=== PATIENT | female | born 1930 | race Caucasian/White ===

== ENCOUNTER → 2017-02-14 | Outpatient (CLI) | payer MEDICARE ==
--- NOTE | 2017-02-15 11:20 | ECHOF ---
Referral Reason:R06.02 Shortness of breath MEASUREMENTS -------- HEIGHT: 154.9 cm WEIGHT: 59.0 kg BP: 194/81 RVIDd: 3.8 cm (< 3.3) IVSd: 1.4 cm (0.6 - 1.1) LVIDd: 4.0 cm (3.9 - 5.3) LVPWd: 1.4 cm (0.6 - 1.1) IVSs: 2.1 cm LVIDs: 3.1 cm LVPWs: 2.2 cm LAESV Index (A-L): 24.44 ml/m Ao Diam: 3.4 cm (2.0 - 3.7) AV Cusp: 1.2 cm (1.5 - 2.6) LA Diam: 3.0 cm (2.7 - 3.8) MV EXCURSION: 13.883 mm (> 18.000) MV EF SLOPE: 75 mm/s (70 - 150) EPSS: 1.1 cm MV E Pierre: 0.61 m/s MV DecT: 234 ms MV A Pierre: 1.21 m/s MV E/A Ratio: 0.50 AR PHT: 1180 ms RAP: 5.00 mmHg RVSP: 43.00 mmHg FINDINGS -------- Resting bradycardia (HR<60bpm). This was a technically adequate study. There is moderate concentric left ventricular hypertrophy. Overall left ventricular systolic function is mildly impaired with, an EF between 45 - 50 %. The diastolic filling pattern is normal for the age of the patient 15.39. The right ventricle is normal in size and function. Normal LA size by volume 22+/-6 ml/m2. RA appears enlarged. Aortic valve is trileaflet and is mildly thickened. Trace to mild aortic regurgitation. The aortic pressure half-time by doppler is 1180ms. There is no evidence of aortic stenosis. The mitral valve leaflets are mildly thickened. Moderate mitral annular calcification present. There is trace to mild mitral regurgitation. Mild tricuspid regurgitation present. There is mild pulmonary hypertension. The right ventricular systolic pressure, as measured by Doppler, is 43.00mmHg. The pulmonic valve was not well visualized. The aortic root size is normal. Normal inferior vena cava with normal inspiratory collapse consistent with estimated right atrial pressure of 5 mmHg. The pericardium is normal. There is no pericardial effusion. CONCLUSIONS -------- 1. Resting bradycardia (HR<60bpm). 2. The aortic pressure half-time by doppler is 1180ms. 3. The mitral valve leaflets are mildly thickened. 4. Moderate mitral annular calcification present. 5. There is trace to mild mitral regurgitation. 6. Mild tricuspid regurgitation present. 7. There is mild pulmonary hypertension. 8. The right ventricular systolic pressure, as measured by Doppler, is 43.00mmHg. 9. The pulmonic valve was not well visualized. 10. The aortic root size is normal. 11. There is no pericardial effusion. 12. This was a technically adequate study. 13. There is moderate concentric left ventricular hypertrophy. 14. Overall left ventricular systolic function is mildly impaired with, an EF between 45 - 50 %. 15. The diastolic filling pattern is normal for the age of the patient 15.39 16. Normal LA size by volume 22+/-6 ml/m2. 17. RA appears enlarged. 18. Aortic valve is trileaflet and is mildly thickened. 19. Trace to mild aortic regurgitation. FLOOD CONTROL ENGINEER: [place] RDCS
== END | disposition home or self-care (01) ==
LOC: RADECHMAIN 15:41
PROVIDERS: ATTEND Family Medicine
DX: I08.3 Combined rheumatic disorders of mitral, aortic and tricuspid valves (principal); I27.2 Other secondary pulmonary hypertension
CPT/HCPCS: 93306

== ENCOUNTER 2017-02-15 09:15 | Inpatient (IN) | payer MEDICARE ==
--- NOTE | 2017-02-15 09:42 | ED ---
General Adult HPI - General Source: patient, RN notes reviewed Mode of arrival: wheelchair Limitations: no limitations <Adrian Rosa - Last Filed: 02/15/17 13:37> <Mehdi Palacios - Last Filed: 02/15/17 13:53> - General Chief complaint: Recheck/Abnormal Lab/Rx Stated complaint: Hypertension Time Seen by Provider: 02/15/17 09:24 - History of Present Illness Initial comments: 86-year-old female presents emergency Department chief complaint of hypertension. Patient states that she's been having problems with her blood pressure last 2 years worse over the last few months. Patient states that her PCP Dr. Quintana has been changing her blood pressure medications regularly started find something that will work for her. She was on multiple blood pressure medications including 4 at one time. She states currently she takes atenolol and lisinopril. Patient has not taken her morning meds today. Patient denies any complaints denies headache, dizziness, blurred vision, nausea , vomiting, chest pain, shortness breath, palpitations. Patient states she had a bypass performed by Dr. Link approximately 10 years ago. Patient states she had a recent echo which showed no abnormalities. (Adrian Rosa) - Related Data Home Medications Medication Instructions Recorded Confirmed [place]-3 Acid Ethyl Esters [Lovaza] 1 gm PO DAILY 03/05/14 02/15/17 Aspirin [Adult Low Dose Aspirin EC] 81 mg PO HS 02/15/17 02/15/17 Atenolol [Tenormin] 50 mg PO HS 02/15/17 02/15/17 Budesonide/Formoterol Fumarate 2 puff INHALATION RT-BID 02/15/17 02/15/17 [Symbicort 160-4.5 Mcg Inhaler] Furosemide [Lasix] 40 mg PO DAILY 02/15/17 02/15/17 Ipratropium-Albuterol Nebulize 3 ml INHALATION RT-QID PRN 02/15/17 02/15/17 [Duoneb 0.5 mg-3 mg/3 ml Soln] Lisinopril 40 mg PO HS 02/15/17 02/15/17 Nitroglycerin Sl Tabs [Nitrostat] 0.4 mg SUBLINGUAL Q5M PRN 02/15/17 02/15/17 Allergies Allergy/AdvReac Type Severity Reaction Status Date / Time No Known Allergies Allergy Verified 03/05/14 18:48 Review of Systems ROS Other: All systems not noted in ROS Statement are negative. <Adrian Rosa - Last Filed: 02/15/17 13:37> ROS Other: All systems not noted in ROS Statement are negative. <Mehdi Palacios - Last Filed: 02/15/17 13:53> ROS Statement: Those systems with pertinent positive or pertinent negative responses have been documented in the HPI. 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 History of Any Multi-Drug Resistant Organisms: None Reported Past Surgical History: Cholecystectomy, Coronary Bypass/CABG, Hysterectomy Additional Past Surgical History / Comment(s): TRIPLE BYPASS Past Anesthesia/Blood Transfusion Reactions: Motion Sickness Past Psychological History: No Psychological Hx Reported Smoking Status: Former smoker Past Alcohol Use History: None Reported Past Drug Use History: None Reported <Adrian Rosa - Last Filed: 02/15/17 13:37> General Exam Limitations: no limitations General appearance: alert, in no apparent distress Head exam: Present: atraumatic, normocephalic, normal inspection Respiratory exam: Present: normal lung sounds bilaterally. Absent: respiratory distress, wheezes, rales, rhonchi, stridor Cardiovascular Exam: Present: regular rate, normal rhythm, normal heart sounds. Absent: systolic murmur, diastolic murmur, rubs, gallop, clicks GI/Abdominal exam: Present: soft, normal bowel sounds. Absent: distended, tenderness, guarding, rebound, rigid, bruit, pulsatile mass Neurological exam: Present: alert, oriented X3, CN II-XII intact, reflexes normal. Absent: motor sensory deficit Skin exam: Present: warm, dry, intact, normal color. Absent: rash <Adrian Rosa - Last Filed: 02/15/17 13:37> EKG Findings - EKG Comments: EKG Findings:: EKG performed at 13:01 normal sinus rhythm with a rate of 60. TN interval 182 QRS duration 92 QT/QTc 444/444 <Adrian Rosa - Last Filed: 02/15/17 13:37> Medical Decision Making - Lab Data Result diagrams: 02/15/17 13:11 <Adrian Rosa - Last Filed: 02/15/17 13:37> - Lab Data Result diagrams: 02/15/17 13:11 02/15/17 13:11 <Mehdi Palacios - Last Filed: 02/15/17 13:53> - Medical Decision Making Patient was reevaluated by myself, Dr. Palacios. Patient had continued hypertension despite 3 oral medications. IV hydralazine will be provided. Case discussed with Dr. Quintana, who will admit his patient. (Mehdi Palacios) - Lab Data Lab Results 02/15/17 02/15/17 Range/Units 13:11 13:11 WBC 7.0 (3.8-10.6) k/uL RBC 4.44 (3.80-5.40) m/uL Hgb 11.7 (11.4-16.0) gm/dL Hct 37.9 (34.0-46.0) % MCV 85.2 (80.0-100.0) fL MCH 26.4 (25.0-35.0) pg MCHC 31.0 (31.0-37.0) g/dL RDW 14.4 (11.5-15.5) % Plt Count 262 (150-450) k/uL Neutrophils % 65 % Lymphocytes % 24 % Monocytes % 5 % Eosinophils % 3 % Basophils % 1 % Neutrophils # 4.6 (1.3-7.7) k/uL Lymphocytes # 1.7 (1.0-4.8) k/uL Monocytes # 0.4 (0-1.0) k/uL Eosinophils # 0.2 (0-0.7) k/uL Basophils # 0.1 (0-0.2) k/uL Hypochromasia Moderate Sodium 139 (137-145) mmol/L Potassium 4.3 (3.5-5.1) mmol/L Chloride 103 (98-107) mmol/L Carbon Dioxide 27 (22-30) mmol/L Anion Gap 9 mmol/L BUN 24 H (7-17) mg/dL Creatinine 1.01 (0.52-1.04) mg/dL Est GFR (MDRD) Af Amer >60 (>60 ml/min/1.73 sqM) Est GFR (MDRD) Non-Af 52 (>60 ml/min/1.73 sqM) Glucose 151 H (74-99) mg/dL Calcium 9.0 (8.4-10.2) mg/dL Total Bilirubin 0.6 (0.2-1.3) mg/dL AST 18 (14-36) U/L ALT 21 (9-52) U/L Alkaline Phosphatase 54 (38-126) U/L Total Protein 7.2 (6.3-8.2) g/dL Albumin 3.3 L (3.5-5.0) g/dL Disposition <Adrian Rosa - Last Filed: 02/15/17 13:37> <Mehdi Palacios - Last Filed: 02/15/17 13:53> Clinical Impression: Hypertensive urgency Disposition: ADMITTED IP TO THIS HOSP Condition: Fair Referrals: Jose Quintana MD [Primary Care Provider] - 1-2 days
[2017-02-15] MEDS ORDERED: ATENOLOL 50 MG TAB PO STA (09:47)
[2017-02-15] MEDS ORDERED: LISINOPRIL 20 MG TAB PO STA ×2 (10:40→22:47)
[2017-02-15] MEDS ORDERED: amLODIPine 5 MG TAB PO STA (12:00)
[2017-02-15] MEDS ORDERED: hydrALAZINE HCL 20 MG/ML 1 ML VIAL IVP STA (12:54)
[2017-02-15 13:28] LABS: Basophils # (A) 0.1 k/uL (0-0.2); Basophils % (A) 1 %; CH 26.2; CHCM 30.8; Eosinophils # (A) 0.2 k/uL (0-0.7); Eosinophils % (A) 3 %; HCT 37.9 % (34.0-46.0); HDW 2.56; HGB 11.7 gm/dL (11.4-16.0); Hypochromasia Moderate; Luc # (Auto) 0.14; Luc % (Auto) 2; Lymphocytes # (A) 1.7 k/uL (1.0-4.8); Lymphocytes % (A) 24 %; MCH 26.4 pg (25.0-35.0); MCV 85.2 fL (80.0-100.0); Mean Platelet Volume 7.1; Monocytes # (A) 0.4 k/uL (0-1.0); Monocytes % (A) 5 %; Neutrophils # (A) 4.6 k/uL (1.3-7.7); Neutrophils % (A) 65 %; RBC 4.44 m/uL (3.80-5.40); RDW 14.4 % (11.5-15.5); WBC (Perox) 7.43
[2017-02-15] MEDS ORDERED: NALOXONE 0.4 MG/ML 1 ML VIAL IV PRN (13:38)
[2017-02-15] MEDS ORDERED: hydrALAZINE HCL 20 MG/ML 1 ML VIAL IVP PRN (13:40)
[2017-02-15] MEDS ORDERED: NITROGLYCERIN SL TABS 0.4 MG TAB SUBLINGUAL PRN (13:41)
[2017-02-15 13:42] LABS: ALT 21 U/L (9-52); AST 18 U/L (14-36); Alkaline Phosphatase 54 U/L (38-126); Anion Gap 9 mmol/L; Blood Urea Nitrogen 24 mg/dL (7-17); Carbon Dioxide 27 mmol/L (22-30); Chloride 103 mmol/L (98-107); Glucose 151 mg/dL (74-99); Non-African American GFR(MDRD) 52 (>60 ml/min/1.73 sqM); Potassium 4.3 mmol/L (3.5-5.1); Sodium 139 mmol/L (137-145); Total Bilirubin 0.6 mg/dL (0.2-1.3); Total Protein 7.2 g/dL (6.3-8.2)
[2017-02-15] MEDS ORDERED: ACETAMINOPHEN TAB 500 MG TAB PO STA (15:09)
[2017-02-15 17:36] VITALS: BMI 28.3
[2017-02-15] MEDS: IPRATROPIUM-ALBUTEROL 3 ML NEB INHALATION PRN (19:17)
[2017-02-15] MEDS: SYMBICORT 160-4.5 MCG INHALER INHALATION SCH (19:17)
[2017-02-15] MEDS: ASPIRIN 81 MG CHEW PO SCH (22:44)
[2017-02-16] MEDS: SYMBICORT 160-4.5 MCG INHALER INHALATION SCH ×2 (07:08→20:37)
[2017-02-16] MEDS: IPRATROPIUM-ALBUTEROL 3 ML NEB INHALATION PRN (07:18)
[2017-02-16] MEDS: ATENOLOL 50 MG TAB PO SCH (08:55)
[2017-02-16] MEDS: FUROSEMIDE 40 MG TAB PO SCH (08:55)
[2017-02-16] MEDS ORDERED: NON-FORMULARY DRUG (Omega-3 Acid Ethyl Esters [Lovaza] 1 GM) PO SCH (09:00)
--- NOTE | 2017-02-16 16:58 | HP ---
DATE OF ADMISSION: 02/15/2017 CHIEF COMPLAINT: Shortness of breath and chest pressure. HISTORY OF PRESENT ILLNESS: This is another admission for this 86-year-old white female. She has been in fairly good health until recently, when she came into the office and was complaining of shortness of breath, particularly with exertion. She also has a history of prior hypertension, COPD. When she came to the emergency room, her blood pressure is 235 systolically. She had no focal neurologic deficits, change in vision or hearing, palpitations, lightheadedness, orthopnea, PND, etc. When she was last seen in the office on February 01, her blood pressure was 106/70 with a pulse of 50. REVIEW OF SYSTEMS: She has had no diplopia, syncope, focal neurologic deficits, cough, hemoptysis, murmurs, rheumatic fever, abdominal pain, nausea, vomiting, hematemesis, melena, hematochezia, colitis, diverticulosis, diverticulitis, hemorrhoids, jaundice, hepatitis, cirrhosis, hematuria, frequency, urgency, arthralgias, polys, diabetes, etc. Past medical history, family history, and personal and social histories reveal she is NOT ALLERGIC TO ANY MEDICATION. She is currently on: 1. Lasix 40 mg once a day. 2. Lisinopril 40 mg once a day. 3. Symbicort 160/4.5 two puffs b.i.d. 4. Aspirin 81 mg. 5. Atenolol 100 mg once a day. She no longer smokes, but she used to. She has had hysterectomy and cholecystectomy and she had triple-vessel CABG in 2005. PHYSICAL EXAMINATION: Blood pressure is 182/79 with a pulse of 81, respirations of 35, and she is afebrile. In general she appeared to be well developed, well nourished, in no acute distress. Skin color is normal. Skin is warm and dry. Lymph nodes are not enlarged. Head, ears, eyes, nose, mouth and throat were normal. Pupils equal, round and reactive. Fundi are normal. Neck veins are not distended. Carotids are normal. Neck is supple. Chest is clear. There are no rales or rhonchi. Cardiac exam demonstrates sinus rhythm with no murmurs or extra sounds. Abdomen is soft, nontender, without visceromegaly or masses. Bowel sounds are present. Extremities are normal. Neurologically she is intact. IMPRESSION: 1. Hypertension. 2. Congestive heart failure. 3. Chronic obstructive pulmonary disease. PLAN: 1. Bed rest. 2. IV fluids. 3. Control hypertension. 4. Serial EKGs and enzymes.
--- NOTE | 2017-02-16 17:02 | PN ---
DATE OF SERVICE: 02/16/2017 CHIEF COMPLAINT: Malignant hypertension. HISTORY OF PRESENT ILLNESS: This lady is doing a little bit better. Blood pressure has come down to 149/68. REVIEW OF SYSTEMS: She has had no chest pain, shortness of breath, palpitations, etc. PHYSICAL EXAM: CHEST: Clear. CARDIAC: Normal. ABDOMEN: Soft, nontender. IMPRESSION: 1. Malignant hypertension. 2. Congestive heart failure. 3. History of coronary artery disease. PLAN: 1. Increase activity. 2. Await further cardiac enzymes. 3. Await results of her echocardiogram.
[2017-02-16] MEDS: ASPIRIN 81 MG CHEW PO SCH (20:45)
[2017-02-16] MEDS: LISINOPRIL 20 MG TAB PO SCH (20:45)
[2017-02-17] MEDS: FUROSEMIDE 40 MG TAB PO SCH (08:18)
[2017-02-17] MEDS: ATENOLOL 50 MG TAB PO SCH (08:18)
--- NOTE | 2017-02-17 08:46 | CDI ---
In responding to this query, please exercise your independent professional judgment. The [facility] Coding Staff and Clinical Documentation Specialists appreciate your assistance in clarifying documentation, maintaining compliance with coding guidelines, accurately documenting patients condition and capturing severity of illness. The fact that a question is asked does not imply that any particular answer is desired or expected. Communication forms are a method of clarifying documentation and are not made part of the Legal Health Record. Thank you in advance for your clarification. Last Revision, October 2016 [facility] [place] [address] [place] [id number] Documentation Clarification Form Date: 02/17/2017 8:29:00 AM From: Talita Bae RN, CDS Admit Date: 02/15/2017 1:53:00 PM Patient Name: Shey Farfan Visit Number: [id number] Dr. Jose Quintana, 86 yo female admitted for Hypertension. Reported Systolic BP 235 on arrival to ED. The patient has been seen in office for complaints of shortness of breath on exertion. Hypertension and Congestive Heart Failure documented in H&P History/Risk Factors: HTN, CAD/CABG, [place] 2006, COPD, Clinical Indicators: BNP 4390, ECHO from 02/14/17: Moderate Left Ventricular Hypertrophy, EF 45-50% Treatment: Home dose Atenolol 50mg daily, Home dose Lasix 40 mg daily, In your professional opinion, can you please clarify the acuity and type of CHF if known? Systolic Heart Failure: Acute Compensated Chronic Acute on Chronic Diastolic Heart Failure: Acute Compensated Chronic Acute on Chronic Systolic & Diastolic Heart Failure: Acute Compensated Chronic Acute on Chronic Unable to determine Other, please specify Please document in your progress notes and discharge summary in order to capture severity of illness and risk of mortality. Include clinical findings that support your diagnosis. FYI: Press F11 to launch patient chart. Place X here if this finding has no clinical significance, is not applicable or if you are not able to provide any additional documentation. MTDD
[2017-02-17] MEDS: SYMBICORT 160-4.5 MCG INHALER INHALATION SCH ×2 (08:56→19:36)
[2017-02-17] MEDS: IPRATROPIUM-ALBUTEROL 3 ML NEB INHALATION PRN ×2 (08:56→19:36)
[2017-02-17] MEDS: hydrALAZINE HCL 50 MG TAB PO SCH ×2 (15:24→23:54)
[2017-02-17] MEDS: ASPIRIN 81 MG CHEW PO SCH (22:24)
[2017-02-17] MEDS: LISINOPRIL 20 MG TAB PO SCH (23:54)
[2017-02-18 07:49] VITALS: BP 129/71; PULSE 77; RESP 16; TEMP 97.1
[2017-02-18] MEDS: SYMBICORT 160-4.5 MCG INHALER INHALATION SCH (08:29)
--- NOTE | 2017-02-18 09:19 | P.DS ---
Providers Date of admission: 02/15/17 13:53 Expected date of discharge: 02/18/17 Attending physician: Jose Quintana Primary care physician: Jose Quintana [facility] Course: 86-year-old female presented to the emergency room with a chief complaint of noting her blood pressure to be elevated. Patient stated that over the last several years she did been having her blood pressure medication adjusted. Her primary care providers Dr. Quintana who she sees for blood pressure management. Patient denied any dizziness lightheadedness blurred vision no nausea no vomiting no chest pain no shortness of breath no heart palpitation. Patient does have a history of known coronary artery disease with prior coronary artery bypass grafting done 10 years prior. blood pressure emergency room 184/77. Subsequently the patient was admitted to the services of the attending. Patient had an echocardiogram done February 14. Left ventricular systolic function mildly impaired with an EF between 45 and 50%. There is moderate left ventricular hypertrophy. Patient's blood pressure was monitored after adding hydralazine 50 mg 3 times a day. Patient was felt to be clinically stable and appropriate to proceed with a discharge to home at the time of discharge the blood pressure was 151/77 heart rate in the 70s to 60s. Impression Present on admission hypertension urgency Compensated chronic diastolic heart failure per echocardiogram left ventricular hypertrophy moderate EF 45-50% no evidence of an exacerbation Hypertension Chronic COPD with no evidence of an exacerbation Coronary artery disease prior coronary artery bypass grafting 10 years prior The above dictated assessment and findings were discussed with Dr. Quintana Impression and the plan of care have been dictated as directed. Didi Rodríguez nurse practitioner acting as a scribe for Dr. Quintana Patient Condition at Discharge: Fair Plan - Discharge Summary New Discharge Prescriptions: New hydrALAZINE HCL [Apresoline] 50 mg PO TID #90 tab Continue [place]-3 Acid Ethyl Esters [Lovaza] 1 gm PO DAILY Budesonide/Formoterol Fumarate [Symbicort 160-4.5 Mcg Inhaler] 2 puff INHALATION RT-BID Nitroglycerin Sl Tabs [Nitrostat] 0.4 mg SUBLINGUAL Q5M PRN PRN Reason: Chest Pain Lisinopril 40 mg PO HS Ipratropium-Albuterol Nebulize [Duoneb 0.5 mg-3 mg/3 ml Soln] 3 ml INHALATION RT-QID PRN PRN Reason: Shortness Of Breath Furosemide [Lasix] 40 mg PO DAILY Atenolol [Tenormin] 50 mg PO HS Aspirin [Adult Low Dose Aspirin EC] 81 mg PO HS Discharge Medication List [place]-3 Acid Ethyl Esters [Lovaza] 1 gm PO DAILY 03/05/14 [History] Aspirin [Adult Low Dose Aspirin EC] 81 mg PO HS 02/15/17 [History] Atenolol [Tenormin] 50 mg PO HS 02/15/17 [History] Budesonide/Formoterol Fumarate [Symbicort 160-4.5 Mcg Inhaler] 2 puff INHALATION RT-BID 02/15/17 [History] Furosemide [Lasix] 40 mg PO DAILY 02/15/17 [History] Ipratropium-Albuterol Nebulize [Duoneb 0.5 mg-3 mg/3 ml Soln] 3 ml INHALATION RT -QID PRN 02/15/17 [History] Lisinopril 40 mg PO HS 02/15/17 [History] Nitroglycerin Sl Tabs [Nitrostat] 0.4 mg SUBLINGUAL Q5M PRN 02/15/17 [History] hydrALAZINE HCL [Apresoline] 50 mg PO TID #90 tab 02/18/17 [Rx] Follow up Appointment(s)/Referral(s): Jose Quintana MD [Primary Care Provider] - 02/19/17 11:50 am Patient Instructions/Handouts: Hypertension (DC) Discharge Disposition: HOME SELF-CARE
[2017-02-18] MEDS: ATENOLOL 50 MG TAB PO SCH (09:56)
[2017-02-18] MEDS: FUROSEMIDE 40 MG TAB PO SCH (09:56)
[2017-02-18] MEDS: hydrALAZINE HCL 50 MG TAB PO SCH (09:56)
--- NOTE | 2017-02-18 15:59 | PN ---
DATE OF SERVICE: 02/17/2017 CHIEF COMPLAINT: Shortness of breath and malignant hypertension. HISTORY OF PRESENT ILLNESS: This lady is doing fairly well, but her blood pressure is still elevated. She is not having any chest pain, shortness of breath, palpitations, etc. PHYSICAL EXAMINATION: Color is good and chest is clear. Cardiac exam is normal, in sinus rhythm. ABDOMEN: Soft, nontender. IMPRESSION: 1. Malignant hypertension. 2. Congestive heart failure. PLAN: Add Apresoline to see if her blood pressure corrects. Probably home in a day or so once it does drop into the normal range.
--- NOTE | 2017-02-18 16:01 | PN ---
DATE OF SERVICE: 02/18/2017 CHIEF COMPLAINT: Hypertension. HISTORY OF PRESENT ILLNESS: This lady is doing fairly well and will probably go home today. Blood pressure has dropped into a normal range. PHYSICAL EXAM: CHEST: Clear. Cardiac exam demonstrates sinus rhythm. There are no murmurs or extra sounds. ABDOMEN: Soft, nontender. EXTREMITIES: Normal. IMPRESSION: 1. Malignant hypertension. 2. Congestive heart failure. 3. History of coronary artery disease and coronary artery bypass graft. PLAN: Home later today. This will be arranged by the nurse practitioner.
== END 2017-02-18 10:35 | disposition home or self-care (01) | DRG 305 ==
LOC: EC 09:15 → 6SEL 13:53 → 4MS4W 02-17 10:23
PROVIDERS: ADMIT Family Medicine; ATTEND Family Medicine
DX: I16.0 Hypertensive urgency (principal); I50.32 Chronic diastolic (congestive) heart failure; J44.9 Chronic obstructive pulmonary disease, unspecified; Z95.1 Presence of aortocoronary bypass graft; I11.0 Hypertensive heart disease with heart failure; I72.9 Aneurysm of unspecified site; I25.10 Atherosclerotic heart disease of native coronary artery without angina pectoris; M10.9 Gout, unspecified; Z79.51 Long term (current) use of inhaled steroids; Z79.82 Long term (current) use of aspirin; Z79.899 Other long term (current) drug therapy; Z87.891 Personal history of nicotine dependence; I25.2 Old myocardial infarction; Z88.2 Allergy status to sulfonamides; Z88.8 Allergy status to other drugs, medicaments and biological substances; Z90.710 Acquired absence of both cervix and uterus; Z90.49 Acquired absence of other specified parts of digestive tract
CPT/HCPCS: 36415; 80053; 83880; 84484; 85025; 93005; 93306; 94640; 96374; 99284

== ENCOUNTER 2017-02-21 08:25 | Inpatient (IN) | payer MEDICARE ==
--- NOTE | 2017-02-21 08:32 | ED ---
General Adult HPI - General Stated complaint: chest pain Time Seen by Provider: 02/21/17 08:27 Source: RN notes reviewed, old records reviewed - History of Present Illness Initial comments: This is an 86-year-old female ER for evaluation patient is presenting for evaluation of chest pain, chest pain and not feeling well shortness of breath occasional. But mostly chest pain. Patient does admit anxiety, does have significant medical history. Patient was recently admitted to the hospital for similar issues. Patient's prior hospital admission blood pressure was elevated , currently blood pressure is lower than normal. Patient's stay with son states that she's been acting appropriately eating appropriately and staying active. - Related Data Home Medications Medication Instructions Recorded Confirmed [place]-3 Acid Ethyl Esters [Lovaza] 1 gm PO DAILY 03/05/14 02/21/17 Aspirin [Adult Low Dose Aspirin EC] 81 mg PO HS 02/15/17 02/21/17 Atenolol [Tenormin] 50 mg PO HS 02/15/17 02/21/17 Budesonide/Formoterol Fumarate 2 puff INHALATION RT-BID 02/15/17 02/21/17 [Symbicort 160-4.5 Mcg Inhaler] Furosemide [Lasix] 40 mg PO DAILY 02/15/17 02/21/17 Ipratropium-Albuterol Nebulize 3 ml INHALATION RT-QID PRN 02/15/17 02/21/17 [Duoneb 0.5 mg-3 mg/3 ml Soln] Lisinopril 40 mg PO HS 02/15/17 02/21/17 Nitroglycerin Sl Tabs [Nitrostat] 0.4 mg SUBLINGUAL Q5M PRN 02/15/17 02/21/17 Previous Rx's Medication Instructions Recorded hydrALAZINE HCL [Apresoline] 50 mg PO TID #90 tab 02/18/17 Allergies Allergy/AdvReac Type Severity Reaction Status Date / Time oxybutynin Allergy SEE Verified 02/21/17 09:48 COMMENTS sulfamethoxazole Allergy SEE Verified 02/21/17 09:48 [From Bactrim] COMMENTS trimethoprim [From Bactrim] Allergy SEE Verified 02/21/17 09:48 COMMENTS Review of Systems ROS Statement: Those systems with pertinent positive or pertinent negative responses have been documented in the HPI. ROS Other: All systems not noted in ROS Statement are negative. 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 History of Any Multi-Drug Resistant Organisms: None Reported Past Surgical History: Cholecystectomy, Coronary Bypass/CABG, Hysterectomy Additional Past Surgical History / Comment(s): TRIPLE BYPASS Past Anesthesia/Blood Transfusion Reactions: Motion Sickness Past Psychological History: No Psychological Hx Reported Smoking Status: Former smoker General Exam General appearance: alert, in no apparent distress, anxious Head exam: Present: atraumatic, normocephalic, normal inspection Eye exam: Present: normal appearance, PERRL, EOMI. Absent: scleral icterus, conjunctival injection, periorbital swelling ENT exam: Present: normal exam, mucous membranes moist Neck exam: Present: normal inspection. Absent: tenderness, meningismus, lymphadenopathy Respiratory exam: Present: normal lung sounds bilaterally. Absent: respiratory distress, wheezes, rales, rhonchi, stridor Cardiovascular Exam: Present: regular rate, normal rhythm, normal heart sounds. Absent: systolic murmur, diastolic murmur, rubs, gallop, clicks GI/Abdominal exam: Present: soft, normal bowel sounds. Absent: distended, tenderness, guarding, rebound, rigid Extremities exam: Present: normal inspection, full ROM, normal capillary refill. Absent: tenderness, pedal edema, joint swelling, calf tenderness Back exam: Present: normal inspection Neurological exam: Present: alert, oriented X3, CN II-XII intact Psychiatric exam: Present: normal affect, normal mood Skin exam: Present: warm, dry, intact, normal color. Absent: rash Course Vital Signs 02/21/17 02/21/17 02/21/17 08:33 09:00 09:57 Temperature 97.1 F L 97.0 F L Pulse Rate 101 H 89 94 Respiratory 18 19 18 Rate Blood Pressure 133/63 125/59 137/62 O2 Sat by Pulse 93 L 96 97 Oximetry - Reevaluation(s) Reevaluation #1: 02/21/17 10:54 Patient still complains of episodic chest pain, repeat EKGs are negative EKG Findings - EKG Comments: EKG Findings:: EKG shows normal sinus rate 100, MI 160, QRS 100, QTC 497. Repeat. EKG shows normal sinus rhythm rate of 92, MI 164, QRS 90, QTC 492 Medical Decision Making - Medical Decision Making 86. ER for evaluation of chest pain shortness of breath and labile blood pressure, patient denies shortness of breath no fevers. Patient be admitted for cardiac observation, serial troponins and cardiac evaluation - Lab Data Result diagrams: 02/21/17 08:39 02/21/17 08:39 Lab Results 02/21/17 02/21/17 02/21/17 Range/Units 08:39 08:39 08:39 WBC 7.9 (3.8-10.6) k/uL RBC 4.29 (3.80-5.40) m/uL Hgb 11.2 L (11.4-16.0) gm/dL Hct 37.2 (34.0-46.0) % MCV 86.7 (80.0-100.0) fL MCH 26.1 (25.0-35.0) pg MCHC 30.1 L (31.0-37.0) g/dL RDW 14.6 (11.5-15.5) % Plt Count 270 (150-450) k/uL Neutrophils % 63 % Lymphocytes % 23 % Monocytes % 6 % Eosinophils % 5 % Basophils % 1 % Neutrophils # 5.0 (1.3-7.7) k/uL Lymphocytes # 1.9 (1.0-4.8) k/uL Monocytes # 0.4 (0-1.0) k/uL Eosinophils # 0.4 (0-0.7) k/uL Basophils # 0.1 (0-0.2) k/uL Hypochromasia Marked PT (9.0-12.0) sec INR (<1.1) APTT (22.0-30.0) sec Sodium 137 (137-145) mmol/L Potassium 4.3 (3.5-5.1) mmol/L Chloride 104 (98-107) mmol/L Carbon Dioxide 25 (22-30) mmol/L Anion Gap 8 mmol/L BUN 37 H (7-17) mg/dL Creatinine 1.40 H (0.52-1.04) mg/dL Est GFR (MDRD) Af Amer 43 (>60 ml/min/1.73 sqM) Est GFR (MDRD) Non-Af 36 (>60 ml/min/1.73 sqM) Glucose 157 H (74-99) mg/dL Calcium 8.6 (8.4-10.2) mg/dL Magnesium 1.9 (1.6-2.3) mg/dL Total Bilirubin 0.7 (0.2-1.3) mg/dL AST 19 (14-36) U/L ALT 21 (9-52) U/L Alkaline Phosphatase 59 (38-126) U/L Total Creatine Kinase 45 (30-135) U/L CK-MB (CK-2) 1.3 (0.0-2.4) ng/mL CK-MB (CK-2) Rel Index 2.9 Troponin I 0.024 (0.000-0.034) ng/mL Total Protein 7.0 (6.3-8.2) g/dL Albumin 3.3 L (3.5-5.0) g/dL Lipase 178 (23-300) U/L 02/21/17 Range/Units 08:39 WBC (3.8-10.6) k/uL RBC (3.80-5.40) m/uL Hgb (11.4-16.0) gm/dL Hct (34.0-46.0) % MCV (80.0-100.0) fL MCH (25.0-35.0) pg MCHC (31.0-37.0) g/dL RDW (11.5-15.5) % Plt Count (150-450) k/uL Neutrophils % % Lymphocytes % % Monocytes % % Eosinophils % % Basophils % % Neutrophils # (1.3-7.7) k/uL Lymphocytes # (1.0-4.8) k/uL Monocytes # (0-1.0) k/uL Eosinophils # (0-0.7) k/uL Basophils # (0-0.2) k/uL Hypochromasia PT 10.8 (9.0-12.0) sec INR 1.1 (<1.1) APTT 20.3 L (22.0-30.0) sec Sodium (137-145) mmol/L Potassium (3.5-5.1) mmol/L Chloride (98-107) mmol/L Carbon Dioxide (22-30) mmol/L Anion Gap mmol/L BUN (7-17) mg/dL Creatinine (0.52-1.04) mg/dL Est GFR (MDRD) Af Amer (>60 ml/min/1.73 sqM) Est GFR (MDRD) Non-Af (>60 ml/min/1.73 sqM) Glucose (74-99) mg/dL Calcium (8.4-10.2) mg/dL Magnesium (1.6-2.3) mg/dL Total Bilirubin (0.2-1.3) mg/dL AST (14-36) U/L ALT (9-52) U/L Alkaline Phosphatase (38-126) U/L Total Creatine Kinase (30-135) U/L CK-MB (CK-2) (0.0-2.4) ng/mL CK-MB (CK-2) Rel Index Troponin I (0.000-0.034) ng/mL Total Protein (6.3-8.2) g/dL Albumin (3.5-5.0) g/dL Lipase (23-300) U/L - Radiology Data Radiology results: report reviewed (Chest x-ray is negative for acute disease), image reviewed Critical Care Time Critical Care Time: Yes Total Critical Care Time: 31 Disposition Clinical Impression: Unstable angina pectoris, Chest pain Disposition: ADMITTED IP TO THIS [facility] Condition: Undetermined Referrals: Jose Quintana MD [Primary Care Provider] - 1-2 days
[2017-02-21 08:54] LABS: Basophils # (A) 0.1 k/uL (0-0.2); Basophils % (A) 1 %; CH 25.7; CHCM 29.8; Eosinophils # (A) 0.4 k/uL (0-0.7); Eosinophils % (A) 5 %; HCT 37.2 % (34.0-46.0); HDW 2.38; HGB 11.2 gm/dL (11.4-16.0); Hypochromasia Marked; Luc # (Auto) 0.23; Luc % (Auto) 3; Lymphocytes # (A) 1.9 k/uL (1.0-4.8); Lymphocytes % (A) 23 %; MCH 26.1 pg (25.0-35.0); MCHC 30.1 g/dL (31.0-37.0); MCV 86.7 fL (80.0-100.0); Mean Platelet Volume 7.6; Monocytes # (A) 0.4 k/uL (0-1.0); Monocytes % (A) 6 %; Neutrophils % (A) 63 %; RBC 4.29 m/uL (3.80-5.40); RDW 14.6 % (11.5-15.5); WBC 7.9 k/uL (3.8-10.6); WBC (Perox) 8.45
[2017-02-21 09:08] LABS: INR 1.1 (<1.1); Prothrombin Time 10.8 sec (9.0-12.0)
[2017-02-21 09:19] LABS: Calcium 8.6 mg/dL (8.4-10.2); Magnesium 1.9 mg/dL (1.6-2.3); Potassium 4.3 mmol/L (3.5-5.1); Total Bilirubin 0.7 mg/dL (0.2-1.3)
--- NOTE | 2017-02-21 09:22 | XR ---
EXAMINATION TYPE: XR chest 2V DATE OF EXAM: 02/21/2017 COMPARISON: 03/05/2014 HISTORY: 86-year-old female with chest pain and shortness of breath TECHNIQUE: Frontal and lateral views FINDINGS: Median sternotomy wires are present with post-CABG clips in the mediastinum. Retained epicardial pace r leads. The heart is borderline enlarged, similar to prior. Mild hyperinflation. Stable calcified gr anuloma at the right base. Some chronic strandy densities at the peripheral left mid to lower lung li yun scarring or atelectasis. No new area of consolidation or pleural effusion. IMPRESSION: 1. Chronic changes, possible underlying COPD. Clinically correlate. 2. Some strandy scarring or atelectasis at the peripheral left mid to lower lung and prior granulomat ous disease. No acute process seen.
[2017-02-21 09:28] LABS: Partial Thromboplastin Time 20.3 sec (22.0-30.0)
[2017-02-21 09:34] LABS: Creatine Kinase MB 1.3 ng/mL (0.0-2.4); Troponin I 0.024 ng/mL (0.000-0.034)
[2017-02-21] MEDS ORDERED: ASPIRIN 81 MG CHEW PO STA (10:52)
[2017-02-21] MEDS ORDERED: HEPARIN SODIUM,PORCINE 5,000 UNIT/ML 1 ML VIAL IV PRN (10:52)
[2017-02-21] MEDS ORDERED: HEPARIN SODIUM,PORCINE 5,000 UNIT/ML 1 ML VIAL IV ONE (10:52)
[2017-02-21] MEDS: HEPARIN SODIUM,PORCINE/D5W PMX 25,000 UNIT in DEXTROSE/WATER 1 500ML.BAG IV SCH (11:21)
[2017-02-21] MEDS: NITROGLYCERIN SL TABS 0.4 MG TAB SUBLINGUAL PRN ×2 (12:11→12:53)
--- NOTE | 2017-02-21 12:24 | P.CRDCN ---
History of Present Illness Consult date: 02/21/17 Requesting physician: Jose Quintana Consult reason: chest pain Chief complaint: Chest pain History of present illness: This is an 86-year-old female with history of hypertension, hyperlipidemia, coronary artery disease with prior bypass surgery approximately 10 years ago, prior history of smoking, who presents to the hospital with symptoms of midsternal chest pressure and heaviness which according to the patient started this morning. Patient did have a recent admission to the hospital last week, she states that she was having symptoms of exertional shortness of breath at that time and her blood pressure in her primary care doctor's office was noted to be significantly elevated. She was admitted to the hospital for elevated blood pressure, she states that she was not having any chest discomfort at that time. Symptoms of chest discomfort just started this morning. EMS was called, blood pressure on EMS arrival 140/70 with a heart rate of 118, 95% saturation on room air at that time. The patient had taken aspirin and sublingual nitro at home with no relief. She received 2 more nitroglycerin in the EMS and had some relief of symptoms. According to EMS documentation patient was in atrial fibrillation with rapid ventricular response. Patient also had a subsequent episode of nausea and was given a dose of Zofran prior to admission here. EKG performed on arrival here showed a normal sinus rhythm with lateral ST depression and minimal ST elevation in the inferior leads and an aVR. Chest x-ray reveals chronic changes, possible underlying COPD. Some strandy scarring or atelectasis at the peripheral left mid to lower lung base noted. Hemoglobin 11.2, platelet count 270, potassium 4.3, BUN 37, creatinine 1.4, creatinine 1 week ago 1.0. mag1.9, Troponin 0.024. Troponin performed on the of this month 0.012. Blood pressure on arrival here 133/60 with a heart rate in the 100s 93% on 2 L. Pressure this morning 164/74 with a heart rate in the 90s, temperature 97.5 she is 96% on 2 L of oxygen. At the time of my examination this morning, patient complains of a recurrent left sided chest pressure and heaviness. She also states that she is becoming more short of breath. 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 History of Any Multi-Drug Resistant Organisms: None Reported Past Surgical History: Cholecystectomy, Coronary Bypass/CABG, Hysterectomy Additional Past Surgical History / Comment(s): TRIPLE BYPASS Past Anesthesia/Blood Transfusion Reactions: Motion Sickness Past Psychological History: No Psychological Hx Reported Smoking Status: Former smoker Medications and Allergies Home Medications Medication Instructions Recorded Confirmed Type [place]-3 Acid Ethyl Esters [Lovaza] 1 gm PO DAILY 03/05/14 02/21/17 History Aspirin [Adult Low Dose Aspirin EC] 81 mg PO HS 02/15/17 02/21/17 History Atenolol [Tenormin] 50 mg PO HS 02/15/17 02/21/17 History Budesonide/Formoterol Fumarate 2 puff INHALATION RT-BID 02/15/17 02/21/17 History [Symbicort 160-4.5 Mcg Inhaler] Furosemide [Lasix] 40 mg PO DAILY 02/15/17 02/21/17 History Ipratropium-Albuterol Nebulize 3 ml INHALATION RT-QID PRN 02/15/17 02/21/17 History [Duoneb 0.5 mg-3 mg/3 ml Soln] Lisinopril 40 mg PO HS 02/15/17 02/21/17 History Nitroglycerin Sl Tabs [Nitrostat] 0.4 mg SUBLINGUAL Q5M PRN 02/15/17 02/21/17 History Allergies Allergy/AdvReac Type Severity Reaction Status Date / Time oxybutynin Allergy SEE Verified 02/21/17 09:48 COMMENTS sulfamethoxazole Allergy SEE Verified 02/21/17 09:48 [From Bactrim] COMMENTS trimethoprim [From Bactrim] Allergy SEE Verified 02/21/17 09:48 COMMENTS Physical Exam Vitals: Vital Signs Temp Pulse Pulse Resp BP BP Pulse Ox 02/21/17 11:47 97.5 F L 97 18 164/74 96 02/21/17 11:24 97.1 F L 89 18 125/60 96 02/21/17 09:57 94 18 137/62 97 02/21/17 09:00 97.0 F L 89 19 125/59 96 02/21/17 08:33 97.1 F L 101 H 18 133/63 93 L Intake and Output 02/20/17 02/21/17 02/21/17 22:59 06:59 14:59 Other: Weight 63.8 kg Patient Weight 02/22/17 06:59 Weight 63.8 kg PHYSICAL EXAMINATION: HEENT: Head is atraumatic, normocephalic. Pupils equal, round. Neck is supple. There is elevated jugular venous pressure. HEART EXAMINATION: Heart S1 and S2, tachycardic. CHEST EXAMINATION: Lungs revealed decreased air exchange with mild expiratory wheezes ABDOMEN: Soft, nontender. Bowel sounds are heard. No organomegaly noted. EXTREMITIES: 1+ peripheral pulses with no evidence of peripheral edema and no calf tenderness noted. NEUROLOGIC patient is awake, alert and oriented -3. . Results 02/21/17 08:39 02/21/17 08:39 Cardiac Enzymes 02/21/17 02/21/17 Range/Units 08:39 08:39 AST 19 (14-36) U/L CK-MB (CK-2) 1.3 (0.0-2.4) ng/mL Troponin I 0.024 (0.000-0.034) ng/mL Coagulation 02/21/17 Range/Units 08:39 PT 10.8 (9.0-12.0) sec APTT 20.3 L (22.0-30.0) sec CBC 02/21/17 Range/Units 08:39 WBC 7.9 (3.8-10.6) k/uL RBC 4.29 (3.80-5.40) m/uL Hgb 11.2 L (11.4-16.0) gm/dL Hct 37.2 (34.0-46.0) % Plt Count 270 (150-450) k/uL Comprehensive Metabolic Panel 02/21/17 Range/Units 08:39 Sodium 137 (137-145) mmol/L Potassium 4.3 (3.5-5.1) mmol/L Chloride 104 (98-107) mmol/L Carbon Dioxide 25 (22-30) mmol/L BUN 37 H (7-17) mg/dL Creatinine 1.40 H (0.52-1.04) mg/dL Glucose 157 H (74-99) mg/dL Calcium 8.6 (8.4-10.2) mg/dL AST 19 (14-36) U/L ALT 21 (9-52) U/L Alkaline Phosphatase 59 (38-126) U/L Total Protein 7.0 (6.3-8.2) g/dL Albumin 3.3 L (3.5-5.0) g/dL Current Medications Generic Name Dose Route Start Last Admin Trade Name Jaysonq PRN Reason Stop Dose Admin Aspirin 325 mg 02/22/17 09:00 Aspirin PO DAILY SUJATA Heparin Sodium (Porcine) 0 unit 02/21/17 10:52 Heparin IV Q6HR PRN Low PTT Protocol Heparin Sodium/Dextrose 25,000 500 mls @ 14.15 mls/hr 02/21/17 11:00 11:21 unit/ IV Solution IV 12 units/kg/hr .Q24H SUJATA 14.15 mls/hr Protocol Administration 12 UNITS/KG/HR Nitroglycerin 0.4 mg 02/21/17 10:52 Nitrostat SUBLINGUAL Q5M PRN Chest Pain Intake and Output 02/20/17 02/21/17 02/21/17 22:59 06:59 14:59 Other: Weight 63.8 kg Patient Weight 02/22/17 06:59 Weight 63.8 kg 02/21/17 08:39 02/21/17 08:39 EKG Interpretations (text) EKG shows normal sinus rhythm with lateral ST depression and mild ST changes in the inferior leads as well as aVR. Assessment and Plan Plan: Assessment and plan #1 chest pain suggestive of acute coronary syndrome, initial troponin 0.024. EKG shows normal sinus rhythm with lateral ST depression and ST changes in the inferior leads as well as aVR. #2 known history of coronary artery disease with prior bypass surgery 10 years ago #3 hypertension #4 hyperlipidemia #5 prior history of smoking #6 mild renal insufficiency Plan Patient did just have an echocardiogram with Doppler study performed last week which revealed an ejection fraction of 45-50%. We will have a repeat echo performed to assess LV function in the setting of abnormal troponin. Repeat EKG. We will also hydrate the patient at 75 mL per hour. Resume atenolol, hold Lasix, resume hydralazine. Patient has been advised that she may need to undergo cardiac catheterization for more definitive diagnosis, the risks and benefits were explained to her in detail. We will obtain a record of patient' s prior bypass surgery. Continue IV heparin. Obtained to further troponin values. Put the patient on Lipitor 80 mg now and daily. Further recommendations to follow. . DNP note has been reviewed, I agree with a documented findings and plan of care. Patient was seen and examined.
[2017-02-21] MEDS: hydrALAZINE HCL 50 MG TAB PO SCH ×2 (13:27→18:38)
[2017-02-21] MEDS: MORPHINE SULFATE 2 MG/ML SYRINGE IVP PRN (14:22)
[2017-02-21] MEDS ORDERED: NITROGLYCERIN SL TABS 0.4 MG TAB SUBLINGUAL PRN ×2 (15:37→16:57)
[2017-02-21] MEDS ORDERED: IPRATROPIUM-ALBUTEROL 3 ML NEB INHALATION PRN (15:37)
[2017-02-21 16:19] LABS: Creatine Kinase MB 1.9 ng/mL (0.0-2.4)
[2017-02-21 16:23] LABS: Troponin I 0.041 ng/mL (0.000-0.034)
[2017-02-21] MEDS ORDERED: ALPRAZolam 0.5 MG TAB PO PRN (16:57)
[2017-02-21] MEDS ORDERED: ATORVASTATIN 80 MG TAB PO STA (16:57)
[2017-02-21] MEDS ORDERED: SODIUM CHLORIDE 0.9% 1,000 ML in EMPTY BAG 1 BAG IV ONE (16:57)
[2017-02-21] MEDS ORDERED: ALPRAZolam 0.25 MG TAB PO PRN (16:57)
[2017-02-21] MEDS ORDERED: ASPIRIN 325 MG TAB PO STA (16:57)
[2017-02-21] MEDS: ATORVASTATIN 80 MG TAB PO SCH (17:54)
[2017-02-21] MEDS: SODIUM CHLORIDE 0.9% 1,000 ML IV SCH (18:02)
[2017-02-21] MEDS: SYMBICORT 160-4.5 MCG INHALER INHALATION SCH (20:21)
[2017-02-21] MEDS: ATENOLOL 50 MG TAB PO SCH (20:45)
[2017-02-21 20:47] LABS: Creatine Kinase MB 2.3 ng/mL (0.0-2.4)
[2017-02-21] MEDS: ASPIRIN 81 MG CHEW PO SCH (20:47)
[2017-02-21 20:51] LABS: Troponin I 0.041 ng/mL (0.000-0.034)
[2017-02-21] MEDS ORDERED: LISINOPRIL 20 MG TAB PO SCH (21:00)
[2017-02-22] MEDS: hydrALAZINE HCL 50 MG TAB PO SCH ×4 (00:13→21:27)
[2017-02-22] MEDS: MORPHINE SULFATE 2 MG/ML SYRINGE IVP PRN ×3 (00:14→15:59)
[2017-02-22] MEDS: SODIUM CHLORIDE 0.9% 1,000 ML IV SCH ×2 (04:41→15:12)
[2017-02-22 06:01] LABS: Basophils % (A) 1 %; CH 25.5; CHCM 29.5; Eosinophils # (A) 0.4 k/uL (0-0.7); Eosinophils % (A) 6 %; HCT 33.9 % (34.0-46.0); HDW 2.28; HGB 10.1 gm/dL (11.4-16.0); Hypochromasia Marked; Luc # (Auto) 0.18; Luc % (Auto) 3; Lymphocytes # (A) 1.1 k/uL (1.0-4.8); Lymphocytes % (A) 17 %; MCH 25.9 pg (25.0-35.0); MCHC 29.8 g/dL (31.0-37.0); MCV 86.9 fL (80.0-100.0); Mean Platelet Volume 7.6; Monocytes # (A) 0.5 k/uL (0-1.0); Monocytes % (A) 8 %; Neutrophils # (A) 4.3 k/uL (1.3-7.7); Neutrophils % (A) 67 %; RBC 3.91 m/uL (3.80-5.40); RDW 14.4 % (11.5-15.5); WBC 6.5 k/uL (3.8-10.6); WBC (Perox) 6.85
[2017-02-22 06:19] LABS: Calcium 8.4 mg/dL (8.4-10.2); Potassium 4.8 mmol/L (3.5-5.1); Total Bilirubin 0.5 mg/dL (0.2-1.3); Total Protein 6.1 g/dL (6.3-8.2)
[2017-02-22] MEDS: ATORVASTATIN 80 MG TAB PO SCH ×2 (07:06→21:27)
[2017-02-22] MEDS: SYMBICORT 160-4.5 MCG INHALER INHALATION SCH ×2 (08:28→19:39)
[2017-02-22] MEDS ORDERED: ASPIRIN 325 MG TAB PO SCH (09:00)
[2017-02-22] MEDS ORDERED: FUROSEMIDE 40 MG TAB PO SCH (09:00)
--- NOTE | 2017-02-22 09:54 | ECHOF ---
Referral Reason:CHEST PAIN MEASUREMENTS -------- HEIGHT: 154.9 cm WEIGHT: 63.5 kg BP: 174/73 FINDINGS -------- Sinus rhythm. This was a technically adequate study. Limited Study Previous echo 02/14/17 Left ventricular systolic function is hyperdynamic with an estimated EF of >70%. CONCLUSIONS -------- 1. Sinus rhythm. 2. This was a technically adequate study. 3. Limited Study for reevaluation of ejection fraction. 4. Previous echo 02/14/17 5. Left ventricular systolic function is hyperdynamic with an estimated EF of >70%. ABSEILING INSTRUCTOR: Modesto Jean RDCS
[2017-02-22 11:46] LABS: Glucose,Whole Blood 102 mg/dL (75-99)
[2017-02-22] MEDS ORDERED: MIDAZOLAM 2 MG/2 ML VIAL ONE (12:59)
[2017-02-22] MEDS ORDERED: LIDOCAINE 2% INJ 20 MG/ML (20 ML MDV) ONE (12:59)
[2017-02-22] MEDS ORDERED: fentaNYL (PF) 50 MCG/ML 2 ML AMP ONE (13:00)
[2017-02-22] MEDS ORDERED: MIDAZOLAM 2 MG/2 ML VIAL IV ONE (13:08)
[2017-02-22] MEDS ORDERED: fentaNYL (PF) 50 MCG/ML 2 ML AMP IV ONE (13:08)
[2017-02-22] MEDS ORDERED: LIDOCAINE 2% INJ 20 MG/ML SQ ONE (13:11)
[2017-02-22] MEDS ORDERED: IV FLUID CONTINUATION 1,000 ML IV ONE (13:13)
[2017-02-22] MEDS ORDERED: NITROGLYCERIN SL TABS 0.4 MG TAB SUBLINGUAL ONE ×2 (13:21→13:22)
[2017-02-22] MEDS ORDERED: CLOPIDOGREL 75 MG TAB ONE (14:11)
[2017-02-22] MEDS ORDERED: BIVALIRUDIN BOLUS 250 MG/50 ML IV ONE (14:16)
[2017-02-22] MEDS ORDERED: BIVALIRUDIN 250 MG in SODIUM CHLORIDE 0.9% 50 ML IV ONE (14:18)
[2017-02-22] MEDS ORDERED: CLOPIDOGREL 75 MG TAB PO ONE (14:20)
--- NOTE | 2017-02-22 14:24 | P.PN ---
Subjective 86-year-old female being seen this morning on rounds. Patient's resting comfortably in bed states has not had any further chest pain. Patients being followed by cardiology service patient is scheduled for heart catheterization this afternoon by cardiology service echocardiogram done on February 21 showed left ventricular systolic function shows a hyperdynamic LV EF greater than 70% Objective - Vital Signs Vital signs: Vital Signs Temp 98.7 F 02/22/17 07:46 Pulse 66 02/22/17 11:09 Resp 17 02/22/17 11:09 BP 136/66 02/22/17 11:09 Pulse Ox 92 L 02/22/17 11:09 Intake & Output 02/21/17 02/22/17 02/22/17 18:59 06:59 18:59 Intake Total 1597.642 Balance 1597.642 Weight 63.8 kg Intake: IV 1080 Heparin Sodium,Porcine/ 180 D5w Pmx 25,000 unit In Dextrose/Water 1 500ml. bag @ 12 UNITS/KG/HR 14. 15 mls/hr IV .Q24H SUJATA Rx #:[id number] Sodium Chloride 0.9% 1, 900 000 ml @ 75 mls/hr IV . [id number] SUJATA Rx#:[id number] Intake, IV Titration 280.642 Amount Heparin Sodium,Porcine/ 280.642 D5w Pmx 25,000 unit In Dextrose/Water 1 500ml. bag @ 12 UNITS/KG/HR 14. 15 mls/hr IV .Q24H SUJATA Rx #:[id number] Oral 237 Other: Voiding Method Toilet Diaper Diaper Incontinent Incontinent # Voids 1 - Exam GENERAL APPEARANCE: 86-year-old female pleasant cooperative patient is alert, oriented, in no acute distress. VITAL SIGNS: Reviewed HEENT: Head is normocephalic and atraumatic. Pupils are equal and reactive. The nares are patent. Oropharynx is clear without lesions. NECK: Supple without lymphadenopathy. Traches midline. HEART: S1, S2. Regular rate and rhythm. Currently denying chest pain LUNGS: No crackles or wheezes are heard. Adequate air movement bilaterally ABDOMEN: Soft, nontender, nondistended with good bowel sounds. No peritoneal signs. No palpable organomegaly or masses. EXTREMITIES: Normal skin color and turgor. No cyanosis, rash, ulceration, clubbing or edema. Radial pedal pulses are 2/4 bilaterally. NEUROLOGICAL: No focal deficits. Strength and sensation are grossly intact. - Labs CBC & Chem 7: 02/22/17 05:32 02/22/17 05:32 Labs: Abnormal Lab Results - Last 24 Hours (Table) 02/21/17 02/21/17 02/21/17 Range/Units 15:27 17:37 19:54 Hgb (11.4-16.0) gm/dL Hct (34.0-46.0) % MCHC (31.0-37.0) g/dL APTT 47.4 H (22.0-30.0) sec Sodium (137-145) mmol/L BUN (7-17) mg/dL Creatinine (0.52-1.04) mg/dL Glucose (74-99) mg/dL POC Glucose (mg/dL) (75-99) mg/dL Troponin I 0.041 H* 0.041 H* (0.000-0.034) ng/mL Total Protein (6.3-8.2) g/dL Albumin (3.5-5.0) g/dL HDL Cholesterol (40-60) mg/dL 02/22/17 02/22/17 02/22/17 Range/Units 05:32 05:32 05:32 Hgb 10.1 L (11.4-16.0) gm/dL Hct 33.9 L (34.0-46.0) % MCHC 29.8 L (31.0-37.0) g/dL APTT 31.6 H (22.0-30.0) sec Sodium 136 L (137-145) mmol/L BUN 27 H (7-17) mg/dL Creatinine 1.30 H (0.52-1.04) mg/dL Glucose 104 H (74-99) mg/dL POC Glucose (mg/dL) (75-99) mg/dL Troponin I (0.000-0.034) ng/mL Total Protein 6.1 L (6.3-8.2) g/dL Albumin 2.8 L (3.5-5.0) g/dL HDL Cholesterol 36 L (40-60) mg/dL 02/22/17 Range/Units 11:39 Hgb (11.4-16.0) gm/dL Hct (34.0-46.0) % MCHC (31.0-37.0) g/dL APTT (22.0-30.0) sec Sodium (137-145) mmol/L BUN (7-17) mg/dL Creatinine (0.52-1.04) mg/dL Glucose (74-99) mg/dL POC Glucose (mg/dL) 102 H (75-99) mg/dL Troponin I (0.000-0.034) ng/mL Total Protein (6.3-8.2) g/dL Albumin (3.5-5.0) g/dL HDL Cholesterol (40-60) mg/dL
--- NOTE | 2017-02-22 14:28 | P.PN ---
Subjective 86-year-old female being seen this morning on rounds. Patient's resting comfortably in bed states has not had any further chest pain. Patients being followed by cardiology service patient is scheduled for heart catheterization this afternoon by cardiology service echocardiogram done on February 21 showed left ventricular systolic function shows a hyperdynamic LV EF greater than 70% Objective - Vital Signs Vital signs: Vital Signs Temp 98.7 F 02/22/17 07:46 Pulse 66 02/22/17 11:09 Resp 17 02/22/17 11:09 BP 136/66 02/22/17 11:09 Pulse Ox 92 L 02/22/17 11:09 Intake & Output 02/21/17 02/22/17 02/22/17 18:59 06:59 18:59 Intake Total 1597.642 Balance 1597.642 Weight 63.8 kg Intake: IV 1080 Heparin Sodium,Porcine/ 180 D5w Pmx 25,000 unit In Dextrose/Water 1 500ml. bag @ 12 UNITS/KG/HR 14. 15 mls/hr IV .Q24H [facility] Rx #:[id number] Sodium Chloride 0.9% 1, 900 000 ml @ 75 mls/hr IV . [id number] [facility] Rx#:[id number] Intake, IV Titration 280.642 Amount Heparin Sodium,Porcine/ 280.642 D5w Pmx 25,000 unit In Dextrose/Water 1 500ml. bag @ 12 UNITS/KG/HR 14. 15 mls/hr IV .Q24H [facility] Rx #:[id number] Oral 237 Other: Voiding Method Toilet Diaper Diaper Incontinent Incontinent # Voids 1 - Exam GENERAL APPEARANCE: 86-year-old female pleasant cooperative patient is alert, oriented, in no acute distress. VITAL SIGNS: Reviewed HEENT: Head is normocephalic and atraumatic. Pupils are equal and reactive. The nares are patent. Oropharynx is clear without lesions. NECK: Supple without lymphadenopathy. Traches midline. HEART: S1, S2. Regular rate and rhythm. Currently denying chest pain LUNGS: No crackles or wheezes are heard. Adequate air movement bilaterally ABDOMEN: Soft, nontender, nondistended with good bowel sounds. No peritoneal signs. No palpable organomegaly or masses. EXTREMITIES: Normal skin color and turgor. No cyanosis, rash, ulceration, clubbing or edema. Radial pedal pulses are 2/4 bilaterally. NEUROLOGICAL: No focal deficits. Strength and sensation are grossly intact. - Labs CBC & Chem 7: 02/22/17 05:32 02/22/17 05:32 Labs: Abnormal Lab Results - Last 24 Hours (Table) 02/21/17 02/21/17 02/21/17 Range/Units 15:27 17:37 19:54 Hgb (11.4-16.0) gm/dL Hct (34.0-46.0) % MCHC (31.0-37.0) g/dL APTT 47.4 H (22.0-30.0) sec Sodium (137-145) mmol/L BUN (7-17) mg/dL Creatinine (0.52-1.04) mg/dL Glucose (74-99) mg/dL POC Glucose (mg/dL) (75-99) mg/dL Troponin I 0.041 H* 0.041 H* (0.000-0.034) ng/mL Total Protein (6.3-8.2) g/dL Albumin (3.5-5.0) g/dL HDL Cholesterol (40-60) mg/dL 02/22/17 02/22/17 02/22/17 Range/Units 05:32 05:32 05:32 Hgb 10.1 L (11.4-16.0) gm/dL Hct 33.9 L (34.0-46.0) % MCHC 29.8 L (31.0-37.0) g/dL APTT 31.6 H (22.0-30.0) sec Sodium 136 L (137-145) mmol/L BUN 27 H (7-17) mg/dL Creatinine 1.30 H (0.52-1.04) mg/dL Glucose 104 H (74-99) mg/dL POC Glucose (mg/dL) (75-99) mg/dL Troponin I (0.000-0.034) ng/mL Total Protein 6.1 L (6.3-8.2) g/dL Albumin 2.8 L (3.5-5.0) g/dL HDL Cholesterol 36 L (40-60) mg/dL 02/22/17 Range/Units 11:39 Hgb (11.4-16.0) gm/dL Hct (34.0-46.0) % MCHC (31.0-37.0) g/dL APTT (22.0-30.0) sec Sodium (137-145) mmol/L BUN (7-17) mg/dL Creatinine (0.52-1.04) mg/dL Glucose (74-99) mg/dL POC Glucose (mg/dL) 102 H (75-99) mg/dL Troponin I (0.000-0.034) ng/mL Total Protein (6.3-8.2) g/dL Albumin (3.5-5.0) g/dL HDL Cholesterol (40-60) mg/dL Assessment and Plan Plan: Impression Present on admission chest pain suggestive of acute coronary syndrome Present on admission mildly elevated troponin suspect due to a non-ST elevated ME Known coronary artery disease with prior coronary artery bypass grafting 10 years prior Hypertension essential Hyperlipidemia Mild renal insufficiency Repeat echocardiogram done on February 21 shows left ventricular systolic function hyperdynamic with an EF estimated greater than 70% Recent admission on February 18 treated for hypertension urgency Chronic COPD with no evidence of an exacerbation Plan Continue recommendations by cardiology service Await the findings from a heart catheterization Resume home meds as appropriate Monitor blood pressure and heart rate address as indicated DVT and GI prophylaxis Follow-up on pending labs The above impression and plan of care have been discussed and directed by signing physician. Didi Rodríguez nurse practitioner acting as scribe for signing physician.
[2017-02-22] MEDS ORDERED: ASPIRIN 325 MG TAB ONE (14:29)
[2017-02-22] MEDS ORDERED: ASPIRIN 325 MG TAB PO ONE (14:30)
[2017-02-22] MEDS ORDERED: amLODIPine 5 MG TAB ONE (15:00)
[2017-02-22] MEDS ORDERED: amLODIPine 5 MG TAB PO ONE (15:01)
[2017-02-22] MEDS ORDERED: IODIXANOL 320 MG/ML 100 ML INTRAARTER ONE (15:02)
[2017-02-22] MEDS ORDERED: IOHEXOL 350 MG/ML 125ML BOTTLE INJ ONE (15:03)
[2017-02-22] MEDS: HEPARIN SODIUM,PORCINE/D5W PMX 25,000 UNIT in DEXTROSE/WATER 1 500ML.BAG IV SCH (15:11)
[2017-02-22] MEDS ORDERED: RX INFO: IV CONTRAST WAS GIVEN 1 EACH MISC MISCELLANE PRN (15:13)
[2017-02-22] MEDS ORDERED: MAG HYDROX/AL HYDROX/SIMETH 30 ML CUP PO PRN (15:13)
[2017-02-22] MEDS ORDERED: ZOLPIDEM 5 MG TAB PO PRN (15:13)
[2017-02-22] MEDS ORDERED: NITROGLYCERIN SL TABS 0.4 MG TAB SUBLINGUAL PRN (15:13)
[2017-02-22] MEDS ORDERED: ATROPINE SULFATE 0.1 MG/ML 10ML SYRINGE IV PRN (15:13)
[2017-02-22] MEDS ORDERED: SODIUM CHLORIDE 0.9% 1,000 ML IV SCH (15:15)
[2017-02-22] MEDS: ISOSORBIDE MONONITRATE ER 30 MG TAB.ER.24H PO SCH (15:41)
[2017-02-22 16:54] LABS: Glucose,Whole Blood 104 mg/dL (75-99)
[2017-02-22 21:00] LABS: Glucose,Whole Blood 125 mg/dL (75-99)
[2017-02-22] MEDS: FAMOTIDINE 20 MG TAB PO SCH (21:27)
[2017-02-22] MEDS: ATENOLOL 50 MG TAB PO SCH (21:27)
[2017-02-22] MEDS: ASPIRIN 81 MG CHEW PO SCH (21:39)
[2017-02-23 04:32] LABS: Basophils # (A) 0.1 k/uL (0-0.2); Basophils % (A) 1 %; CH 25.6; CHCM 29.7; Eosinophils # (A) 0.3 k/uL (0-0.7); Eosinophils % (A) 4 %; HCT 31.6 % (34.0-46.0); HDW 2.38; HGB 9.6 gm/dL (11.4-16.0); Hypochromasia Marked; Luc # (Auto) 0.14; Luc % (Auto) 2; Lymphocytes # (A) 0.9 k/uL (1.0-4.8); Lymphocytes % (A) 13 %; MCH 26.2 pg (25.0-35.0); MCHC 30.3 g/dL (31.0-37.0); MCV 86.5 fL (80.0-100.0); Mean Platelet Volume 7.7; Monocytes # (A) 0.6 k/uL (0-1.0); Monocytes % (A) 8 %; Neutrophils # (A) 5.3 k/uL (1.3-7.7); Neutrophils % (A) 73 %; RBC 3.65 m/uL (3.80-5.40); RDW 14.5 % (11.5-15.5); WBC 7.3 k/uL (3.8-10.6); WBC (Perox) 7.47
[2017-02-23 04:45] LABS: Calcium 8.2 mg/dL (8.4-10.2); Potassium 4.7 mmol/L (3.5-5.1); Total Bilirubin 0.4 mg/dL (0.2-1.3); Total Protein 5.8 g/dL (6.3-8.2)
[2017-02-23 06:22] LABS: Glucose,Whole Blood 116 mg/dL (75-99)
[2017-02-23] MEDS: SYMBICORT 160-4.5 MCG INHALER INHALATION SCH ×2 (08:33→20:29)
[2017-02-23] MEDS: SODIUM CHLORIDE 0.9% 1,000 ML IV SCH ×3 (08:37→20:42)
[2017-02-23] MEDS: hydrALAZINE HCL 50 MG TAB PO SCH ×3 (08:39→20:42)
[2017-02-23] MEDS: FAMOTIDINE 20 MG TAB PO SCH (08:39)
[2017-02-23] MEDS: ASPIRIN 81 MG CHEW PO SCH ×2 (08:40→20:42)
[2017-02-23] MEDS ORDERED: FUROSEMIDE 10 MG/ML 4 ML VIAL IV STA (08:54)
[2017-02-23] MEDS ORDERED: IPRATROPIUM-ALBUTEROL 3 ML NEB INHALATION PRN (08:57)
--- NOTE | 2017-02-23 09:24 | XR ---
EXAMINATION TYPE: XR chest 1V portable DATE OF EXAM: 02/23/2017 COMPARISON: 02/21/2017 HISTORY: Shortness of breath TECHNIQUE: Single view of the chest is submitted. FINDINGS: Scattered senescent parenchymal changes noted. Hyperinflation compatible with COPD. No evidence for infiltrate. No evidence for atelectasis. Granuloma right lower lobe. Heart size is stable. Mediastinal structures are stable and grossly unremarkable. No evidence for hilar prominence. Degenerative changes dorsal spine. IMPRESSION: 1. No evidence for acute pulmonary disease.
[2017-02-23] MEDS ORDERED: NALOXONE 0.4 MG/ML 1 ML VIAL IV STA (11:06)
[2017-02-23] MEDS ORDERED: NALOXONE 0.4 MG/ML 1 ML VIAL ONE (11:06)
[2017-02-23] MEDS: IPRATROPIUM-ALBUTEROL 3 ML NEB INHALATION SCH ×3 (11:26→20:29)
[2017-02-23 11:42] LABS: Glucose,Whole Blood 144 mg/dL (75-99)
--- NOTE | 2017-02-23 13:00 | NM ---
EXAMINATION TYPE: NM pul vent and perfuse DATE OF EXAM: 02/23/2017 COMPARISON: NONE HISTORY: Shortness of breath rule out pulmonary embolism TECHNIQUE: Utilizing inhalation of 71 mCi Tc 99m DTPA aerosol and intravenous injection of 5.5 mCi o f Tc 99m MAA, ventilation and perfusion images are acquired post injection in multiple projections. FINDINGS: Severe central accumulation of radiotracer on the ventilation portion of the study consistent with se emperatriz COPD. On the perfusion portion of the study there are few scattered matched defects without perf usion ventilation mismatch. IMPRESSION: Low probability for pulmonary embolism.
[2017-02-23] MEDS: ISOSORBIDE MONONITRATE ER 30 MG TAB.ER.24H PO SCH (13:08)
[2017-02-23] MEDS: CLOPIDOGREL 75 MG TAB PO SCH (13:08)
--- NOTE | 2017-02-23 13:25 | P.CNPUL ---
History of Present Illness Consult date: 02/23/17 Reason for consult: hypoxemia History of present illness: 86-year-old female patient with known history of coronary artery disease was undergone bypass surgery more than 10 years ago in addition to history of hypertension and hyperlipidemia and history of smoking and COPD who presented to the hospital because of midsternal chest pain and heaviness that started the day of admission. The patient was admitted to the hospital on 02/21/2017. The patient had abnormal EKG with there was some lateral ST segment depression and minimal ST segment elevation in the inferior leads and aVR. Based on that, cardiac catheterization was performed and the patient was found to have significant stenosis of the saphenous finger after 2 acute marginal branch. Successful and depressed and stenting was done. Chest x-ray revealed chronic changes secondary to underlying COPD. Some limited study and the atelectatic changes/scarring in the left mid/lower lung area. The patient underwent the procedure well without any major complications. This morning, the patient was found to be slightly delirious and confused. Her neurologic exam was nonfocal. She was moving all 4 extremities. At the same time she was found to be hypoxic with pulse ox drop in the mid 80s. Immediately she was placed on 2 L of oxygen nasal cannula which brought her pulse ox up to 80-90%. Chest x-ray was repeated and remained clear. D-dimer was mildly elevated. VQ scan was done and is of a low probability. The patient was given a dose of Lasix following which she diuresed more than 400 mL. She is doing well. She denies having any chest pain. She is resting comfortably in bed. No swelling lower extremities. No fever or chills. No aspiration. No hypoventilation. No headaches. No neck stiffness. No focal neurological deficits. By the time of my arrival, the patient was already following commands and answering questions appropriately. At times however I was told by the nursing staff that she was still acting on and off confused. No other complaints otherwise for now. She denies utilizing home O2. She denies utilizing any form of maintenance breathing medications at home. The echocardiogram was of a limited study however it showed a preserved LV function with an ejection fraction about 70%. The rhythm was sinus. Review of Systems All systems: negative Constitutional: Denies chills, Denies fever Eyes: denies blurred vision, denies pain Ears, nose, mouth and throat: Denies headache, Denies sore throat Cardiovascular: Denies chest pain, Denies shortness of breath Respiratory: Denies cough Gastrointestinal: Denies abdominal pain, Denies diarrhea, Denies nausea, Denies vomiting Genitourinary: Denies dysuria, Denies hematuria Musculoskeletal: Denies myalgias Integumentary: Denies pruritus, Denies rash Neurological: Denies numbness, Denies weakness Psychiatric: Denies anxiety, Denies depression Endocrine: Denies fatigue, Denies weight change Past Medical History Past Medical History: Coronary Artery Disease (CAD), Hypertension, Myocardial Infarction (AK) Additional Past Medical History / Comment(s): Coronary artery disease, previous bypass surgery, hypertension, hyperlipidemia, COPD maintenance Symbicort on outpatient basis, gout Last Myocardial Infarction Date:: 2006? History of Any Multi-Drug Resistant Organisms: None Reported Past Surgical History: Cholecystectomy, Coronary Bypass/CABG, Hysterectomy Additional Past Surgical History / Comment(s): Coronary artery bypass surgery, cardiac catheterization and angioplasty and stenting of the saphenous vein graft to obtuse marginal branch. Past Anesthesia/Blood Transfusion Reactions: Motion Sickness Additional Past Anesthesia/Blood Transfusion Reaction / Comment(s): Pt states she has received blood without reaction. Past Psychological History: No Psychological Hx Reported Smoking Status: Former smoker - Past Family History Father Family Medical History: Coronary Artery Disease (CAD), Myocardial Infarction (AK ) Additional Family Medical History / Comment(s): Father of a AK at the age of 72 yrs. Mother Family Medical History: No Reported History Additional Family Medical History / Comment(s): Pt states her mother was healthy and at the age of 84 yrs. Medications and Allergies Home Medications Medication Instructions Recorded Confirmed Type [place]-3 Acid Ethyl Esters [Lovaza] 1 gm PO DAILY 03/05/14 02/21/17 History Aspirin [Adult Low Dose Aspirin EC] 81 mg PO HS 02/15/17 02/21/17 History Atenolol [Tenormin] 50 mg PO HS 02/15/17 02/21/17 History Budesonide/Formoterol Fumarate 2 puff INHALATION RT-BID 02/15/17 02/21/17 History [Symbicort 160-4.5 Mcg Inhaler] Furosemide [Lasix] 40 mg PO DAILY 02/15/17 02/21/17 History Ipratropium-Albuterol Nebulize 3 ml INHALATION RT-QID PRN 02/15/17 02/21/17 History [Duoneb 0.5 mg-3 mg/3 ml Soln] Lisinopril 40 mg PO HS 02/15/17 02/21/17 History Nitroglycerin Sl Tabs [Nitrostat] 0.4 mg SUBLINGUAL Q5M PRN 02/15/17 02/21/17 History Allergies Allergy/AdvReac Type Severity Reaction Status Date / Time oxybutynin Allergy SEE Verified 02/21/17 09:48 COMMENTS sulfamethoxazole Allergy SEE Verified 02/21/17 09:48 [From Bactrim] COMMENTS trimethoprim [From Bactrim] Allergy SEE Verified 02/21/17 09:48 COMMENTS Physical Exam Vitals: Vital Signs Temp Pulse Pulse Resp BP Pulse Ox 02/23/17 11:38 72 02/23/17 11:26 97.4 F L 72 67 16 145/68 98 02/23/17 10:00 68 97 02/23/17 08:30 98 02/23/17 08:29 97.4 F L 70 16 138/56 75 L 02/23/17 04:00 98.9 F 18 133/49 99 02/23/17 00:00 99.1 F 18 129/51 100 02/22/17 20:00 98.2 F 18 149/79 94 L 02/22/17 16:39 154/65 02/22/17 16:05 163/77 02/22/17 15:32 177/80 02/22/17 15:31 16 02/22/17 15:24 98 F 16 180/79 95 Intake and Output 02/22/17 02/23/17 02/23/17 22:59 06:59 14:59 Intake Total 630 300 Output Total 0 Balance 630 300 Intake: IV 450 300 Sodium Chloride 0.9% 1, 300 000 ml @ 100 mls/hr IV . Q10H [facility] Rx#:[id number] Sodium Chloride 0.9% 1, 450 000 ml @ 20 mls/hr IV . Q24H [facility] Rx#:[id number] Oral 180 Output: Urine 0 Other: Voiding Method Diaper Diaper Diaper Incontinent Incontinent Incontinent # Voids 0 1 Weight 59.9 kg The patient appeared well nourished and normally developed. Vital signs as documented. Head exam is unremarkable. No scleral icterus or corneal arcus noted. Neck is without jugular venous distension, thyromegaly, or carotid bruits. Carotid upstrokes are brisk bilaterally. Lungs are diminished in lung bases along with some few bibasilar crackles.. Cardiac exam reveals the PMI to be normally sized and situated. Rhythm is regular. First and second heart sounds normal. No murmurs, rubs or gallops. Abdominal exam reveals normal bowel sounds, no masses, no organomegaly and no aortic enlargement. Extremities are nonedematous and both femoral and pedal pulses are normal. Results - Laboratory Findings CBC and BMP: 02/23/17 04:17 02/23/17 04:17 PT/INR, D-dimer PT 10.8 sec (9.0-12.0) 02/21/17 08:39 INR 1.1 (<1.1) 02/21/17 08:39 D-Dimer 1.97 mg/L FEU (<0.60) H 02/23/17 09:17 Abnormal lab findings: Abnormal Labs 02/21/17 02/21/17 02/21/17 08:39 08:39 08:39 RBC Hgb 11.2 L Hct MCHC 30.1 L Lymphocytes # APTT 20.3 L D-Dimer Sodium BUN 37 H Creatinine 1.40 H Glucose 157 H POC Glucose (mg/dL) Calcium Troponin I Total Protein Albumin 3.3 L HDL Cholesterol 02/21/17 02/21/17 02/21/17 15:27 17:37 19:54 RBC Hgb Hct MCHC Lymphocytes # APTT 47.4 H D-Dimer Sodium BUN Creatinine Glucose POC Glucose (mg/dL) Calcium Troponin I 0.041 H* 0.041 H* Total Protein Albumin HDL Cholesterol 02/22/17 02/22/17 02/22/17 05:32 05:32 05:32 RBC Hgb 10.1 L Hct 33.9 L MCHC 29.8 L Lymphocytes # APTT 31.6 H D-Dimer Sodium 136 L BUN 27 H Creatinine 1.30 H Glucose 104 H POC Glucose (mg/dL) Calcium Troponin I Total Protein 6.1 L Albumin 2.8 L HDL Cholesterol 36 L 02/22/17 02/22/17 02/22/17 11:39 16:50 20:50 RBC Hgb Hct MCHC Lymphocytes # APTT D-Dimer Sodium BUN Creatinine Glucose POC Glucose (mg/dL) 102 H 104 H 125 H Calcium Troponin I Total Protein Albumin HDL Cholesterol 02/23/17 02/23/17 02/23/17 04:17 04:17 06:20 RBC 3.65 L Hgb 9.6 L Hct 31.6 L MCHC 30.3 L Lymphocytes # 0.9 L APTT D-Dimer Sodium 134 L BUN 21 H Creatinine 1.20 H Glucose POC Glucose (mg/dL) 116 H Calcium 8.2 L Troponin I Total Protein 5.8 L Albumin 2.7 L HDL Cholesterol 02/23/17 02/23/17 09:17 11:30 RBC Hgb Hct MCHC Lymphocytes # APTT D-Dimer 1.97 H Sodium BUN Creatinine Glucose POC Glucose (mg/dL) 144 H Calcium Troponin I Total Protein Albumin HDL Cholesterol - Diagnostic Findings Chest x-ray: image reviewed Assessment and Plan Plan: Assessment 1 acute coronary syndrome, acute ST segment elevation myocardial infarction, post immediate cardiac catheterization and angioplasty and stenting of the saphenous vein graft to obtuse marginal. 2 change in mental status, rule out underlying delirium, rule out secondary to hypoxemia, neurologic exam is nonfocal 3 hypoxemia. Doubt pulmonary embolism. The view VQ scan is of a low probability. Rule out due to a combination of COPD and possibly component of fluid overload for which the patient was given Lasix and she was placed on 2 L of oxygen nasal cannula and his saturations up to mid 90s. She denies having any respiratory distress. She denies having any chest pain. Echocardiogram shows a preserved LV function 4 hypertension 5 hyperlipidemia 6 acute kidney injury/chronic renal insufficiency, stable kidney function with a creatinine of 1.2 7 nicotine addiction/smoking 8 gout 9 concentric left ventricular hypertrophy/hypertensive heart disease 10 abdominal aortic aneurysm measuring 3.2 cm in size above the renal takeoff Plan The IV Fluids to KVO. Agree on the Diuretics. Maintain Oxygen at 2 L to Maintain a Saturation above 95%. Repeat Chest X-Ray in the Morning. No need for anticoagulation at this point. No evidence of any pneumonia. No evidence of any aspiration. No overt signs of heart failure. No evidence of any hypoventilation. We'll monitor her oxidation status. Repeat chest x-ray in the morning. No need for anticoagulation as mentioned. Continue cardiac medication. VQ scan was reviewed. Chest x-ray was reviewed. We'll continue to follow.
--- NOTE | 2017-02-23 14:23 | P.PN ---
Subjective Principal diagnosis: Chest pain This is an 86-year-old female with history of hypertension, hyperlipidemia, coronary artery disease with prior bypass surgery, history of smoking, who presented to the hospital with midsternal chest pressure and heaviness. She was taken to the cardiac catheterization lab where she underwent angioplasty and stent placement of the saphenous vein graft to the . This morning patient was somewhat confused, it was also noted for a brief period that her oxygen saturation had dropped. Prior to this occurring pack patient had been given some morphine, and according to the patient she had received morphine in the past and had a similar response. At the time of my examination she was alert and oriented 3, denies any chest pain or difficulty breathing. Blood pressure 138/56 , 98% on 3 L of oxygen. Hemoglobin 9.6, platelet count 229, BUN 21, creatinine 1.2. Potassium 4.7. At the time this was occurring this morning, a d-dimer was ordered by primary care which came back to be 1.9. Subsequent to that patient underwent a VQ scan of the chest. VQ scan came back negative probability for PE. Objective - Vital Signs Vital signs: Vital Signs Temp 97.4 F L 02/23/17 11:26 Pulse 72 02/23/17 11:38 Resp 16 02/23/17 11:26 BP 145/68 02/23/17 11:26 Pulse Ox 98 02/23/17 11:26 Intake & Output 02/22/17 02/23/17 02/23/17 18:59 06:59 18:59 Intake Total 2502.622 300 Output Total 0 Balance 2502.622 300 Weight 59.9 kg Intake: IV 1804.98 300 Heparin Sodium,Porcine/ 180 D5w Pmx 25,000 unit In Dextrose/Water 1 500ml. bag @ 12 UNITS/KG/HR 14. 15 mls/hr IV .Q24H [facility] Rx #:[id number] Sodium Chloride 0.9% 1, 300 000 ml @ 100 mls/hr IV . Q10H [facility] Rx#:[id number] Sodium Chloride 0.9% 1, 1350 000 ml @ 20 mls/hr IV . Q24H [facility] Rx#:[id number] Intake, IV Titration 280.642 Amount Heparin Sodium,Porcine/ 280.642 D5w Pmx 25,000 unit In Dextrose/Water 1 500ml. bag @ 12 UNITS/KG/HR 14. 15 mls/hr IV .Q24H [facility] Rx #:[id number] Oral 417 Output: Urine 0 Other: Voiding Method Diaper Diaper Diaper Incontinent Incontinent Incontinent # Voids 0 1 - Exam PHYSICAL EXAMINATION: HEENT: Head is atraumatic, normocephalic. Pupils equal, round. Neck is supple. There is elevated jugular venous pressure. HEART EXAMINATION: Heart S1 and S2, tachycardic. CHEST EXAMINATION: Lungs revealed decreased air exchange with mild expiratory wheezes ABDOMEN: Soft, nontender. Bowel sounds are heard. No organomegaly noted. EXTREMITIES: 1+ peripheral pulses with no evidence of peripheral edema and no calf tenderness noted. NEUROLOGIC patient is awake, alert and oriented -3. . - Labs CBC & Chem 7: 02/23/17 04:02/23/17 04:17 Labs: Abnormal Lab Results - Last 24 Hours (Table) 02/22/17 02/22/17 02/23/17 Range/Units 16:50 20:50 04:17 RBC 3.65 L (3.80-5.40) m/uL Hgb 9.6 L (11.4-16.0) gm/dL Hct 31.6 L (34.0-46.0) % MCHC 30.3 L (31.0-37.0) g/dL Lymphocytes # 0.9 L (1.0-4.8) k/uL D-Dimer (<0.60) mg/L FEU Sodium (137-145) mmol/L BUN (7-17) mg/dL Creatinine (0.52-1.04) mg/dL POC Glucose (mg/dL) 104 H 125 H (75-99) mg/dL Calcium (8.4-10.2) mg/dL Total Protein (6.3-8.2) g/dL Albumin (3.5-5.0) g/dL 02/23/17 02/23/17 02/23/17 Range/Units 04:17 06:20 09:17 RBC (3.80-5.40) m/uL Hgb (11.4-16.0) gm/dL Hct (34.0-46.0) % MCHC (31.0-37.0) g/dL Lymphocytes # (1.0-4.8) k/uL D-Dimer 1.97 H (<0.60) mg/L FEU Sodium 134 L (137-145) mmol/L BUN 21 H (7-17) mg/dL Creatinine 1.20 H (0.52-1.04) mg/dL POC Glucose (mg/dL) 116 H (75-99) mg/dL Calcium 8.2 L (8.4-10.2) mg/dL Total Protein 5.8 L (6.3-8.2) g/dL Albumin 2.7 L (3.5-5.0) g/dL 02/23/17 Range/Units 11:30 RBC (3.80-5.40) m/uL Hgb (11.4-16.0) gm/dL Hct (34.0-46.0) % MCHC (31.0-37.0) g/dL Lymphocytes # (1.0-4.8) k/uL D-Dimer (<0.60) mg/L FEU Sodium (137-145) mmol/L BUN (7-17) mg/dL Creatinine (0.52-1.04) mg/dL POC Glucose (mg/dL) 144 H (75-99) mg/dL Calcium (8.4-10.2) mg/dL Total Protein (6.3-8.2) g/dL Albumin (3.5-5.0) g/dL Assessment and Plan Plan: Assessment and plan #1 chest pain suggestive of acute coronary syndrome, initial troponin 0.024. EKG shows normal sinus rhythm with lateral ST depression and ST changes in the inferior leads as well as aVR. Status post angioplasty with stenting of the SVG to the OM. #2 known history of coronary artery disease with prior bypass surgery 10 years ago #3 hypertension #4 hyperlipidemia #5 prior history of smoking #6 mild renal insufficiency Plan From cardiology's perspective, we will continue the patient on her current medications. We will also put a note in the chart the patient is intolerant to morphine. Increase activity today as tolerated and plan for possible discharge home in 24 hours if stable. DNP note has been reviewed, I agree with a documented findings and plan of care. Patient was seen and examined.
--- NOTE | 2017-02-23 14:23 | P.PN ---
Subjective 86-year-old female seen and examined. This morning the patient is noted to be confused which is different from her baseline. Patient was slightly delirious. Patient would move all extremities appropriately. Additionally patient's pulse ox sat was in the mid 80s. On room air patient was noted to be short of breath. The oxygen was titrated up to 2 L keeping the sats between 80 and 90%. Chest x-ray was evaluated no acute process. D-dimer was mildly elevated. VQ scan showed low probability for pulmonary emboli. Patient was given Lasix IV did diurese. Echocardiogram was a limited study but it did show preserved LV function with an EF about 70% patient initially was admitted to the hospital on February 21. At that time the patient had abnormal EKGs some lateral ST segment depression and slight elevation in the inferior leads. Based on the EKG findings heart catheterization was performed patient was found to have significant stenosis of the saphenous vein graft in which was addressed by cardiology service Objective - Vital Signs Vital signs: Vital Signs Temp 97.4 F L 02/23/17 11:26 Pulse 72 02/23/17 11:38 Resp 16 02/23/17 11:26 BP 145/68 02/23/17 11:26 Pulse Ox 98 02/23/17 11:26 Intake & Output 02/22/17 02/23/17 02/23/17 18:59 06:59 18:59 Intake Total 2502.622 300 Output Total 0 Balance 2502.622 300 Weight 59.9 kg Intake: IV 1804.98 300 Heparin Sodium,Porcine/ 180 D5w Pmx 25,000 unit In Dextrose/Water 1 500ml. bag @ 12 UNITS/KG/HR 14. 15 mls/hr IV .Q24H [facility] Rx #:[id number] Sodium Chloride 0.9% 1, 300 000 ml @ 100 mls/hr IV . Q10H [facility] Rx#:[id number] Sodium Chloride 0.9% 1, 1350 000 ml @ 20 mls/hr IV . Q24H [facility] Rx#:[id number] Intake, IV Titration 280.642 Amount Heparin Sodium,Porcine/ 280.642 D5w Pmx 25,000 unit In Dextrose/Water 1 500ml. bag @ 12 UNITS/KG/HR 14. 15 mls/hr IV .Q24H [facility] Rx #:[id number] Oral 417 Output: Urine 0 Other: Voiding Method Diaper Diaper Diaper Incontinent Incontinent Incontinent # Voids 0 1 - Exam Physical exam 86-year-old female sedated this morning does arouse to verbal stimuli will move all extremities appropriately advised for stimuli lungs diminished at the bases a basal crackles noted no cough noted Heart S1-S2 audible and regular Abdomen soft nontender Extremities no edema noted - Labs CBC & Chem 7: 02/23/17 04:17 02/23/17 04:17 Labs: Abnormal Lab Results - Last 24 Hours (Table) 02/22/17 02/22/17 02/23/17 Range/Units 16:50 20:50 04:17 RBC 3.65 L (3.80-5.40) m/uL Hgb 9.6 L (11.4-16.0) gm/dL Hct 31.6 L (34.0-46.0) % MCHC 30.3 L (31.0-37.0) g/dL Lymphocytes # 0.9 L (1.0-4.8) k/uL D-Dimer (<0.60) mg/L FEU Sodium (137-145) mmol/L BUN (7-17) mg/dL Creatinine (0.52-1.04) mg/dL POC Glucose (mg/dL) 104 H 125 H (75-99) mg/dL Calcium (8.4-10.2) mg/dL Total Protein (6.3-8.2) g/dL Albumin (3.5-5.0) g/dL 02/23/17 02/23/17 02/23/17 Range/Units 04:17 06:20 09:17 RBC (3.80-5.40) m/uL Hgb (11.4-16.0) gm/dL Hct (34.0-46.0) % MCHC (31.0-37.0) g/dL Lymphocytes # (1.0-4.8) k/uL D-Dimer 1.97 H (<0.60) mg/L FEU Sodium 134 L (137-145) mmol/L BUN 21 H (7-17) mg/dL Creatinine 1.20 H (0.52-1.04) mg/dL POC Glucose (mg/dL) 116 H (75-99) mg/dL Calcium 8.2 L (8.4-10.2) mg/dL Total Protein 5.8 L (6.3-8.2) g/dL Albumin 2.7 L (3.5-5.0) g/dL 02/23/17 Range/Units 11:30 RBC (3.80-5.40) m/uL Hgb (11.4-16.0) gm/dL Hct (34.0-46.0) % MCHC (31.0-37.0) g/dL Lymphocytes # (1.0-4.8) k/uL D-Dimer (<0.60) mg/L FEU Sodium (137-145) mmol/L BUN (7-17) mg/dL Creatinine (0.52-1.04) mg/dL POC Glucose (mg/dL) 144 H (75-99) mg/dL Calcium (8.4-10.2) mg/dL Total Protein (6.3-8.2) g/dL Albumin (3.5-5.0) g/dL Assessment and Plan Plan: Impression Present on admission chest pain suggestive of acute coronary syndrome Present on admission mildly elevated troponin suspect due to a non-ST elevated [place] Known coronary artery disease with prior coronary artery bypass grafting 10 years prior Hypertension essential Hyperlipidemia Mild renal insufficiency Repeat echocardiogram done on February 21 shows left ventricular systolic function hyperdynamic with an EF estimated greater than 70% Recent admission on February 18 treated for hypertension urgency Chronic COPD with no evidence of an exacerbation Acute episode of acute encephalopathy suspect toxic noted pulse ox sat on room air 88% Abdominal aortic aneurysm measuring 3.2 cm in size Hypertension with hypertensive heart disease Status post heart catheterization with stenting done on February 22 significant stenosis of the saphenous vein graft marginal branch Plan Resume home meds as appropriate Monitor blood pressure and heart rate address as indicated DVT and GI prophylaxis Follow-up on pending labs continue recommendations by pulmonary service consult neurology dr marx The above impression and plan of care have been discussed and directed by signing physician. Didi Rodríguez nurse practitioner acting as scribe for signing physician.
[2017-02-23 14:56] LABS: CH 25.9; CHCM 30.6; HCT 30.8 % (34.0-46.0); HDW 2.45; HGB 9.7 gm/dL (11.4-16.0); Hypochromasia Moderate; MCH 26.8 pg (25.0-35.0); MCHC 31.5 g/dL (31.0-37.0); MCV 84.8 fL (80.0-100.0); Mean Platelet Volume 8.2; RBC 3.63 m/uL (3.80-5.40); RDW 14.7 % (11.5-15.5); WBC 6.8 k/uL (3.8-10.6)
--- NOTE | 2017-02-23 15:17 | HP ---
DATE OF ADMISSION: 02/21/2017 CHIEF COMPLAINT: Chest pain. HISTORY OF PRESENT ILLNESS: This is another recent admission for this 86-year- old white female who has been having difficulty with very high blood pressure, congestive heart failure. She was just in the hospital for an exacerbation of her malignant hypertension and she went home. Her blood pressure has been normal since she has left the hospital and she has been seen in the office. However, she started to develop some chest discomfort and came to the emergency room. She denied diaphoresis, but she was short of breath and she threw up in the ambulance coming to the hospital. REVIEW OF SYSTEMS: She has had no syncope, focal neurologic deficits, TIA's, cough, hemoptysis, sputum production, orthopnea, PND, etc. She has had CABG in the past. She has had no hematemesis, melena, hematochezia, jaundice, hepatitis , and diarrhea, incontinence, etc. She has no urinary symptoms. PAST MEDICAL HISTORY, FAMILY HISTORY, PERSONAL AND SOCIAL HISTORY: Can all be found in her recent admitting and discharge summaries and are unchanged. She is not allergic to any medication. Her current medications include: 1. Lovaza 1 gm once a day. 2. Hydralazine 50 mg 3 times a day. 3. Atenolol 50 mg once a day. 4. Updraft with ipratropium bromide and albuterol q.i.d. and p.r.n. 5. Lasix 40 mg once a day. 6. Lisinopril 40 mg once a day. 7. Symbicort 160/4.5 two puffs twice a day. 8. Aspirin 81 mg a day. Since coming to the emergency room, her troponin has been slightly elevated. PHYSICAL EXAM: Blood pressure is 120/80 with a pulse of 68, respirations are 32 and she is afebrile. GENERAL: She appeared to be well-developed, well-nourished in no acute distress. Skin color is normal, skin is warm and dry. The lymph nodes are not enlarged. Head, ears, eyes, nose, mouth and throat were normal and neck veins are not distended. The thyroid is not enlarged. The chest is clear. Cardiac exam is normal with no murmurs or added sounds. The abdomen is soft and nontender without visceromegaly or masses. Extremities are normal. Neurologically, she is intact. IMPRESSION: 1. Chest pain. 2. History of coronary artery disease with coronary artery bypass graft. 3. ( ) N-STEMI. 4. Congestive heart failure. 5. Malignant hypertension. PLAN: 1. Bed rest. 2. IV fluids. 3. Serial EKG's and enzymes. 4. Consult Cardiology for possible cardiac cath. ELY
[2017-02-23 16:56] LABS: Glucose,Whole Blood 120 mg/dL (75-99)
[2017-02-23] MEDS: ATENOLOL 50 MG TAB PO SCH (20:42)
[2017-02-23] MEDS: ATORVASTATIN 80 MG TAB PO SCH (20:42)
[2017-02-23 20:55] LABS: Glucose,Whole Blood 138 mg/dL (75-99)
--- NOTE | 2017-02-23 22:05 | P.CNNES ---
History of Present Illness Consult date: 02/23/17 Reason for Consult: Patient with acute mental status changes and confusion. History of Present Illness: This patient is a 86-year-old right-handed white female who has a history of hypertensive urgency and congestive heart failure. She was just recently admitted to the hospital for treatment of malignant hypertension and was sent home. She then began to develop some chest pain and chest discomfort at home. Apparently she found on examination to have evidence of severe tachycardia. EMS was called and she was brought into the emergency room on 02/22/2017 and was subsequently admitted. She was given some morphine and Route as her heart rate was in the 120s. The patient was subsequently admitted to the hospital. During her most recent admission on 02/21/2017 the patient had undergone a cardiac catheterization. She was found to have significant stenosis of the saphenous vein graft to the obtuse marginal. She underwent stenting. She did not seem to have any major complication from the cardiac catheterization. As noted this morning she was very delirious and confused. Pulse oximetry revealed her oxygen saturation dropped into the mid 80s. She was immediately placed on 2 L of nasal oxygen which showed some improvement. As noted her VQ scan came back low probability for pulmonary embolus. She was given a dose of Lasix. Since undergoing this initial evaluation and treatment this morning she is shown significant improvement in her mental status. She is now awake and alert and following all commands. She denies any focal weakness or headache. She does complain of some fatigue. Patient denies any headache or focal weakness. Neurology is now been consulted for further evaluation and recommendations. This morning she was noted to have increase difficulty with breathing. Apparently she decompensated as her pulse oximetry showed him oxygen saturation had dropped. She became more confused and almost delirious. She was then placed on oxygen immediately and was sent for a VQ scan which came back low probability for pulmonary embolus. Review of Systems Constitutional: Denies chills, Denies fever Eyes: denies blurred vision, denies pain Ears, nose, mouth and throat: Denies headache, Denies sore throat Cardiovascular: Denies chest pain, Denies shortness of breath Respiratory: Reports congestion, Reports home oxygen, Denies cough Gastrointestinal: Denies abdominal pain, Denies diarrhea, Denies nausea, Denies vomiting Genitourinary: Denies dysuria, Denies hematuria Musculoskeletal: Denies myalgias Integumentary: Denies pruritus, Denies rash Neurological: Reports change in mentation, Reports confusion, Denies numbness, Denies weakness Psychiatric: Denies anxiety, Denies depression Endocrine: Denies fatigue, Denies weight change Past Medical History Past Medical History: Coronary Artery Disease (CAD), Hypertension, Myocardial Infarction ([place]) Additional Past Medical History / Comment(s): Coronary artery disease, previous bypass surgery, hypertension, hyperlipidemia, COPD maintenance Symbicort on outpatient basis, gout Last Myocardial Infarction Date:: 2006? History of Any Multi-Drug Resistant Organisms: None Reported Past Surgical History: Cholecystectomy, Coronary Bypass/CABG, Hysterectomy Additional Past Surgical History / Comment(s): Coronary artery bypass surgery, cardiac catheterization and angioplasty and stenting of the saphenous vein graft to obtuse marginal branch. Past Anesthesia/Blood Transfusion Reactions: Motion Sickness Additional Past Anesthesia/Blood Transfusion Reaction / Comment(s): Pt states she has received blood without reaction. Past Psychological History: No Psychological Hx Reported Smoking Status: Former smoker - Past Family History Father Family Medical History: Coronary Artery Disease (CAD), Myocardial Infarction ([place] ) Additional Family Medical History / Comment(s): Father of a [place] at the age of 72 yrs. Mother Family Medical History: No Reported History Additional Family Medical History / Comment(s): Pt states her mother was healthy and at the age of 84 yrs. Medications and Allergies Home Medications Medication Instructions Recorded Confirmed Type [place]-3 Acid Ethyl Esters [Lovaza] 1 gm PO DAILY 03/05/14 02/21/17 History Aspirin [Adult Low Dose Aspirin EC] 81 mg PO HS 02/15/17 02/21/17 History Atenolol [Tenormin] 50 mg PO HS 02/15/17 02/21/17 History Budesonide/Formoterol Fumarate 2 puff INHALATION RT-BID 02/15/17 02/21/17 History [Symbicort 160-4.5 Mcg Inhaler] Furosemide [Lasix] 40 mg PO DAILY 02/15/17 02/21/17 History Ipratropium-Albuterol Nebulize 3 ml INHALATION RT-QID PRN 02/15/17 02/21/17 History [Duoneb 0.5 mg-3 mg/3 ml Soln] Lisinopril 40 mg PO HS 02/15/17 02/21/17 History Nitroglycerin Sl Tabs [Nitrostat] 0.4 mg SUBLINGUAL Q5M PRN 02/15/17 02/21/17 History Allergies Allergy/AdvReac Type Severity Reaction Status Date / Time oxybutynin Allergy SEE Verified 02/21/17 09:48 COMMENTS sulfamethoxazole Allergy SEE Verified 02/21/17 09:48 [From Bactrim] COMMENTS trimethoprim [From Bactrim] Allergy SEE Verified 02/21/17 09:48 COMMENTS morphine AdvReac Confusion Verified 02/23/17 13:28 Physical Examination - Vital Signs Vital Signs: Vital Signs Temp Pulse Pulse Resp BP Pulse Ox 02/23/17 20:38 70 02/23/17 20:30 68 02/23/17 16:02 70 02/23/17 15:51 97.2 F L 71 16 144/68 97 02/23/17 15:50 71 92 L 02/23/17 11:38 72 02/23/17 11:26 97.4 F L 72 67 16 145/68 98 02/23/17 10:00 68 97 02/23/17 08:30 98 02/23/17 08:29 97.4 F L 70 16 138/56 75 L 02/23/17 04:00 98.9 F 18 133/49 99 02/23/17 00:00 99.1 F 18 129/51 100 Intake and Output 02/23/17 02/23/17 02/23/17 06:59 14:59 22:59 Intake Total 300 Output Total 0 Balance 300 Intake: IV 300 Sodium Chloride 0.9% 1, 300 000 ml @ 100 mls/hr IV . Q10H [facility] Rx#:[id number] Output: Urine 0 Other: Voiding Method Diaper Diaper Diaper Incontinent Incontinent Incontinent # Voids 0 1 1 Weight 59.9 kg - Constitutional General appearance: average body habitus, cooperative - EENT EENT: PERRL, mucous membranes moist - Respiratory Respiratory: lungs clear, normal breath sounds - Cardiovascular Cardiovascular: regular rate, normal S1, normal S2 Extremities: no peripheral edema bilaterally - Gastrointestinal Gastrointestinal: normoactive bowel sounds - Integumentary Integumentary: normal - Neurologic Cranial nerve examination: PERRL, EOMI, VFF, V1/V2/V3 grossly intact, face symmetric, tongue midline, intact gag reflex, intact corneal reflex, normal palatal elevation Speech examination: intact Sensorimotor examination: intact Detailed motor examination: grossly full strength in all extremities Motor examination - right side: 4/5: biceps, triceps, wrist flexion, wrist extension, restaurant lead, hip flexors, knee extensors, dorsiflexion, toe extension (EHL) , plantarflexion Motor examination - left side: 4/5: biceps, triceps, wrist flexion, wrist extension, restaurant lead, hip flexors, knee extensors, dorsiflexion, toe extension (EHL) , plantarflexion Detailed sensory examination: intact Reflex and gait examination: intact Reflexes: 1+: ankle, bicep, knee, tricep - Musculoskeletal Musculoskeletal: no pain - Psychiatric Psychiatric: mood/affect appropriate, cooperative Results - Laboratory Findings CBC and BMP: 02/23/17 14:00 02/23/17 04:17 Abnormal Lab Findings: Abnormal Labs 02/21/17 02/21/17 02/21/17 08:39 08:39 08:39 RBC Hgb 11.2 L Hct MCHC 30.1 L Lymphocytes # APTT 20.3 L D-Dimer Sodium BUN 37 H Creatinine 1.40 H Glucose 157 H POC Glucose (mg/dL) Calcium Troponin I Total Protein Albumin 3.3 L HDL Cholesterol 02/21/17 02/21/17 02/21/17 15:27 17:37 19:54 RBC Hgb Hct MCHC Lymphocytes # APTT 47.4 H D-Dimer Sodium BUN Creatinine Glucose POC Glucose (mg/dL) Calcium Troponin I 0.041 H* 0.041 H* Total Protein Albumin HDL Cholesterol 02/22/17 02/22/17 02/22/17 05:32 05:32 05:32 RBC Hgb 10.1 L Hct 33.9 L MCHC 29.8 L Lymphocytes # APTT 31.6 H D-Dimer Sodium 136 L BUN 27 H Creatinine 1.30 H Glucose 104 H POC Glucose (mg/dL) Calcium Troponin I Total Protein 6.1 L Albumin 2.8 L HDL Cholesterol 36 L 02/22/17 02/22/17 02/22/17 11:39 16:50 20:50 RBC Hgb Hct MCHC Lymphocytes # APTT D-Dimer Sodium BUN Creatinine Glucose POC Glucose (mg/dL) 102 H 104 H 125 H Calcium Troponin I Total Protein Albumin HDL Cholesterol 02/23/17 02/23/17 02/23/17 04:17 04:17 06:20 RBC 3.65 L Hgb 9.6 L Hct 31.6 L MCHC 30.3 L Lymphocytes # 0.9 L APTT D-Dimer Sodium 134 L BUN 21 H Creatinine 1.20 H Glucose POC Glucose (mg/dL) 116 H Calcium 8.2 L Troponin I Total Protein 5.8 L Albumin 2.7 L HDL Cholesterol 02/23/17 02/23/17 02/23/17 09:17 11:30 14:00 RBC 3.63 L Hgb 9.7 L Hct 30.8 L MCHC Lymphocytes # APTT D-Dimer 1.97 H Sodium BUN Creatinine Glucose POC Glucose (mg/dL) 144 H Calcium Troponin I Total Protein Albumin HDL Cholesterol 02/23/17 16:53 RBC Hgb Hct MCHC Lymphocytes # APTT D-Dimer Sodium BUN Creatinine Glucose POC Glucose (mg/dL) 120 H Calcium Troponin I Total Protein Albumin HDL Cholesterol Assessment and Plan (1) Acute anoxic encephalopathy Status: Acute Code(s): G93.1 - ANOXIC BRAIN DAMAGE, NOT ELSEWHERE CLASSIFIED (2) Hypoxemia Status: Acute Code(s): R09.02 - HYPOXEMIA (3) Hypertensive urgency Status: Acute Code(s): I16.0 - HYPERTENSIVE URGENCY (4) Chest pain Status: Acute Code(s): R07.9 - CHEST PAIN, UNSPECIFIED Plan: This patient is a 86-year-old female who recently underwent cardiac catheterization for coronary artery disease. This morning she was found to be delirious and very confused. Her pulse oximetry revealed her to have low oxygen saturation in the mid 80s. She was immediately given nasal oxygen and was sent for a V/Q scan of the lungs. This came back low probability for pulmonary embolus. She was given a dose of IV Lasix and since treatment has shown significant improvement in her mental status. Patient's neurological examination at this time is nonfocal. This patient likely experienced aches acute hypoxemia due to combination of COPD and possible fluid overload. She now seems to be back to baseline in terms of her neurological exam findings. We will continue close neurological follow-up with this patient during this admission. Her overall prognosis at this time remains guarded. Time with Patient: Greater than 30
[2017-02-23 22:19] LABS: CH 25.9; CHCM 30.7; HCT 28.9 % (34.0-46.0); HDW 2.38; Hypochromasia Slight; MCH 26.2 pg (25.0-35.0); MCV 84.5 fL (80.0-100.0); Mean Platelet Volume 8.3; RBC 3.42 m/uL (3.80-5.40); RDW 14.7 % (11.5-15.5); WBC 7.9 k/uL (3.8-10.6)
[2017-02-24 05:43] LABS: Glucose,Whole Blood 109 mg/dL (75-99)
[2017-02-24 06:14] LABS: CH 25.5; CHCM 30.2; HCT 28.6 % (34.0-46.0); HDW 2.39; HGB 9.1 gm/dL (11.4-16.0); Hypochromasia Moderate; MCH 26.9 pg (25.0-35.0); MCHC 31.8 g/dL (31.0-37.0); MCV 84.5 fL (80.0-100.0); Mean Platelet Volume 7.8; RBC 3.39 m/uL (3.80-5.40); RDW 14.6 % (11.5-15.5); WBC 7.4 k/uL (3.8-10.6)
[2017-02-24 06:47] LABS: Calcium 8.6 mg/dL (8.4-10.2); Potassium 4.5 mmol/L (3.5-5.1); Total Bilirubin 0.5 mg/dL (0.2-1.3); Total Protein 5.8 g/dL (6.3-8.2)
[2017-02-24] MEDS: IPRATROPIUM-ALBUTEROL 3 ML NEB INHALATION SCH ×4 (08:17→19:58)
[2017-02-24] MEDS: SYMBICORT 160-4.5 MCG INHALER INHALATION SCH ×2 (08:18→19:58)
[2017-02-24 08:49] LABS: Reticulocyte % 0.5 % (0.5-2.0)
[2017-02-24] MEDS: CLOPIDOGREL 75 MG TAB PO SCH (09:47)
[2017-02-24] MEDS: POLYETHYLENE GLYCOL 3350 17 GM POWD.PACK PO SCH (09:48)
[2017-02-24] MEDS: ISOSORBIDE MONONITRATE ER 30 MG TAB.ER.24H PO SCH (09:48)
[2017-02-24] MEDS: FAMOTIDINE 20 MG TAB PO SCH (09:48)
[2017-02-24] MEDS: hydrALAZINE HCL 50 MG TAB PO SCH (09:48)
[2017-02-24] MEDS: DOCUSATE 100 MG CAP PO SCH ×2 (09:48→20:47)
[2017-02-24 10:39] LABS: % Iron Saturation 6.7 % (20-50)
[2017-02-24 11:35] LABS: Glucose,Whole Blood 130 mg/dL (75-99)
--- NOTE | 2017-02-24 13:24 | P.PN ---
Subjective 86-year-old female being seen this morning on rounds. Patient was able to ambulate from the bed to the bathroom with the use of rolled walker. Patient is increasingly more awake and alert compared to prior assessment. Hemoccult this morning 9.1. The admitting hemoglobin on the was 11.2. Hemoglobin on February 22 10.1. Patient's denying dizziness lightheadedness. This been no evidence of any GI bleed. Iron studies were reviewed iron 21 TIBC 314 ferritin 48 creatinine 1.4 patient has not had a bowel movement stool for occult blood has not been checked did note that the hemoglobin on February 15 was 11.7 pressure this morning 147/61 and heart rate is in the 70s on room air sats are documented 91% Objective - Vital Signs Vital signs: Vital Signs Temp 98.7 F 02/24/17 09:41 Pulse 80 02/24/17 12:40 Resp 16 02/24/17 12:46 BP 147/61 02/24/17 12:40 Pulse Ox 91 L 02/24/17 12:40 Intake & Output 02/23/17 02/24/17 02/24/17 18:59 06:59 18:59 Intake Total 240 240 Output Total 400 Balance 240 -160 Weight 64 kg Intake: IV 240 Sodium Chloride 0.9% 1, 240 000 ml @ 20 mls/hr IV . Q24H [facility]S AT [facility] Rx#:[id number] Oral 240 Output: Urine 400 Other: Voiding Method Diaper Diaper Diaper Incontinent Incontinent Incontinent # Voids 1 1 - Exam Physical exam 86-year-old female sitting up in bed pleasant cooperative oriented 3 denies any dizziness lightheadedness when questioning lungs posterior decreased at the bases otherwise adequate air movement bilaterally Heart S1-S2 audible and regular denying chest pain monitor sinus Abdomen soft nontender not distended bowel tones present no nausea no vomiting Extremities no edema noted - Labs CBC & Chem 7: 02/24/17 05:33 02/24/17 05:30 Labs: Abnormal Lab Results - Last 24 Hours (Table) 02/23/17 02/23/17 02/23/17 Range/Units 14:00 16:53 20:53 RBC 3.63 L (3.80-5.40) m/uL Hgb 9.7 L (11.4-16.0) gm/dL Hct 30.8 L (34.0-46.0) % Sodium (137-145) mmol/L BUN (7-17) mg/dL Creatinine (0.52-1.04) mg/dL POC Glucose (mg/dL) 120 H 138 H (75-99) mg/dL Iron (37-170) ug/dL % Saturation (20-50) % Total Protein (6.3-8.2) g/dL Albumin (3.5-5.0) g/dL 02/23/17 02/24/17 02/24/17 Range/Units 21:53 05:30 05:30 RBC 3.42 L (3.80-5.40) m/uL Hgb 9.0 L (11.4-16.0) gm/dL Hct 28.9 L (34.0-46.0) % Sodium 136 L (137-145) mmol/L BUN 20 H (7-17) mg/dL Creatinine 1.40 H (0.52-1.04) mg/dL POC Glucose (mg/dL) (75-99) mg/dL Iron 21 L (37-170) ug/dL % Saturation 6.7 L (20-50) % Total Protein 5.8 L (6.3-8.2) g/dL Albumin 2.7 L (3.5-5.0) g/dL 02/24/17 02/24/17 02/24/17 Range/Units 05:33 05:41 11:34 RBC 3.39 L (3.80-5.40) m/uL Hgb 9.1 L (11.4-16.0) gm/dL Hct 28.6 L (34.0-46.0) % Sodium (137-145) mmol/L BUN (7-17) mg/dL Creatinine (0.52-1.04) mg/dL POC Glucose (mg/dL) 109 H 130 H (75-99) mg/dL Iron (37-170) ug/dL % Saturation (20-50) % Total Protein (6.3-8.2) g/dL Albumin (3.5-5.0) g/dL Assessment and Plan Plan: Impression Present on admission chest pain suggestive of acute coronary syndrome Present on admission mildly elevated troponin suspect due to a non-ST elevated [place] Known coronary artery disease with prior coronary artery bypass grafting 10 years prior Hypertension essential Hyperlipidemia Mild renal insufficiency Repeat echocardiogram done on February 21 shows left ventricular systolic function hyperdynamic with an EF estimated greater than 70% Recent admission on February 18 treated for hypertension urgency Chronic COPD with no evidence of an exacerbation Acute episode of acute encephalopathy suspect toxic noted pulse ox sat on room air 88% Abdominal aortic aneurysm measuring 3.2 cm in size Hypertension with hypertensive heart disease Status post heart catheterization with stenting done on February 22 significant stenosis of the saphenous vein graft marginal branch Anemia suspect iron deficiency Mild protein calorie malnutrition Plan Resume home meds as appropriate Monitor blood pressure and heart rate address as indicated DVT and GI prophylaxis Follow-up on pending labs continue recommendations by pulmonary service Check stool for occult blood PT OT eval The above impression and plan of care have been discussed and directed by signing physician. Didi Rodríguez nurse practitioner acting as scribe for signing physician.
--- NOTE | 2017-02-24 14:53 | P.PN ---
Subjective Principal diagnosis: Chest pain This is an 86-year-old female with history of hypertension, hyperlipidemia, coronary artery disease with prior bypass surgery, history of smoking, who presented to the hospital with midsternal chest pressure and heaviness. She was taken to the cardiac catheterization lab where she underwent angioplasty and stent placement of the saphenous vein graft to the . This morning patient was somewhat confused, it was also noted for a brief period that her oxygen saturation had dropped. Prior to this occurring pack patient had been given some morphine, and according to the patient she had received morphine in the past and had a similar response. At the time of my examination she was alert and oriented 3, denies any chest pain or difficulty breathing. Blood pressure 138/56 , 98% on 3 L of oxygen. Hemoglobin 9.6, platelet count 229, BUN 21, creatinine 1.2. Potassium 4.7. At the time this was occurring this morning, a d-dimer was ordered by primary care which came back to be 1.9. Subsequent to that patient underwent a VQ scan of the chest. VQ scan came back negative probability for PE. Patient was seen and examined this morning, feels well overall. Alert and oriented 3. Denies any chest pain or difficulty in breathing. Hemoglobin 9.1 , BUN 20, creatinine 1.4. We will continue aspirin 81 mg daily, Lipitor 80 mg daily, discontinue atenolol and start the patient on Coreg 6.25 mg twice a day, continue Plavix 75 mg daily, Imdur 30 mg daily, Zestril 10 mg daily, discontinue hydralazine and add Norvasc 5 mg daily. From cardiology's perspective she may be able to be discharged home today. Follow-up appointment will be made in the office one week post discharge. Objective - Vital Signs Vital signs: Vital Signs Temp 98.7 F 02/24/17 09:41 Pulse 80 02/24/17 12:40 Resp 16 02/24/17 12:46 BP 147/61 02/24/17 12:40 Pulse Ox 91 L 02/24/17 12:40 Intake & Output 02/23/17 02/24/17 02/24/17 18:59 06:59 18:59 Intake Total 240 240 Output Total 400 Balance 240 -160 Weight 64 kg Intake: IV 240 Sodium Chloride 0.9% 1, 240 000 ml @ 20 mls/hr IV . Q24H [facility] Rx#:[id number] Oral 240 Output: Urine 400 Other: Voiding Method Diaper Diaper Diaper Incontinent Incontinent Incontinent # Voids 1 1 - Exam PHYSICAL EXAMINATION: HEENT: Head is atraumatic, normocephalic. Pupils equal, round. Neck is supple. There is elevated jugular venous pressure. HEART EXAMINATION: Heart S1 and S2, tachycardic. CHEST EXAMINATION: Lungs revealed decreased air exchange with mild expiratory wheezes ABDOMEN: Soft, nontender. Bowel sounds are heard. No organomegaly noted. EXTREMITIES: 1+ peripheral pulses with no evidence of peripheral edema and no calf tenderness noted. NEUROLOGIC patient is awake, alert and oriented -3. . - Labs CBC & Chem 7: 02/24/17 05:33 02/24/17 05:30 Labs: Abnormal Lab Results - Last 24 Hours (Table) 02/23/17 02/23/17 02/23/17 Range/Units 14:00 16:53 20:53 RBC 3.63 L (3.80-5.40) m/uL Hgb 9.7 L (11.4-16.0) gm/dL Hct 30.8 L (34.0-46.0) % Sodium (137-145) mmol/L BUN (7-17) mg/dL Creatinine (0.52-1.04) mg/dL POC Glucose (mg/dL) 120 H 138 H (75-99) mg/dL Iron (37-170) ug/dL % Saturation (20-50) % Total Protein (6.3-8.2) g/dL Albumin (3.5-5.0) g/dL 02/23/17 02/24/17 02/24/17 Range/Units 21:53 05:30 05:30 RBC 3.42 L (3.80-5.40) m/uL Hgb 9.0 L (11.4-16.0) gm/dL Hct 28.9 L (34.0-46.0) % Sodium 136 L (137-145) mmol/L BUN 20 H (7-17) mg/dL Creatinine 1.40 H (0.52-1.04) mg/dL POC Glucose (mg/dL) (75-99) mg/dL Iron 21 L (37-170) ug/dL % Saturation 6.7 L (20-50) % Total Protein 5.8 L (6.3-8.2) g/dL Albumin 2.7 L (3.5-5.0) g/dL 02/24/17 02/24/17 02/24/17 Range/Units 05:33 05:41 11:34 RBC 3.39 L (3.80-5.40) m/uL Hgb 9.1 L (11.4-16.0) gm/dL Hct 28.6 L (34.0-46.0) % Sodium (137-145) mmol/L BUN (7-17) mg/dL Creatinine (0.52-1.04) mg/dL POC Glucose (mg/dL) 109 H 130 H (75-99) mg/dL Iron (37-170) ug/dL % Saturation (20-50) % Total Protein (6.3-8.2) g/dL Albumin (3.5-5.0) g/dL Assessment and Plan Plan: Assessment and plan #1 chest pain suggestive of acute coronary syndrome, initial troponin 0.024. EKG shows normal sinus rhythm with lateral ST depression and ST changes in the inferior leads as well as aVR. Status post angioplasty with stenting of the SVG to the OM. #2 known history of coronary artery disease with prior bypass surgery 10 years ago #3 hypertension #4 hyperlipidemia #5 prior history of smoking #6 mild renal insufficiency Plan From cardiology's perspective, patient may be able to be discharged home once cleared by the primary. On Norvasc 5 mg daily, Ecotrin 81 mg daily, Lipitor 80 mg daily, Plavix 75 mg daily, Corex 6.25 mg by mouth twice a day, Imdur 30 mg daily, lisinopril 10 mg daily. DNP note has been reviewed, I agree with a documented findings and plan of care. Patient was seen and examined.
[2017-02-24] MEDS: SODIUM CHLORIDE 0.9% 1,000 ML IV SCH (15:10)
[2017-02-24] MEDS: ASPIRIN 81 MG CHEW PO SCH ×2 (15:10→20:47)
--- NOTE | 2017-02-24 15:30 | P.PN ---
Subjective 86-year-old female patient with known history of coronary artery disease was undergone bypass surgery more than 10 years ago in addition to history of hypertension and hyperlipidemia and history of smoking and COPD who presented to the hospital because of midsternal chest pain and heaviness that started the day of admission. The patient was admitted to the hospital on 02/21/2017. The patient had abnormal EKG with there was some lateral ST segment depression and minimal ST segment elevation in the inferior leads and aVR. Based on that, cardiac catheterization was performed and the patient was found to have significant stenosis of the saphenous finger after 2 acute marginal branch. Successful and depressed and stenting was done. Chest x-ray revealed chronic changes secondary to underlying COPD. Some limited study and the atelectatic changes/scarring in the left mid/lower lung area. The patient underwent the procedure well without any major complications. This morning, the patient was found to be slightly delirious and confused. Her neurologic exam was nonfocal. She was moving all 4 extremities. At the same time she was found to be hypoxic with pulse ox drop in the mid 80s. Immediately she was placed on 2 L of oxygen nasal cannula which brought her pulse ox up to 80-90%. Chest x-ray was repeated and remained clear. D-dimer was mildly elevated. VQ scan was done and is of a low probability. The patient was given a dose of Lasix following which she diuresed more than 400 mL. She is doing well. She denies having any chest pain. She is resting comfortably in bed. No swelling lower extremities. No fever or chills. No aspiration. No hypoventilation. No headaches. No neck stiffness. No focal neurological deficits. By the time of my arrival, the patient was already following commands and answering questions appropriately. At times however I was told by the nursing staff that she was still acting on and off confused. No other complaints otherwise for now. She denies utilizing home O2. She denies utilizing any form of maintenance breathing medications at home. The echocardiogram was of a limited study however it showed a preserved LV function with an ejection fraction about 70%. The rhythm was sinus On today's evaluation of 02/24/2017, the patient is doing well and the patient is not having any specific complaints. She is resting comfortably in bed. Her oxygen levels improved and the patient is currently on room air with a pulse ox of 91-92%. History of any chest pain. She is tolerating the diet well. No change in mental status. No other complaints otherwise for now. No signs of delirium. Objective - Vital Signs Vital signs: Vital Signs Temp 98.7 F 02/24/17 09:41 Pulse 80 02/24/17 12:40 Resp 16 02/24/17 12:46 BP 147/61 02/24/17 12:40 Pulse Ox 91 L 02/24/17 12:40 Intake & Output 02/23/17 02/24/17 02/24/17 18:59 06:59 18:59 Intake Total 240 240 Output Total 400 Balance 240 -160 Weight 64 kg Intake: IV 240 Sodium Chloride 0.9% 1, 240 000 ml @ 20 mls/hr IV . Q24H [facility] Rx#:[id number] Oral 240 Output: Urine 400 Other: Voiding Method Diaper Diaper Diaper Incontinent Incontinent Incontinent # Voids 1 1 - Exam The patient appeared well nourished and normally developed. Vital signs as documented. Head exam is unremarkable. No scleral icterus or corneal arcus noted. Neck is without jugular venous distension, thyromegaly, or carotid bruits. Carotid upstrokes are brisk bilaterally. Lungs are diminished in lung bases along with some few bibasilar crackles.. Cardiac exam reveals the PMI to be normally sized and situated. Rhythm is regular. First and second heart sounds normal. No murmurs, rubs or gallops. Abdominal exam reveals normal bowel sounds, no masses, no organomegaly and no aortic enlargement. Extremities are nonedematous and both femoral and pedal pulses are normal. - Labs CBC & Chem 7: 02/24/17 05:33 02/24/17 05:30 Labs: Abnormal Lab Results - Last 24 Hours (Table) 02/23/17 02/23/17 02/23/17 Range/Units 16:53 20:53 21:53 RBC 3.42 L (3.80-5.40) m/uL Hgb 9.0 L (11.4-16.0) gm/dL Hct 28.9 L (34.0-46.0) % Sodium (137-145) mmol/L BUN (7-17) mg/dL Creatinine (0.52-1.04) mg/dL POC Glucose (mg/dL) 120 H 138 H (75-99) mg/dL Iron (37-170) ug/dL % Saturation (20-50) % Total Protein (6.3-8.2) g/dL Albumin (3.5-5.0) g/dL 02/24/17 02/24/17 02/24/17 Range/Units 05:30 05:30 05:33 RBC 3.39 L (3.80-5.40) m/uL Hgb 9.1 L (11.4-16.0) gm/dL Hct 28.6 L (34.0-46.0) % Sodium 136 L (137-145) mmol/L BUN 20 H (7-17) mg/dL Creatinine 1.40 H (0.52-1.04) mg/dL POC Glucose (mg/dL) (75-99) mg/dL Iron 21 L (37-170) ug/dL % Saturation 6.7 L (20-50) % Total Protein 5.8 L (6.3-8.2) g/dL Albumin 2.7 L (3.5-5.0) g/dL 02/24/17 02/24/17 Range/Units 05:41 11:34 RBC (3.80-5.40) m/uL Hgb (11.4-16.0) gm/dL Hct (34.0-46.0) % Sodium (137-145) mmol/L BUN (7-17) mg/dL Creatinine (0.52-1.04) mg/dL POC Glucose (mg/dL) 109 H 130 H (75-99) mg/dL Iron (37-170) ug/dL % Saturation (20-50) % Total Protein (6.3-8.2) g/dL Albumin (3.5-5.0) g/dL Assessment and Plan Plan: Assessment 1 acute coronary syndrome, acute ST segment elevation myocardial infarction, post immediate cardiac catheterization and angioplasty and stenting of the saphenous vein graft to obtuse marginal. 2 change in mental status, rule out underlying delirium, rule out secondary to hypoxemia, neurologic exam is nonfocal. On 02/24/2017 the patient's mentation is back to its baseline. 3 hypoxemia. Doubt pulmonary embolism. The view VQ scan is of a low probability. Rule out due to a combination of COPD and possibly component of fluid overload for which the patient was given Lasix and she was placed on 2 L of oxygen nasal cannula and his saturations up to mid 90s. She denies having any respiratory distress. She denies having any chest pain. Echocardiogram shows a preserved LV function On , the patient is comfortable in her breathing and the patient's hypoxemia is improved 4 hypertension 5 hyperlipidemia 6 acute kidney injury/chronic renal insufficiency, stable kidney function with a creatinine of 1.4 7 nicotine addiction/smoking 8 gout 9 concentric left ventricular hypertrophy/hypertensive heart disease 10 abdominal aortic aneurysm measuring 3.2 cm in size above the renal takeoff Plan We'll continue monitoring the oxygen levels. She is currently on room air. Increased level of activity as tolerated. She is fairly of any chest pain. Monitor renal function watch for any contrast nephropathy. Creatinine is slightly higher at 1.4. Continue same cardiac medications. Cardiology is on the case. We'll continue to follow. Possible discharge in the next 24-48 hrs. if her condition is stable.
[2017-02-24 15:57] LABS: CH 25.9; HDW 2.35; HGB 8.8 gm/dL (11.4-16.0); Hypochromasia Slight; MCH 26.3 pg (25.0-35.0); MCHC 31.3 g/dL (31.0-37.0); MCV 83.9 fL (80.0-100.0); Mean Platelet Volume 7.9; RBC 3.34 m/uL (3.80-5.40); RDW 14.6 % (11.5-15.5); WBC 7.6 k/uL (3.8-10.6)
[2017-02-24] MEDS: LISINOPRIL 10 MG TAB PO SCH (16:31)
[2017-02-24 16:38] LABS: Glucose,Whole Blood 125 mg/dL (75-99)
--- NOTE | 2017-02-24 17:39 | P.CONS ---
History of Present Illness - Reason for Consult Consult date: 02/24/17 anemia Requesting physician: Jose Quintana - Chief Complaint palpitations - History of Present Illness Mrs. Farfan is a very pleasant female pt of PCP Dr. Quintana who was brought to the hospital when she noted persistent palpitations, it made her anxious and a little SOB, she also had chest heaviness, she recently had cardiac catherization with stenting, she is recently on antiplatelet therapy. We have been asked to see pt for new onset anemia, pt states she did require a blood transfusion a few years ago for anemia, she is not on any supplements, denies epistaxis, any visible blood in the urine or stool, no hemorrhoids. Review of Systems All systems: negative Constitutional: Reports as per HPI Past Medical History Past Medical History: Coronary Artery Disease (CAD), Hypertension, Myocardial Infarction (RI) Additional Past Medical History / Comment(s): Coronary artery disease, previous bypass surgery, hypertension, hyperlipidemia, COPD maintenance Symbicort on outpatient basis, gout Last Myocardial Infarction Date:: 2006? History of Any Multi-Drug Resistant Organisms: None Reported Past Surgical History: Cholecystectomy, Coronary Bypass/CABG, Hysterectomy Additional Past Surgical History / Comment(s): Coronary artery bypass surgery, cardiac catheterization and angioplasty and stenting of the saphenous vein graft to obtuse marginal branch. Past Anesthesia/Blood Transfusion Reactions: Motion Sickness Additional Past Anesthesia/Blood Transfusion Reaction / Comm: Pt states she has received blood without reaction. Past Psychological History: No Psychological Hx Reported Smoking Status: Former smoker - Past Family History Father Family Medical History: Coronary Artery Disease (CAD), Myocardial Infarction (RI ) Additional Family Medical History / Comment(s): Father of a RI at the age of 72 yrs. Mother Family Medical History: No Reported History Additional Family Medical History / Comment(s): Pt states her mother was healthy and at the age of 84 yrs. Medications and Allergies Home Medications Medication Instructions Recorded Confirmed Type Spur-3 Acid Ethyl Esters [Lovaza] 1 gm PO DAILY 03/05/14 02/21/17 History Aspirin [Adult Low Dose Aspirin EC] 81 mg PO HS 02/15/17 02/21/17 History Atenolol [Tenormin] 50 mg PO HS 02/15/17 02/21/17 History Budesonide/Formoterol Fumarate 2 puff INHALATION RT-BID 02/15/17 02/21/17 History [Symbicort 160-4.5 Mcg Inhaler] Furosemide [Lasix] 40 mg PO DAILY 02/15/17 02/21/17 History Ipratropium-Albuterol Nebulize 3 ml INHALATION RT-QID PRN 02/15/17 02/21/17 History [Duoneb 0.5 mg-3 mg/3 ml Soln] Lisinopril 40 mg PO HS 02/15/17 02/21/17 History Nitroglycerin Sl Tabs [Nitrostat] 0.4 mg SUBLINGUAL Q5M PRN 02/15/17 02/21/17 History Allergies Allergy/AdvReac Type Severity Reaction Status Date / Time oxybutynin Allergy SEE Verified 02/21/17 09:48 COMMENTS sulfamethoxazole Allergy SEE Verified 02/21/17 09:48 [From Bactrim] COMMENTS trimethoprim [From Bactrim] Allergy SEE Verified 02/21/17 09:48 COMMENTS morphine AdvReac Confusion Verified 02/23/17 13:28 Physical Exam Vitals: Vital Signs Temp Pulse Pulse Pulse Resp BP BP 02/24/17 16:33 98 F 76 16 138/60 02/24/17 16:04 71 02/24/17 15:47 69 02/24/17 12:46 16 02/24/17 12:40 80 16 147/61 02/24/17 11:31 76 02/24/17 09:41 98.7 F 70 16 153/67 02/24/17 09:35 16 02/24/17 08:31 80 02/24/17 08:18 72 02/24/17 04:00 99.1 F 73 18 135/63 02/24/17 00:00 99.4 F 71 18 132/60 02/23/17 20:38 70 02/23/17 20:30 68 02/23/17 20:00 99.6 F 75 16 134/60 Pulse Ox 02/24/17 16:33 95 02/24/17 16:04 02/24/17 15:47 97 02/24/17 12:46 02/24/17 12:40 91 L 02/24/17 11:31 02/24/17 09:41 93 L 02/24/17 09:35 02/24/17 08:31 02/24/17 08:18 92 L 02/24/17 04:00 92 L 02/24/17 00:00 96 02/23/17 20:38 02/23/17 20:30 02/23/17 20:00 94 L Intake and Output 02/24/17 02/24/17 02/24/17 06:59 14:59 22:59 Intake Total 240 240 Output Total 400 Balance 240 -160 Intake: IV 240 Sodium Chloride 0.9% 1, 240 000 ml @ 20 mls/hr IV . Q24H [facility] Rx#:[id number] Oral 240 Output: Urine 400 Other: Voiding Method Diaper Diaper Incontinent Incontinent Weight 64 kg - Constitutional General appearance: average body habitus, cooperative, no acute distress - EENT Eyes: anicteric sclerae, EOMI, normal appearance ENT: normal oropharynx - Neck Neck: no lymphadenopathy - Respiratory Respiratory: bilateral: CTA - Cardiovascular Rhythm: regular Heart sounds: normal: S1, S2 leg Peripheral Edema: bilateral: None - Gastrointestinal General gastrointestinal: no absent bowel sounds, no decreased bowel sounds, no distended, no hepatomegaly, no hyperactive bowel sounds, normal bowel sounds, no organomegaly, no rigid, no scaphoid, soft, no splenomegaly, no tenderness, no umbilical hernia, no ventral hernia - Integumentary Integumentary: pale - Neurologic Neurologic: CNII-XII intact - Musculoskeletal Musculoskeletal: strength equal bilaterally - Psychiatric Psychiatric: A&O x's 3, appropriate affect, intact judgment & insight Results CBC & Chem 7: 02/24/17 15:50 02/24/17 05:30 Labs: Abnormal Lab Results - Last 24 Hours (Table) 02/23/17 02/23/17 02/24/17 Range/Units 20:53 21:53 05:30 RBC 3.42 L (3.80-5.40) m/uL Hgb 9.0 L (11.4-16.0) gm/dL Hct 28.9 L (34.0-46.0) % Sodium 136 L (137-145) mmol/L BUN 20 H (7-17) mg/dL Creatinine 1.40 H (0.52-1.04) mg/dL POC Glucose (mg/dL) 138 H (75-99) mg/dL Iron (37-170) ug/dL % Saturation (20-50) % Total Protein 5.8 L (6.3-8.2) g/dL Albumin 2.7 L (3.5-5.0) g/dL 02/24/17 02/24/17 02/24/17 Range/Units 05:30 05:33 05:41 RBC 3.39 L (3.80-5.40) m/uL Hgb 9.1 L (11.4-16.0) gm/dL Hct 28.6 L (34.0-46.0) % Sodium (137-145) mmol/L BUN (7-17) mg/dL Creatinine (0.52-1.04) mg/dL POC Glucose (mg/dL) 109 H (75-99) mg/dL Iron 21 L (37-170) ug/dL % Saturation 6.7 L (20-50) % Total Protein (6.3-8.2) g/dL Albumin (3.5-5.0) g/dL 02/24/17 02/24/17 02/24/17 Range/Units 11:34 15:50 16:36 RBC 3.34 L (3.80-5.40) m/uL Hgb 8.8 L (11.4-16.0) gm/dL Hct 28.0 L (34.0-46.0) % Sodium (137-145) mmol/L BUN (7-17) mg/dL Creatinine (0.52-1.04) mg/dL POC Glucose (mg/dL) 130 H 125 H (75-99) mg/dL Iron (37-170) ug/dL % Saturation (20-50) % Total Protein (6.3-8.2) g/dL Albumin (3.5-5.0) g/dL Comments: V/Q scan report reviewed ECHO report reviewed Chest x-ray: report reviewed Assessment and Plan (1) Normocytic normochromic anemia Narrative/Plan: Pt states history of transfusion few years ago for anemia, she had colonoscopy in the last 10 years, not sure of EGD. Plan is for anemia work up including erythropoetin level to see if pt is an epogen candidate. Recommend endoscopy in the future if anemia persists or if no underlying cause is identified on lab work up. Status: Acute
[2017-02-24] MEDS: CARVEDILOL 6.25 MG TAB PO SCH (18:36)
--- NOTE | 2017-02-24 20:37 | P.PN ---
Subjective This patient is a 86-year-old right-handed white female who was admitted just today with symptoms of acute coronary syndrome and chest discomfort. She had just recently undergone cardiac catheterization with angioplasty and stenting procedure of the saphenous vein graft. She was noted to have some acute mental status changes and this was reason neurology was consulted yesterday. It was felt she had severe hypoxemia of multiple etiology. She was checked with a VQ scan to rule out pulmonary embolism which came back low probability. She does have history of COPD with fluid overload which probably caused some of the hypoxemia symptoms yesterday. The patient is doing much better today. She is resting comfortably in bed. Her oxygen levels have improved. She has had no further chest pain symptoms. Cardiology is following the patient as well. Patient has been evaluated for chronic anemia. She was seen by hematology and has a normochromic normocytic anemia. She does seem to be back to baseline in terms of her cognitive functioning. She underwent a routine EEG today which was reviewed and is mildly slow. We will continue close neurological follow-up of this patient during this admission. Her overall prognosis at this time remains guarded. Objective - Vital Signs Vital signs: Vital Signs Temp 98 F 02/24/17 16:33 Pulse 76 02/24/17 16:33 Resp 16 02/24/17 16:33 BP 138/60 02/24/17 16:33 Pulse Ox 95 02/24/17 16:33 Intake & Output 02/24/17 02/24/17 02/25/17 06:59 18:59 06:59 Intake Total 240 240 Output Total 400 Balance 240 -160 Weight 64 kg Intake: IV 240 Sodium Chloride 0.9% 1, 240 000 ml @ 20 mls/hr IV . Q24H [facility] Rx#:[id number] Oral 240 Output: Urine 400 Other: Voiding Method Diaper Diaper Incontinent Incontinent # Voids 1 - Exam Physical examination: PHYSICAL EXAMINATION: Patient is resting comfortably in bed. VITAL SIGNS: Blood pressure is [138/60]. Heart rate is [76]. Respiration is [16] . Temperature is [98.0]. HEENT: Head is atraumatic, neck is supple, there were no carotid bruits. CHEST: Lungs are clear to auscultation and percussion. CARDIAC: S1, S2 normal rate and rhythm. There is no murmur. ABDOMEN: Soft and nontender. Bowel sounds are present. EXTREMITIES: There is no pedal edema. Peripheral pulses are present. Neurological examination: Patient has a nonfocal neurological examination today. - Labs CBC & Chem 7: 02/24/17 15:50 02/24/17 05:30 Labs: Abnormal Lab Results - Last 24 Hours (Table) 02/23/17 02/23/17 02/24/17 Range/Units 20:53 21:53 05:30 RBC 3.42 L (3.80-5.40) m/uL Hgb 9.0 L (11.4-16.0) gm/dL Hct 28.9 L (34.0-46.0) % Sodium 136 L (137-145) mmol/L BUN 20 H (7-17) mg/dL Creatinine 1.40 H (0.52-1.04) mg/dL POC Glucose (mg/dL) 138 H (75-99) mg/dL Iron (37-170) ug/dL % Saturation (20-50) % Total Protein 5.8 L (6.3-8.2) g/dL Albumin 2.7 L (3.5-5.0) g/dL 02/24/17 02/24/17 02/24/17 Range/Units 05:30 05:33 05:41 RBC 3.39 L (3.80-5.40) m/uL Hgb 9.1 L (11.4-16.0) gm/dL Hct 28.6 L (34.0-46.0) % Sodium (137-145) mmol/L BUN (7-17) mg/dL Creatinine (0.52-1.04) mg/dL POC Glucose (mg/dL) 109 H (75-99) mg/dL Iron 21 L (37-170) ug/dL % Saturation 6.7 L (20-50) % Total Protein (6.3-8.2) g/dL Albumin (3.5-5.0) g/dL 02/24/17 02/24/17 02/24/17 Range/Units 11:34 15:50 16:36 RBC 3.34 L (3.80-5.40) m/uL Hgb 8.8 L (11.4-16.0) gm/dL Hct 28.0 L (34.0-46.0) % Sodium (137-145) mmol/L BUN (7-17) mg/dL Creatinine (0.52-1.04) mg/dL POC Glucose (mg/dL) 130 H 125 H (75-99) mg/dL Iron (37-170) ug/dL % Saturation (20-50) % Total Protein (6.3-8.2) g/dL Albumin (3.5-5.0) g/dL Assessment and Plan (1) Acute anoxic encephalopathy Status: Acute Code(s): G93.1 - ANOXIC BRAIN DAMAGE, NOT ELSEWHERE CLASSIFIED (2) Hypoxemia Status: Acute Code(s): R09.02 - HYPOXEMIA (3) Hypertensive urgency Status: Acute Code(s): I16.0 - HYPERTENSIVE URGENCY (4) Chest pain Status: Acute Code(s): R07.9 - CHEST PAIN, UNSPECIFIED Plan: This patient is a 86-year-old female who recently underwent cardiac catheterization for coronary artery disease. This morning she was found to be delirious and very confused. Her pulse oximetry revealed her to have low oxygen saturation in the mid 80s. She was immediately given nasal oxygen and was sent for a V/Q scan of the lungs. This came back low probability for pulmonary embolus. She was given a dose of IV Lasix and since treatment has shown significant improvement in her mental status. Patient's neurological examination at this time is nonfocal. This patient likely experienced aches acute hypoxemia due to combination of COPD and possible fluid overload. She now seems to be back to baseline in terms of her neurological exam findings. Patient is being treated for chronic anemia. She underwent routine EEG today which is reviewed and is slightly slow. Anticipate she will be discharged home in the next 48 hours. We will continue close neurological follow-up with this patient during this admission. Her overall prognosis at this time remains guarded.
[2017-02-24] MEDS: ATORVASTATIN 80 MG TAB PO SCH (20:47)
[2017-02-24 20:55] LABS: Glucose,Whole Blood 104 mg/dL (75-99)
[2017-02-25 05:43] LABS: Glucose,Whole Blood 121 mg/dL (75-99)
[2017-02-25] MEDS: CARVEDILOL 6.25 MG TAB PO SCH (06:19)
[2017-02-25 06:39] LABS: Calcium 8.5 mg/dL (8.4-10.2); Potassium 4.5 mmol/L (3.5-5.1); Total Bilirubin 0.6 mg/dL (0.2-1.3); Total Protein 5.9 g/dL (6.3-8.2)
[2017-02-25] MEDS: IPRATROPIUM-ALBUTEROL 3 ML NEB INHALATION SCH ×2 (07:58→13:16)
[2017-02-25] MEDS: SYMBICORT 160-4.5 MCG INHALER INHALATION SCH (07:58)
[2017-02-25 08:06] LABS: Basophils # (A) 0.1 k/uL (0-0.2); Basophils % (A) 1 %; CH 25.8; CHCM 30.2; Eosinophils # (A) 0.4 k/uL (0-0.7); Eosinophils % (A) 7 %; HCT 28.2 % (34.0-46.0); HDW 2.26; HGB 8.8 gm/dL (11.4-16.0); Hypochromasia Moderate; Luc # (Auto) 0.18; Luc % (Auto) 3; Lymphocytes # (A) 1.3 k/uL (1.0-4.8); Lymphocytes % (A) 22 %; MCH 26.6 pg (25.0-35.0); MCHC 31.1 g/dL (31.0-37.0); MCV 85.5 fL (80.0-100.0); Mean Platelet Volume 8.2; Monocytes # (A) 0.5 k/uL (0-1.0); Monocytes % (A) 8 %; Neutrophils # (A) 3.7 k/uL (1.3-7.7); Neutrophils % (A) 60 %; RDW 14.4 % (11.5-15.5); WBC 6.2 k/uL (3.8-10.6); WBC (Perox) 6.19
[2017-02-25] MEDS ORDERED: amLODIPine 5 MG TAB PO SCH (09:00)
[2017-02-25 09:16] VITALS: TEMP 96.5
[2017-02-25] MEDS: ISOSORBIDE MONONITRATE ER 30 MG TAB.ER.24H PO SCH (09:17)
[2017-02-25] MEDS: FAMOTIDINE 20 MG TAB PO SCH (09:17)
[2017-02-25] MEDS: DOCUSATE 100 MG CAP PO SCH (09:17)
[2017-02-25] MEDS: CLOPIDOGREL 75 MG TAB PO SCH (09:17)
[2017-02-25] MEDS: ASPIRIN 81 MG CHEW PO SCH (09:17)
[2017-02-25] MEDS: POLYETHYLENE GLYCOL 3350 17 GM POWD.PACK PO SCH (09:18)
[2017-02-25] MEDS: LISINOPRIL 10 MG TAB PO SCH (09:18)
--- NOTE | 2017-02-25 09:34 | P.DS ---
Providers Date of admission: 02/22/17 14:37 Expected date of discharge: 02/25/17 Attending physician: Jose Quintana Consults: 02/21/17 10:52 Consult Physician Urgent Consulting Provider: Edmund Soliz Consult Reason/Comments: cp Do you want consulting provider notified?: Yes 02/22/17 15:13 Consult Physician Routine Consulting Provider: [facility] Consult Reason/Comments: Post Interventional patient Do you want consulting provider notified?: Already Contacted 02/23/17 10:18 Consult Physician Urgent Consulting Provider: Yair Krueger Consult Reason/Comments: PULMONARY MANAGEMENT Do you want consulting provider notified?: Yes 02/23/17 10:58 Consult Physician Urgent Consulting Provider: Stephen Cisneros Consult Reason/Comments: anemia Do you want consulting provider notified?: Yes 02/23/17 14:23 Consult Physician Stat Consulting Provider: Erlin Monsalve Consult Reason/Comments: Confusion Do you want consulting provider notified?: Yes Consult Physician Urgent Consulting Provider: Erlin Monsalve Consult Reason/Comments: Confusion Do you want consulting provider notified?: Yes Primary care physician: Jose Quintana [facility] Course: This is an 86-year-old female who presented on the day of admission to the emergency room to be evaluated for a chief complaint of developing shortness of breath with chest heaviness tightness. Patient was recently discharged that hospitalization the patient's blood pressure was elevated started on antihypertensive meds. Represented this admission current blood pressure was lower than normal. Patient did arrive to the emergency room via the EMS system. Patient stated that she felt nauseated with the chest pain and did have an emesis. Did receive some relief after receiving sublingual nitroglycerin. The chest x-ray on admission did show chronic changes possible COPD. Patient continue to have reoccurring episodes of chest pressure troponins were mildly elevated cardiology advised the patient to undergo heart catheterization given the patient's symptoms patient does have known coronary artery disease prior coronary artery bypass grafting 10 years prior patient did undergo heart catheterization this admission with stenting placed to the OM. Postprocedure the patient did develop an episode of confusion felt secondary to the analgesics morphine. Morphine was stopped. Additionally this admission the patient did develop a new onset of anemia. Reviewing the record with the patient she indicated that many years ago she did have a blood transfusion for anemia. Is not on any supplements. The recommendations by Dr. Cisneros hematology if the anemia persists patient would benefit from endoscopic to be done this could be set up in the outpatient setting there was no visible blood noted in the urine or the stool patient felt that her last EEG G and colonoscopy was probably greater than 10 years hemoglobin on 25 of February was 8.8. The admitting hemoglobin 10.1 ferritin 48 the iron 21. TIBC 314 patient was felt to be hemodynamically stable and appropriate proceed with a discharge Impression Present on admission chest pain suggestive of acute coronary syndrome Present on admission mildly elevated troponin suspect due to a non-ST elevated WI Known coronary artery disease with prior coronary artery bypass grafting 10 years prior Hypertension essential Hyperlipidemia Mild renal insufficiency Repeat echocardiogram done on February 21 shows left ventricular systolic function hyperdynamic with an EF estimated greater than 70% Recent admission on February 18 treated for hypertension urgency Chronic COPD with no evidence of an exacerbation Acute episode of acute encephalopathy suspect toxic noted pulse ox sat on room air 88% Abdominal aortic aneurysm measuring 3.2 cm in size Hypertension with hypertensive heart disease Status post heart catheterization with stenting done on February 22 significant stenosis of the saphenous vein graft marginal branch Anemia suspect iron deficiency Mild protein calorie malnutrition The above impression and plan of care have been discussed and directed by signing physician. Didi Rodríguez nurse practitioner acting as scribe for signing physician. Patient Condition at Discharge: Undetermined Plan - Discharge Summary New Discharge Prescriptions: New Clopidogrel [Plavix] 75 mg PO DAILY #30 tab Atorvastatin [Lipitor] 80 mg PO HS #30 tab Carvedilol [Coreg] 6.25 mg PO BID-W/MEALS #30 tab Isosorbide Mononitrate ER [Imdur] 30 mg PO DAILY #30 tab Lisinopril [Zestril] 10 mg PO DAILY #30 tab amLODIPine [Norvasc] 5 mg PO DAILY #30 tab Aspirin 81 mg PO DAILY Docusate [Colace] 100 mg PO BID cap Polyethylene Glycol 3350 [Miralax] 17 gm PO DAILY pack Continue Lloyd-3 Acid Ethyl Esters [Lovaza] 1 gm PO DAILY Budesonide/Formoterol Fumarate [Symbicort 160-4.5 Mcg Inhaler] 2 puff INHALATION RT-BID Nitroglycerin Sl Tabs [Nitrostat] 0.4 mg SUBLINGUAL Q5M PRN PRN Reason: Chest Pain Ipratropium-Albuterol Nebulize [Duoneb 0.5 mg-3 mg/3 ml Soln] 3 ml INHALATION RT-QID PRN PRN Reason: Shortness Of Breath Aspirin [Adult Low Dose Aspirin EC] 81 mg PO HS Discontinued Lisinopril 40 mg PO HS Furosemide [Lasix] 40 mg PO DAILY Atenolol [Tenormin] 50 mg PO HS hydrALAZINE HCL [Apresoline] 50 mg PO TID #90 tab Discharge Medication List Lloyd-3 Acid Ethyl Esters [Lovaza] 1 gm PO DAILY 03/05/14 [History] Aspirin [Adult Low Dose Aspirin EC] 81 mg PO HS 02/15/17 [History] Budesonide/Formoterol Fumarate [Symbicort 160-4.5 Mcg Inhaler] 2 puff INHALATION RT-BID 02/15/17 [History] Ipratropium-Albuterol Nebulize [Duoneb 0.5 mg-3 mg/3 ml Soln] 3 ml INHALATION RT -QID PRN 02/15/17 [History] Nitroglycerin Sl Tabs [Nitrostat] 0.4 mg SUBLINGUAL Q5M PRN 02/15/17 [History] Aspirin 81 mg PO DAILY 02/25/17 [Rx] Atorvastatin [Lipitor] 80 mg PO HS #30 tab 02/25/17 [Rx] Carvedilol [Coreg] 6.25 mg PO BID-W/MEALS #30 tab 02/25/17 [Rx] Clopidogrel [Plavix] 75 mg PO DAILY #30 tab 02/25/17 [Rx] Docusate [Colace] 100 mg PO BID cap 02/25/17 [Rx] Isosorbide Mononitrate ER [Imdur] 30 mg PO DAILY #30 tab 02/25/17 [Rx] Lisinopril [Zestril] 10 mg PO DAILY #30 tab 02/25/17 [Rx] Polyethylene Glycol 3350 [Miralax] 17 gm PO DAILY pack 02/25/17 [Rx] amLODIPine [Norvasc] 5 mg PO DAILY #30 tab 02/25/17 [Rx] Follow up Appointment(s)/Referral(s): Jose Quintana MD [Primary Care Provider] - 1 Week Shari Warren MD [STAFF PHYSICIAN] - 1 Week Discharge Disposition: HOME SELF-CARE
[2017-02-25 11:58] LABS: Glucose,Whole Blood 116 mg/dL (75-99)
--- NOTE | 2017-02-25 12:24 | PCN ---
CORONARY ANGIOPLASTY PROCEDURE NOTE Mrs. Farfan is an 86-year-old female with known history of coronary artery disease, status post coronary artery bypass grafting performed in 2005 who presented with [id number] elevation myocardial infarction, underwent cardiac catheterization by Dr. Kerrie Warren, was found to have critical stenosis involving the proximal segment of the body of the saphenous vein graft to obtuse marginal branch as well as the mid body. In view of that, recommendation was made regarding angioplasty and stenting. The procedure as well as the risks and the complications were discussed with the patient who is in full understanding and agreement. PROCEDURE: A 6-Ecuadorean left coronary bypass guiding catheter was introduced into the system. After cannulating the ostium of the graft, a FilterWire was introduced, positioned distally. After deploying the basket, a 3.0 x 15 mm Trek balloon was advanced. Inflation in the mid and proximal lesion were done up to 10 atmospheres. Following that, the balloon was removed and an export catheter was introduced and one run was performed. Following that, a 4.0 x 18 mm Xience Alpine stent was deployed in the mid lesion, post dilated at 16 atmospheres. Following that and after removing the balloon a 3.5 x 15 mm Xience Alpine stent was deployed in the proximal lesion, post dilated to 16 atmospheres. After removing the balloon, the FilterWire was retrieved. Following that, Whisper J wire was advanced. It positioned distally then a 4.5 x 15 mm NC Euphora balloon was advanced. One inflation in the mid stent was performed at 12 atmospheres. After the last inflation, after appropriate wait, the balloon and the guidewire were withdrawn back in the guiding catheter. Images were obtained and repeated. Those images reveal stable successful stenting. At that point, the guiding cath, the balloon and the guidewire were removed. The sheath was removed. Hemostasis was obtained with deployment of an Angio-Seal. There was no immediate complication. The patient was returned to her room in stable condition. Of note, the patient had no significant chest pain or EKG changes. She received Angio-Max per protocol as well as oral loading dose of clopidogrel. RESULTS: Successful stenting of the mid body of the saphenous vein graft to the obtuse marginal branch with reduction in stenosis 90% to less than 5% and successful stenting of the proximal segment of the saphenous vein graft to the obtuse marginal branch with reduction in stenosis from 80% to less than 5%. RECOMMENDATIONS: Patient will be continued on aspirin, Plavix, beta evens, JASON inhibitor and statin. The importance of dual antiplatelet treatment was discussed with the patient and her family and she is in full understanding and agreement. DURATION OF THE PROCEDURE: 45 minutes. ELY
--- NOTE | 2017-02-25 12:29 | MISC ---
February 22, 2017 DONALD STROUD MD Dear Dr. Stroud: I had the opportunity to perform angioplasty and stenting on Mrs. Farfan at [facility] and a full copy of her procedure note will be forwarded to you. In brief, she underwent stenting of the saphenous vein graft to the obtuse marginal branch in 2 segments using drug eluting stent. I am hopeful that this procedure will stabilize her status. Thank you again for allowing me the opportunity to participate in her care. Please feel free to call for any questions. Sincerely yours, JUAN CORTEZ MD [facility]
[2017-02-25 12:49] VITALS: BP 166/72
[2017-02-25 13:19] VITALS: RESP 14
[2017-02-25 14:54] VITALS: PULSE 72
--- NOTE | 2017-02-25 15:01 | P.PN ---
Subjective 86-year-old female patient with known history of coronary artery disease was undergone bypass surgery more than 10 years ago in addition to history of hypertension and hyperlipidemia and history of smoking and COPD who presented to the hospital because of midsternal chest pain and heaviness that started the day of admission. The patient was admitted to the hospital on 02/21/2017. The patient had abnormal EKG with there was some lateral ST segment depression and minimal ST segment elevation in the inferior leads and aVR. Based on that, cardiac catheterization was performed and the patient was found to have significant stenosis of the saphenous finger after 2 acute marginal branch. Successful and depressed and stenting was done. Chest x-ray revealed chronic changes secondary to underlying COPD. Some limited study and the atelectatic changes/scarring in the left mid/lower lung area. The patient underwent the procedure well without any major complications. This morning, the patient was found to be slightly delirious and confused. Her neurologic exam was nonfocal. She was moving all 4 extremities. At the same time she was found to be hypoxic with pulse ox drop in the mid 80s. Immediately she was placed on 2 L of oxygen nasal cannula which brought her pulse ox up to 80-90%. Chest x-ray was repeated and remained clear. D-dimer was mildly elevated. VQ scan was done and is of a low probability. The patient was given a dose of Lasix following which she diuresed more than 400 mL. She is doing well. She denies having any chest pain. She is resting comfortably in bed. No swelling lower extremities. No fever or chills. No aspiration. No hypoventilation. No headaches. No neck stiffness. No focal neurological deficits. By the time of my arrival, the patient was already following commands and answering questions appropriately. At times however I was told by the nursing staff that she was still acting on and off confused. No other complaints otherwise for now. She denies utilizing home O2. She denies utilizing any form of maintenance breathing medications at home. The echocardiogram was of a limited study however it showed a preserved LV function with an ejection fraction about 70%. The rhythm was sinus On today's evaluation of 02/24/2017, the patient is doing well and the patient is not having any specific complaints. She is resting comfortably in bed. Her oxygen levels improved and the patient is currently on room air with a pulse ox of 91-92%. History of any chest pain. She is tolerating the diet well. No change in mental status. No other complaints otherwise for now. No signs of delirium. On 02/25/2017 the patient has no specific complaints. There has been further improvement in patient's oxygenation and a pulse ox is 97%. This has been measured on room air. No respiratory difficulties. No cough or sputum production. No chest pain. Hemodynamically stable. Changes are being made to discharge this patient home today. Objective - Vital Signs Vital signs: Vital Signs Temp 96.5 F L 02/25/17 09:15 Pulse 65 02/25/17 13:30 Resp 14 02/25/17 13:30 BP 166/72 02/25/17 12:30 Pulse Ox 90 L 02/25/17 12:30 Intake & Output 02/24/17 02/25/17 02/25/17 18:59 06:59 18:59 Intake Total 240 Output Total 400 300 300 Balance -160 -300 -300 Weight 64.4 kg Intake: Oral 240 Output: Urine 400 300 300 Other: Voiding Method Diaper Diaper Diaper Incontinent Incontinent Incontinent # Voids 3 - Exam The patient appeared well nourished and normally developed. Vital signs as documented. Head exam is unremarkable. No scleral icterus or corneal arcus noted. Neck is without jugular venous distension, thyromegaly, or carotid bruits. Carotid upstrokes are brisk bilaterally. Lungs are diminished in lung bases along with some few bibasilar crackles.. Cardiac exam reveals the PMI to be normally sized and situated. Rhythm is regular. First and second heart sounds normal. No murmurs, rubs or gallops. Abdominal exam reveals normal bowel sounds, no masses, no organomegaly and no aortic enlargement. Extremities are nonedematous and both femoral and pedal pulses are normal. - Labs CBC & Chem 7: 02/25/17 05:32 02/25/17 05:32 Labs: Abnormal Lab Results - Last 24 Hours (Table) 02/24/17 02/24/17 02/24/17 Range/Units 15:50 16:36 20:54 RBC 3.34 L (3.80-5.40) m/uL Hgb 8.8 L (11.4-16.0) gm/dL Hct 28.0 L (34.0-46.0) % Sodium (137-145) mmol/L BUN (7-17) mg/dL Creatinine (0.52-1.04) mg/dL Glucose (74-99) mg/dL POC Glucose (mg/dL) 125 H 104 H (75-99) mg/dL Total Protein (6.3-8.2) g/dL Albumin (3.5-5.0) g/dL 02/25/17 02/25/17 02/25/17 Range/Units 05:32 05:32 05:42 RBC 3.30 L (3.80-5.40) m/uL Hgb 8.8 L (11.4-16.0) gm/dL Hct 28.2 L (34.0-46.0) % Sodium 136 L (137-145) mmol/L BUN 28 H (7-17) mg/dL Creatinine 1.47 H (0.52-1.04) mg/dL Glucose 100 H (74-99) mg/dL POC Glucose (mg/dL) 121 H (75-99) mg/dL Total Protein 5.9 L (6.3-8.2) g/dL Albumin 2.6 L (3.5-5.0) g/dL 02/25/17 Range/Units 11:42 RBC (3.80-5.40) m/uL Hgb (11.4-16.0) gm/dL Hct (34.0-46.0) % Sodium (137-145) mmol/L BUN (7-17) mg/dL Creatinine (0.52-1.04) mg/dL Glucose (74-99) mg/dL POC Glucose (mg/dL) 116 H (75-99) mg/dL Total Protein (6.3-8.2) g/dL Albumin (3.5-5.0) g/dL Assessment and Plan Plan: Assessment 1 acute coronary syndrome, acute ST segment elevation myocardial infarction, post immediate cardiac catheterization and angioplasty and stenting of the saphenous vein graft to obtuse marginal. 2 change in mental status, recovered 3 hypoxemia, recovered 4 hypertension 5 hyperlipidemia 6 acute kidney injury/chronic renal insufficiency, stable kidney function with a creatinine of 1.4, I think we are likely dealing with a chronically insufficiency knowing that the patient's creatinine is been essentially unchanged. 7 nicotine addiction/smoking 8 gout 9 concentric left ventricular hypertrophy/hypertensive heart disease 10 abdominal aortic aneurysm measuring 3.2 cm in size above the renal takeoff Plan Pulmonary status is stable. Pulmonary we'll sign off the case. Rest of the management as per medicine. She would like to get discharged today.
--- NOTE | 2017-02-25 15:20 | PCN ---
CARDIAC CATHETERIZATION Mrs. Farfan is an 86-year-old female who was admitted with symptoms of chest pain and non-Q-wave myocardial infarction. Patient has a prior history of coronary artery bypass surgery about 10 years ago. She has a history of hypertension. Because of the non-Q-wave myocardial infarction, patient was advised further evaluation with a cardiac catheterization. The right groin was prepped and draped in the usual manner and the skin was infiltrated with 2% Xylocaine. The right femoral artery was entered using Seldinger technique. A #6 Spanish sheath was placed in. Selective coronary angiography was then performed in multiple projections and selective injection of DIETRICH and a vein graft was made. All catheters were exchanged over the guidewire. CORONARY ANGIOGRAPHY: Left main coronary artery is normal and patent. LAD is a good-caliber blood vessel and the mid LAD is totally occluded after the origin of the diagonal branch. Prior to that, LAD has 70% stenosis. The first septal branch has a 90% stenosis. Circumflex coronary artery is totally occluded after the origin of the first obtuse marginal branch. Right coronary artery has a 90% stenosis which appears to be a chronic lesion. The DIETRICH graft to the LAD is patent. Saphenous vein graft to the obtuse marginal branch has a possible ostial stenosis of 70% and then in the proximal portion there is another area of 90% stenosis. The free right internal mammary graft to the right coronary artery is occluded. Aortic root injection was performed and the vein graft was visualized. The right internal mammary graft was not visualized. RECOMMENDATIONS: We will review the film with Dr. Aguiar and consider a stent to the graft to the obtuse marginal branch. [facility]
--- NOTE | 2017-02-25 16:38 | P.PN ---
Subjective This patient is a 86-year-old right-handed white female who was admitted just today with symptoms of acute coronary syndrome and chest discomfort. She had just recently undergone cardiac catheterization with angioplasty and stenting procedure of the saphenous vein graft. She was noted to have some acute mental status changes and this was reason neurology was consulted yesterday. It was felt she had severe hypoxemia of multiple etiology. She was checked with a VQ scan to rule out pulmonary embolism which came back low probability. She does have history of COPD with fluid overload which probably caused some of the hypoxemia symptoms yesterday. The patient is doing much better today. She is resting comfortably in bed. Her oxygen levels have improved. She has had no further chest pain symptoms. Cardiology is following the patient as well. Patient has been evaluated for chronic anemia. She was seen by hematology and has a normochromic normocytic anemia. She does seem to be back to baseline in terms of her cognitive functioning. She underwent a routine EEG today which was reviewed and is mildly slow. Patient is resting comfortably. She has not had any further cardiac respiratory problems. Her oxygen saturation is 97%. This was measured on room air. She denies any shortness of breath at this time. We will continue close neurological follow-up of this patient during this admission. Patient is being considered for discharge home today. She may follow-up in the outpatient neurology clinic as needed. Her overall prognosis at this time remains guarded. Objective - Vital Signs Vital signs: Vital Signs Temp 96.5 F L 02/25/17 09:15 Pulse 65 02/25/17 13:30 Resp 14 02/25/17 13:30 BP 166/72 02/25/17 12:30 Pulse Ox 90 L 02/25/17 12:30 Intake & Output 02/24/17 02/25/17 02/25/17 18:59 06:59 18:59 Intake Total 240 Output Total 400 300 300 Balance -160 -300 -300 Weight 64.4 kg Intake: Oral 240 Output: Urine 400 300 300 Other: Voiding Method Diaper Diaper Diaper Incontinent Incontinent Incontinent # Voids 3 - Exam Physical examination: PHYSICAL EXAMINATION: Patient is resting comfortably in bed. VITAL SIGNS: Blood pressure is [160/72]. Heart rate is [72]. Respiration is [14] . Temperature is [96.5]. HEENT: Head is atraumatic, neck is supple, there were no carotid bruits. CHEST: Lungs are clear to auscultation and percussion. CARDIAC: S1, S2 normal rate and rhythm. There is no murmur. ABDOMEN: Soft and nontender. Bowel sounds are present. EXTREMITIES: There is no pedal edema. Peripheral pulses are present. Neurological examination: Patient has a nonfocal neurological examination today. - Labs CBC & Chem 7: 02/25/17 05:32 02/25/17 05:32 Labs: Abnormal Lab Results - Last 24 Hours (Table) 02/24/17 02/24/17 02/24/17 Range/Units 15:50 16:36 20:54 RBC 3.34 L (3.80-5.40) m/uL Hgb 8.8 L (11.4-16.0) gm/dL Hct 28.0 L (34.0-46.0) % Sodium (137-145) mmol/L BUN (7-17) mg/dL Creatinine (0.52-1.04) mg/dL Glucose (74-99) mg/dL POC Glucose (mg/dL) 125 H 104 H (75-99) mg/dL Total Protein (6.3-8.2) g/dL Albumin (3.5-5.0) g/dL 02/25/17 02/25/17 02/25/17 Range/Units 05:32 05:32 05:42 RBC 3.30 L (3.80-5.40) m/uL Hgb 8.8 L (11.4-16.0) gm/dL Hct 28.2 L (34.0-46.0) % Sodium 136 L (137-145) mmol/L BUN 28 H (7-17) mg/dL Creatinine 1.47 H (0.52-1.04) mg/dL Glucose 100 H (74-99) mg/dL POC Glucose (mg/dL) 121 H (75-99) mg/dL Total Protein 5.9 L (6.3-8.2) g/dL Albumin 2.6 L (3.5-5.0) g/dL 02/25/17 Range/Units 11:42 RBC (3.80-5.40) m/uL Hgb (11.4-16.0) gm/dL Hct (34.0-46.0) % Sodium (137-145) mmol/L BUN (7-17) mg/dL Creatinine (0.52-1.04) mg/dL Glucose (74-99) mg/dL POC Glucose (mg/dL) 116 H (75-99) mg/dL Total Protein (6.3-8.2) g/dL Albumin (3.5-5.0) g/dL Assessment and Plan (1) Acute anoxic encephalopathy Status: Acute Code(s): G93.1 - ANOXIC BRAIN DAMAGE, NOT ELSEWHERE CLASSIFIED (2) Hypoxemia Status: Acute Code(s): R09.02 - HYPOXEMIA (3) Hypertensive urgency Status: Acute Code(s): I16.0 - HYPERTENSIVE URGENCY (4) Chest pain Status: Acute Code(s): R07.9 - CHEST PAIN, UNSPECIFIED Plan: This patient is a 86-year-old female who recently underwent cardiac catheterization for coronary artery disease. This morning she was found to be delirious and very confused. Her pulse oximetry revealed her to have low oxygen saturation in the mid 80s. She was immediately given nasal oxygen and was sent for a V/Q scan of the lungs. This came back low probability for pulmonary embolus. She was given a dose of IV Lasix and since treatment has shown significant improvement in her mental status. Patient's neurological examination at this time is nonfocal. This patient likely experienced aches acute hypoxemia due to combination of COPD and possible fluid overload. She now seems to be back to baseline in terms of her neurological exam findings. Patient is being treated for chronic anemia. She underwent routine EEG today which is reviewed and is slightly slow. Patient continues to do very well today. She is not having any shortness of breath or difficulty with breathing. Her oxygen saturation is 97%. This is on room air. She has had no further neurological deficits with confusion or altered mental status. She seems to be back to baseline level of function in terms of her cognition. She is being considered for discharge home today. She may follow-up in the outpatient neurology clinic as needed. We will continue close neurological follow-up with this patient during this admission. Her overall prognosis at this time remains guarded.
--- NOTE | 2017-02-26 06:35 | PN ---
CHIEF COMPLAINT: Confusion and low pulse oxygen ( ). HISTORY OF PRESENT ILLNESS: This lady was doing well and she underwent stenting of the obtuse marginal artery yesterday. This morning she was confused. Vital signs are unremarkable. She has had no fever or chills and she does not complain of headache, focal neurologic deficits, change in vision or hearing, cough, hemoptysis, abdominal pain, urinary complaints, etc. PHYSICAL EXAM: She is awake and alert. Face is a little bit edematous. Pupils are equal, round and reactive. Gaze is conjugate. Carotids are normal. Neck veins are not distended. The chest is clear. Cardiac exam is unremarkable and the abdomen is soft and nontender. She also has decreased breath sounds at the right base. IMPRESSION: Confusion or delirium, etiology unknown. PLAN: 1. Chest x-ray. 2. Pulse ox - 75. 3. D-dimer. 4. Stop morphine. ADDENDUM: Her D-dimer came back elevated and a VQ scan was ordered. Electrolytes were also ordered. MTDD
--- NOTE | 2017-02-26 14:51 | PN ---
DATE OF SERVICE: 02/24/2017 CHIEF COMPLAINT: Acute congestive heart failure, malignant hypertension and CAD. HISTORY OF PRESENT ILLNESS: This lady is doing fairly well and is more alert today after her morphine was stopped. There is nothing to suggest a pulmonary embolism. She seems to be much better today. Her hemoglobin had been noticed to be dropping over the last 5 or 6 days, but this seems to be stabilizing. There is no sign of any bleeding. PHYSICAL EXAM: Color is good. Chest is quite clear. There are no significant rales or rhonchi. Cardiac exam is normal and blood pressure is excellent. Abdomen is soft and non-tender. IMPRESSION: 1. Congestive heart failure. 2. Malignant hypertension. 3. Coronary artery disease, status post coronary artery bypass grafting and recently stent. 4. Anemia. PLAN: Increase activity and ambulate without oxygen. She will probably be able to go home tomorrow. ELY
--- NOTE | 2017-02-27 10:35 | EEG ---
ELECTROENCEPHALOGRAPHIC EXAMINATION REPORT DATE OF SERVICE: 02/24/2017 INDICATION FOR EXAMINATION: This patient is an 86-year-old female being evaluated for a recent cardiac catheterization and respiratory distress. Patient with episode of acute confusion and encephalopathy. AGE: 86. EEG FINDINGS: A routine 21-channel awake, digital EEG recording was accomplished utilizing the 10-20 international system with bipolar and referential montages. The background activity in the most alert, resting state consists of a low to medium amplitude, fairly well developed and well sustained 6 Hz activity over the posterior head regions. This posterior rhythm attenuates minimally to eye opening. There is a small amount of low amplitude 18-20 Hz beta activity seen maximally over the anterior head regions. Muscle and movement artifact was observed on a few occasions during the tracing. Hyperventilation was not performed. Photic stimulation at flash frequencies of 2-30 Hz produced a good symmetrical occipital driving response. No epileptiform discharges were seen. IMPRESSION: This EEG is moderately abnormal in diffuse fashion due to slowing of the EEG background. The EEG failed to reveal any focal lateralized or epileptiform abnormalities. Clinical correlation is recommended. [facility]
== END 2017-02-25 14:56 | disposition home or self-care (01) | DRG 246 ==
LOC: EC 08:25 → 3OBS 10:53 → 6SEL 18:36 → OBSVTOIN 02-22 14:37
PROVIDERS: ADMIT Family Medicine; ATTEND Family Medicine
PROC: B2171ZZ Fluoroscopy of Right Internal Mammary Bypass Graft using Low Osmolar Contrast (ICD-10-PCS; 2017-02-22)
PROC: B3101ZZ Fluoroscopy of Thoracic Aorta using Low Osmolar Contrast (ICD-10-PCS; 2017-02-22)
PROC: B2111ZZ Fluoroscopy of Multiple Coronary Arteries using Low Osmolar Contrast (ICD-10-PCS; 2017-02-22)
PROC: B2151ZZ Fluoroscopy of Left Heart using Low Osmolar Contrast (ICD-10-PCS; 2017-02-22)
PROC: B2121ZZ Fluoroscopy of Single Coronary Artery Bypass Graft using Low Osmolar Contrast (ICD-10-PCS; 2017-02-22)
PROC: 027035Z Dilation of Coronary Artery, One Artery with Two Drug-eluting Intraluminal Devices, Percutaneous Approach (ICD-10-PCS; principal; 2017-02-22 12:50)
PROC: 02C03ZZ Extirpation of Matter from Coronary Artery, One Artery, Percutaneous Approach (ICD-10-PCS; 2017-02-22 12:50)
PROC: 4A023N7 Measurement of Cardiac Sampling and Pressure, Left Heart, Percutaneous Approach (ICD-10-PCS; 2017-02-22 12:50)
PROC: B2181ZZ Fluoroscopy of Left Internal Mammary Bypass Graft using Low Osmolar Contrast (ICD-10-PCS; 2017-02-22 12:50)
DX: I21.4 Non-ST elevation (NSTEMI) myocardial infarction (principal); G92 Toxic encephalopathy; N17.9 Acute kidney failure, unspecified; I25.82 Chronic total occlusion of coronary artery; I50.9 Heart failure, unspecified; E44.1 Mild protein-calorie malnutrition; I13.0 Hypertensive heart and chronic kidney disease with heart failure and stage 1 through stage 4 chronic kidney disease, or unspecified chronic kidney disease; I25.729 Atherosclerosis of autologous artery coronary artery bypass graft(s) with unspecified angina pectoris; T82.857A Stenosis of other cardiac prosthetic devices, implants and grafts, initial encounter; E87.70 Fluid overload, unspecified; J44.9 Chronic obstructive pulmonary disease, unspecified; E78.5 Hyperlipidemia, unspecified; I25.2 Old myocardial infarction; I71.4 Abdominal aortic aneurysm, without rupture; R09.02 Hypoxemia; T40.2X5A Adverse effect of other opioids, initial encounter; D50.9 Iron deficiency anemia, unspecified; I16.0 Hypertensive urgency; N18.9 Chronic kidney disease, unspecified; R32 Unspecified urinary incontinence; F41.9 Anxiety disorder, unspecified; R53.83 Other fatigue; M10.9 Gout, unspecified; R11.2 Nausea with vomiting, unspecified; Z87.891 Personal history of nicotine dependence; Z88.5 Allergy status to narcotic agent; Z68.26 Body mass index [BMI] 26.0-26.9, adult; Z88.2 Allergy status to sulfonamides; Z79.899 Other long term (current) drug therapy; Z79.51 Long term (current) use of inhaled steroids; Z79.82 Long term (current) use of aspirin; Z82.49 Family history of ischemic heart disease and other diseases of the circulatory system; Z88.8 Allergy status to other drugs, medicaments and biological substances; Z90.49 Acquired absence of other specified parts of digestive tract; Z90.710 Acquired absence of both cervix and uterus; Y83.2 Surgical operation with anastomosis, bypass or graft as the cause of abnormal reaction of the patient, or of later complication, without mention of misadventure at the time of the procedure
CPT/HCPCS: 36415; 71010; 71020; 78582; 80053; 80061; 82550; 82553; 82607; 82668; 82728; 82747; 83540; 83550; 83690; 83735; 84484; 85025; 85027; 85045; 85049; 85379; 85610; 85730; 93005; 93308; 93455; 93567; 93799; 94640; 94760; 95819; 96374; 99291

== ENCOUNTER 2017-04-15 18:10 | Inpatient (IN) | payer MEDICARE ==
[2017-04-15] MEDS ORDERED: IPRATROPIUM-ALBUTEROL 3 ML NEB INHALATION STA (18:35)
--- NOTE | 2017-04-15 18:51 | ED ---
Chest Pain HPI - General Chief Complaint: Chest Pain Stated Complaint: CHEST PRESSURE, HYPERTENSION, Hx Time Seen by Provider: 04/15/17 18:26 Source: patient, RN notes reviewed Mode of arrival: wheelchair Limitations: no limitations - History of Present Illness Initial Comments: This 86-year-old female who presents with complaints of left-sided chest pressure also some right arm numbness. Numbness and pressure started this morning. Her blood pressure is been up and down all day. He states the pressure left-sided she points her left anterior lateral chest wall it's 5-6/10 in severity. She denies any cough or phlegm production though she does have some shortness of breath. She also some lightheadedness. He has ever recent history of cardiac treatment. MD Complaint: chest pain, other - Related Data Home Medications Medication Instructions Recorded Confirmed Aspirin [Adult Low Dose Aspirin EC] 81 mg PO HS 02/15/17 04/15/17 Budesonide/Formoterol Fumarate 2 puff INHALATION RT-BID 02/15/17 04/15/17 [Symbicort 160-4.5 Mcg Inhaler] Ipratropium-Albuterol Nebulize 3 ml INHALATION RT-QID PRN 02/15/17 04/15/17 [Duoneb 0.5 mg-3 mg/3 ml Soln] Nitroglycerin Sl Tabs [Nitrostat] 0.4 mg SUBLINGUAL Q5M PRN 02/15/17 04/15/17 Albuterol Inhaler [Ventolin Hfa 1 - 2 puff INHALATION RT-Q6H PRN 04/15/17 Inhaler] Ferrous Sulfate [Feosol] 325 mg PO BID 04/15/17 04/15/17 Previous Rx's Medication Instructions Recorded Clopidogrel [Plavix] 75 mg PO DAILY #30 tab 02/25/17 Isosorbide Mononitrate ER [Imdur] 30 mg PO DAILY #30 tab 02/25/17 Lisinopril [Zestril] 10 mg PO DAILY #30 tab 02/25/17 amLODIPine [Norvasc] 5 mg PO DAILY #30 tab 02/25/17 Allergies Allergy/AdvReac Type Severity Reaction Status Date / Time oxybutynin Allergy SEE Verified 04/15/17 18:49 COMMENTS sulfamethoxazole Allergy SEE Verified 04/15/17 18:49 [From Bactrim] COMMENTS trimethoprim [From Bactrim] Allergy SEE Verified 04/15/17 18:49 COMMENTS morphine AdvReac Confusion Verified 04/15/17 18:49 Review of Systems ROS Statement: Those systems with pertinent positive or pertinent negative responses have been documented in the HPI. ROS Other: All systems not noted in ROS Statement are negative. EKG Findings - EKG Results: EKG: interpreted by ERMD, sinus rhythm (Sinus rhythm rate is 78. Interval 162 QRS AND QT since QTC of 394/449 nonspecific inferior changes no acute ST elevation or depressions.) Past Medical History Past Medical History: Coronary Artery Disease (CAD), Hypertension, Myocardial Infarction ([place]) Additional Past Medical History / Comment(s): Coronary artery disease, previous bypass surgery, hypertension, hyperlipidemia, COPD maintenance Symbicort on outpatient basis, gout Last Myocardial Infarction Date:: 2006? History of Any Multi-Drug Resistant Organisms: None Reported Past Surgical History: Cholecystectomy, Coronary Bypass/CABG, Hysterectomy Additional Past Surgical History / Comment(s): Coronary artery bypass surgery, cardiac catheterization and angioplasty and stenting of the saphenous vein graft to obtuse marginal branch. Past Anesthesia/Blood Transfusion Reactions: Motion Sickness Additional Past Anesthesia/Blood Transfusion Reaction / Comment(s): Pt states she has received blood without reaction. Past Psychological History: No Psychological Hx Reported Smoking Status: Former smoker - Past Family History Father Family Medical History: Coronary Artery Disease (CAD), Myocardial Infarction ([place] ) Additional Family Medical History / Comment(s): Father of a [place] at the age of 72 yrs. Mother Family Medical History: No Reported History Additional Family Medical History / Comment(s): Pt states her mother was healthy and at the age of 84 yrs. General Exam - General Exam Comments Initial Comments: This is a well up well-nourished awake alert oriented x 3 female Limitations: no limitations General appearance: alert, in no apparent distress Head exam: Present: atraumatic, normocephalic, normal inspection Eye exam: Present: normal appearance, PERRL, EOMI. Absent: scleral icterus, conjunctival injection, periorbital swelling ENT exam: Present: normal exam, mucous membranes moist Neck exam: Present: normal inspection. Absent: tenderness, meningismus, lymphadenopathy Respiratory exam: Present: chest wall tenderness (Tenderness to palpation of the left lateral chest wall patient but she states this feels different than her other pain initially complained of.), decreased breath sounds. Absent: respiratory distress, wheezes, rales, rhonchi, stridor Cardiovascular Exam: Present: regular rate, normal rhythm, normal heart sounds. Absent: systolic murmur, diastolic murmur, rubs, gallop, clicks GI/Abdominal exam: Present: soft, normal bowel sounds. Absent: distended, tenderness, guarding, rebound, rigid Extremities exam: Present: normal inspection, full ROM, normal capillary refill. Absent: tenderness, pedal edema, joint swelling, calf tenderness Back exam: Present: normal inspection Neurological exam: Present: alert, oriented X3, CN II-XII intact Psychiatric exam: Present: normal affect, normal mood Skin exam: Present: warm, dry, intact, normal color. Absent: rash Course Vital Signs 04/15/17 04/15/17 04/15/17 18:19 18:50 19:00 Temperature 97.2 F L Pulse Rate 86 80 82 Respiratory 20 Rate Blood Pressure 183/77 O2 Sat by Pulse 92 L Oximetry 04/15/17 19:42 Temperature Pulse Rate 90 Respiratory 16 Rate Blood Pressure 148/63 O2 Sat by Pulse 95 Oximetry Chest Pain MDM - MDM Imaging shows no acute findings. There is evidence of a aortic aneurysm with some increase in size since 2011 no evidence of any bleeding please see the complete report I did discuss findings with patient and family members also with Dr. Piedra who is covering Dr. Quintana patient be admitted for evaluation by cardiology for chest pain. Disposition Clinical Impression: Atypical chest pain, Chest wall syndrome Disposition: ADMITTED IP TO THIS HOSP Condition: Stable Referrals: Jose Quintana MD [Primary Care Provider] - 1-2 days
[2017-04-15 18:52] LABS: Basophils # (A) 0.1 k/uL (0-0.2); Basophils % (A) 1 %; CH 26.8; CHCM 30.9; Eosinophils # (A) 0.2 k/uL (0-0.7); Eosinophils % (A) 4 %; HCT 41.4 % (34.0-46.0); HDW 2.26; Hypochromasia Slight; Luc # (Auto) 0.16; Luc % (Auto) 3; Lymphocytes # (A) 1.9 k/uL (1.0-4.8); Lymphocytes % (A) 30 %; MCH 28.1 pg (25.0-35.0); MCHC 32.3 g/dL (31.0-37.0); MCV 86.9 fL (80.0-100.0); Mean Platelet Volume 7.5; Monocytes # (A) 0.6 k/uL (0-1.0); Monocytes % (A) 10 %; Neutrophils # (A) 3.3 k/uL (1.3-7.7); Neutrophils % (A) 53 %; RBC 4.77 m/uL (3.80-5.40); RDW 15.9 % (11.5-15.5); WBC 6.3 k/uL (3.8-10.6)
[2017-04-15 18:55] LABS: HGB 13.4 gm/dL (11.4-16.0)
[2017-04-15 18:57] LABS: Calcium 9.5 mg/dL (8.4-10.2); Magnesium 1.8 mg/dL (1.6-2.3); Potassium 5.3 mmol/L (3.5-5.1); Total Protein 7.9 g/dL (6.3-8.2)
[2017-04-15 19:02] LABS: Partial Thromboplastin Time 24.3 sec (22.0-30.0)
[2017-04-15 19:08] LABS: INR 1.1 (<1.2); Prothrombin Time 11.1 sec (9.0-12.0)
[2017-04-15] MEDS ORDERED: RX INFO: IV CONTRAST WAS GIVEN 1 EACH MISC MISCELLANE PRN (19:19)
[2017-04-15] MEDS ORDERED: SODIUM CHLORIDE 0.9% 500 ML IV STA (19:19)
[2017-04-15 19:25] LABS: Creatine Kinase MB 1.6 ng/mL (0.0-2.4); Troponin I 0.012 ng/mL (0.000-0.034)
--- NOTE | 2017-04-15 19:43 | XR ---
EXAMINATION TYPE: XR chest 2V DATE OF EXAM: 04/15/2017 COMPARISON: 02/23/2017 HISTORY: Chest pain TECHNIQUE: Frontal and lateral views of the chest are obtained. FINDINGS: There is no heart failure nor confluent pneumonic infiltrate. There is slight coarsening o f interstitial markings. There is a calcified granuloma in the right lower lobe. There are sternal wi res. Thoracic aorta is atheromatous. IMPRESSION: No acute lung disease. Mild pulmonary fibrotic changes. There is clearing of mild pleura l reaction at left lung base compared to old exam.
--- NOTE | 2017-04-15 20:18 | CT ---
EXAMINATION TYPE: CT angio chest DATE OF EXAM: 04/15/2017 8:09 PM COMPARISON: NONE HISTORY: Left sided chest pain with shortness of breath CT DLP: 197.7 mGycm Automated exposure control for dose reduction was used. CONTRAST: CTA scan of the thorax is performed with IV Contrast, patient injected with 55 mL of Visipaque 320, p ulmonary embolism protocol. There are 3-D post processed images.. FINDINGS: There is diffuse pulmonary emphysema. There is a 1 semiarid calcified granuloma in the right lower lo be. There are some interstitial fibrotic changes in the mid lung wells anteriorly. Thoracic aorta is atheromatous. There is aneurysm of the thoracic aorta at the diaphragm. Aorta measu res up to 3.6 cm. There is no pericardial effusion. I see no filling defects in the pulmonary arteries. There is no mediastinal adenopathy. There are no hilar masses. There are calcified granulomata in the mediastinum. There is no pericardial effusion. T here is spurring in the thoracic spine with mild kyphotic posture. IMPRESSION: NO EVIDENCE OF PULMONARY EMBOLISM. 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 THE AORTA ANEURYSM IS INCREASED COMPARED TO 02/02/2012. THE ANEURYSM MEASURES 3.2 CM ON THE OLD EXAM. ATHEROSCLEROTIC VASCULAR DISEASE. FIBROSIS AND EMPHYSEMA. NO EVIDENCE OF A PULMONARY MASS.
[2017-04-15] MEDS ORDERED: NITROGLYCERIN SL TABS 0.4 MG TAB SUBLINGUAL PRN (20:43)
[2017-04-15] MEDS ORDERED: HEPARIN SODIUM,PORCINE 5,000 UNIT/ML 1 ML VIAL IV ONE (20:43)
[2017-04-15] MEDS ORDERED: HEPARIN SODIUM,PORCINE/D5W PMX 25,000 UNIT in DEXTROSE/WATER 1 500ML.BAG IV SCH (20:45)
[2017-04-15] MEDS ORDERED: SODIUM CHLORIDE 0.9% 1,000 ML IV SCH (20:45)
[2017-04-15] MEDS ORDERED: IPRATROPIUM-ALBUTEROL 3 ML NEB INHALATION PRN (20:45)
[2017-04-15 22:48] VITALS: BMI 24.5
[2017-04-15] MEDS: FERROUS SULFATE 325 MG TAB PO SCH (23:26)
[2017-04-16 02:39] LABS: Creatine Kinase MB 1.7 ng/mL (0.0-2.4); Troponin I 0.013 ng/mL (0.000-0.034)
[2017-04-16] MEDS: NITROGLYCERIN OINT 1 INCH/GM PACKET TOPICAL SCH ×5 (05:55→23:23)
[2017-04-16 07:24] LABS: Cholesterol 126 mg/dL (<200); HDL Cholesterol 41 mg/dL (40-60)
[2017-04-16 07:40] LABS: Creatine Kinase MB 1.7 ng/mL (0.0-2.4); Troponin I 0.013 ng/mL (0.000-0.034)
[2017-04-16] MEDS: SYMBICORT 160-4.5 MCG INHALER INHALATION SCH ×2 (08:17→20:11)
[2017-04-16] MEDS ORDERED: amLODIPine 5 MG TAB PO SCH (09:00)
[2017-04-16] MEDS: ASPIRIN 325 MG TAB PO SCH (10:36)
[2017-04-16] MEDS: ISOSORBIDE MONONITRATE ER 30 MG TAB.ER.24H PO SCH (10:37)
[2017-04-16] MEDS: CLOPIDOGREL 75 MG TAB PO SCH (10:37)
[2017-04-16] MEDS: LISINOPRIL 10 MG TAB PO SCH (10:37)
[2017-04-16] MEDS: FERROUS SULFATE 325 MG TAB PO SCH ×2 (10:37→20:45)
--- NOTE | 2017-04-16 12:58 | CONS ---
Mrs. Farfan is an 83-year-old female who presents with numbness in the right arm with discomfort in the chest that lasted for almost a day. She found her blood pressure was high and she came to the hospital once again. She was recently in the hospital and was seen by Dr. Kerrie Warren who performed a coronary angiography on her for evaluation of recurrent chest discomfort. The cardiac catheterization revealed that the mid LAD was totally occluded after the origin of the diagonal branch, before that there was 70% stenosis. The first septal branch had a 90% stenosis. Circumflex was completely occluded after the origin of the first obtuse marginal and she had a 90% stenosis, which is chronic. DIETRICH graft to the LAD was patent. Saphenous vein graft to the obtuse marginal had a possible ostial stenosis of 70% and then in the proximal portion another 90% stenosis. The free right mammary graft to the right coronary artery is occluded. The note states that he would speak to Dr. Aguiar and consider stenting of the graft to the obtuse marginal. I do not know the plan thereafter. At this time, her cardiac enzymes are completely normal. The ECG does not show any ST segment abnormalities suggestive of ischemia. Three cardiac enzymes are normal. Further review of the notes show that Dr. Aguiar did perform an angioplasty and stenting of the saphenous vein graft to the obtuse marginal with 2 stents using a drug eluting stent in January of 2017. This is in one of miscellaneous notes. She comes in with elevated blood pressures. A 2-D echo shows a normal LV systolic function, which actually was hyperdynamic ejection fraction greater than 70%. Past history of coronary artery disease, hypertension, [place], coronary artery bypass grafting, cholecystectomy, hysterectomy. Medications are reviewed and documented on the chart. REVIEW OF SYSTEM: No fever, chills or rigors. No cough or expectoration. No nausea, vomiting or diarrhea. No hematuria or dysuria. No strokes or seizures. No skin lesions or musculoskeletal complaints. Examination reveals blood pressures in the 180s systolic. Head and neck examination is normal. Heart sounds are normal. She is lying comfortably in bed. She is pain free. No murmurs. No gallops over the precordium. Breath sounds are normal. No rhonchi. No crackles. Abdomen is soft, nontender. Extremities are warm. No edema. Home medications at this time include amlodipine 5 mg daily, aspirin 325 mg daily, Plavix 75 mg daily, isosorbide 30 mg daily, lisinopril 10 mg daily. I do not see statins on the list, but I am not sure why. SUGGEST: 1. Blood pressure control with amlodipine, increase to 5 mg twice daily. 2. Continue lisinopril 10 mg p.o. daily. 3 Gradual maximization on antihypertensive therapy. This patient should stay in the hospital because blood pressure at home has not been controlled with these medications. I would also start her on atorvastatin 20 mg p.o. daily and check a lipid panel on her. She will follow up with Dr. Kerrie Warren as an outpatient. ELY
--- NOTE | 2017-04-16 14:37 | P.HPIM ---
<Sarah Xie E - Last Filed: 04/16/17 14:27> History of Present Illness H&P Date: 04/16/17 Chief Complaint: Chest pain and hypertension This is an 86-year-old female patient who is being seen examined and evaluated today on the third floor. The patient came into the emergency room with complaints of left-sided chest pain, as well as some right arm numbness. Patient states her blood pressure has been fluctuating all day. She does follow with cardiology in the outpatient setting. Patient was admitted to the observation unit for acute atypical chest pain and chest wall syndrome. Upon examination the patient's resting up in bed on 2 L of supplemental oxygen she denies any shortness of breath cough or congestion at this time. She also is denying any chest pain at this time. He is concerned about her blood pressure which was last 156/70. Cardiology is currently adjusting her medications, it has been advised that we adjust her maintenance medication and do not give PRN antihypertensive at this time. We appreciate this recommendation from cardiology. She is afebrile no further complaints. Review of Systems 14 point review of systems was completed and negative unless noted above in the HPI. Past Medical History Past Medical History: Coronary Artery Disease (CAD), Hypertension, Myocardial Infarction ([place]) Additional Past Medical History / Comment(s): Coronary artery disease, previous bypass surgery, hypertension, hyperlipidemia, COPD maintenance Symbicort on outpatient basis, gout Last Myocardial Infarction Date:: 2016 History of Any Multi-Drug Resistant Organisms: None Reported Past Surgical History: Cholecystectomy, Coronary Bypass/CABG, Hysterectomy Additional Past Surgical History / Comment(s): Coronary artery bypass surgery, cardiac catheterization and angioplasty and stenting of the saphenous vein graft to obtuse marginal branch. Past Anesthesia/Blood Transfusion Reactions: Motion Sickness Additional Past Anesthesia/Blood Transfusion Reaction / Comment(s): Pt states she has received blood without reaction. Past Psychological History: No Psychological Hx Reported Additional Psychological History / Comment(s): Pt resides in an apartment alone. She uses a walker. She drives. No stairs. Smoking Status: Former smoker Past Alcohol Use History: None Reported Additional Past Alcohol Use History / Comment(s): Pt started smoking in 2 and quit in the 1960s Past Drug Use History: None Reported - Past Family History Father Family Medical History: Coronary Artery Disease (CAD), Myocardial Infarction ([place] ) Additional Family Medical History / Comment(s): Father of a [place] at the age of 72 yrs. Mother Family Medical History: No Reported History Additional Family Medical History / Comment(s): Pt states her mother was healthy and at the age of 84 yrs. Medications and Allergies Home Medications Medication Instructions Recorded Confirmed Type Aspirin [Adult Low Dose Aspirin EC] 81 mg PO HS 02/15/17 04/15/17 History Budesonide/Formoterol Fumarate 2 puff INHALATION RT-BID 02/15/17 04/15/17 History [Symbicort 160-4.5 Mcg Inhaler] Ipratropium-Albuterol Nebulize 3 ml INHALATION RT-QID PRN 02/15/17 04/15/17 History [Duoneb 0.5 mg-3 mg/3 ml Soln] Nitroglycerin Sl Tabs [Nitrostat] 0.4 mg SUBLINGUAL Q5M PRN 02/15/17 04/15/17 History Albuterol Inhaler [Ventolin Hfa 1 - 2 puff INHALATION RT-Q6H PRN 04/15/17 History Inhaler] Ferrous Sulfate [Feosol] 325 mg PO BID 04/15/17 04/15/17 History Allergies Allergy/AdvReac Type Severity Reaction Status Date / Time oxybutynin Allergy SEE Verified 04/15/17 18:49 COMMENTS sulfamethoxazole Allergy SEE Verified 04/15/17 18:49 [From Bactrim] COMMENTS trimethoprim [From Bactrim] Allergy SEE Verified 04/15/17 18:49 COMMENTS morphine AdvReac Confusion Verified 04/15/17 18:49 Physical Exam Vitals: Vital Signs Temp Pulse Pulse Resp BP BP Pulse Ox 04/16/17 12:00 97.6 F 73 16 156/70 98 04/16/17 08:17 76 04/16/17 08:00 98.1 F 83 16 184/78 94 L 04/16/17 04:00 98.4 F 78 18 144/69 93 L 04/15/17 23:00 76 18 04/15/17 21:25 98.1 F 87 18 186/74 96 04/15/17 21:08 97.6 F 87 18 148/67 95 04/15/17 19:42 90 16 148/63 95 04/15/17 19:00 82 04/15/17 18:50 80 04/15/17 18:19 97.2 F L 86 20 183/77 92 L Intake and Output 04/15/17 04/16/17 04/16/17 22:59 06:59 14:59 Other: Voiding Method Toilet # Voids 2 Weight 58.967 kg 58.967 kg GENERAL EXAM: Alert, active, comfortable in no apparent distress. HEAD: Normocephalic. EYES: Normal reaction of pupils, equal size. NOSE: Clear with pink turbinates. THROAT: No erythema or exudates. NECK: No masses, no JVD. CHEST: No chest wall deformity. LUNGS: Equal air entry, some faint expiratory wheezes noted scattered. Bases diminished. CVS: S1 and S2 normal with no audible mumurs, regular rhythm. ABDOMEN: No hepatosplenomegaly, normal bowel sounds, no guarding or rigidity. EXTREMITIES: No edema noted, pedal pulses palpable. SKIN: No rashes CENTRAL NERVOUS SYSTEM: No focal deficits, tone is normal in all 4 extremities. Results CBC & Chem 7: 04/15/17 18:30 04/15/17 18:30 Labs: Abnormal Lab Results - Last 24 Hours (Table) 04/15/17 04/15/17 04/15/17 Range/Units 18:30 18:30 18:30 RDW 15.9 H (11.5-15.5) % APTT (22.0-30.0) sec D-Dimer 2.33 H (<0.60) mg/L FEU Potassium 5.3 H (3.5-5.1) mmol/L BUN 24 H (7-17) mg/dL Creatinine 1.20 H (0.52-1.04) mg/dL Glucose 116 H (74-99) mg/dL 04/16/17 Range/Units 01:50 RDW (11.5-15.5) % APTT 64.4 H (22.0-30.0) sec D-Dimer (<0.60) mg/L FEU Potassium (3.5-5.1) mmol/L BUN (7-17) mg/dL Creatinine (0.52-1.04) mg/dL Glucose (74-99) mg/dL Chest x-ray: report reviewed, image reviewed CT scan - chest: report reviewed, image reviewed Thrombosis Risk Factor Assmnt - DVT/VTE Prophylaxis DVT/VTE Prophylaxis: Pharmacologic Prophylaxis ordered - Choose All That Apply Each Risk Factor Represents 3 Points: Age 75 years or older Thrombosis Risk Factor Assessment Total Risk Factor Score: 3 Thrombosis Risk Factor Assessment Level: Moderate Risk Assessment and Plan Plan: Assessment Atypical chest pain Chest wall pain Hypertension Coronary artery disease with history of stenting Hyperlipidemia Chronic obstructive pulmonary disease History of [place] History of CABG Plan Home medications have been reordered. Medications have been reviewed and will be continued as ordered. Continue with cardiology consult and recommendations. Continue with pulmonary hygiene, coughing and deep breathing exercises, and supportive care. Supplemental oxygen to maintain oxygen saturations of 92% or better. Add nebulizer treatments. GI and DVT prophylaxis. We will continue to monitor labs/results and adjust treatment as necessary. Further recommendations pending. I performed an examination of the patient and discussed their management with the nurse practitioner. I have reviewed the nurse practitioner's note and agree with the documented findings and plan of care. 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 there is no slurring of this may just present we'll consult neurology a possible TIA cannot be excluded, will defer further workup to neurology, as per protocol code stroke has been initiated by the nursing staff and patient likely will be removed to 6 floor, a computed tomography scan of the head is being ordered as well Physical Exam Vitals: Vital Signs Temp Pulse Pulse Resp BP BP Pulse Ox 04/16/17 16:00 97.6 F 80 18 133/62 94 L 04/16/17 12:00 97.6 F 73 16 156/70 98 04/16/17 08:17 76 04/16/17 08:00 98.1 F 83 16 184/78 94 L 04/16/17 04:00 98.4 F 78 18 144/69 93 L 04/15/17 23:00 76 18 04/15/17 21:25 98.1 F 87 18 186/74 96 04/15/17 21:08 97.6 F 87 18 148/67 95 04/15/17 19:42 90 16 148/63 95 Intake and Output 04/16/17 04/16/17 04/16/17 06:59 14:59 22:59 Other: Voiding Method Toilet Toilet Weight 58.967 kg Results CBC & Chem 7: 04/15/17 18:30 04/15/17 18:30 Labs: Abnormal Lab Results - Last 24 Hours (Table) 04/16/17 Range/Units 01:50 APTT 64.4 H (22.0-30.0) sec
[2017-04-16 19:34] LABS: Glucose,Whole Blood 97 mg/dL (75-99)
--- NOTE | 2017-04-16 19:58 | CT ---
EXAMINATION TYPE: CT brain wo con for TPA DATE OF EXAM: 04/16/2017 COMPARISON: NONE at this location. INDICATION: Patient complains of right side facial numbness and droop. DLP: 862.5 mGycm, Automated exposure control for dose reduction was used. CONTRAST: None CT of the brain is performed utilizing 3 mm thick sections through the posterior fossa and 3 mm thick sections through the remaining calvarium. Study is performed within 24 hours of arrival to the hosp [facility]. No abnormal hyperdensity is present to suggest an acute intracranial hemorrhage. No mass lesion is evident. No acute infarcts are evident. Chronic appearing periventricular white matter hypodensity is present, likely on the basis of chronic microvascular ischemic changes. Ventricles and sulci are appropriate for the patient age. There may be some slight prominence of the right temporal horn of the lateral ventricle. However, hydrocephalus is not identified. Paranasal sinuses and mastoid air cells within the [id number] are clear. IMPRESSIONS: 1. Chronic appearing white matter ischemic changes. No acute changes identified.
[2017-04-16] MEDS: IPRATROPIUM-ALBUTEROL 3 ML NEB INHALATION SCH (20:11)
[2017-04-16] MEDS ORDERED: SODIUM CHLORIDE 0.9% 1,000 ML IV SCH (20:15)
[2017-04-16 20:28] LABS: CH 26.9; HCT 36.5 % (34.0-46.0); HGB 11.6 gm/dL (11.4-16.0); Hypochromasia Slight; MCH 27.9 pg (25.0-35.0); MCHC 31.9 g/dL (31.0-37.0); MCV 87.2 fL (80.0-100.0); Mean Platelet Volume 7.6; RBC 4.18 m/uL (3.80-5.40); RDW 15.8 % (11.5-15.5); WBC 6.8 k/uL (3.8-10.6)
[2017-04-16 20:32] LABS: INR 1.1 (<1.2); Partial Thromboplastin Time 25.3 sec (22.0-30.0); Prothrombin Time 11.3 sec (9.0-12.0)
[2017-04-16 20:34] LABS: Potassium 4.7 mmol/L (3.5-5.1)
[2017-04-16] MEDS: ATORVASTATIN 80 MG TAB PO SCH (20:45)
[2017-04-16] MEDS: amLODIPine 5 MG TAB PO SCH (20:45)
--- NOTE | 2017-04-16 23:21 | P.CNNES ---
History of Present Illness Consult date: 04/16/17 History of Present Illness: The patient is an 86-year-old woman who ports that she's been experiencing right arm and face numbness for the last 2 days. She presented to the hospital yesterday with that complaint. States she had's chest pain several weeks ago for which she was seen at the hospital. According to the ER minimal the patient also presented with left-sided chest pain yesterday. Patient denies any weakness on the left side. She denied any vertigo or speech disturbance. Patient was on observation floor and this evening code stroke was called. CT brain showed chronic-appearing white matter ischemic changes. It was felt patient was not a TPA candidate and she was transferred to the [facility] care. States she is doing well and she continues to have right face and arm numbness which she's had's for 2 days. Neurology is requested to see the patient and her NIH score was 5 Review of Systems Constitutional: Denies chills, Denies fever Eyes: denies blurred vision, denies pain Ears, nose, mouth and throat: Denies headache, Denies sore throat Cardiovascular: Denies chest pain, Denies shortness of breath Respiratory: Reports as per HPI Musculoskeletal: Denies myalgias Neurological: Denies numbness, Denies weakness Psychiatric: Denies anxiety, Denies depression Past Medical History Past Medical History: Coronary Artery Disease (CAD), Hypertension, Myocardial Infarction ([place]) Additional Past Medical History / Comment(s): Coronary artery disease, previous bypass surgery, hypertension, hyperlipidemia, COPD maintenance Symbicort on outpatient basis, gout Last Myocardial Infarction Date:: 2016 History of Any Multi-Drug Resistant Organisms: None Reported Past Surgical History: Cholecystectomy, Coronary Bypass/CABG, Hysterectomy Additional Past Surgical History / Comment(s): Coronary artery bypass surgery, cardiac catheterization and angioplasty and stenting of the saphenous vein graft to obtuse marginal branch. Past Anesthesia/Blood Transfusion Reactions: Motion Sickness Additional Past Anesthesia/Blood Transfusion Reaction / Comment(s): Pt states she has received blood without reaction. Past Psychological History: No Psychological Hx Reported Additional Psychological History / Comment(s): Pt resides in an apartment alone. She uses a walker. She drives. No stairs. Smoking Status: Former smoker Past Alcohol Use History: None Reported Additional Past Alcohol Use History / Comment(s): Pt started smoking in 1962 and quit in the 1960s Past Drug Use History: None Reported - Past Family History Father Family Medical History: Coronary Artery Disease (CAD), Myocardial Infarction ([place] ) Additional Family Medical History / Comment(s): Father of a [place] at the age of 72 yrs. Mother Family Medical History: No Reported History Additional Family Medical History / Comment(s): Pt states her mother was healthy and at the age of 84 yrs. Medications and Allergies Home Medications Medication Instructions Recorded Confirmed Type Aspirin [Adult Low Dose Aspirin EC] 81 mg PO HS 02/15/17 04/15/17 History Budesonide/Formoterol Fumarate 2 puff INHALATION RT-BID 02/15/17 04/15/17 History [Symbicort 160-4.5 Mcg Inhaler] Ipratropium-Albuterol Nebulize 3 ml INHALATION RT-QID PRN 02/15/17 04/15/17 History [Duoneb 0.5 mg-3 mg/3 ml Soln] Nitroglycerin Sl Tabs [Nitrostat] 0.4 mg SUBLINGUAL Q5M PRN 02/15/17 04/15/17 History Albuterol Inhaler [Ventolin Hfa 1 - 2 puff INHALATION RT-Q6H PRN 04/15/17 History Inhaler] Ferrous Sulfate [Feosol] 325 mg PO BID 04/15/17 04/15/17 History Allergies Allergy/AdvReac Type Severity Reaction Status Date / Time oxybutynin Allergy SEE Verified 04/15/17 18:49 COMMENTS sulfamethoxazole Allergy SEE Verified 04/15/17 18:49 [From Bactrim] COMMENTS trimethoprim [From Bactrim] Allergy SEE Verified 04/15/17 18:49 COMMENTS morphine AdvReac Confusion Verified 04/15/17 18:49 Physical Examination - Vital Signs Vital Signs: Vital Signs Temp Pulse Pulse Resp BP Pulse Ox 04/16/17 22:15 97.5 F L 83 17 154/71 96 04/16/17 22:00 84 17 150/81 96 04/16/17 21:45 82 16 144/83 96 04/16/17 21:30 88 16 151/79 96 04/16/17 21:15 97.5 F L 77 17 164/84 96 04/16/17 21:00 78 16 159/82 96 04/16/17 20:45 82 17 159/82 95 04/16/17 20:38 85 04/16/17 20:30 84 16 173/88 97 04/16/17 20:15 75 17 170/84 96 04/16/17 20:13 85 04/16/17 20:00 82 17 162/79 96 04/16/17 19:45 80 16 156/93 96 04/16/17 19:33 97 04/16/17 19:30 84 17 166/105 96 04/16/17 19:25 16 04/16/17 16:00 97.6 F 80 18 133/62 94 L 04/16/17 12:00 97.6 F 73 16 156/70 98 04/16/17 08:17 76 04/16/17 08:00 98.1 F 83 16 184/78 94 L 04/16/17 04:00 98.4 F 78 18 144/69 93 L Intake and Output 04/16/17 04/16/17 04/17/17 14:59 22:59 06:59 Intake Total 150 Balance 150 Intake: Intake, IV Titration 150 Amount Sodium Chloride 0.9% 1, 150 000 ml @ 50 mls/hr IV . Q20H [facility] Rx#:[id number] Other: Voiding Method Toilet Toilet - Constitutional General appearance: average body habitus - EENT EENT: PERRL, hearing intact, vision intact - Respiratory Respiratory: lungs clear, normal breath sounds - Cardiovascular Cardiovascular: regular rate - Integumentary Integumentary: normal - Neurologic Mental status she was awake alert and oriented chance of questions appropriately there is no a aphasia or dysarthria Cranial nerve examination: EOMI, VFF, V1/V2/V3 grossly intact, face symmetric, tongue midline Speech examination: intact Detailed motor examination: other (She was able to move all 4 extremities equally there was no drift) Reflexes: 2+: knee - Psychiatric Psychiatric: mood/affect appropriate Results - Laboratory Findings CBC and BMP: 04/16/17 20:03 04/16/17 20:03 Abnormal Lab Findings: Abnormal Labs 04/15/17 04/15/17 04/15/17 18:30 18:30 18:30 RDW 15.9 H APTT D-Dimer 2.33 H Potassium 5.3 H BUN 24 H Creatinine 1.20 H Glucose 116 H 04/16/17 04/16/17 04/16/17 01:50 20:03 20:03 RDW 15.8 H APTT 64.4 H D-Dimer Potassium BUN 28 H Creatinine 1.30 H Glucose Assessment and Plan (1) TIA (transient ischemic attack) Status: Acute Code(s): G45.9 - TRANSIENT CEREBRAL ISCHEMIC ATTACK, UNSPECIFIED (2) Atypical chest pain Status: Acute Code(s): R07.89 - OTHER CHEST PAIN (3) Hypertensive urgency Status: Acute Code(s): I16.0 - HYPERTENSIVE URGENCY Plan: Patient is an 86-year-old woman who has been complaining of right face and arm numbness for several days. Today she had an episode of slurred speech and facial droop and was transferred from observation to telemetry monitoring. She may have had a TIA. She is currently on Plavix and aspirin. CT of the brain did not show any acute findings. Recommend continued close neuro checks and cardiac monitoring
[2017-04-17] MEDS: NITROGLYCERIN OINT 1 INCH/GM PACKET TOPICAL SCH (03:03)
[2017-04-17] MEDS: IPRATROPIUM-ALBUTEROL 3 ML NEB INHALATION SCH ×3 (08:22→19:57)
[2017-04-17] MEDS: SYMBICORT 160-4.5 MCG INHALER INHALATION SCH ×2 (08:22→19:57)
[2017-04-17] MEDS: CLOPIDOGREL 75 MG TAB PO SCH (08:45)
[2017-04-17] MEDS: ASPIRIN 325 MG TAB PO SCH (08:45)
[2017-04-17] MEDS: ISOSORBIDE MONONITRATE ER 30 MG TAB.ER.24H PO SCH (08:45)
[2017-04-17] MEDS: LISINOPRIL 10 MG TAB PO SCH (08:45)
[2017-04-17] MEDS: PANTOPRAZOLE 40 MG/10 ML VIAL IVP SCH (08:46)
[2017-04-17] MEDS: FERROUS SULFATE 325 MG TAB PO SCH ×2 (08:46→19:57)
[2017-04-17] MEDS: amLODIPine 5 MG TAB PO SCH ×2 (08:46→19:57)
--- NOTE | 2017-04-17 10:08 | PN ---
This is an 86-year-old female who came in with chest discomfort and left sided numbness with very high blood pressures. She said her blood pressure has been fluctuating a lot. She has known coronary artery disease status post stenting a few months back. She is doing well. Her blood pressure is better controlled. She is lying comfortably in bed. She is coughing. She is afebrile. On examination, her temperature is normal 97.5 degrees Fahrenheit. Blood pressure 140/77 mmHg, pulse rate in the 70s and 80s. Heart sounds: S1, S2 are normal. Breath sounds are normal. Extremities are warm, no edema. She was seen by Neurology yesterday and Neurology notes state that she may have had a TIA. SUGGEST: Continue the current doses of amlodipine that I have prescribed. I will keep her in the hospital to make sure her blood pressure is well controlled. She has recurrent admissions for hypertension and recurrent symptoms that are most likely related to hypertension. She did not have an acute myocardial infarction at this time. ELY
--- NOTE | 2017-04-17 11:55 | P.PN ---
Subjective 04/16/17- This is an 86-year-old female patient who is being seen examined and evaluated today on the third floor. The patient came into the emergency room with complaints of left-sided chest pain, as well as some right arm numbness. Patient states her blood pressure has been fluctuating all day. She does follow with cardiology in the outpatient setting. Patient was admitted to the observation unit for acute atypical chest pain and chest wall syndrome. Upon examination the patient's resting up in bed on 2 L of supplemental oxygen she denies any shortness of breath cough or congestion at this time. She also is denying any chest pain at this time. He is concerned about her blood pressure which was last 156/70. Cardiology is currently adjusting her medications, it has been advised that we adjust her maintenance medication and do not give PRN antihypertensive at this time. We appreciate this recommendation from cardiology. She is afebrile no further complaints. 04/17/17- patient is being seen in evaluated and examined today on the selective care unit. Apparently overnight the patient, he was noted to have some tingling to the right side of her face and right arm she also was noted to have a slight facial droop and a code stroke was called overhead. Neurology was put on consult. She did undergo a CT of the brain which showed chronic-appearing white matter ischemic changes. The patient was determined to not be a candidate for TPA treatment. That's when she was transferred to the selective care unit. Upon examination the patient's resting up in bed on 2 L of supplemental oxygen, she does have some shortness of breath with exertion. Denies any cough or congestion at this time. Patient states she still has some right face and arm tingling. Objective - Vital Signs Vital signs: Vital Signs Temp 97.5 F L 04/17/17 08:00 Pulse 80 04/17/17 08:31 Resp 16 04/17/17 11:32 BP 134/65 04/17/17 08:00 Pulse Ox 94 L 04/17/17 08:00 Intake & Output 04/16/17 04/17/17 04/17/17 18:59 06:59 18:59 Intake Total 550 240 Balance 550 240 Weight 61.7 kg Intake: Intake, IV Titration 550 Amount Sodium Chloride 0.9% 1, 550 000 ml @ 50 mls/hr IV . Q20H [facility] Rx#:[id number] Oral 240 Other: Voiding Method Toilet Toilet Toilet # Voids 2 - Exam GENERAL EXAM: Alert, active, comfortable in no apparent distress. Smile symmetric HEAD: Normocephalic. EYES: Normal reaction of pupils, equal size. NOSE: Clear with pink turbinates. THROAT: No erythema or exudates. NECK: No masses, no JVD. CHEST: No chest wall deformity. LUNGS: Equal air entry with faint expiratory wheezes noted scattered throughout. Bases diminished. CVS: S1 and S2 normal with no audible mumurs, regular rhythm. ABDOMEN: No hepatosplenomegaly, normal bowel sounds, no guarding or rigidity. EXTREMITIES: No edema noted, pedal pulses palpable. SKIN: No rashes CENTRAL NERVOUS SYSTEM: No focal deficits, tone is normal in all 4 extremities, no drift noted. - Labs CBC & Chem 7: 04/16/17 20:03 04/16/17 20:03 Labs: Abnormal Lab Results - Last 24 Hours (Table) 04/16/17 04/16/17 Range/Units 20:03 20:03 RDW 15.8 H (11.5-15.5) % BUN 28 H (7-17) mg/dL Creatinine 1.30 H (0.52-1.04) mg/dL Assessment and Plan Plan: Assessment Acute hypoxic respiratory failure Acute exacerbation of COPD with bronchitis. Atypical chest pain Chest wall pain Hypertension Coronary artery disease with history of stenting Hyperlipidemia Chronic obstructive pulmonary disease History of ME History of CABG Plan Home medications have been reordered. Medications have been reviewed and will be continued as ordered. Continue with cardiology consult and recommendations. Continue with pulmonary hygiene, coughing and deep breathing exercises, and supportive care. Supplemental oxygen to maintain oxygen saturations of 92% or better. Add nebulizer treatments. Continue with neurology consult as well as cardiology. GI and DVT prophylaxis. We will continue to monitor labs/results and adjust treatment as necessary. Further recommendations pending. I performed an examination of the patient and discussed their management with the nurse practitioner. I have reviewed the nurse practitioner's note and agree with the documented findings and plan of care.
[2017-04-17] MEDS: ATORVASTATIN 80 MG TAB PO SCH (19:57)
[2017-04-18] MEDS: ASPIRIN 81 MG CHEW PO SCH (08:09)
[2017-04-18] MEDS: FERROUS SULFATE 325 MG TAB PO SCH ×2 (08:09→22:07)
[2017-04-18] MEDS: ISOSORBIDE MONONITRATE ER 30 MG TAB.ER.24H PO SCH (08:09)
[2017-04-18] MEDS: PANTOPRAZOLE 40 MG/10 ML VIAL IVP SCH (08:09)
[2017-04-18] MEDS: CLOPIDOGREL 75 MG TAB PO SCH (08:09)
[2017-04-18] MEDS: LISINOPRIL 10 MG TAB PO SCH (08:09)
[2017-04-18] MEDS: amLODIPine 5 MG TAB PO SCH ×2 (08:09→22:23)
[2017-04-18] MEDS: SYMBICORT 160-4.5 MCG INHALER INHALATION SCH ×2 (08:48→19:57)
[2017-04-18] MEDS: IPRATROPIUM-ALBUTEROL 3 ML NEB INHALATION SCH ×3 (08:48→19:57)
--- NOTE | 2017-04-18 11:03 | MR ---
EXAMINATION TYPE: MR brain wo/w con DATE OF EXAM: 04/18/2017 COMPARISON: CT brain 04/16/2017 HISTORY: CVA/TIA TECHNIQUE: Multiplanar, multisequence images of the brain and brainstem is performed without and with IV contras t, utilizing 13 mL intravenous MultiHance . FINDINGS: Diffusion weighted images demonstrate focal left thalamic infarct with restricted diffusion , corresponding increased signal on inversion recovery and T2-weighted sequences, no abnormal enhance ment. There is no extra-axial fluid collection. Periventricular white matter, deep white matter scat tered and confluent hyperintensities on inversion recovery and T2-weighted sequences is noted. Focal encephalomalacia present in the left sruthi dorsally. There are normal vascular flow voids. The ventric ular system and cisternal spaces are normal in size and appearance. The brain volume is age appropri ate, there is likely age-related atrophy. Midline structures demonstrate normal morphology, there is a partially empty sella. The craniocervic al junction appears within normal limits. Post contrast images demonstrate no abnormal enhancement. The dural venous sinuses appear patent. The visualized sinuses are clear and the globes are intact. IMPRESSION: Subacute left thalamic infarct measures approximately 6 mm. There is evidence of chronic small vessel ischemia.
--- NOTE | 2017-04-18 13:00 | PN ---
DATE OF SERVICE: 04/18/17 CHIEF COMPLAINT: Chest pain. HISTORY OF PRESENT ILLNESS: This lady seems to be doing fairly well and stable. She has not had any further chest discomfort. She is not short of breath or diaphoretic. PHYSICAL EXAMINATION: Chest is clear. Cardiac exam is normal. Abdomen soft, nontender. IMPRESSION: 1. Chest pain. 2. Coronary artery disease. 3. ? unstable angina. PLAN: Progress activity and await any further guidelines or recommendations from cardiology. ELY
--- NOTE | 2017-04-18 14:52 | P.PN ---
Subjective Principal diagnosis: Chest pain and left arm numbness This is an 83-year-old female who presented to the hospital with right arm numbness and associated chest discomfort. Her blood pressure was found to be significantly elevated on admission. Patient recently underwent a cardiac catheterization by Dr. VC varghese, it revealed a totally occluded LAD after the origin of the diagonal branch, before that there was a 70% stenosis. The first septal branch had a 90% stenosis. Circumflex was completely occluded after the origin of the first obtuse marginal branch and she had a 90% stenosis which is chronic. DIETRICH to the LAD was patent, saphenous vein graft to the obtuse marginal had a possible ostial stenosis of 70% and the proximal portion had another 90% stenosis. The free right mammary graft to the right coronary artery was occluded. Patient then underwent angioplasty and stenting of the saphenous vein graft to the obtuse marginal was 2 stents. Cardiac enzymes this admission are completely normal. EKG does not reveal any ST segment abnormalities suggestive of ischemia. Blood pressure today 148/60 with heart rate in the 70s to 80s, 93% on room air. Potassium today 4.7, BUN 28, creatinine 1.3. Patient seen and examined today, denies any chest discomfort. Objective - Vital Signs Vital signs: Vital Signs Temp 97 F L 04/18/17 11:17 Pulse 88 04/18/17 13:06 Resp 18 04/18/17 11:17 BP 149/60 04/18/17 11:17 Pulse Ox 93 L 04/18/17 11:17 Intake & Output 04/17/17 04/18/17 04/18/17 18:59 06:59 18:59 Intake Total 660 400 236 Output Total 600 500 Balance 60 -100 236 Weight 62.4 kg Intake: Intake, IV Titration 400 Amount Sodium Chloride 0.9% 1, 400 000 ml @ 50 mls/hr IV . Q20H [facility] Rx#:[id number] Oral 660 236 Output: Urine 600 500 Other: Voiding Method Toilet Toilet Toilet # Voids 3 2 1 # Bowel Movements 1 - Exam PHYSICAL EXAMINATION: HEENT: [Head is atraumatic, normocephalic. Pupils equal, round. Neck is supple. There is no elevated jugular venous pressure.] HEART EXAMINATION: [Heart S1, S2 normal. No murmur or gallop heard.] CHEST EXAMINATION:[ Lungs are clear to auscultation and precussion. No chest wall tenderness is noted on palpation or with deep breathing.] ABDOMEN: [ Soft, nontender. Bowel sounds are heard. No organomegaly noted]. EXTREMITIES:[ 2+ peripheral pulses with no evidence of peripheral edema and no calf tenderness noted]. NEUROLOGIC [patient is awake, alert and oriented -3.] . - Labs CBC & Chem 7: 04/16/17 20:03 04/16/17 20:03 Assessment and Plan (1) HTN (hypertension) Status: Acute (2) CAD (coronary artery disease) Status: Acute (3) TIA (transient ischemic attack) Status: Acute (4) Chest pain Status: Acute (5) Hypertensive urgency Status: Acute Plan: From cardiology's perspective, we'll continue the patient on her current medications. Continue to monitor blood pressure. DNP note has been reviewed, I agree with a documented findings and plan of care. Patient was seen and examined.
[2017-04-18] MEDS: ATORVASTATIN 80 MG TAB PO SCH (22:07)
[2017-04-19] MEDS: IPRATROPIUM-ALBUTEROL 3 ML NEB INHALATION SCH ×2 (07:33→13:25)
[2017-04-19] MEDS: SYMBICORT 160-4.5 MCG INHALER INHALATION SCH (07:33)
[2017-04-19] MEDS: ASPIRIN 81 MG CHEW PO SCH (08:55)
[2017-04-19] MEDS: ISOSORBIDE MONONITRATE ER 30 MG TAB.ER.24H PO SCH (08:55)
[2017-04-19] MEDS: LISINOPRIL 10 MG TAB PO SCH (08:55)
[2017-04-19] MEDS: FERROUS SULFATE 325 MG TAB PO SCH (08:55)
[2017-04-19] MEDS: PANTOPRAZOLE 40 MG/10 ML VIAL IVP SCH (08:55)
[2017-04-19] MEDS: CLOPIDOGREL 75 MG TAB PO SCH (08:55)
[2017-04-19] MEDS: amLODIPine 5 MG TAB PO SCH (08:55)
[2017-04-19 12:01] VITALS: BP 158/74; TEMP 97.4
[2017-04-19 13:27] VITALS: PULSE 86; RESP 16
--- NOTE | 2017-04-19 14:48 | P.PN ---
Subjective Principal diagnosis: Chest pain and left arm numbness This is an 83-year-old female who presented to the hospital with right arm numbness and associated chest discomfort. Her blood pressure was found to be significantly elevated on admission. Patient recently underwent a cardiac catheterization by Dr. VC varghese, it revealed a totally occluded LAD after the origin of the diagonal branch, before that there was a 70% stenosis. The first septal branch had a 90% stenosis. Circumflex was completely occluded after the origin of the first obtuse marginal branch and she had a 90% stenosis which is chronic. DIETRICH to the LAD was patent, saphenous vein graft to the obtuse marginal had a possible ostial stenosis of 70% and the proximal portion had another 90% stenosis. The free right mammary graft to the right coronary artery was occluded. Patient then underwent angioplasty and stenting of the saphenous vein graft to the obtuse marginal was 2 stents. Cardiac enzymes this admission are completely normal. EKG does not reveal any ST segment abnormalities suggestive of ischemia. Blood pressure today 148/60 with heart rate in the 70s to 80s, 93% on room air. Potassium today 4.7, BUN 28, creatinine 1.3. Patient seen and examined today, denies any chest discomfort. 04/19/2000 Patient seen and examined this morning, denies any chest pain or difficulty in breathing. Blood pressure 150/60. Cardiology's perspective she may be discharged home today. We'll make her a follow-up appointment in the office post discharge. Objective - Vital Signs Vital signs: Vital Signs Temp 97.4 F L 04/19/17 11:30 Pulse 86 04/19/17 13:37 Resp 16 04/19/17 13:37 BP 158/74 04/19/17 11:30 Pulse Ox 92 L 04/19/17 11:30 Intake & Output 04/18/17 04/19/17 04/19/17 18:59 06:59 18:59 Intake Total 354 480 Output Total 400 Balance 354 80 Weight 62.6 kg Intake: Oral 354 480 Output: Urine 400 Other: Voiding Method Toilet Toilet Toilet # Voids 1 1 3 # Bowel Movements 1 - Exam PHYSICAL EXAMINATION: HEENT: [Head is atraumatic, normocephalic. Pupils equal, round. Neck is supple. There is no elevated jugular venous pressure.] HEART EXAMINATION: [Heart S1, S2 normal. No murmur or gallop heard.] CHEST EXAMINATION:[ Lungs are clear to auscultation and precussion. No chest wall tenderness is noted on palpation or with deep breathing.] ABDOMEN: [ Soft, nontender. Bowel sounds are heard. No organomegaly noted]. EXTREMITIES:[ 2+ peripheral pulses with no evidence of peripheral edema and no calf tenderness noted]. NEUROLOGIC [patient is awake, alert and oriented -3.] . - Labs CBC & Chem 7: 04/16/17 20:03 04/16/17 20:03 Assessment and Plan (1) HTN (hypertension) Status: Acute (2) CAD (coronary artery disease) Status: Acute (3) TIA (transient ischemic attack) Status: Acute (4) Chest pain Status: Acute (5) Hypertensive urgency Status: Acute Plan: From cardiology's perspective, we'll continue the patient on her current medications. Follow-up with cardiology in 1weeks. Prescriptions have been provided. DNP note has been reviewed, I agree with a documented findings and plan of care. Patient was seen and examined.
[2017-04-20] MEDS ORDERED: PANTOPRAZOLE 40 MG TABLET PO SCH (07:30)
--- NOTE | 2017-04-20 17:49 | DS ---
CHIEF COMPLAINT: Chest pain and dysesthesias on the face. HISTORY OF PRESENT ILLNESS AND PHYSICAL EXAM: Details of this lady's history of physical can be found in the initial workup. LABORATORY STUDIES: While she was in the hospital she had laboratory studies, details of which can be found in the laboratory section of her chart. COURSE IN THE HOSPITAL: After admission she was placed on bedrest, started on intravenous fluids and was seen by Cardiology. Her neurologic deficit was minimal and was improving. Cardiology felt that she required no further intervention for her chest pain. It was felt that she could be discharged. She will go home on her usual activity, diet and medication, and will be seen in the office in one day. FINAL DIAGNOSIS: 1. Chest pain. 2. Unstable angina pectoris. 3. Transient ischemic attack. OPERATIONS: None. CONSULTATIONS: 1. Cardiology. 2. Neurology. She is improved. ELY
== END 2017-04-19 15:37 | disposition home health service (06) | DRG 69 ==
LOC: EC 18:10 → 3OBS 20:46 → OBSVTOIN 20:46 → 6SEL 04-16 19:47
PROVIDERS: ADMIT Family Medicine; ATTEND Family Medicine
DX: G45.9 Transient cerebral ischemic attack, unspecified (principal); I25.710 Atherosclerosis of autologous vein coronary artery bypass graft(s) with unstable angina pectoris; J44.1 Chronic obstructive pulmonary disease with (acute) exacerbation; I25.110 Atherosclerotic heart disease of native coronary artery with unstable angina pectoris; I25.720 Atherosclerosis of autologous artery coronary artery bypass graft(s) with unstable angina pectoris; I25.82 Chronic total occlusion of coronary artery; Z95.1 Presence of aortocoronary bypass graft; I10 Essential (primary) hypertension; I25.2 Old myocardial infarction; I16.0 Hypertensive urgency; E78.5 Hyperlipidemia, unspecified; M10.9 Gout, unspecified; I71.9 Aortic aneurysm of unspecified site, without rupture; Z79.51 Long term (current) use of inhaled steroids; Z79.02 Long term (current) use of antithrombotics/antiplatelets; Z79.82 Long term (current) use of aspirin; Z79.899 Other long term (current) drug therapy; Z95.5 Presence of coronary angioplasty implant and graft; Z87.891 Personal history of nicotine dependence; Z90.49 Acquired absence of other specified parts of digestive tract; Z90.710 Acquired absence of both cervix and uterus; Z88.5 Allergy status to narcotic agent; Z88.2 Allergy status to sulfonamides; Z88.8 Allergy status to other drugs, medicaments and biological substances; Z82.49 Family history of ischemic heart disease and other diseases of the circulatory system
CPT/HCPCS: 36415; 70450; 70553; 71020; 71275; 80051; 80053; 80061; 82550; 82553; 82565; 82947; 83735; 83880; 84484; 84520; 85025; 85027; 85379; 85610; 85730; 93005; 94640; 94760; 96361; 96374; 99285

== ENCOUNTER 2017-05-06 12:51 | Observation (INO) | payer MEDICARE ==
[2017-05-06] MEDS ORDERED: hydrALAZINE HCL 20 MG/ML 1 ML VIAL IVP STA (13:27)
--- NOTE | 2017-05-06 13:29 | ED ---
General Adult HPI - General Chief complaint: Recheck/Abnormal Lab/Rx Stated complaint: HTN Time Seen by Provider: 05/06/17 13:07 Source: patient, EMS Mode of arrival: EMS Limitations: no limitations - History of Present Illness Initial comments: Patient 86-year-old female significant past history for hypertension, who presents emergency room today by EMS, the chief complaint of elevated blood pressure. She does admit that she was feeling" yucky" earlier today checked her blood pressure was elevated. She states she usually has his, symptoms and she notices blood pressure is elevated. She states she has been taking her blood pressure medication. She states she does not feel as bad at this time slightly better. Blood pressure currently 196/93 in the room. Patient denies any lightheadedness, dizziness, headache. Denies any other complaints or symptoms at this time. Patient denies any recent fever, chills, shortness of breath, chest pain, back pain, abdominal pain, nausea or vomiting, numbness or tingling, dysuria or hematuria, constipation or diarrhea, visual changes, or any other complaints. - Related Data Home Medications Medication Instructions Recorded Confirmed Aspirin [Adult Low Dose Aspirin EC] 81 mg PO HS 02/15/17 05/06/17 Budesonide/Formoterol Fumarate 2 puff INHALATION RT-BID 02/15/17 05/06/17 [Symbicort 160-4.5 Mcg Inhaler] Ipratropium-Albuterol Nebulize 3 ml INHALATION RT-QID PRN 02/15/17 05/06/17 [Duoneb 0.5 mg-3 mg/3 ml Soln] Nitroglycerin Sl Tabs [Nitrostat] 0.4 mg SUBLINGUAL Q5M PRN 02/15/17 05/06/17 Albuterol Inhaler [Ventolin Hfa 1 - 2 puff INHALATION RT-Q6H PRN 04/15/17 Inhaler] Ferrous Sulfate [Feosol] 325 mg PO BID 04/15/17 05/06/17 guaiFENesin [Mucinex] 600 mg PO BID PRN 05/06/17 05/06/17 Previous Rx's Medication Instructions Recorded Clopidogrel [Plavix] 75 mg PO DAILY #30 tab 02/25/17 Isosorbide Mononitrate ER [Imdur] 30 mg PO DAILY #30 tab 02/25/17 Lisinopril [Zestril] 10 mg PO DAILY #30 tab 02/25/17 amLODIPine [Norvasc] 5 mg PO DAILY #30 tab 02/25/17 Atorvastatin [Lipitor] 80 mg PO HS #30 tab 04/19/17 Carvedilol [Coreg] 6.25 mg PO BID #60 tablet 04/19/17 Allergies Allergy/AdvReac Type Severity Reaction Status Date / Time oxybutynin Allergy SEE Verified 05/06/17 14:09 COMMENTS sulfamethoxazole Allergy SEE Verified 05/06/17 14:09 [From Bactrim] COMMENTS trimethoprim [From Bactrim] Allergy SEE Verified 05/06/17 14:09 COMMENTS morphine AdvReac Confusion Verified 05/06/17 14:09 Review of Systems ROS Statement: Those systems with pertinent positive or pertinent negative responses have been documented in the HPI. ROS Other: All systems not noted in ROS Statement are negative. Past Medical History Past Medical History: Coronary Artery Disease (CAD), Hypertension, Myocardial Infarction ([place]) Additional Past Medical History / Comment(s): Coronary artery disease, previous bypass surgery, hypertension, hyperlipidemia, COPD maintenance Symbicort on outpatient basis, gout Last Myocardial Infarction Date:: 2016 History of Any Multi-Drug Resistant Organisms: None Reported Past Surgical History: Cholecystectomy, Coronary Bypass/CABG, Hysterectomy Additional Past Surgical History / Comment(s): Coronary artery bypass surgery, cardiac catheterization and angioplasty and stenting of the saphenous vein graft to obtuse marginal branch. Past Anesthesia/Blood Transfusion Reactions: Motion Sickness Additional Past Anesthesia/Blood Transfusion Reaction / Comment(s): Pt states she has received blood without reaction. Past Psychological History: No Psychological Hx Reported Smoking Status: Former smoker Past Alcohol Use History: None Reported Past Drug Use History: None Reported - Past Family History Father Family Medical History: Coronary Artery Disease (CAD), Myocardial Infarction ([place] ) Additional Family Medical History / Comment(s): Father of a [place] at the age of 72 yrs. Mother Family Medical History: No Reported History Additional Family Medical History / Comment(s): Pt states her mother was healthy and at the age of 84 yrs. General Exam - General Exam Comments Initial Comments: General: The patient is awake and alert, in no distress, and does not appear acutely ill. Eye: Pupils are equal, round and reactive to light, extra-ocular movements are intact. No nystagmus. There is normal conjunctiva bilaterally. No signs of icterus. Ears, nose, mouth and throat: There are moist mucous membranes and no oral lesions. Neck: The neck is supple, there is no tenderness or JVD. Cardiovascular: There is a regular rate and rhythm. No murmur, rub or gallop is appreciated. Respiratory: Lungs are clear to auscultation, respirations are non-labored, breath sounds are equal. No wheezes, stridor, rales, or rhonchi. Gastrointestinal: Soft, non-distended, non-tender abdomen without masses or organomegaly noted. There is no rebound or guarding present. No CVA tenderness. Bowel sounds are unremarkable. Musculoskeletal: Normal ROM, no tenderness. Strength 5/5. Sensation intact. Pulses equal bilaterally 2+. Neurological: A&O x 3. CN II-XII intact, There are no obvious motor or sensory deficits. Coordination appears grossly intact. Speech is normal. Skin: Skin is warm and dry and no rashes or lesions are noted. Psychiatric: Cooperative, appropriate mood & affect, normal judgment. Limitations: no limitations Course Vital Signs 05/06/17 05/06/17 05/06/17 12:58 14:04 16:14 Temperature 97.6 F Pulse Rate 73 68 Respiratory 18 18 Rate Blood Pressure 196/93 161/70 146/65 O2 Sat by Pulse 94 L 95 Oximetry EKG Findings - EKG Comments: EKG Findings:: First EKG was performed at 1336: A 12-lead EKG was performed and interpreted by me as showing the following: Rate is 65, and rhythm is normal sinus. There are normal QRS complexes and normal R-wave progression. ST segments have no elevation or depression, and GA segments appear normal. Second EKG performed at 1457: A 12-lead EKG was performed and interpreted by me as showing the following: Rate is 83, and rhythm is normal sinus. There are normal QRS complexes and normal R-wave progression. ST segments have no elevation or depression, and GA segments appear normal. Medical Decision Making - Medical Decision Making Case discussed in detail with attending physician Dr. bonner. Patient reexamined at this time shows no signs of distress resting comfortably. Patient blood pressure improved after hydralazine given here in the emergency room. Initially patient states she did feel kind" yucky". She states that she' s felt like this with her blood pressure being elevated in the past. After blood pressure improved and labs were being obtained. She told nursing staff that she began experiencing some left-sided chest pressure. Patient was given aspirin and nitro here the emergency room with little relief of the symptoms. Patient repeat EKG shows no change from previous. Patient will be admitted to the hospital for cardiology consult. - Lab Data Result diagrams: 05/06/17 13:59 05/06/17 13:59 Lab Results 05/06/17 05/06/17 05/06/17 Range/Units 13:59 13:59 13:59 WBC 6.1 (3.8-10.6) k/uL RBC 4.27 (3.80-5.40) m/uL Hgb 11.6 (11.4-16.0) gm/dL Hct 37.5 (34.0-46.0) % MCV 88.0 (80.0-100.0) fL MCH 27.1 (25.0-35.0) pg MCHC 30.8 L (31.0-37.0) g/dL RDW 16.3 H (11.5-15.5) % Plt Count 197 (150-450) k/uL Neutrophils % 56 % Lymphocytes % 26 % Monocytes % 8 % Eosinophils % 8 % Basophils % 1 % Neutrophils # 3.4 (1.3-7.7) k/uL Lymphocytes # 1.6 (1.0-4.8) k/uL Monocytes # 0.5 (0-1.0) k/uL Eosinophils # 0.5 (0-0.7) k/uL Basophils # 0.0 (0-0.2) k/uL Anisocytosis Slight PT (9.0-12.0) sec INR (<1.2) APTT (22.0-30.0) sec Sodium 142 (137-145) mmol/L Potassium 4.5 (3.5-5.1) mmol/L Chloride 107 (98-107) mmol/L Carbon Dioxide 29 (22-30) mmol/L Anion Gap 6 mmol/L BUN 24 H (7-17) mg/dL Creatinine 1.17 H (0.52-1.04) mg/dL Est GFR (MDRD) Af Amer 53 (>60 ml/min/1.73 sqM) Est GFR (MDRD) Non-Af 44 (>60 ml/min/1.73 sqM) Glucose 94 (74-99) mg/dL Calcium 8.6 (8.4-10.2) mg/dL Magnesium 1.8 (1.6-2.3) mg/dL Total Creatine Kinase (30-135) U/L CK-MB (CK-2) (0.0-2.4) ng/mL CK-MB (CK-2) Rel Index Troponin I (0.000-0.034) ng/mL 05/06/17 05/06/17 Range/Units 15:06 15:06 WBC (3.8-10.6) k/uL RBC (3.80-5.40) m/uL Hgb (11.4-16.0) gm/dL Hct (34.0-46.0) % MCV (80.0-100.0) fL MCH (25.0-35.0) pg MCHC (31.0-37.0) g/dL RDW (11.5-15.5) % Plt Count (150-450) k/uL Neutrophils % % Lymphocytes % % Monocytes % % Eosinophils % % Basophils % % Neutrophils # (1.3-7.7) k/uL Lymphocytes # (1.0-4.8) k/uL Monocytes # (0-1.0) k/uL Eosinophils # (0-0.7) k/uL Basophils # (0-0.2) k/uL Anisocytosis PT 10.4 (9.0-12.0) sec INR 1.0 (<1.2) APTT 19.9 L (22.0-30.0) sec Sodium (137-145) mmol/L Potassium (3.5-5.1) mmol/L Chloride (98-107) mmol/L Carbon Dioxide (22-30) mmol/L Anion Gap mmol/L BUN (7-17) mg/dL Creatinine (0.52-1.04) mg/dL Est GFR (MDRD) Af Amer (>60 ml/min/1.73 sqM) Est GFR (MDRD) Non-Af (>60 ml/min/1.73 sqM) Glucose (74-99) mg/dL Calcium (8.4-10.2) mg/dL Magnesium (1.6-2.3) mg/dL Total Creatine Kinase 69 (30-135) U/L CK-MB (CK-2) 1.9 (0.0-2.4) ng/mL CK-MB (CK-2) Rel Index 2.8 Troponin I <0.012 (0.000-0.034) ng/mL Disposition Clinical Impression: Chest pain, Hypertension Disposition: ADMITTED IP TO THIS HOSP Condition: Good Referrals: Jose Quintana MD [Primary Care Provider] - 1-2 days Time of Disposition: 16:14
[2017-05-06 14:13] LABS: Anisocytosis Slight; Basophils % (A) 1 %; CH 28.2; CHCM 32.2; Eosinophils # (A) 0.5 k/uL (0-0.7); Eosinophils % (A) 8 %; HCT 37.5 % (34.0-46.0); HDW 2.37; HGB 11.6 gm/dL (11.4-16.0); Luc # (Auto) 0.19; Luc % (Auto) 3; Lymphocytes # (A) 1.6 k/uL (1.0-4.8); Lymphocytes % (A) 26 %; MCH 27.1 pg (25.0-35.0); MCHC 30.8 g/dL (31.0-37.0); Mean Platelet Volume 8.5; Monocytes # (A) 0.5 k/uL (0-1.0); Monocytes % (A) 8 %; Neutrophils # (A) 3.4 k/uL (1.3-7.7); Neutrophils % (A) 56 %; RBC 4.27 m/uL (3.80-5.40); RDW 16.3 % (11.5-15.5); WBC 6.1 k/uL (3.8-10.6); WBC (Perox) 6.21
[2017-05-06 14:14] LABS: Calcium 8.6 mg/dL (8.4-10.2); Potassium 4.5 mmol/L (3.5-5.1)
[2017-05-06] MEDS ORDERED: ASPIRIN 81 MG PO STA (14:56)
[2017-05-06] MEDS ORDERED: NITROGLYCERIN SL TABS 0.4 MG TAB SUBLINGUAL PRN (15:02)
--- NOTE | 2017-05-06 15:49 | XR ---
EXAMINATION TYPE: XR chest 2V DATE OF EXAM: 05/06/2017 COMPARISON: 04/15/17 HISTORY: Shortness of breath TECHNIQUE: Frontal and lateral views of the chest are obtained. FINDINGS: Scattered senescent parenchymal changes noted. Hyperinflation compatible with COPD. No evidence for infiltrate. No evidence for atelectasis. Granuloma right lower lobe. Heart size is stable. Mediastinal structures are stable and grossly unremarkable. No evidence for hilar prominence. Degenerative changes dorsal spine. IMPRESSION: 1. No evidence for acute pulmonary disease.
[2017-05-06 15:53] LABS: Prothrombin Time 10.4 sec (9.0-12.0)
[2017-05-06 15:54] LABS: Creatine Kinase 69 U/L (30-135)
[2017-05-06 15:55] LABS: Partial Thromboplastin Time 19.9 sec (22.0-30.0)
[2017-05-06 16:07] LABS: Creatine Kinase MB 1.9 ng/mL (0.0-2.4); Troponin I <0.012 ng/mL (0.000-0.034)
[2017-05-06] MEDS ORDERED: SODIUM CHLORIDE 0.9% 1,000 ML IV ONE (16:15)
[2017-05-06] MEDS ORDERED: HEPARIN SODIUM,PORCINE 5,000 UNIT/ML 1 ML VIAL IV ONE (16:21)
[2017-05-06] MEDS ORDERED: HEPARIN SODIUM,PORCINE/D5W PMX 25,000 UNIT in DEXTROSE/WATER 1 500ML.BAG IV SCH (16:30)
[2017-05-06] MEDS: SYMBICORT 160-4.5 MCG INHALER INHALATION SCH (20:03)
[2017-05-06] MEDS: IPRATROPIUM-ALBUTEROL 3 ML NEB INHALATION SCH (20:03)
[2017-05-06] MEDS: ATORVASTATIN 80 MG TAB PO SCH (21:02)
[2017-05-06] MEDS: CARVEDILOL 6.25 MG TAB PO SCH (21:02)
[2017-05-06] MEDS: FERROUS SULFATE 325 MG TAB PO SCH (21:03)
[2017-05-06] MEDS: NITROGLYCERIN OINT 1 INCH/GM PACKET TOPICAL SCH (21:03)
[2017-05-06] MEDS: ASPIRIN 81 MG PO SCH (21:04)
[2017-05-06 22:53] LABS: Creatine Kinase 58 U/L (30-135)
[2017-05-06] MEDS: MELATONIN 3 MG TABLET PO SCH (23:04)
[2017-05-06 23:06] LABS: Creatine Kinase MB 1.7 ng/mL (0.0-2.4); Troponin I <0.012 ng/mL (0.000-0.034)
[2017-05-07] MEDS: NITROGLYCERIN OINT 1 INCH/GM PACKET TOPICAL SCH ×4 (00:23→17:48)
[2017-05-07] MEDS: guaiFENesin 600 MG TABLET.ER PO PRN ×3 (02:28→22:31)
[2017-05-07 03:44] LABS: Anisocytosis Slight; Basophils # (A) 0.1 k/uL (0-0.2); Basophils % (A) 1 %; CH 28.1; CHCM 31.7; Eosinophils # (A) 0.6 k/uL (0-0.7); Eosinophils % (A) 8 %; HCT 35.4 % (34.0-46.0); HDW 2.36; Luc # (Auto) 0.22; Luc % (Auto) 3; Lymphocytes # (A) 1.8 k/uL (1.0-4.8); Lymphocytes % (A) 26 %; MCH 27.7 pg (25.0-35.0); MCHC 31.1 g/dL (31.0-37.0); Mean Platelet Volume 8.5; Monocytes # (A) 0.6 k/uL (0-1.0); Monocytes % (A) 8 %; Neutrophils # (A) 3.7 k/uL (1.3-7.7); Neutrophils % (A) 53 %; RBC 3.98 m/uL (3.80-5.40); RDW 16.5 % (11.5-15.5); WBC 6.9 k/uL (3.8-10.6); WBC (Perox) 7.51
[2017-05-07 04:17] LABS: Creatine Kinase 52 U/L (30-135)
[2017-05-07 04:20] LABS: Calcium 8.3 mg/dL (8.4-10.2); Potassium 4.4 mmol/L (3.5-5.1)
[2017-05-07 04:30] LABS: Creatine Kinase MB 1.4 ng/mL (0.0-2.4); Troponin I <0.012 ng/mL (0.000-0.034)
[2017-05-07] MEDS ORDERED: ASPIRIN 325 MG TAB PO SCH (09:00)
[2017-05-07] MEDS: FERROUS SULFATE 325 MG TAB PO SCH ×2 (09:30→16:49)
[2017-05-07] MEDS: CLOPIDOGREL 75 MG TAB PO SCH (09:30)
[2017-05-07] MEDS: LISINOPRIL 10 MG TAB PO SCH (09:31)
[2017-05-07] MEDS: amLODIPine 5 MG TAB PO SCH (09:31)
[2017-05-07] MEDS: CARVEDILOL 6.25 MG TAB PO SCH ×2 (09:31→16:49)
--- NOTE | 2017-05-07 09:51 | P.CRDCN ---
History of Present Illness Consult date: 05/07/17 Consult reason: chest pain History of present illness: 86-year-old lady in with history of coronary artery disease status post CABG status post angioplasty of the venous graft to OM branch in January of this year hypertension dyslipidemia who presents to Hospital complaining of chest pain. It as a chest discomfort that is mild intensity precordial unassociated with diaphoresis without definite radiation to neck, back. There are no clear-cut relieving or exacerbating factors. At the time of my evaluation she is chest pain-free EKG does not reveal ischemic changes cardiac enzymes have been negative. I reviewed her prior angiographic data. Reviewed her EKG lab tests. Patient had a TIA few weeks ago. She still has mild confusion at times. The plan at this stage is to treat her with optimal medical therapy and not do further workup at this time. She can follow-up with her primary baby counselor and undergo an outpatient stress test if necessary. Review of Systems Constitutional: Denies chills. Denies fever. Eyes: Denies blurred vision. Denies pain. Ears, nose, mouth and throat: Denies headache. Denies sore throat. Cardiovascular: has chest pain. Denies shortness of breath. Respiratory: Denies cough. Gastrointestinal: Denies abdominal pain. Denies diarrhea. Denies nausea. Denies vomiting. Musculoskeletal: Denies myalgias. Integumentary: Denies pruritus. Denies rash. Neurological: Denies numbness. Denies weakness. Psychiatric: Denies anxiety. Denies depression. Endocrine: Denies fatigue. Denies weight change. Genitourinary: Denies burning, hematuria, frequency of urination. Hematological: No anemia or excess bleeding. Past Medical History Past Medical History: Coronary Artery Disease (CAD), Hyperlipidemia, Hypertension, Myocardial Infarction ([place]) Additional Past Medical History / Comment(s): Coronary artery disease, previous bypass surgery, hypertension, hyperlipidemia, COPD maintenance Symbicort on outpatient basis, gout, AAA NOT SURE OF SIZE Last Myocardial Infarction Date:: 2016 History of Any Multi-Drug Resistant Organisms: None Reported Past Surgical History: Cholecystectomy, Coronary Bypass/CABG, Heart Catheterization With Stent, Hysterectomy Additional Past Surgical History / Comment(s): Coronary artery bypass surgery- triple, cardiac catheterization and angioplasty and stenting of the saphenous vein graft to obtuse marginal branch.CATARACTS, "stent in groin" Past Anesthesia/Blood Transfusion Reactions: Motion Sickness Additional Past Anesthesia/Blood Transfusion Reaction / Comment(s): Pt states she has received blood without reaction. Date of Last Stent Placement:: unk Past Psychological History: No Psychological Hx Reported Additional Psychological History / Comment(s): pt currently staying with her son while her apt is being worked on. She uses a walker. No stairs.has [facility]. Smoking Status: Former smoker Past Alcohol Use History: None Reported Additional Past Alcohol Use History / Comment(s): Pt started smoking in 1961 and quit in the 1986 Past Drug Use History: None Reported - Past Family History Father Family Medical History: Coronary Artery Disease (CAD), Myocardial Infarction ([place] ) Additional Family Medical History / Comment(s): Father of a [place] at the age of 72 yrs. Mother Family Medical History: No Reported History Additional Family Medical History / Comment(s): Pt states her mother was healthy and at the age of 84 yrs. Medications and Allergies Home Medications Medication Instructions Recorded Confirmed Type Aspirin [Adult Low Dose Aspirin EC] 81 mg PO HS 02/15/17 05/06/17 History Budesonide/Formoterol Fumarate 2 puff INHALATION RT-BID 02/15/17 05/06/17 History [Symbicort 160-4.5 Mcg Inhaler] Ipratropium-Albuterol Nebulize 3 ml INHALATION RT-QID PRN 02/15/17 05/06/17 History [Duoneb 0.5 mg-3 mg/3 ml Soln] Nitroglycerin Sl Tabs [Nitrostat] 0.4 mg SUBLINGUAL Q5M PRN 02/15/17 05/06/17 History Clopidogrel [Plavix] 75 mg PO DAILY #30 tab 02/25/17 05/06/17 Rx Isosorbide Mononitrate ER [Imdur] 30 mg PO DAILY #30 tab 02/25/17 05/06/17 Rx Lisinopril [Zestril] 10 mg PO DAILY #30 tab 02/25/17 05/06/17 Rx amLODIPine [Norvasc] 5 mg PO DAILY #30 tab 02/25/17 05/06/17 Rx Albuterol Inhaler [Ventolin Hfa 1 - 2 puff INHALATION RT-Q6H PRN 04/15/17 History Inhaler] Ferrous Sulfate [Feosol] 325 mg PO BID 04/15/17 05/06/17 History Atorvastatin [Lipitor] 80 mg PO HS #30 tab 04/19/17 05/06/17 Rx Carvedilol [Coreg] 6.25 mg PO BID #60 tablet 04/19/17 05/06/17 Rx guaiFENesin [Mucinex] 600 mg PO BID PRN 05/06/17 05/06/17 History Allergies Allergy/AdvReac Type Severity Reaction Status Date / Time oxybutynin Allergy SEE Verified 05/06/17 14:09 COMMENTS sulfamethoxazole Allergy SEE Verified 05/06/17 14:09 [From Bactrim] COMMENTS trimethoprim [From Bactrim] Allergy SEE Verified 05/06/17 14:09 COMMENTS morphine AdvReac Confusion Verified 05/06/17 14:09 Physical Exam Vitals: Vital Signs Temp Pulse Pulse Pulse Pulse Resp BP 05/07/17 08:00 97.8 F 64 16 05/07/17 04:00 98 F 64 18 05/07/17 03:10 74 18 05/07/17 00:00 67 18 05/06/17 23:13 74 18 05/06/17 20:12 84 05/06/17 20:05 72 05/06/17 19:16 97.8 F 70 18 05/06/17 17:42 98.2 F 81 18 05/06/17 16:58 97.1 F L 61 22 157/77 05/06/17 16:14 146/65 05/06/17 14:04 68 18 161/70 05/06/17 12:58 97.6 F 73 18 196/93 BP Pulse Ox 05/07/17 08:00 165/67 93 L 05/07/17 04:00 127/59 92 L 05/07/17 03:10 05/07/17 00:00 05/06/17 23:13 108/52 94 L 05/06/17 20:12 05/06/17 20:05 05/06/17 19:16 122/48 94 L 05/06/17 17:42 154/68 96 05/06/17 16:58 98 05/06/17 16:14 05/06/17 14:04 95 05/06/17 12:58 94 L Intake and Output 05/06/17 05/07/17 05/07/17 22:59 06:59 14:59 Other: Voiding Method Toilet Toilet Weight 63.1 kg General: The patient is awake and alert, in no distress, and does not appear acutely ill. Skin: Skin is warm and dry and no rashes or lesions are noted. Eye: Pupils are equal, round and reactive to light, extra-ocular movements are intact; there is normal conjunctiva bilaterally. Ears, nose, mouth and throat: There are moist mucous membranes and no oral lesions. Neck: The neck is supple, there is no tenderness or JVD. Cardiovascular: There is a regular rate and rhythm. Ejection systolic murmur in the aortic area Respiratory: Lungs are clear to auscultation, respirations are non-labored, breath sounds are equal. Gastrointestinal: Soft, non-distended, non-tender abdomen without masses or organomegaly noted. There is no rebound or guarding present. Bowel sounds are unremarkable. Back: There is no tenderness to palpation in the midline. There is no obvious deformity. Musculoskeletal: Normal ROM, no tenderness, There is no pedal edema. There is no calf tenderness or swelling. Extremities: No edema. Vascular: Femoral pulse is normal. Posterior tibial pulses are normal .Dorsalis pedis is palpable. Neurological: CN II-XII intact. There are no obvious motor or sensory deficits. Speech is normal. Psychiatric: Cooperative, appropriate mood & affect, normal judgment. Results 05/07/17 03:17 05/07/17 03:17 Cardiac Enzymes 05/06/17 05/06/17 05/07/17 Range/Units 15:06 22:06 03:17 CK-MB (CK-2) 1.9 1.7 1.4 (0.0-2.4) ng/mL Troponin I <0.012 <0.012 <0.012 (0.000-0.034) ng/mL Coagulation 05/06/17 05/06/17 05/07/17 Range/Units 15:06 22:06 06:35 PT 10.4 (9.0-12.0) sec APTT 19.9 L 56.9 H 55.4 H (22.0-30.0) sec Lipids 05/07/17 Range/Units 03:17 Triglycerides 63 (<150) mg/dL Cholesterol 93 (<200) mg/dL HDL Cholesterol 33 L (40-60) mg/dL CBC 05/06/17 05/07/17 Range/Units 13:59 03:17 WBC 6.1 6.9 (3.8-10.6) k/uL RBC 4.27 3.98 (3.80-5.40) m/uL Hgb 11.6 11.0 L (11.4-16.0) gm/dL Hct 37.5 35.4 (34.0-46.0) % Plt Count 197 183 (150-450) k/uL Comprehensive Metabolic Panel 05/06/17 05/07/17 Range/Units 13:59 03:17 Sodium 142 141 (137-145) mmol/L Potassium 4.5 4.4 (3.5-5.1) mmol/L Chloride 107 108 H (98-107) mmol/L Carbon Dioxide 29 26 (22-30) mmol/L BUN 24 H 31 H (7-17) mg/dL Creatinine 1.17 H 1.20 H (0.52-1.04) mg/dL Glucose 94 96 (74-99) mg/dL Calcium 8.6 8.3 L (8.4-10.2) mg/dL Current Medications Generic Name Dose Route Start Last Admin Trade Name Freq PRN Reason Stop Dose Admin Albuterol/Ipratropium 3 ml 05/06/17 20:00 05/06/17 20:03 Duoneb 0.5 Mg-3 Mg/3 Ml Soln INHALATION 3 ml RT-QID SUJATA Administration Alprazolam 0.25 mg 05/06/17 17:59 Xanax PO TID PRN Anxiety Amlodipine Besylate 5 mg 05/07/17 09:00 05/07/17 09:31 Norvasc PO 5 mg DAILY SUJATA Administration Aspirin 81 mg 05/06/17 21:00 05/06/17 21:04 Aspirin PO 81 mg HS SUJATA Administration Atorvastatin Calcium 80 mg 05/06/17 21:00 05/06/17 21:02 Lipitor PO 80 mg HS SUJATA Administration Budesonide/Formoterol Fumarate 2 puff 05/06/17 20:00 05/06/17 20:03 Symbicort 160-4.5 Mcg Inhaler INHALATION 2 puff RT-BID SUJATA Administration Carvedilol 6.25 mg 05/06/17 18:15 05/07/17 09:31 Coreg PO 6.25 mg BID-W/MEALS SUJATA Administration Clopidogrel Bisulfate 75 mg 05/07/17 09:00 05/07/17 09:30 Plavix PO 75 mg DAILY SUJATA Administration Ferrous Sulfate 325 mg 05/06/17 18:15 05/07/17 09:30 Feosol PO 325 mg BID-W/MEALS SUJATA Administration Guaifenesin 600 mg 05/06/17 17:58 05/07/17 02:28 Mucinex PO 600 mg BID PRN Administration Congestion Sodium Chloride 1,000 mls @ 50 mls/hr 05/06/17 16:15 05/06/17 17:07 Saline 0.9% IV 05/07/17 12:14 50 mls/hr .Q20H ONE Administration Lisinopril 10 mg 05/07/17 09:00 05/07/17 09:31 Zestril PO 10 mg DAILY SUJATA Administration Melatonin 3 mg 05/06/17 21:00 05/06/17 23:04 Melatonin PO 3 mg HS SUJATA Administration Nitroglycerin 0.4 mg 05/06/17 15:02 05/06/17 15:32 Nitrostat SUBLINGUAL 0.4 mg Q5M PRN Administration Chest Pain Nitroglycerin 1 inch 05/06/17 18:00 05/07/17 04:49 Nitro-Bid Oint TOPICAL Not Given Q6HR SUJATA Intake and Output 05/06/17 05/07/17 05/07/17 22:59 06:59 14:59 Other: Voiding Method Toilet Toilet Weight 63.1 kg 05/07/17 03:17 05/07/17 03:17 EKG Interpretations (text) Normal sinus rhythm without acute ST-T wave changes Assessment and Plan Plan: Chest pain CAD status post CABG Recent history of TIA Hypertension Dyslipidemia Patient is doing well myocardial infarction is ruled out I will obtain a 2-D echo she does not need invasive angiography at this time we can ambulate her and she is feeling well discharge her home treat her with nitrates beta blockers and aspirin. She will follow-up with cardiology in an outpatient stress test may be considered if necessary
--- NOTE | 2017-05-07 10:53 | HP ---
HISTORY AND PHYSICAL DATE OF SERVICE: 05/06/2017 I am covering for Dr. Quintana. CHIEF COMPLAINT: Chest pain. HISTORY OF PRESENT ILLNESS: This 86-year-old woman with an past medical history of CAD, CABG, history of cholecystectomy, history of myocardial infarction, history of COPD being followed by Dr. Quintana in the outpatient setting was admitted to [facility] with complaints of left-sided chest pain. The patient was feeling not well. Blood pressure was found to be elevated and because of multiple symptomatology patient came to [facility] and admitted for further evaluation and treatment. There is no history of fever. No history of headache, loss of consciousness, seizures. The creatinine is 1.7. Troponins are negative at this time. The EKG showed no acute changes. A chest x- ray was also done in the ER, which was reviewed by me, showed no evidence of any pulmonary disease. PAST MEDICAL HISTORY: History of CAD, CABG, history of myocardial infarction, history hypertension, history of hyperlipidemia, chronic obstructive pulmonary disease. MEDICATIONS: Home medications are; 1. Mucinex 600 mg b.i.d. p.r.n. 2. Lipitor 80 mg. 3. Coreg 6.25 mg b.i.d. 4. Symbicort 160/4.5 mg 2 puffs b.i.d. 5. Ecotrin 81 mg daily. 6. Ventolin 1 to 2 puffs q.6 p.r.n. 7. Norvasc 5 mg p.o. daily. 8. Nitrostat 0.4 mg p.r.n. 9. Zestril 10 mg p.o. daily. 10.Imdur 30 mg daily. 11.DuoNeb q.i.d. and p.r.n. 12.Iron sulfate 325 mg p.o. b.i.d. 13.Plavix 75 mg p.o. daily. ALLERGIES: OXYBUTYNIN, BACTRIM AND MORPHINE. FAMILY HISTORY: History of CAD in the family. SOCIAL HISTORY: Previous smoker. No alcohol intake. REVIEW OF SYSTEMS: ENT: No diminished hearing or vision. CARDIOVASCULAR: As mentioned earlier. RESPIRATORY: As mentioned. GI: No nausea. : No dysuria. NERVOUS SYSTEM: No numbness or weakness. ALLERGY/IMMUNOLOGY: No history of asthma or hayfever. MUSCULOSKELETAL: As mentioned earlier. HEMATOLOGY: No history of anemia. ENDOCRINE: No history of diabetes, hypothyroidism. CONSTITUTIONAL: As mentioned earlier. DERMATOLOGY: Negative. RHEUMATOLOGY: Negative PSYCHIATRY: As mentioned earlier. PHYSICAL EXAM: Patient is alert, oriented x3. The pulse is 61, blood pressure 157/72, respirations 22, temperature 97.9, pulse ox 98% on 3 L. HEENT: Pupils equal. Conjunctivae normal. CARDIOVASCULAR: S1, S2 RESPIRATORY: Breath sounds diminished in the bases. Bilateral scattered rhonchi and crackles. ABDOMEN: Soft, nontender. No mass palpable. LEGS: No edema. No swelling. NERVOUS SYSTEM: Higher functions as mentioned earlier. Moves all four limbs. No focal motor deficits. SKIN: No rashes, ulcer, bleeding. LAB DATA: WBC 6.1, hemoglobin 11.6, and creatinine is 1.17. ASSESSMENT: 1. Chest pain, possible unstable angina. Rule out musculoskeletal chest pain. 2. Increased creatinine with chronic kidney disease. 3. Coronary artery disease and CABG. 4. Hypertension. 5. History of myocardial infarction. 6. History of chronic obstructive pulmonary disease. RECOMMENDATIONS AND DISCUSSION: In this 86-year-old woman who presents with multiple complex medical issues, we will monitor the patient closely. Continue the current medications, continue with symptomatic treatment. Will resume the home medications. Will continue the bronchodilators also. Will obtain cardiology consultation. Otherwise resume home medications. Prognosis guarded because of the multiple complex medical issues. Further recommendations to follow. Copy dictation forwarded to Dr. Quintana who is the primary physician. Continue with antiplatelet agents. Use nitro p.r.n. Guarded prognosis. further recommendations to follow. Will continue with DuoNeb on a scheduled basis at this time and guaifenesin also. Repeat labs have been requested. I would also recommend p.r.n. symptomatic medications also. Otherwise guarded prognosis. Further recommendations to follow. Use Xanax for anxiety. MMODL / IJN: [id number] /
[2017-05-07] MEDS ORDERED: predniSONE 50 MG TAB PO SCH (11:30)
[2017-05-07] MEDS ORDERED: DOXYCYCLINE 50 MG CAP PO SCH (11:30)
[2017-05-07] MEDS: IPRATROPIUM-ALBUTEROL 3 ML NEB INHALATION SCH ×5 (12:08→20:07)
--- NOTE | 2017-05-07 12:12 | ECHOF ---
Referral Reason:chest pain MEASUREMENTS -------- HEIGHT: 157.5 cm WEIGHT: 63.0 kg BP: 165/67 IVSd: 1.4 cm (0.6 - 1.1) LVIDd: 4.2 cm (3.9 - 5.3) LVPWd: 1.5 cm (0.6 - 1.1) IVSs: 1.9 cm LVIDs: 3.2 cm LVPWs: 1.1 cm LAESV Index (A-L): 37.72 ml/m Ao Diam: 2.9 cm (2.0 - 3.7) AV Cusp: 1.7 cm (1.5 - 2.6) LA Diam: 4.7 cm (2.7 - 3.8) MV EXCURSION: 12.501 mm (> 18.000) MV EF SLOPE: 32 mm/s (70 - 150) EPSS: 0.8 cm MV E Pierre: 0.73 m/s MV DecT: 387 ms MV A Pierre: 1.28 m/s MV E/A Ratio: 0.57 RAP: 5.00 mmHg RVSP: 22.12 mmHg FINDINGS -------- Undetermined rhythm. This was a technically adequate study. There is moderate concentric left ventricular hypertrophy. Overall left ventricular systolic function is low-normal with, an EF between 50 - 55 %. The right ventricle is normal in size. LA is moderately dilated 34-39 ml/m2 The right atrial size is normal. There is mild aortic valve sclerosis. There is no evidence of aortic regurgitation. Mild mitral annular calcification present. Mild mitral regurgitation is present. Mild tricuspid regurgitation present. There is no evidence of pulmonary hypertension. The right ventricular systolic pressure, as measured by Doppler, is 22.12mmHg. There is no pulmonic regurgitation present. The aortic root size is normal. There is no pericardial effusion. CONCLUSIONS -------- 1. There is moderate concentric left ventricular hypertrophy. 2. There is no pulmonic regurgitation present. 3. There is no pericardial effusion. 4. Overall left ventricular systolic function is low-normal with, an EF between 50 - 55 %. 5. LA is moderately dilated 34-39 ml/m2 6. There is mild aortic valve sclerosis. 7. Mild mitral annular calcification present. 8. Mild mitral regurgitation is present. 9. Mild tricuspid regurgitation present. 10. There is no evidence of pulmonary hypertension. 11. The right ventricular systolic pressure, as measured by Doppler, is 22.12mmHg. PARISH NURSE: Monica Chavez RDCS
[2017-05-07] MEDS: SYMBICORT 160-4.5 MCG INHALER INHALATION SCH ×2 (12:15→20:09)
--- NOTE | 2017-05-07 12:56 | NM ---
EXAMINATION TYPE: NM pul vent and perfuse DATE OF EXAM: 05/07/2017 COMPARISON: Previous study dated 02/23/2017. HISTORY: Elevated d-dimer. TECHNIQUE: Utilizing inhalation of 72.9 mCi Tc 99m DTPA aerosol and intravenous injection of 5.4 mCi of Tc 99m MAA, ventilation and perfusion images are acquired post injection in multiple projections. FINDINGS: There is moderate central deposition of aerosol. There are no VQ mismatches. IMPRESSION: THIS EXAMINATION IS LOW PROBABILITY FOR PULMONARY EMBOLUS.
[2017-05-07 16:50] LABS: Glucose,Whole Blood 110 mg/dL (75-99)
[2017-05-07] MEDS: INSULIN LISPRO (humaLOG) 300 UNIT/3 ML VIAL SQ SCH ×2 (16:51→23:14)
[2017-05-07] MEDS: BUDESONIDE 0.5 MG/2 ML NEBU INHALATION SCH (20:07)
[2017-05-07] MEDS: HEPARIN SODIUM,PORCINE 5,000 UNIT/ML 1 ML VIAL SQ SCH (20:33)
[2017-05-07] MEDS: ATORVASTATIN 80 MG TAB PO SCH (20:33)
[2017-05-07] MEDS: methylPREDNISolone SOD SUCCI 125 MG/2 ML VIAL IV SCH (20:33)
[2017-05-07] MEDS: ASPIRIN 81 MG PO SCH (20:33)
[2017-05-07] MEDS: MELATONIN 3 MG TABLET PO SCH (20:33)
[2017-05-07 22:59] LABS: Glucose,Whole Blood 146 mg/dL (75-99)
[2017-05-08] MEDS: methylPREDNISolone SOD SUCCI 125 MG/2 ML VIAL IV SCH ×3 (04:28→14:34)
[2017-05-08] MEDS: NITROGLYCERIN OINT 1 INCH/GM PACKET TOPICAL SCH ×4 (04:28→18:29)
[2017-05-08 06:50] LABS: Glucose,Whole Blood 161 mg/dL (75-99)
[2017-05-08 07:16] LABS: Anisocytosis Slight; Basophils % (A) 0 %; CH 27.6; CHCM 31.2; Eosinophils % (A) 0 %; HGB 11.7 gm/dL (11.4-16.0); Hypochromasia Slight; Luc # (Auto) 0.02; Luc % (Auto) 0; Lymphocytes # (A) 0.7 k/uL (1.0-4.8); Lymphocytes % (A) 16 %; MCH 27.4 pg (25.0-35.0); MCHC 30.8 g/dL (31.0-37.0); MCV 88.9 fL (80.0-100.0); Mean Platelet Volume 8.4; Monocytes # (A) 0.1 k/uL (0-1.0); Monocytes % (A) 2 %; Neutrophils # (A) 3.9 k/uL (1.3-7.7); Neutrophils % (A) 82 %; RBC 4.27 m/uL (3.80-5.40); RDW 16.3 % (11.5-15.5); WBC 4.7 k/uL (3.8-10.6); WBC (Perox) 5.05
[2017-05-08 07:38] LABS: Calcium 8.9 mg/dL (8.4-10.2); Potassium 4.7 mmol/L (3.5-5.1)
[2017-05-08 07:43] LABS: Hemoglobin A1C 5.7 % (4.2-6.1)
[2017-05-08] MEDS: SYMBICORT 160-4.5 MCG INHALER INHALATION SCH ×2 (07:54→20:30)
[2017-05-08] MEDS: IPRATROPIUM-ALBUTEROL 3 ML NEB INHALATION SCH ×4 (07:54→20:29)
[2017-05-08] MEDS: BUDESONIDE 0.5 MG/2 ML NEBU INHALATION SCH ×2 (07:54→20:29)
--- NOTE | 2017-05-08 08:12 | PN ---
PROGRESS NOTE DATE OF SERVICE: 05/07/2017 I am covering for Dr. Quintana. HISTORY OF PRESENT ILLNESS: This 86 -year-old woman with past medical history of multiple medical problems was having chest pain. Also had elevated creatinine. Patient had history of CAD, CABG. Patient complains of shortness of breath also. Patient started on IV steroids. VQ scan has been done which showed low probability of PE. A 2D echo was also done by Cardiology. Read by cardiology and showed ejection fraction about 50-55%. Multiple mild valvular abnormalities. No fever. No cough. PAST MEDICAL HISTORY: Reviewed. REVIEW OF SYSTEMS: Cardiovascular: No angina or palpitations. Respiratory: As mentioned earlier. GI: As mentioned earlier. No dysuria. Central nervous system: No focal deficits. CURRENT MEDICATIONS ARE: Reviewed and include: 1. DuoNeb q.i.d. and p.r.n. 2. Xanax. 3. Norvasc. 4. Aspirin. 5. Lipitor. 6. Pulmicort. 7. Coreg. 8. Plavix. 9. Vibramycin. 10.Mucinex. 11.Melatonin. 12.Nitrostat. 13.Nitro bid ointment. PHYSICAL EXAM: Alert and oriented times two. Pulse 97, blood pressure 163/78, respiration 18, temperature 98.1, pulse ox 98% on 2 L. HEENT: Conjunctivae normal. Neck: No jugular venous distention. Cardiovascular: S1, S2 muffled. RESPIRATORY: Diminished breath sounds at the bases. A few scattered rhonchi and crackles. ABDOMEN: Soft, nontender. No mass palpable. Legs: No edema. No swelling. Central nervous system: No focal deficits. LABS: Hemoglobin 11, D-dimer is 2.39, creatinine is 1.20. ASSESSMENT: 1. Chest pain. Possible unstable angina. Possibly musculoskeletal pain. 2. Chronic obstructive pulmonary disease acute exacerbation with acute purulent tracheobronchitis. 3. Increased creatinine with chronic kidney disease stage 3. 4. Coronary artery disease, coronary artery bypass grafting history. 5. Hypertension. 6. History of myocardial infarction. 7. History of chronic obstructive pulmonary disease. RECOMMENDATIONS AND DISCUSSION: Recommend to continue current medications, continue current management and, symptomatic treatment, continue with IV antibiotics. IV steroids. Guarded prognosis because of multiple complex medical issues. Further recommendations to follow. MMODL / IJN: [id number] /
[2017-05-08] MEDS: CARVEDILOL 6.25 MG TAB PO SCH ×2 (08:57→18:29)
[2017-05-08] MEDS: FERROUS SULFATE 325 MG TAB PO SCH ×2 (08:57→18:29)
[2017-05-08] MEDS: LISINOPRIL 10 MG TAB PO SCH (08:58)
[2017-05-08] MEDS: amLODIPine 5 MG TAB PO SCH (08:58)
[2017-05-08] MEDS: CLOPIDOGREL 75 MG TAB PO SCH (08:58)
[2017-05-08] MEDS: HEPARIN SODIUM,PORCINE 5,000 UNIT/ML 1 ML VIAL SQ SCH ×2 (09:00→20:43)
[2017-05-08] MEDS: INSULIN LISPRO (humaLOG) 300 UNIT/3 ML VIAL SQ SCH ×4 (09:01→20:44)
--- NOTE | 2017-05-08 10:53 | P.PN ---
Subjective Principal diagnosis: Chest pain Patient is feeling better chest pain has resolved she had an explained d-dimer and went on to have a VQ scan that was negative for pulmonary embolism. No further cardiac workup is necessary at this time discharge her home and arrange follow-up through our office Objective - Vital Signs Vital signs: Vital Signs Temp 98.0 F 05/08/17 08:00 Pulse 76 05/08/17 08:13 Resp 16 05/08/17 08:00 BP 178/95 05/08/17 08:00 Pulse Ox 92 L 05/08/17 08:00 Intake & Output 05/07/17 05/08/17 05/08/17 18:59 06:59 18:59 Weight 63.1 kg Other: Voiding Method Toilet Toilet Toilet - Exam Patient is comfortable at rest vital signs are stable chest exam reveals diminished air entry bilaterally heart exam reveals first and second heart sounds no gallop exam extremities did not will any edema per for pulses are felt - Labs CBC & Chem 7: 05/08/17 06:24 05/08/17 06:24 Labs: Abnormal Lab Results - Last 24 Hours (Table) 05/07/17 05/07/17 05/08/17 Range/Units 16:47 22:57 06:24 MCHC 30.8 L (31.0-37.0) g/dL RDW 16.3 H (11.5-15.5) % Lymphocytes # 0.7 L (1.0-4.8) k/uL Chloride (98-107) mmol/L BUN (7-17) mg/dL Creatinine (0.52-1.04) mg/dL Glucose (74-99) mg/dL POC Glucose (mg/dL) 110 H 146 H (75-99) mg/dL 05/08/17 05/08/17 Range/Units 06:24 06:48 MCHC (31.0-37.0) g/dL RDW (11.5-15.5) % Lymphocytes # (1.0-4.8) k/uL Chloride 108 H (98-107) mmol/L BUN 31 H (7-17) mg/dL Creatinine 1.20 H (0.52-1.04) mg/dL Glucose 176 H (74-99) mg/dL POC Glucose (mg/dL) 161 H (75-99) mg/dL Assessment and Plan Plan: Precordial chest pain CAD status post angioplasty Patient is doing well reviewed VQ scan results stable to be discharged home
[2017-05-08 12:09] LABS: Glucose,Whole Blood 147 mg/dL (75-99)
[2017-05-08 17:00] LABS: Glucose,Whole Blood 127 mg/dL (75-99)
--- NOTE | 2017-05-08 18:30 | P.CNPUL ---
History of Present Illness Consult date: 05/08/17 Requesting physician: Crista Schmidt Reason for consult: COPD Chief complaint: shortness of breath History of present illness: Patient 86-year-old female significant past history for hypertension, who presents emergency room by EMS, the chief complaint of elevated blood pressure. She does admit that she was feeling" yucky" yesterday checked her blood pressure was elevated. She states she usually has his, symptoms and she notices blood pressure is elevated. She states she has been taking her blood pressure medication. She states she does not feel as bad at this time slightly better. Patient denies any lightheadedness, dizziness, headache. Denies any other complaints or symptoms at this time. Patient denies any recent fever, chills, shortness of breath, chest pain, back pain, abdominal pain, nausea or vomiting, numbness or tingling, dysuria or hematuria, constipation or diarrhea, visual changes, or any other complaints. She was worked up in the ER and admitted to the OBS unit for further evaluation. Upon examination the patient is restin up in bed on room air. States she does get short of breath with some exertion or activity. no significant cough or congestion noted. afebrile. no further complaints. Review of Systems 14 point ROS completed and is negative unless stated above in the HPI. Past Medical History Past Medical History: Coronary Artery Disease (CAD), Hyperlipidemia, Hypertension, Myocardial Infarction ([place]) Additional Past Medical History / Comment(s): Coronary artery disease, previous bypass surgery, hypertension, hyperlipidemia, COPD maintenance Symbicort on outpatient basis, gout, AAA NOT SURE OF SIZE Last Myocardial Infarction Date:: 2016 History of Any Multi-Drug Resistant Organisms: None Reported Past Surgical History: Cholecystectomy, Coronary Bypass/CABG, Heart Catheterization With Stent, Hysterectomy Additional Past Surgical History / Comment(s): Coronary artery bypass surgery- triple, cardiac catheterization and angioplasty and stenting of the saphenous vein graft to obtuse marginal branch.CATARACTS, "stent in groin" Past Anesthesia/Blood Transfusion Reactions: Motion Sickness Additional Past Anesthesia/Blood Transfusion Reaction / Comment(s): Pt states she has received blood without reaction. Date of Last Stent Placement:: unk Past Psychological History: No Psychological Hx Reported Additional Psychological History / Comment(s): pt currently staying with her son while her apt is being worked on. She uses a walker. No stairs.has [facility]. Smoking Status: Former smoker Past Alcohol Use History: None Reported Additional Past Alcohol Use History / Comment(s): Pt started smoking in 2 and quit in the 1986 Past Drug Use History: None Reported - Past Family History Father Family Medical History: Coronary Artery Disease (CAD), Myocardial Infarction ([place] ) Additional Family Medical History / Comment(s): Father of a [place] at the age of 72 yrs. Mother Family Medical History: No Reported History Additional Family Medical History / Comment(s): Pt states her mother was healthy and at the age of 84 yrs. Medications and Allergies Home Medications Medication Instructions Recorded Confirmed Type Aspirin [Adult Low Dose Aspirin EC] 81 mg PO HS 02/15/17 05/06/17 History Budesonide/Formoterol Fumarate 2 puff INHALATION RT-BID 02/15/17 05/06/17 History [Symbicort 160-4.5 Mcg Inhaler] Ipratropium-Albuterol Nebulize 3 ml INHALATION RT-QID PRN 02/15/17 05/06/17 History [Duoneb 0.5 mg-3 mg/3 ml Soln] Nitroglycerin Sl Tabs [Nitrostat] 0.4 mg SUBLINGUAL Q5M PRN 02/15/17 05/06/17 History Clopidogrel [Plavix] 75 mg PO DAILY #30 tab 02/25/17 05/06/17 Rx Isosorbide Mononitrate ER [Imdur] 30 mg PO DAILY #30 tab 02/25/17 05/06/17 Rx Lisinopril [Zestril] 10 mg PO DAILY #30 tab 02/25/17 05/06/17 Rx amLODIPine [Norvasc] 5 mg PO DAILY #30 tab 02/25/17 05/06/17 Rx Albuterol Inhaler [Ventolin Hfa 1 - 2 puff INHALATION RT-Q6H PRN 04/15/17 History Inhaler] Ferrous Sulfate [Feosol] 325 mg PO BID 04/15/17 05/06/17 History Atorvastatin [Lipitor] 80 mg PO HS #30 tab 04/19/17 05/06/17 Rx Carvedilol [Coreg] 6.25 mg PO BID #60 tablet 04/19/17 05/06/17 Rx guaiFENesin [Mucinex] 600 mg PO BID PRN 05/06/17 05/06/17 History Allergies Allergy/AdvReac Type Severity Reaction Status Date / Time oxybutynin Allergy SEE Verified 05/06/17 14:09 COMMENTS sulfamethoxazole Allergy SEE Verified 05/06/17 14:09 [From Bactrim] COMMENTS trimethoprim [From Bactrim] Allergy SEE Verified 05/06/17 14:09 COMMENTS morphine AdvReac Confusion Verified 05/06/17 14:09 Physical Exam Vitals: Vital Signs Temp Pulse Pulse Resp BP Pulse Ox 05/08/17 16:08 74 05/08/17 16:00 97.8 F 78 16 167/61 92 L 05/08/17 15:56 74 05/08/17 12:00 97.4 F L 72 16 118/49 93 L 05/08/17 11:55 80 05/08/17 11:43 84 05/08/17 08:13 76 05/08/17 08:00 98.0 F 72 16 178/95 92 L 05/08/17 07:55 76 05/08/17 04:00 98 F 73 18 156/60 92 L 05/07/17 23:44 86 18 05/07/17 22:45 79 18 159/69 92 L 05/07/17 20:21 71 05/07/17 20:11 91 L 05/07/17 20:09 70 05/07/17 20:00 78 18 05/07/17 19:38 98 F 70 18 141/61 93 L Intake and Output 05/08/17 05/08/17 05/08/17 06:59 14:59 22:59 Other: Voiding Method Toilet Toilet GENERAL EXAM: Alert, comfortable in no apparent distress. HEAD: Normocephalic. EYES: Normal reaction of pupils, equal size. NOSE: Clear with pink turbinates. THROAT: No erythema or exudates. NECK: No masses, no JVD. CHEST: No chest wall deformity. LUNGS: Equal air entry with no crackles, wheeze, rhonchi or dullness. Breath sounds decreased bilaterally at the bases. CVS: S1 and S2 normal with no audible mumurs, regular rhythm. ABDOMEN: No hepatosplenomegaly, normal bowel sounds, no guarding or rigidity. EXTREMITIES: No edema noted, pedal pulses palpable. Chronic skin changes noted , bilateral legs wrapped SKIN: no rashes CENTRAL NERVOUS SYSTEM: No focal deficits, moves all extremities Results - Laboratory Findings CBC and BMP: 05/08/17 06:24 05/08/17 06:24 PT/INR, D-dimer PT 10.4 sec (9.0-12.0) 05/06/17 15:06 INR 1.0 (<1.2) 05/06/17 15:06 D-Dimer 2.39 mg/L FEU (<0.60) H 05/07/17 06:35 Abnormal lab findings: Abnormal Labs 05/06/17 05/06/17 05/06/17 13:59 13:59 15:06 Hgb MCHC 30.8 L RDW 16.3 H Lymphocytes # APTT 19.9 L D-Dimer Chloride BUN 24 H Creatinine 1.17 H Glucose POC Glucose (mg/dL) Calcium HDL Cholesterol 05/06/17 05/07/17 05/07/17 22:06 03:17 03:17 Hgb 11.0 L MCHC RDW 16.5 H Lymphocytes # APTT 56.9 H D-Dimer Chloride 108 H BUN 31 H Creatinine 1.20 H Glucose POC Glucose (mg/dL) Calcium 8.3 L HDL Cholesterol 33 L 05/07/17 05/07/17 05/07/17 06:35 06:35 16:47 Hgb MCHC RDW Lymphocytes # APTT 55.4 H D-Dimer 2.39 H Chloride BUN Creatinine Glucose POC Glucose (mg/dL) 110 H Calcium HDL Cholesterol 05/07/17 05/08/17 05/08/17 22:57 06:24 06:24 Hgb MCHC 30.8 L RDW 16.3 H Lymphocytes # 0.7 L APTT D-Dimer Chloride 108 H BUN 31 H Creatinine 1.20 H Glucose 176 H POC Glucose (mg/dL) 146 H Calcium HDL Cholesterol 05/08/17 05/08/17 05/08/17 06:48 12:07 16:58 Hgb MCHC RDW Lymphocytes # APTT D-Dimer Chloride BUN Creatinine Glucose POC Glucose (mg/dL) 161 H 147 H 127 H Calcium HDL Cholesterol - Diagnostic Findings Chest x-ray: report reviewed, image reviewed Assessment and Plan Plan: Assessment Acute on chronic COPD Chest pain CAD status post CABG Recent history of TIA Hypertension Dyslipidemia Plan Medications have been reviewed and will be continued as ordered. Continue with pulmonary hygiene, coughing and deep breathing exercises, and supportive care. Supplemental oxygen to maintain oxygen saturations of 92% or better. Continue nebulizer treatments. GI and DVT prophylaxis. We will continue to monitor labs/ results and adjust treatment as necessary. Further recommendations pending. I performed an examination of the patient and discussed their management with the nurse practitioner. I have reviewed the nurse practitioner's note and agree with the documented findings and plan of care.
--- NOTE | 2017-05-08 19:43 | PN ---
PROGRESS NOTE DATE OF SERVICE: 05/08/17 I am covering for Dr. Quintana INTERIM HISTORY: This 86-year-old woman who was admitted with multiple medical problems was having chest pain, also had COPD also. The patient had a VQ scan which showed low probability. No fever. No cough. EXAM: Alert, oriented times three. Pulse is 78, blood pressure 169/61, respirations 16, temperature 97.8, pulse ox 92% on room air. HEENT: Conjunctivae normal. Neck: No jugular venous distention. Cardiovascular: S1, S2 muffled. Respiratory: Breath sounds diminished in the bases. A few scattered rhonchi and crackles. Abdomen is soft, nontender. Legs are no edema. No swelling. Central nervous system: No focal deficits. LABORATORY DATA: Creatinine 1.2, Accu-Cheks, 161, 147. ASSESSMENT: 1. Chest pain, possible unstable angina. Possibly musculoskeletal pain. 2. Chronic obstructive pulmonary disease acute exacerbation with acute purulent tracheobronchitis. 3. Increased creatinine with chronic kidney disease stage 3. 4. Coronary artery disease, coronary artery bypass grafting, history. 5. Hypertension. 6. History of myocardial infarction. 7. History of chronic obstructive pulmonary disease. RECOMMENDATIONS AND DISCUSSION: Recommend to continue current management, continue current medications, symptomatic treatment. Otherwise at this time I recommend continue the current medications. Continue with steroids. Otherwise pulmonary consultation. Guarded prognosis because of multiple complex medical issues. Further recommendations to follow. MMODL / IJN: [id number] /
[2017-05-08 20:39] LABS: Glucose,Whole Blood 233 mg/dL (75-99)
[2017-05-08] MEDS: ASPIRIN 81 MG PO SCH (20:43)
[2017-05-08] MEDS: ATORVASTATIN 80 MG TAB PO SCH (20:43)
[2017-05-08] MEDS: MELATONIN 3 MG TABLET PO SCH (22:46)
[2017-05-09] MEDS: methylPREDNISolone SOD SUCCI 40 MG/ML 1 ML VIAL IV SCH ×3 (00:10→16:15)
[2017-05-09] MEDS: NITROGLYCERIN OINT 1 INCH/GM PACKET TOPICAL SCH ×4 (00:13→19:41)
[2017-05-09] MEDS: guaiFENesin 600 MG TABLET.ER PO PRN (05:29)
[2017-05-09 06:39] LABS: Anisocytosis Slight; Basophils % (A) 0 %; CH 27.7; CHCM 31.2; Eosinophils % (A) 0 %; HCT 35.8 % (34.0-46.0); HGB 11.3 gm/dL (11.4-16.0); Hypochromasia Slight; Luc # (Auto) 0.03; Luc % (Auto) 0; Lymphocytes # (A) 0.7 k/uL (1.0-4.8); Lymphocytes % (A) 8 %; MCH 28.2 pg (25.0-35.0); MCHC 31.6 g/dL (31.0-37.0); MCV 89.2 fL (80.0-100.0); Mean Platelet Volume 8.5; Monocytes # (A) 0.2 k/uL (0-1.0); Monocytes % (A) 3 %; Neutrophils # (A) 7.2 k/uL (1.3-7.7); Neutrophils % (A) 89 %; RBC 4.01 m/uL (3.80-5.40); RDW 16.5 % (11.5-15.5); WBC 8.1 k/uL (3.8-10.6); WBC (Perox) 8.52
[2017-05-09 06:44] LABS: Glucose,Whole Blood 165 mg/dL (75-99)
[2017-05-09 07:07] LABS: Calcium 8.8 mg/dL (8.4-10.2); Potassium 5.2 mmol/L (3.5-5.1)
[2017-05-09] MEDS: BUDESONIDE 0.5 MG/2 ML NEBU INHALATION SCH ×2 (08:06→20:21)
[2017-05-09] MEDS: IPRATROPIUM-ALBUTEROL 3 ML NEB INHALATION SCH ×4 (08:06→20:21)
[2017-05-09] MEDS: SYMBICORT 160-4.5 MCG INHALER INHALATION SCH ×2 (08:06→20:22)
[2017-05-09] MEDS: CARVEDILOL 6.25 MG TAB PO SCH ×2 (08:24→17:42)
[2017-05-09] MEDS: amLODIPine 5 MG TAB PO SCH (08:25)
[2017-05-09] MEDS: FERROUS SULFATE 325 MG TAB PO SCH ×2 (08:25→17:41)
[2017-05-09] MEDS: LISINOPRIL 10 MG TAB PO SCH (08:25)
[2017-05-09] MEDS: CLOPIDOGREL 75 MG TAB PO SCH (08:25)
[2017-05-09] MEDS: INSULIN LISPRO (humaLOG) 300 UNIT/3 ML VIAL SQ SCH ×4 (08:26→21:30)
[2017-05-09] MEDS: HEPARIN SODIUM,PORCINE 5,000 UNIT/ML 1 ML VIAL SQ SCH ×2 (08:26→21:30)
[2017-05-09] MEDS: ALPRAZolam 0.25 MG TAB PO PRN ×2 (10:41→21:30)
--- NOTE | 2017-05-09 11:27 | P.PN ---
Subjective 05/08/17- Patient 86-year-old female significant past history for hypertension, who presents emergency room by EMS, the chief complaint of elevated blood pressure. She does admit that she was feeling" yucky" yesterday checked her blood pressure was elevated. She states she usually has his, symptoms and she notices blood pressure is elevated. She states she has been taking her blood pressure medication. She states she does not feel as bad at this time slightly better. Patient denies any lightheadedness, dizziness, headache. Denies any other complaints or symptoms at this time. Patient denies any recent fever, chills, shortness of breath, chest pain, back pain, abdominal pain, nausea or vomiting, numbness or tingling, dysuria or hematuria, constipation or diarrhea, visual changes, or any other complaints. She was worked up in the ER and admitted to the OBS unit for further evaluation. Upon examination the patient is restin up in bed on room air. States she does get short of breath with some exertion or activity. no significant cough or congestion noted. afebrile. no further complaints. 05/09/17- patient is being seen and examined and evaluated today. Upon examination the patient's resting up in bed on room air. She was noted to have some chest discomfort earlier today and did receive a Xanax and Nitropaste which then resolved the chest pain. Cardiology was on consult and has signed off. All labs and reports have been reviewed. Patient is ambulating more today than previously. She denies any significant cough or congestion at this time. Objective - Vital Signs Vital signs: Vital Signs Temp 98.3 F 05/09/17 07:20 Pulse 76 05/09/17 08:17 Resp 16 05/09/17 07:20 BP 155/60 05/09/17 07:20 Pulse Ox 93 L 05/09/17 07:20 Intake & Output 05/08/17 05/09/17 05/09/17 18:59 06:59 18:59 Intake Total 236 Balance 236 Intake: Oral 236 Other: Voiding Method Toilet Toilet Toilet - Exam GENERAL EXAM: Alert, comfortable in no apparent distress. HEAD: Normocephalic. EYES: Normal reaction of pupils, equal size. NOSE: Clear with pink turbinates. THROAT: No erythema or exudates. NECK: No masses, no JVD. CHEST: No chest wall deformity. LUNGS: Equal air entry with no crackles, wheeze, rhonchi or dullness. Breath sounds decreased bilaterally at the bases. CVS: S1 and S2 normal with no audible mumurs, regular rhythm. ABDOMEN: No hepatosplenomegaly, normal bowel sounds, no guarding or rigidity. EXTREMITIES: No edema noted, pedal pulses palpable. Chronic skin changes noted , bilateral legs wrapped SKIN: no rashes CENTRAL NERVOUS SYSTEM: No focal deficits, moves all extremities - Labs CBC & Chem 7: 05/09/17 06:07 05/09/17 06:07 Labs: Abnormal Lab Results - Last 24 Hours (Table) 05/08/17 05/08/17 05/08/17 Range/Units 12:07 16:58 20:36 Hgb (11.4-16.0) gm/dL RDW (11.5-15.5) % Lymphocytes # (1.0-4.8) k/uL Potassium (3.5-5.1) mmol/L Chloride (98-107) mmol/L BUN (7-17) mg/dL Creatinine (0.52-1.04) mg/dL Glucose (74-99) mg/dL POC Glucose (mg/dL) 147 H 127 H 233 H (75-99) mg/dL 05/09/17 05/09/17 05/09/17 Range/Units 06:07 06:07 06:37 Hgb 11.3 L (11.4-16.0) gm/dL RDW 16.5 H (11.5-15.5) % Lymphocytes # 0.7 L (1.0-4.8) k/uL Potassium 5.2 H (3.5-5.1) mmol/L Chloride 108 H (98-107) mmol/L BUN 38 H (7-17) mg/dL Creatinine 1.36 H (0.52-1.04) mg/dL Glucose 161 H (74-99) mg/dL POC Glucose (mg/dL) 165 H (75-99) mg/dL Assessment and Plan Plan: Assessment Acute on chronic COPD Chest pain CAD status post CABG Recent history of TIA Hypertension Dyslipidemia Plan Medications have been reviewed and will be continued as ordered. Steroids have been decreased. Continue with pulmonary hygiene, coughing and deep breathing exercises, and supportive care. Supplemental oxygen to maintain oxygen saturations of 92% or better. Continue nebulizer treatments. GI and DVT prophylaxis. We will continue to monitor labs/results and adjust treatment as necessary. Further recommendations pending. I performed an examination of the patient and discussed their management with the nurse practitioner. I have reviewed the nurse practitioner's note and agree with the documented findings and plan of care.
[2017-05-09 11:44] LABS: Glucose,Whole Blood 138 mg/dL (75-99)
[2017-05-09 17:25] LABS: Glucose,Whole Blood 145 mg/dL (75-99)
--- NOTE | 2017-05-09 18:22 | PN ---
PROGRESS NOTE CHIEF COMPLAINT: Chest pain. This lady was admitted in my absence. She was admitted again for chest pain. She has unstable coronary artery disease and congestive heart failure. Review of systems and physical exam were performed by my designate after she was admitted. She was admitted with the diagnosis of unstable angina and congestive heart failure. She had a history of ALLERGIES TO: 1. MORPHINE. 2. SULFA. 3. OXYBUTYNIN. MEDICATIONS BEFORE ADMISSION: 1. Aspirin 81 mg a day. 2. Lipitor 80 once a day. 3. Trazodone 50 at bedtime p.r.n. 4. BuSpar 5 mg t.i.d. p.r.n. 5. Amlodipine 5 mg once a day. 6. Lisinopril 10 mg once a day. 7. Isosorbide mononitrate ER 30 mg once a day. 8. Carvedilol 6.25 twice a day. 9. Clopidogrel 75 once a day. 10.Ferrous sulfate 325 twice a day. 11.Lovaza 1 gram once a day. 12.Updraft with ipratropium bromide and albuterol q.i.d. and p.r.n. 13.Symbicort 160/4.5 two puffs b.i.d. ADMISSION DIAGNOSES: 1. Unstable angina pectoris. 2. Coronary artery disease. 3. Congestive heart failure. MMODL / IJN: [id number] /
[2017-05-09 20:39] LABS: Glucose,Whole Blood 148 mg/dL (75-99)
[2017-05-09] MEDS: ASPIRIN 81 MG PO SCH (21:30)
[2017-05-09] MEDS: ATORVASTATIN 80 MG TAB PO SCH (21:30)
[2017-05-09] MEDS: MELATONIN 3 MG TABLET PO SCH (21:30)
[2017-05-10] MEDS: methylPREDNISolone SOD SUCCI 40 MG/ML 1 ML VIAL IV SCH ×2 (00:07→08:43)
[2017-05-10] MEDS: NITROGLYCERIN OINT 1 INCH/GM PACKET TOPICAL SCH ×3 (00:07→12:28)
[2017-05-10 06:57] LABS: Glucose,Whole Blood 121 mg/dL (75-99)
[2017-05-10 07:42] VITALS: RESP 18
[2017-05-10] MEDS: IPRATROPIUM-ALBUTEROL 3 ML NEB INHALATION SCH ×2 (07:45→11:54)
[2017-05-10] MEDS: SYMBICORT 160-4.5 MCG INHALER INHALATION SCH (07:45)
[2017-05-10] MEDS: BUDESONIDE 0.5 MG/2 ML NEBU INHALATION SCH (07:45)
[2017-05-10 07:53] LABS: Calcium 8.7 mg/dL (8.4-10.2); Potassium 5.1 mmol/L (3.5-5.1)
[2017-05-10 07:57] LABS: Basophils % (A) 0 %; CHCM 30.4; Eosinophils % (A) 0 %; HCT 37.7 % (34.0-46.0); HDW 2.21; HGB 11.9 gm/dL (11.4-16.0); Hypochromasia Moderate; Luc % (Auto) 1; Lymphocytes # (A) 0.8 k/uL (1.0-4.8); Lymphocytes % (A) 8 %; MCH 28.1 pg (25.0-35.0); MCHC 31.5 g/dL (31.0-37.0); MCV 89.2 fL (80.0-100.0); Mean Platelet Volume 7.9; Monocytes # (A) 0.6 k/uL (0-1.0); Monocytes % (A) 6 %; Neutrophils # (A) 8.4 k/uL (1.3-7.7); Neutrophils % (A) 85 %; RBC 4.23 m/uL (3.80-5.40); RDW 15.7 % (11.5-15.5); WBC 9.9 k/uL (3.8-10.6); WBC (Perox) 9.56
[2017-05-10] MEDS: INSULIN LISPRO (humaLOG) 300 UNIT/3 ML VIAL SQ SCH ×2 (08:41→12:45)
[2017-05-10] MEDS: CARVEDILOL 6.25 MG TAB PO SCH (08:41)
--- NOTE | 2017-05-10 08:41 | PN ---
PROGRESS NOTE CHIEF COMPLAINT: Chest pain. HISTORY OF PRESENT ILLNESS: This lady at the present time seems to be pain free. Apparently Cardiology is indicating further studies. PHYSICAL EXAM: Her color is good and vital signs are normal. Cardiac exam is normal. Her chest is clear. IMPRESSION: 1. Unstable angina pectoris. 2. Coronary artery disease. 3. Congestive heart failure. PLAN: Await further advice and recommendations from Cardiology. MMODL / IJN: [id number] /
[2017-05-10] MEDS: HEPARIN SODIUM,PORCINE 5,000 UNIT/ML 1 ML VIAL SQ SCH (08:42)
[2017-05-10] MEDS: FERROUS SULFATE 325 MG TAB PO SCH (08:42)
[2017-05-10] MEDS: amLODIPine 5 MG TAB PO SCH (08:42)
[2017-05-10] MEDS: CLOPIDOGREL 75 MG TAB PO SCH (08:42)
[2017-05-10] MEDS: LISINOPRIL 10 MG TAB PO SCH (08:42)
[2017-05-10 14:13] VITALS: BP 181/76; PULSE 64; TEMP 97.7
[2017-05-10 15:54] LABS: Glucose,Whole Blood 173 mg/dL (75-99)
--- NOTE | 2017-05-11 22:46 | DS ---
DISCHARGE SUMMARY CHIEF COMPLAINT: Chest pain. HISTORY OF PRESENT ILLNESS AND PHYSICAL EXAM: Details of this lady's history and physical can be found in the initial workup. LABORATORY STUDIES: While she was in the hospital she had laboratory studies, details of which can be found in the laboratory section of her chart. COURSE IN HOSPITAL: After admission she was placed on bedrest and started on intravenous fluids and had serial EKGs and enzymes. She was seen by Cardiology, and it was felt that no further intervention was necessary. She will go home on her usual diet, activity and medication, and be seen in the office in one day. FINAL DIAGNOSES: 1. Unstable angina pectoris. 2. Coronary artery disease. 3. Hypertension. OPERATIONS: None. CONSULTATION: Cardiology. She is improved. MMODL / IJN: [id number] /
== END 2017-05-10 14:25 | disposition home or self-care (01) ==
LOC: EC 12:51 → 3OBS 16:00
PROVIDERS: ADMIT Family Medicine; ATTEND Family Medicine
DX: I25.110 Atherosclerotic heart disease of native coronary artery with unstable angina pectoris (principal); I13.0 Hypertensive heart and chronic kidney disease with heart failure and stage 1 through stage 4 chronic kidney disease, or unspecified chronic kidney disease; N18.3 Chronic kidney disease, stage 3 (moderate); I50.9 Heart failure, unspecified; I25.2 Old myocardial infarction; M10.9 Gout, unspecified; J44.1 Chronic obstructive pulmonary disease with (acute) exacerbation; E78.5 Hyperlipidemia, unspecified; J44.0 Chronic obstructive pulmonary disease with (acute) lower respiratory infection; J20.9 Acute bronchitis, unspecified; Z79.82 Long term (current) use of aspirin; Z79.51 Long term (current) use of inhaled steroids; Z79.02 Long term (current) use of antithrombotics/antiplatelets; Z79.899 Other long term (current) drug therapy; Z88.5 Allergy status to narcotic agent; Z88.2 Allergy status to sulfonamides; Z88.8 Allergy status to other drugs, medicaments and biological substances; Z87.891 Personal history of nicotine dependence; Z95.1 Presence of aortocoronary bypass graft; Z82.49 Family history of ischemic heart disease and other diseases of the circulatory system; Z90.49 Acquired absence of other specified parts of digestive tract; Z86.73 Personal history of transient ischemic attack (TIA), and cerebral infarction without residual deficits
CPT/HCPCS: 96365; 96366 ×2; 96372 ×4; 96375 ×2; 96376 ×3; 99285; 36415; 94640 ×9; 94760; 93005; 93306; 85379; 80061; 80048 ×5; 83036; 82550 ×2; 82553 ×2; 83735; 84484 ×2; 85025 ×5; 85610; 85730 ×2; 71020; 78582; G0378 ×5; A9540; A9567; J0360; J1644 ×6; J2920 ×2; J2930 ×2; J0696 ×4; J7512

== ENCOUNTER → 2017-06-06 | Outpatient (CLI) | payer MEDICARE ==
--- NOTE | 2017-06-06 21:31 | US ---
EXAMINATION TYPE: US carotid duplex BILAT DATE OF EXAM: 06/06/2017 COMPARISON: None CLINICAL HISTORY: I63.9 Cerebral infarction G45.9 TIA. EXAM MEASUREMENTS: RIGHT: Peak Systolic Velocity (PSV) cm/sec ----- Right CCA: 46.8 ----- Right ICA: 153.0 ----- Right ECA: 88.9 ICA/CCA ratio: 3.3 RIGHT: End Diastole cm/sec ----- Right CCA: 11.9 ----- Right ICA: 30.8 ----- Right ECA: 11.1 LEFT: Peak Systolic Velocity (PSV) cm/sec ----- Left CCA: 57.5 ----- Left ICA: 103.1 ----- Left ECA: 79.1 ICA/CCA ratio: 1.8 LEFT: End Diastole cm/sec ----- Left CCA: 13.3 ----- Left ICA: 38.7 ----- Left ECA: 10.9 VERTEBRALS (direction of flow): Right Vertebral: Antegrade Left Vertebral: Antegrade Rhythm: Normal Grayscale images show moderate to severe eccentric hyperechoic plaque in distal right common carotid artery extending into carotid bulb and proximal internal and external carotid arteries. There is incr eased peak systolic velocity right internal carotid artery. There is abnormal ICA over CCA ratio. Brigid ges on the left show more mild to moderate peripheral plaque. Velocity measurements and ratios on the left side are within normal limits. IMPRESSION: Asymmetric fairly severe right-sided atherosclerotic change with hemodynamic significant stenosis that is felt present in right internal carotid artery , degree of stenosis is estimated 50 -69%. Further investigation with CTA or MRA of the neck is advised to further evaluate and characteri ze. Criteria for Assigning % of Stenosis / Diameter reduction (Estimation based on the indirect measurements of the internal carotid artery velocities (ICA PSV). 1. Normal (no stenosis)=ICA PSV < 125 cm/s: ratio < 2.0: ICA EDV<40 cm/s. 2. Less than 50% stenosis=ICA PSV < 125 cm/s: ratio < 2.0: ICA EDV<40 cm/s. 3. 50 to 69% stenosis=ICA PSV of 125 to 230 cm/s: ration 2.0 ? 4.0: ICA EDV 40-100 cm/s. 4. Greater than 70% stenosis to near occlusion= ICA PSV > 230 cm/s: ratio > 4.0: ICA EDV > 100 cm/s. 5. Near occlusion= ICA PSV velocities may be low or undetectable: variable ratio and ICA EDV. 6. Total occlusion=unable to detect flow.
== END | disposition home or self-care (01) ==
LOC: RADUSWWP 15:58
PROVIDERS: ATTEND Family Medicine
DX: I65.21 Occlusion and stenosis of right carotid artery (principal); I63.9 Cerebral infarction, unspecified; Z88.1 Allergy status to other antibiotic agents; Z88.5 Allergy status to narcotic agent; Z88.8 Allergy status to other drugs, medicaments and biological substances
CPT/HCPCS: 93880

== ENCOUNTER 2017-06-26 11:14 | Observation (INO) | payer MEDICARE ==
--- NOTE | 2017-06-26 11:40 | ED ---
General Adult HPI - General Chief complaint: Chest Pain Stated complaint: Chest Pain Time Seen by Provider: 06/26/17 11:15 Source: patient, RN notes reviewed, old records reviewed Mode of arrival: EMS Limitations: no limitations - History of Present Illness Initial comments: This is an 86-year-old female presents today for evaluation of chest pain. Patient has history of chest pain is history of heart disease. History of cardiac disease. Patient coming with chest pain anterior heaviness. No shortness of breath. No recent fevers cough or congestion no travel history. Patient's pain is just like her normal chest pain that she does get just a little worse. Patient began slightly after she woke up - Related Data Home Medications Medication Instructions Recorded Confirmed Aspirin [Adult Low Dose Aspirin EC] 81 mg PO HS 02/15/17 06/26/17 Budesonide/Formoterol Fumarate 2 puff INHALATION RT-BID 02/15/17 06/26/17 [Symbicort 160-4.5 Mcg Inhaler] Ipratropium-Albuterol Nebulize 3 ml INHALATION RT-QID PRN 02/15/17 06/26/17 [Duoneb 0.5 mg-3 mg/3 ml Soln] Nitroglycerin Sl Tabs [Nitrostat] 0.4 mg SUBLINGUAL Q5M PRN 02/15/17 06/26/17 Albuterol Inhaler [Ventolin Hfa 1 - 2 puff INHALATION RT-Q6H PRN 04/15/17 Inhaler] Ferrous Sulfate [Feosol] 325 mg PO BID 04/15/17 06/26/17 Carvedilol [Coreg] 12.5 mg PO BID 06/26/17 06/26/17 Lisinopril 40 mg PO DAILY 06/26/17 06/26/17 Ranolazine [Ranexa] 500 mg PO BID 06/26/17 06/26/17 amLODIPine [Norvasc] 10 mg PO DAILY 06/26/17 06/26/17 hydrALAZINE HCL [Apresoline] 50 mg PO TID 06/26/17 06/26/17 Previous Rx's Medication Instructions Recorded Clopidogrel [Plavix] 75 mg PO DAILY #30 tab 02/25/17 Isosorbide Mononitrate ER [Imdur] 30 mg PO DAILY #30 tab 02/25/17 Atorvastatin [Lipitor] 80 mg PO HS #30 tab 04/19/17 Allergies Allergy/AdvReac Type Severity Reaction Status Date / Time oxybutynin Allergy SEE Verified 06/26/17 12:11 COMMENTS sulfamethoxazole Allergy SEE Verified 06/26/17 12:11 [From Bactrim] COMMENTS trimethoprim [From Bactrim] Allergy SEE Verified 06/26/17 12:11 COMMENTS morphine AdvReac Confusion Verified 06/26/17 12:11 Review of Systems ROS Statement: Those systems with pertinent positive or pertinent negative responses have been documented in the HPI. ROS Other: All systems not noted in ROS Statement are negative. Past Medical History Past Medical History: Coronary Artery Disease (CAD), Hyperlipidemia, Hypertension, Myocardial Infarction (HI) Additional Past Medical History / Comment(s): Coronary artery disease, previous bypass surgery, hypertension, hyperlipidemia, COPD maintenance Symbicort on outpatient basis, gout, AAA NOT SURE OF SIZE Last Myocardial Infarction Date:: 2016 History of Any Multi-Drug Resistant Organisms: None Reported Past Surgical History: Cholecystectomy, Coronary Bypass/CABG, Heart Catheterization With Stent, Hysterectomy Additional Past Surgical History / Comment(s): Coronary artery bypass surgery- triple, cardiac catheterization and angioplasty and stenting of the saphenous vein graft to obtuse marginal branch.CATARACTS, "stent in groin" Past Anesthesia/Blood Transfusion Reactions: Motion Sickness Additional Past Anesthesia/Blood Transfusion Reaction / Comment(s): Pt states she has received blood without reaction. Date of Last Stent Placement:: unk Past Psychological History: No Psychological Hx Reported Smoking Status: Former smoker Past Alcohol Use History: None Reported Past Drug Use History: None Reported - Past Family History Father Family Medical History: Coronary Artery Disease (CAD), Myocardial Infarction (HI ) Additional Family Medical History / Comment(s): Father of a HI at the age of 72 yrs. Mother Family Medical History: No Reported History Additional Family Medical History / Comment(s): Pt states her mother was healthy and at the age of 84 yrs. General Exam Limitations: no limitations General appearance: alert, in no apparent distress Head exam: Present: atraumatic, normocephalic, normal inspection Eye exam: Present: normal appearance, PERRL, EOMI. Absent: scleral icterus, conjunctival injection, periorbital swelling ENT exam: Present: normal exam, mucous membranes moist Neck exam: Present: normal inspection. Absent: tenderness, meningismus, lymphadenopathy Respiratory exam: Present: normal lung sounds bilaterally. Absent: respiratory distress, wheezes, rales, rhonchi, stridor Cardiovascular Exam: Present: normal rhythm, bradycardia, normal heart sounds. Absent: systolic murmur, diastolic murmur, rubs, gallop, clicks GI/Abdominal exam: Present: soft, normal bowel sounds. Absent: distended, tenderness, guarding, rebound, rigid Extremities exam: Present: normal inspection, full ROM, normal capillary refill. Absent: tenderness, pedal edema, joint swelling, calf tenderness Back exam: Present: normal inspection Neurological exam: Present: alert, oriented X3, CN II-XII intact Psychiatric exam: Present: normal affect, normal mood Skin exam: Present: warm, dry, intact, normal color. Absent: rash Course Vital Signs 06/26/17 06/26/17 06/26/17 11:19 12:27 13:51 Temperature 96.9 F L Pulse Rate 45 L 43 L 48 L Respiratory 16 16 18 Rate Blood Pressure 95/48 99/50 126/58 O2 Sat by Pulse 95 98 99 Oximetry - Reevaluation(s) Reevaluation #1: 06/26/17 14:53 Spoke with cardiology regarding patient's low blood pressure, low heart rate, they did see EKG, this patient is well-known to cardiology, no evidence of heart block on EKG, they suggested increase fluid, stop carvedilol and patient can be discharged home Reevaluation #2: 06/26/17 14:54 With fluid patient's blood pressure is improving EKG Findings - EKG Comments: EKG Findings:: EKG shows sinus rhythm rate of 45, NJ 176, QRS 90, QTc 429. Repeat. EKG shows sinus bradycardia rate of 43, NJ 176, QRS 82, QTc 447 Medical Decision Making - Medical Decision Making 86 female to ER for evaluation regarding chest pain, patient found to be bradycardic with low blood pressure. Dehydrated. Patient given adequate fluid bolus here in the ER. Troponin is negative 2 and patient can be discharged home - Lab Data Result diagrams: 06/26/17 11:37 06/26/17 11:37 Lab Results 06/26/17 06/26/17 06/26/17 Range/Units 11:37 11:37 11:37 WBC 5.6 (3.8-10.6) k/uL RBC 4.17 (3.80-5.40) m/uL Hgb 11.5 (11.4-16.0) gm/dL Hct 38.1 (34.0-46.0) % MCV 91.4 (80.0-100.0) fL MCH 27.6 (25.0-35.0) pg MCHC 30.3 L (31.0-37.0) g/dL RDW 14.1 (11.5-15.5) % Plt Count 239 (150-450) k/uL Neutrophils % 59 % Lymphocytes % 23 % Monocytes % 8 % Eosinophils % 7 % Basophils % 1 % Neutrophils # 3.3 (1.3-7.7) k/uL Lymphocytes # 1.3 (1.0-4.8) k/uL Monocytes # 0.5 (0-1.0) k/uL Eosinophils # 0.4 (0-0.7) k/uL Basophils # 0.0 (0-0.2) k/uL Hypochromasia Moderate PT (9.0-12.0) sec INR (<1.2) APTT (22.0-30.0) sec Sodium 140 (137-145) mmol/L Potassium 4.3 (3.5-5.1) mmol/L Chloride 106 (98-107) mmol/L Carbon Dioxide 26 (22-30) mmol/L Anion Gap 8 mmol/L BUN 33 H (7-17) mg/dL Creatinine 1.60 H (0.52-1.04) mg/dL Est GFR (MDRD) Af Amer 37 (>60 ml/min/1.73 sqM) Est GFR (MDRD) Non-Af 31 (>60 ml/min/1.73 sqM) Glucose 117 H (74-99) mg/dL Calcium 8.4 (8.4-10.2) mg/dL Magnesium 1.8 (1.6-2.3) mg/dL Total Bilirubin 0.4 (0.2-1.3) mg/dL AST 16 (14-36) U/L ALT 30 (9-52) U/L Alkaline Phosphatase 49 (38-126) U/L Total Creatine Kinase 27 L (30-135) U/L CK-MB (CK-2) 0.7 (0.0-2.4) ng/mL CK-MB (CK-2) Rel Index 2.6 Troponin I <0.012 (0.000-0.034) ng/mL Total Protein 5.7 L (6.3-8.2) g/dL Albumin 2.8 L (3.5-5.0) g/dL Lipase 96 (23-300) U/L TSH (0.465-4.680) mIU/L Free T4 (0.78-2.19) ng/dL 06/26/17 06/26/17 Range/Units 11:37 11:37 WBC (3.8-10.6) k/uL RBC (3.80-5.40) m/uL Hgb (11.4-16.0) gm/dL Hct (34.0-46.0) % MCV (80.0-100.0) fL MCH (25.0-35.0) pg MCHC (31.0-37.0) g/dL RDW (11.5-15.5) % Plt Count (150-450) k/uL Neutrophils % % Lymphocytes % % Monocytes % % Eosinophils % % Basophils % % Neutrophils # (1.3-7.7) k/uL Lymphocytes # (1.0-4.8) k/uL Monocytes # (0-1.0) k/uL Eosinophils # (0-0.7) k/uL Basophils # (0-0.2) k/uL Hypochromasia PT 10.8 (9.0-12.0) sec INR 1.1 (<1.2) APTT 24.1 (22.0-30.0) sec Sodium (137-145) mmol/L Potassium (3.5-5.1) mmol/L Chloride (98-107) mmol/L Carbon Dioxide (22-30) mmol/L Anion Gap mmol/L BUN (7-17) mg/dL Creatinine (0.52-1.04) mg/dL Est GFR (MDRD) Af Amer (>60 ml/min/1.73 sqM) Est GFR (MDRD) Non-Af (>60 ml/min/1.73 sqM) Glucose (74-99) mg/dL Calcium (8.4-10.2) mg/dL Magnesium (1.6-2.3) mg/dL Total Bilirubin (0.2-1.3) mg/dL AST (14-36) U/L ALT (9-52) U/L Alkaline Phosphatase (38-126) U/L Total Creatine Kinase (30-135) U/L CK-MB (CK-2) (0.0-2.4) ng/mL CK-MB (CK-2) Rel Index Troponin I (0.000-0.034) ng/mL Total Protein (6.3-8.2) g/dL Albumin (3.5-5.0) g/dL Lipase (23-300) U/L TSH 4.930 H (0.465-4.680) mIU/L Free T4 1.17 (0.78-2.19) ng/dL - Radiology Data Radiology results: report reviewed (Chest x-ray is negative for acute disease), image reviewed Disposition Clinical Impression: Chest pain, Bradycardia Disposition: HOME SELF-CARE Condition: Good Instructions: Chest Pain (ED), Bradycardia (ED) Referrals: Jose Quintana MD [Primary Care Provider] - 1-2 days
[2017-06-26 11:48] LABS: Basophils % (A) 1 %; CH 27.7; CHCM 30.4; Eosinophils # (A) 0.4 k/uL (0-0.7); Eosinophils % (A) 7 %; HCT 38.1 % (34.0-46.0); HDW 2.31; HGB 11.5 gm/dL (11.4-16.0); Hypochromasia Moderate; Luc # (Auto) 0.12; Luc % (Auto) 2; Lymphocytes # (A) 1.3 k/uL (1.0-4.8); Lymphocytes % (A) 23 %; MCH 27.6 pg (25.0-35.0); MCHC 30.3 g/dL (31.0-37.0); MCV 91.4 fL (80.0-100.0); Mean Platelet Volume 7.9; Monocytes # (A) 0.5 k/uL (0-1.0); Monocytes % (A) 8 %; Neutrophils # (A) 3.3 k/uL (1.3-7.7); Neutrophils % (A) 59 %; RBC 4.17 m/uL (3.80-5.40); RDW 14.1 % (11.5-15.5); WBC 5.6 k/uL (3.8-10.6); WBC (Perox) 5.63
--- NOTE | 2017-06-26 11:56 | XR ---
EXAMINATION TYPE: XR chest 2V DATE OF EXAM: 06/26/2017 HISTORY: Chest Pain. REFERENCE: Previous study dated 05/06/2017. FINDINGS: There has been a midline sternotomy. The lungs are overinflated. The heart is enlarged. There is a calcified granuloma at the right lung b ase. The lungs are otherwise clear. Pleural spaces are clear. IMPRESSION: 1. COPD. 2. CARDIOMEGALY. 3. EVIDENCE OF OLD GRANULOMATOUS DISEASE.
[2017-06-26] MEDS ORDERED: SODIUM CHLORIDE 0.9% 500 ML IV STA ×2 (11:58→12:49)
[2017-06-26] MEDS ORDERED: SODIUM CHLORIDE 0.9% 1,000 ML IV STA ×2 (11:58→12:49)
[2017-06-26 11:59] LABS: Calcium 8.4 mg/dL (8.4-10.2); INR 1.1 (<1.2); Magnesium 1.8 mg/dL (1.6-2.3); Partial Thromboplastin Time 24.1 sec (22.0-30.0); Potassium 4.3 mmol/L (3.5-5.1); Prothrombin Time 10.8 sec (9.0-12.0); Total Bilirubin 0.4 mg/dL (0.2-1.3); Total Protein 5.7 g/dL (6.3-8.2)
[2017-06-26 12:09] LABS: Creatine Kinase 27 U/L (30-135)
[2017-06-26 12:22] LABS: Creatine Kinase MB 0.7 ng/mL (0.0-2.4); Troponin I <0.012 ng/mL (0.000-0.034)
[2017-06-26] MEDS ORDERED: ACETAMINOPHEN TAB 325 MG TAB PO STA (12:42)
[2017-06-26] MEDS ORDERED: HYDROmorphone 0.5 MG/0.5 ML SYRINGE IVP STA (15:02)
[2017-06-26] MEDS ORDERED: ONDANSETRON 4 MG/2 ML VIAL IVP STA (15:36)
[2017-06-26] MEDS ORDERED: ASPIRIN 81 MG PO STA (16:03)
[2017-06-26] MEDS ORDERED: NITROGLYCERIN SL TABS 0.4 MG TAB SUBLINGUAL PRN (16:03)
--- NOTE | 2017-06-26 16:05 | ED ---
Medical Decision Making - Lab Data Result diagrams: 06/26/17 11:37 06/26/17 11:37 Lab Results 06/26/17 06/26/17 06/26/17 Range/Units 11:37 11:37 11:37 WBC 5.6 (3.8-10.6) k/uL RBC 4.17 (3.80-5.40) m/uL Hgb 11.5 (11.4-16.0) gm/dL Hct 38.1 (34.0-46.0) % MCV 91.4 (80.0-100.0) fL MCH 27.6 (25.0-35.0) pg MCHC 30.3 L (31.0-37.0) g/dL RDW 14.1 (11.5-15.5) % Plt Count 239 (150-450) k/uL Neutrophils % 59 % Lymphocytes % 23 % Monocytes % 8 % Eosinophils % 7 % Basophils % 1 % Neutrophils # 3.3 (1.3-7.7) k/uL Lymphocytes # 1.3 (1.0-4.8) k/uL Monocytes # 0.5 (0-1.0) k/uL Eosinophils # 0.4 (0-0.7) k/uL Basophils # 0.0 (0-0.2) k/uL Hypochromasia Moderate PT (9.0-12.0) sec INR (<1.2) APTT (22.0-30.0) sec Sodium 140 (137-145) mmol/L Potassium 4.3 (3.5-5.1) mmol/L Chloride 106 (98-107) mmol/L Carbon Dioxide 26 (22-30) mmol/L Anion Gap 8 mmol/L BUN 33 H (7-17) mg/dL Creatinine 1.60 H (0.52-1.04) mg/dL Est GFR (MDRD) Af Amer 37 (>60 ml/min/1.73 sqM) Est GFR (MDRD) Non-Af 31 (>60 ml/min/1.73 sqM) Glucose 117 H (74-99) mg/dL Calcium 8.4 (8.4-10.2) mg/dL Magnesium 1.8 (1.6-2.3) mg/dL Total Bilirubin 0.4 (0.2-1.3) mg/dL AST 16 (14-36) U/L ALT 30 (9-52) U/L Alkaline Phosphatase 49 (38-126) U/L Total Creatine Kinase 27 L (30-135) U/L CK-MB (CK-2) 0.7 (0.0-2.4) ng/mL CK-MB (CK-2) Rel Index 2.6 Troponin I <0.012 (0.000-0.034) ng/mL Total Protein 5.7 L (6.3-8.2) g/dL Albumin 2.8 L (3.5-5.0) g/dL Lipase 96 (23-300) U/L TSH (0.465-4.680) mIU/L Free T4 (0.78-2.19) ng/dL 06/26/17 06/26/17 06/26/17 Range/Units 11:37 11:37 14:32 WBC (3.8-10.6) k/uL RBC (3.80-5.40) m/uL Hgb (11.4-16.0) gm/dL Hct (34.0-46.0) % MCV (80.0-100.0) fL MCH (25.0-35.0) pg MCHC (31.0-37.0) g/dL RDW (11.5-15.5) % Plt Count (150-450) k/uL Neutrophils % % Lymphocytes % % Monocytes % % Eosinophils % % Basophils % % Neutrophils # (1.3-7.7) k/uL Lymphocytes # (1.0-4.8) k/uL Monocytes # (0-1.0) k/uL Eosinophils # (0-0.7) k/uL Basophils # (0-0.2) k/uL Hypochromasia PT 10.8 (9.0-12.0) sec INR 1.1 (<1.2) APTT 24.1 (22.0-30.0) sec Sodium (137-145) mmol/L Potassium (3.5-5.1) mmol/L Chloride (98-107) mmol/L Carbon Dioxide (22-30) mmol/L Anion Gap mmol/L BUN (7-17) mg/dL Creatinine (0.52-1.04) mg/dL Est GFR (MDRD) Af Amer (>60 ml/min/1.73 sqM) Est GFR (MDRD) Non-Af (>60 ml/min/1.73 sqM) Glucose (74-99) mg/dL Calcium (8.4-10.2) mg/dL Magnesium (1.6-2.3) mg/dL Total Bilirubin (0.2-1.3) mg/dL AST (14-36) U/L ALT (9-52) U/L Alkaline Phosphatase (38-126) U/L Total Creatine Kinase (30-135) U/L CK-MB (CK-2) (0.0-2.4) ng/mL CK-MB (CK-2) Rel Index Troponin I <0.012 (0.000-0.034) ng/mL Total Protein (6.3-8.2) g/dL Albumin (3.5-5.0) g/dL Lipase (23-300) U/L TSH 4.930 H (0.465-4.680) mIU/L Free T4 1.17 (0.78-2.19) ng/dL Disposition Clinical Impression: Chest pain, Bradycardia Disposition: ADMITTED IP TO THIS HOSP Condition: Good
[2017-06-26 17:45] VITALS: BMI 26.2
[2017-06-26] MEDS ORDERED: IPRATROPIUM-ALBUTEROL 3 ML NEB INHALATION PRN (20:30)
[2017-06-26] MEDS: RANOLAZINE 500 MG TAB.ER.12H PO SCH (20:54)
[2017-06-26] MEDS: ATORVASTATIN 80 MG TAB PO SCH (20:54)
[2017-06-26] MEDS: FERROUS SULFATE 325 MG TAB PO SCH (20:54)
[2017-06-26 21:22] LABS: Creatine Kinase 36 U/L (30-135)
[2017-06-26 21:35] LABS: Troponin I <0.012 ng/mL (0.000-0.034)
[2017-06-26] MEDS ORDERED: hydrALAZINE HCL 50 MG TAB PO SCH (22:00)
[2017-06-26] MEDS ORDERED: ONDANSETRON 4 MG/2 ML VIAL IVP PRN (23:33)
[2017-06-27 03:30] LABS: Cholesterol 122 mg/dL (<200); HDL Cholesterol 34 mg/dL (40-60)
[2017-06-27] MEDS: ACETAMINOPHEN TAB 325 MG TAB PO PRN ×2 (03:37→08:01)
[2017-06-27 03:54] LABS: Creatine Kinase MB 1.2 ng/mL (0.0-2.4); Troponin I 0.016 ng/mL (0.000-0.034)
[2017-06-27] MEDS: SYMBICORT 160-4.5 MCG INHALER INHALATION SCH ×2 (07:34→19:47)
[2017-06-27] MEDS ORDERED: ASPIRIN 325 MG TAB PO SCH (09:00)
[2017-06-27] MEDS: CLOPIDOGREL 75 MG TAB PO SCH (09:53)
[2017-06-27] MEDS: ISOSORBIDE MONONITRATE ER 30 MG TAB.ER.24H PO SCH (09:53)
[2017-06-27] MEDS: LISINOPRIL 20 MG TAB PO SCH (09:53)
[2017-06-27] MEDS: CARVEDILOL 12.5 MG TAB PO SCH ×2 (09:53→17:47)
[2017-06-27] MEDS: amLODIPine 10 MG TAB PO SCH (09:54)
[2017-06-27] MEDS: RANOLAZINE 500 MG TAB.ER.12H PO SCH ×2 (09:54→20:06)
[2017-06-27] MEDS: FERROUS SULFATE 325 MG TAB PO SCH ×2 (09:54→20:07)
[2017-06-27] MEDS: ASPIRIN 81 MG PO SCH (12:47)
--- NOTE | 2017-06-27 12:53 | P.CRDCN ---
History of Present Illness Consult date: 06/27/17 History of present illness: This is a 86-year-old female with past medical history significant for CAD with CABG and recent stenting of SVG to obtuse mid and proximal, hypertension, hyperlipidemia and COPD. She has been seen in the hospital but doesn't follow regularly with cardiology. We have been asked to see the patient in consultation for complaints of left precordial chest achiness. She states it feels similar to a toothache. She says this pain woke her up out of sleep last night and has persisted ever since. It is associated with difficulty in taking in a deep breath and is reproducible on palpation. In January of this year she underwent successful angioplasty of the mid and proximal saphenous vein graft to the obtuse marginal. She has not followed up in the cardiology office since his stenting. EKG on arrival reveals sinus bradycardia heart rate 45 with nonspecific T-wave abnormalities inferiorly. This is consistent with old EKG. Chest xray reveals COPD and cardiomegaly with no evidence of an acute abnormality. Cardiac enzymes negative x4, BUN 33, Cr 1.6, potassium 4.3, magnesium 1.8. Current cardiac medications include hydralazine 50 mg TID, amlodipine 10 mg daily, ranexa 500 mg BID, lisinopril 40 mg daily, imdur 30 mg daily, plavix 75 mg daily, carvedilol 12.5 mg BID, atorvastatin 80 mg daily and aspirin 81 mg daily. Review of Systems CONSTITUTIONAL: Denies fever. Denies chills. EYES: Denies blurred vision. Denies vision changes. Denies eye pain. EARS, NOSE, MOUTH & THROAT: Denies headache. Denies sore throat. Denies ear pain. CARDIOVASCULAR: Complains of reproducible chest pain associated with shortness of breath. Denies orthopnea. Denies PND. Denies palpitations. RESPIRATORY: Denies cough. GASTROINTESTINAL: Denies abdominal pain. Denies diarrhea. Denies constipation. Denies nausea. Denies vomitng. MUSCULOSKELETAL: Denies myalgias. INTEGUMENTARY: Denies pruitis. Denies rash. NEUROLOGIC: Denies numbness. Denies tingling. Denies weakness. PSYCHIATRIC: Denies anxiety. Denies depression. ENDOCRINE: Denies fatigue. Denies weight change. Denies polydipsia. Denies polyurina. GENITOURINARY: Denies burning, hematuria or urgency with micturation. HEMATOLOGIC: Denies history of anemia. Denies bleeding. Past Medical History Past Medical History: Coronary Artery Disease (CAD), Hyperlipidemia, Hypertension, Myocardial Infarction ([place]) Additional Past Medical History / Comment(s): Coronary artery disease, previous bypass surgery, hypertension, hyperlipidemia, COPD maintenance Symbicort on outpatient basis, gout, AAA NOT SURE OF SIZE Last Myocardial Infarction Date:: 2016 History of Any Multi-Drug Resistant Organisms: None Reported Past Surgical History: Cholecystectomy, Coronary Bypass/CABG, Heart Catheterization With Stent, Hysterectomy Additional Past Surgical History / Comment(s): Coronary artery bypass surgery- triple, cardiac catheterization and angioplasty and stenting of the saphenous vein graft to obtuse marginal branch.CATARACTS, "stent in groin" Past Anesthesia/Blood Transfusion Reactions: Motion Sickness Additional Past Anesthesia/Blood Transfusion Reaction / Comment(s): Pt states she has received blood without reaction. Date of Last Stent Placement:: unk Smoking Status: Never smoker - Past Family History Father Family Medical History: Coronary Artery Disease (CAD), Myocardial Infarction ([place] ) Additional Family Medical History / Comment(s): Father of a GA at the age of 72 yrs. Mother Family Medical History: No Reported History Additional Family Medical History / Comment(s): Pt states her mother was healthy and at the age of 84 yrs. Medications and Allergies Home Medications Medication Instructions Recorded Confirmed Type Aspirin [Adult Low Dose Aspirin EC] 81 mg PO HS 02/15/17 06/26/17 History Budesonide/Formoterol Fumarate 2 puff INHALATION RT-BID 02/15/17 06/26/17 History [Symbicort 160-4.5 Mcg Inhaler] Ipratropium-Albuterol Nebulize 3 ml INHALATION RT-QID PRN 02/15/17 06/26/17 History [Duoneb 0.5 mg-3 mg/3 ml Soln] Nitroglycerin Sl Tabs [Nitrostat] 0.4 mg SUBLINGUAL Q5M PRN 02/15/17 06/26/17 History Clopidogrel [Plavix] 75 mg PO DAILY #30 tab 02/25/17 06/26/17 Rx Isosorbide Mononitrate ER [Imdur] 30 mg PO DAILY #30 tab 02/25/17 06/26/17 Rx Albuterol Inhaler [Ventolin Hfa 1 - 2 puff INHALATION RT-Q6H PRN 04/15/17 History Inhaler] Ferrous Sulfate [Feosol] 325 mg PO BID 04/15/17 06/26/17 History Atorvastatin [Lipitor] 80 mg PO HS #30 tab 04/19/17 06/26/17 Rx Carvedilol [Coreg] 12.5 mg PO BID 06/26/17 06/26/17 History Lisinopril 40 mg PO DAILY 06/26/17 06/26/17 History Ranolazine [Ranexa] 500 mg PO BID 06/26/17 06/26/17 History amLODIPine [Norvasc] 10 mg PO DAILY 06/26/17 06/26/17 History hydrALAZINE HCL [Apresoline] 50 mg PO TID 06/26/17 06/26/17 History Allergies Allergy/AdvReac Type Severity Reaction Status Date / Time oxybutynin Allergy SEE Verified 06/26/17 12:11 COMMENTS sulfamethoxazole Allergy SEE Verified 06/26/17 12:11 [From Bactrim] COMMENTS trimethoprim [From Bactrim] Allergy SEE Verified 06/26/17 12:11 COMMENTS morphine AdvReac Confusion Verified 06/26/17 12:11 Physical Exam Vitals: Vital Signs Temp Pulse Pulse Resp BP BP BP 06/27/17 07:53 97.6 F 64 18 131/65 06/27/17 07:38 06/27/17 03:35 97.9 F 66 20 124/56 06/27/17 03:20 18 06/26/17 23:37 18 06/26/17 23:25 97.7 F 68 18 100/48 06/26/17 19:33 18 06/26/17 19:16 97.5 F L 59 L 18 124/55 06/26/17 17:59 58 L 06/26/17 17:44 06/26/17 17:19 97.5 F L 62 16 110/43 06/26/17 16:52 96.9 F L 48 L 16 131/57 06/26/17 16:17 66 16 98/44 06/26/17 15:27 97.1 F L 65 18 125/84 06/26/17 13:51 48 L 18 126/58 06/26/17 12:27 43 L 16 99/50 06/26/17 11:19 96.9 F L 45 L 16 95/48 Pulse Ox 06/27/17 07:53 93 L 06/27/17 07:38 95 06/27/17 03:35 90 L 06/27/17 03:20 06/26/17 23:37 06/26/17 23:25 90 L 06/26/17 19:33 06/26/17 19:16 91 L 06/26/17 17:59 06/26/17 17:44 94 L 06/26/17 17:19 92 L 06/26/17 16:52 92 L 06/26/17 16:17 95 06/26/17 15:27 95 06/26/17 13:51 99 06/26/17 12:27 98 06/26/17 11:19 95 Intake and Output 06/26/17 06/27/17 06/27/17 22:59 06:59 14:59 Intake Total 700 Balance 700 Intake: IV 500 Sodium Chloride 0.9% 1, 500 000 ml @ 100 mls/hr IV . Q10H STA Rx#:[id number] Oral 200 Other: Voiding Method Toilet Toilet Diaper Diaper Incontinent Incontinent # Voids 1 Weight 63 kg GENERAL: This is a 86-year-old female in no apparent distress at the time of my examination. HEENT: Head is atraumatic, normocephalic. Pupils are equal, round. Sclerae anicteric. Conjunctivae are clear. Mucous membranes of the mouth are moist. Neck is supple. There is no jugular venous distention. No carotid bruit is heard. LUNGS: Expiratory wheezes throughout, no rales or rhonchi. Positive chest wall tenderness is noted on palpation and with deep breathing. HEART: Regular rate and rhythm with faint systolic ejection murmur at the base, no rubs or gallops. S1 and S2 heard. ABDOMEN: Soft, nontender. Bowel sounds are heard. EXTREMITIES: 2+ peripheral pulses with no evidence of peripheral edema and no calf tenderness noted. NEUROLOGIC: Patient is awake, alert and oriented x3. Results 06/26/17 11:37 06/26/17 11:37 Cardiac Enzymes 06/26/17 06/26/17 06/26/17 Range/Units 11:37 11:37 14:32 AST 16 (14-36) U/L CK-MB (CK-2) 0.7 (0.0-2.4) ng/mL Troponin I <0.012 <0.012 (0.000-0.034) ng/mL 06/26/17 06/27/17 Range/Units 20:46 02:52 AST (14-36) U/L CK-MB (CK-2) 1.0 1.2 (0.0-2.4) ng/mL Troponin I <0.012 0.016 (0.000-0.034) ng/mL Coagulation 06/26/17 Range/Units 11:37 PT 10.8 (9.0-12.0) sec APTT 24.1 (22.0-30.0) sec Lipids 06/27/17 Range/Units 02:55 Triglycerides 122 (<150) mg/dL Cholesterol 122 (<200) mg/dL HDL Cholesterol 34 L (40-60) mg/dL CBC 06/26/17 Range/Units 11:37 WBC 5.6 (3.8-10.6) k/uL RBC 4.17 (3.80-5.40) m/uL Hgb 11.5 (11.4-16.0) gm/dL Hct 38.1 (34.0-46.0) % Plt Count 239 (150-450) k/uL Comprehensive Metabolic Panel 06/26/17 Range/Units 11:37 Sodium 140 (137-145) mmol/L Potassium 4.3 (3.5-5.1) mmol/L Chloride 106 (98-107) mmol/L Carbon Dioxide 26 (22-30) mmol/L BUN 33 H (7-17) mg/dL Creatinine 1.60 H (0.52-1.04) mg/dL Glucose 117 H (74-99) mg/dL Calcium 8.4 (8.4-10.2) mg/dL AST 16 (14-36) U/L ALT 30 (9-52) U/L Alkaline Phosphatase 49 (38-126) U/L Total Protein 5.7 L (6.3-8.2) g/dL Albumin 2.8 L (3.5-5.0) g/dL Current Medications Generic Name Dose Route Start Last Admin Trade Name Freq PRN Reason Stop Dose Admin Acetaminophen 650 mg 06/27/17 03:18 06/27/17 08:01 Tylenol Tab PO 650 mg Q4HR PRN Administration Fever and/ or Pain Albuterol Sulfate 2.5 mg 06/26/17 20:30 Ventolin Nebulized INHALATION RT-Q6H PRN Shortness Of Breath Albuterol/Ipratropium 3 ml 06/26/17 20:30 Duoneb 0.5 Mg-3 Mg/3 Ml Soln INHALATION RT-QID PRN Shortness Of Breath Amlodipine Besylate 10 mg 06/27/17 09:00 Norvasc PO DAILY [facility] Aspirin 325 mg 06/27/17 09:00 Aspirin PO DAILY [facility] Atorvastatin Calcium 80 mg 06/26/17 21:00 06/26/17 20:54 Lipitor PO 80 mg HS [facility] Administration Budesonide/Formoterol Fumarate 2 puff 06/27/17 08:00 06/27/17 07:34 Symbicort 160-4.5 Mcg Inhaler INHALATION 2 puff RT-BID [facility] Administration Carvedilol 12.5 mg 06/27/17 07:30 Coreg PO BID-W/MEALS [facility] Clopidogrel Bisulfate 75 mg 06/27/17 09:00 Plavix PO DAILY [facility] Ferrous Sulfate 325 mg 06/26/17 21:00 06/26/17 20:54 Feosol PO 325 mg BID [facility] Administration Hydralazine HCl 50 mg 06/26/17 22:00 06/26/17 20:54 Apresoline PO 50 mg TID [facility] Administration Isosorbide Mononitrate 30 mg 06/27/17 09:00 Imdur PO DAILY [facility] Lisinopril 40 mg 06/27/17 09:00 Zestril PO DAILY [facility] Nitroglycerin 0.4 mg 06/26/17 16:03 Nitrostat SUBLINGUAL Q5M PRN Chest Pain Ondansetron HCl 4 mg 06/26/17 23:33 06/26/17 23:52 Zofran IVP 4 mg Q6HR PRN Administration Nausea And Vomiting Ranolazine 500 mg 06/26/17 21:00 06/26/17 20:54 Ranexa PO 500 mg BID [facility] Administration Intake and Output 06/26/17 06/27/17 06/27/17 22:59 06:59 14:59 Intake Total 700 Balance 700 Intake: IV 500 Sodium Chloride 0.9% 1, 500 000 ml @ 100 mls/hr IV . Q10H STA Rx#:[id number] Oral 200 Other: Voiding Method Toilet Toilet Diaper Diaper Incontinent Incontinent # Voids 1 Weight 63 kg 06/26/17 11:37 06/26/17 11:37 Assessment and Plan Assessment: ASSESSMENT 1. Pleuritic chest pain 2. Chronic CAD with recent stenting of SVG to obtuse marginal 3. History CABG 4. Hypertension 5. Hyperlipidemia 6. COPD 7. Chronic kidney disease, stage 3b PLAN She has had episodes of hypotension since admission which may be contributing to her decreased kidney function. We would recommend decreasing her hydralazine to BID dosing rather than TID. Her chest pain is not suggestive of an acute coronary event. Lengthy discussion was had with the patient about the importance of regular cardiology follow-up. She verbalizes understanding and is in agreement. She should see Dr. Warren as an outpatient in 1 week. Nurse Practitioner note has been reviewed, I agree with a documented findings and plan of care. Patient was seen and examined.
[2017-06-27] MEDS: ALBUTEROL NEBULIZED 2.5 MG/3 ML INHALATION PRN ×2 (16:24→19:47)
--- NOTE | 2017-06-27 18:55 | HP ---
HISTORY AND PHYSICAL CHIEF COMPLAINT: Chest pain. HISTORY OF PRESENT ILLNESS: This is another admission for this 86-year-old, white female, who is in and out of the hospital quite frequently with unstable angina pectoris. She came in with chest pain associated with some shortness of breath and diaphoresis. Liver enzymes normal. REVIEW OF SYSTEMS: She has had no other complaints including syncope, palpitation, orthopnea, PND, etc. 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 MEDICATIONS: 1. She is on hydralazine 50 mg t.i.d. 2. Lisinopril 40 once a day. 3. Amlodipine 10 mg once a day. 4. Carvedilol 12.5 mg b.i.d. 5. Ranexa 500 mg twice a day. 6. 81 mg aspirin. 7. Lipitor 80 q.h.s. 8. Isosorbide mononitrate, 30 mg once a day. 9. Clopidogrel 75 once a day. 10.Ferrous sulfate 325 twice a day. 11.Updrafts. 12.Ipratropium bromide. 13.Albuterol q.i.d. p.r.n. 14.Symbicort 160/4.5, 2 puffs b.i.d. 15.Nitrostat 0.5 p.r.n. The remainder of her history and physical is unchanged from prior documents. She has had a previous GA and she has had a triple CABG as well as hysterectomy and cholecystectomy. She has smoked, but has not in a long time. PHYSICAL EXAM: Blood pressure 128/68, pulse 72, respirations 14 and she is afebrile. In general she appeared to be well developed, well nourished, in no acute distress. Skin color is normal. Skin warm and dry. Lymph nodes not enlarged. Head ears, eyes, nose, mouth, and throat were normal and neck veins not distended. Thyroid is not enlarged. Chest is clear. Cardiac exam demonstrates a grade 2-3 systolic murmur heard throughout the precordium. There is no S3 or S4. The abdomen is soft, nontender, nondistended. No masses. EXTREMITIES: Normal. No edema. Neurologically she is intact. She is admitted to the hospital with diagnoses of: IMPRESSION: 1. Unstable angina pectoris. 2. Coronary artery disease. 3. Hypertension. PLAN: 1. Bed rest. 2. IV fluids. 3. Serial EKGs and enzymes. 4. Cardiology consult. MADAY / DIANE: [id number] /
[2017-06-27] MEDS: hydrALAZINE HCL 50 MG TAB PO SCH (20:06)
[2017-06-27] MEDS: ATORVASTATIN 80 MG TAB PO SCH (20:07)
[2017-06-27] MEDS: guaiFENesin 600 MG TABLET.ER PO SCH (20:07)
[2017-06-28] MEDS: ALBUTEROL NEBULIZED 2.5 MG/3 ML INHALATION PRN ×2 (01:03→07:45)
[2017-06-28] MEDS: SYMBICORT 160-4.5 MCG INHALER INHALATION SCH (07:45)
[2017-06-28 07:50] VITALS: RESP 18
[2017-06-28] MEDS: guaiFENesin 600 MG TABLET.ER PO SCH (08:15)
[2017-06-28] MEDS: amLODIPine 10 MG TAB PO SCH (08:15)
[2017-06-28] MEDS: ASPIRIN 81 MG PO SCH (08:15)
[2017-06-28] MEDS: CARVEDILOL 12.5 MG TAB PO SCH (08:15)
[2017-06-28] MEDS: RANOLAZINE 500 MG TAB.ER.12H PO SCH (08:15)
[2017-06-28] MEDS: ISOSORBIDE MONONITRATE ER 30 MG TAB.ER.24H PO SCH (08:15)
[2017-06-28] MEDS: LISINOPRIL 20 MG TAB PO SCH (08:15)
[2017-06-28] MEDS: FERROUS SULFATE 325 MG TAB PO SCH (08:15)
[2017-06-28] MEDS: hydrALAZINE HCL 50 MG TAB PO SCH (08:15)
[2017-06-28] MEDS: CLOPIDOGREL 75 MG TAB PO SCH (08:15)
[2017-06-28 11:54] VITALS: BP 115/50; PULSE 55; TEMP 98.1
--- NOTE | 2017-06-28 12:44 | DS ---
DISCHARGE SUMMARY CHIEF COMPLAINT: Chest pain. HISTORY OF PRESENT ILLNESS AND PHYSICAL EXAM: Details of this lady's history and physical can be found in the initial workup. LABORATORY STUDIES: While she was in the hospital she had laboratory studies, details which can be found in the laboratory section of her chart. COURSE IN THE HOSPITAL: After admission, she was placed in bedrest, started on intravenous fluids and had serial EKGs and enzymes. Her studies remained normal. She was seen by Cardiology who felt that she could be discharged on her usual regimen and she will be seen in the office in a day or 2. FINAL DIAGNOSES: 1. Unstable angina pectoris. 2. Coronary artery disease. OPERATIONS: None. CONSULTATION: Cardiology. She is improved. MMODL / IJN: [id number] /
--- NOTE | 2017-06-28 15:52 | PN ---
PROGRESS NOTE DATE OF SERVICE: 06/27/17 CHIEF COMPLAINT: Chest pain. HISTORY OF PRESENT ILLNESS: This lady has not had any further pain. Enzymes have been normal so far. Been no EKG changes. PHYSICAL EXAM: CHEST: Clear. Cardiac exam is normal except for her murmur. The abdomen is soft, nontender. IMPRESSION: 1. Unstable angina pectoris. 2. Coronary artery disease. 3. Chronic obstructive pulmonary disease. PLAN: Await recommendations from Cardiology after which she can go home, if she is cleared. MMODL / IJN: [id number] /
== END 2017-06-28 14:05 | disposition home health service (06) ==
LOC: EC 11:14 → 3OBS 16:03
PROVIDERS: ADMIT Family Medicine; ATTEND Family Medicine
DX: I25.110 Atherosclerotic heart disease of native coronary artery with unstable angina pectoris (principal); J44.9 Chronic obstructive pulmonary disease, unspecified; E78.5 Hyperlipidemia, unspecified; I12.9 Hypertensive chronic kidney disease with stage 1 through stage 4 chronic kidney disease, or unspecified chronic kidney disease; N18.3 Chronic kidney disease, stage 3 (moderate); I25.2 Old myocardial infarction; E86.0 Dehydration; I95.9 Hypotension, unspecified; I71.4 Abdominal aortic aneurysm, without rupture; Z79.82 Long term (current) use of aspirin; Z79.51 Long term (current) use of inhaled steroids; Z79.02 Long term (current) use of antithrombotics/antiplatelets; Z79.899 Other long term (current) drug therapy; Z88.5 Allergy status to narcotic agent; Z88.2 Allergy status to sulfonamides; Z88.8 Allergy status to other drugs, medicaments and biological substances; Z95.1 Presence of aortocoronary bypass graft; Z95.5 Presence of coronary angioplasty implant and graft; Z87.891 Personal history of nicotine dependence; Z95.820 Peripheral vascular angioplasty status with implants and grafts
CPT/HCPCS: 96361 ×8; 96375 ×2; 96376; 96374; 99285; 36415; 94640 ×4; 94760 ×3; 93005; 84439; 80061; 80053; 84443; 82550 ×2; 82553 ×2; 83690; 83735; 84484 ×2; 85025; 85610; 85730; 71020; G0378 ×3; J2405; J1170

== ENCOUNTER 2018-01-01 19:52 | Observation (INO) | payer MEDICARE ==
[2018-01-01] MEDS ORDERED: LABETALOL 5 MG/ML VIAL MDV IVP STA (20:07)
[2018-01-01] MEDS ORDERED: SODIUM CHLORIDE 0.9% 1,000 ML IV STA ×2 (20:07)
--- NOTE | 2018-01-01 20:14 | ED ---
General Adult HPI - General Source: patient, RN notes reviewed, old records reviewed Mode of arrival: EMS Limitations: no limitations <Clemente Vega - Last Filed: 01/01/18 20:34> <Anton Pierre - Last Filed: 01/02/18 01:26> - General Chief complaint: Chest Pain Stated complaint: Hypertension Time Seen by Provider: 01/01/18 19:53 - History of Present Illness Initial comments: This is an 87-year-old female. Patient presents ER today for evaluation. This patient presents ER today for evaluation regarding not feeling well. Patient has history of high blood pressure she admits taking her blood pressure medication today, denies a chest pain or shortness of breath no cough no congestion or nausea vomiting. No recent change in medications. Patient states she did take her blood pressure diagnosed he was severely elevated. She tried to relax for little bit retook it and it remained elevated, patient coming in for evaluation of high blood pressure, patient has no other complaints states she otherwise feels well (Clemente Vega) - Related Data Home Medications Medication Instructions Recorded Confirmed Aspirin [Adult Low Dose Aspirin EC] 81 mg PO HS 02/15/17 01/01/18 Budesonide/Formoterol Fumarate 2 puff INHALATION RT-BID 02/15/17 01/01/18 [Symbicort 160-4.5 Mcg Inhaler] Nitroglycerin Sl Tabs [Nitrostat] 0.4 mg SUBLINGUAL Q5M PRN 02/15/17 01/01/18 Ranolazine [Ranexa] 500 mg PO BID 06/26/17 01/01/18 Previous Rx's Medication Instructions Recorded Atorvastatin [Lipitor] 80 mg PO HS #30 tab 04/19/17 Allergies Allergy/AdvReac Type Severity Reaction Status Date / Time oxybutynin Allergy SEE Verified 01/01/18 20:02 COMMENTS sulfamethoxazole Allergy SEE Verified 01/01/18 20:02 [From Bactrim] COMMENTS trimethoprim [From Bactrim] Allergy SEE Verified 01/01/18 20:02 COMMENTS morphine AdvReac Confusion Verified 01/01/18 20:02 Review of Systems ROS Other: All systems not noted in ROS Statement are negative. <Clemente Vega - Last Filed: 01/01/18 20:34> ROS Other: All systems not noted in ROS Statement are negative. <Anton Pierre - Last Filed: 01/02/18 01:26> ROS Statement: Those systems with pertinent positive or pertinent negative responses have been documented in the HPI. Past Medical History Past Medical History: Coronary Artery Disease (CAD), Hyperlipidemia, Hypertension, Myocardial Infarction ([place]) Additional Past Medical History / Comment(s): Coronary artery disease, previous bypass surgery, hypertension, hyperlipidemia, COPD maintenance Symbicort on outpatient basis, gout, AAA NOT SURE OF SIZE Last Myocardial Infarction Date:: 2016 History of Any Multi-Drug Resistant Organisms: None Reported Past Surgical History: Cholecystectomy, Coronary Bypass/CABG, Heart Catheterization With Stent, Hysterectomy Additional Past Surgical History / Comment(s): Coronary artery bypass surgery- triple, cardiac catheterization and angioplasty and stenting of the saphenous vein graft to obtuse marginal branch.CATARACTS, "stent in groin" Past Anesthesia/Blood Transfusion Reactions: Motion Sickness Additional Past Anesthesia/Blood Transfusion Reaction / Comment(s): Pt states she has received blood without reaction. Date of Last Stent Placement:: unk Past Psychological History: No Psychological Hx Reported Smoking Status: Never smoker Past Alcohol Use History: None Reported Past Drug Use History: None Reported - Past Family History Father Family Medical History: Coronary Artery Disease (CAD), Myocardial Infarction ([place] ) Additional Family Medical History / Comment(s): Father of a [place] at the age of 72 yrs. Mother Family Medical History: No Reported History Additional Family Medical History / Comment(s): Pt states her mother was healthy and at the age of 84 yrs. <Clemente Vega - Last Filed: 01/01/18 20:34> General Exam Limitations: no limitations General appearance: alert, in no apparent distress Head exam: Present: atraumatic, normocephalic, normal inspection Eye exam: Present: normal appearance, PERRL, EOMI. Absent: scleral icterus, conjunctival injection, periorbital swelling ENT exam: Present: normal exam, mucous membranes moist Neck exam: Present: normal inspection. Absent: tenderness, meningismus, lymphadenopathy Respiratory exam: Present: normal lung sounds bilaterally. Absent: respiratory distress, wheezes, rales, rhonchi, stridor Cardiovascular Exam: Present: regular rate, normal rhythm, normal heart sounds. Absent: systolic murmur, diastolic murmur, rubs, gallop, clicks GI/Abdominal exam: Present: soft, normal bowel sounds. Absent: distended, tenderness, guarding, rebound, rigid Extremities exam: Present: normal inspection, full ROM, normal capillary refill. Absent: tenderness, pedal edema, joint swelling, calf tenderness Back exam: Present: normal inspection Neurological exam: Present: alert, oriented X3, CN II-XII intact Psychiatric exam: Present: normal affect, normal mood Skin exam: Present: warm, dry, intact, normal color. Absent: rash <Clemente Vega - Last Filed: 01/01/18 20:34> Course <Clemente Vega - Last Filed: 01/01/18 20:34> <Anton Pierre - Last Filed: 01/02/18 01:26> Vital Signs 01/01/18 01/01/18 01/01/18 20:00 20:19 20:24 Temperature 97.5 F L Pulse Rate 86 82 66 Respiratory 19 18 18 Rate Blood Pressure 246/112 230/105 171/74 O2 Sat by Pulse 98 96 98 Oximetry 01/01/18 01/01/18 01/01/18 20:58 21:48 22:05 Temperature Pulse Rate 65 76 Respiratory 18 24 Rate Blood Pressure 184/84 165/71 139/63 O2 Sat by Pulse 100 95 Oximetry 01/01/18 01/01/18 01/01/18 23:14 23:43 23:48 Temperature Pulse Rate 73 78 78 Respiratory 22 20 20 Rate Blood Pressure 182/74 194/81 O2 Sat by Pulse 98 95 96 Oximetry 01/01/18 01/02/18 23:58 00:28 Temperature Pulse Rate 77 71 Respiratory 18 18 Rate Blood Pressure 127/58 160/66 O2 Sat by Pulse 96 96 Oximetry - Reevaluation(s) Reevaluation #1: 01/01/18 20:14 Blood pressure at this time is much improved (Clemente Vega) EKG Findings - EKG Comments: EKG Findings:: EKG shows normal sinus rhythm rate of 80, IL 182, QRS 92, QTc 461 <Clemente Vega - Last Filed: 01/01/18 20:34> Medical Decision Making - Lab Data Result diagrams: 01/01/18 20:03 <Clemente Vega - Last Filed: 01/01/18 20:34> - Lab Data Result diagrams: 01/01/18 20:03 01/01/18 20:03 <Anton Pierre - Last Filed: 01/02/18 01:26> - Lab Data Lab Results 01/01/18 01/01/18 01/01/18 Range/Units 20:03 20:03 20:03 WBC 7.7 (3.8-10.6) k/uL RBC 4.70 (3.80-5.40) m/uL Hgb 13.3 (11.4-16.0) gm/dL Hct 40.3 (34.0-46.0) % MCV 85.8 (80.0-100.0) fL MCH 28.3 (25.0-35.0) pg MCHC 33.0 (31.0-37.0) g/dL RDW 13.4 (11.5-15.5) % Plt Count 221 (150-450) k/uL Neutrophils % 58 % Lymphocytes % 27 % Monocytes % 7 % Eosinophils % 6 % Basophils % 1 % Neutrophils # 4.4 (1.3-7.7) k/uL Lymphocytes # 2.0 (1.0-4.8) k/uL Monocytes # 0.5 (0-1.0) k/uL Eosinophils # 0.5 (0-0.7) k/uL Basophils # 0.1 (0-0.2) k/uL PT (9.0-12.0) sec INR (<1.2) APTT (22.0-30.0) sec Sodium 143 (137-145) mmol/L Potassium 4.2 (3.5-5.1) mmol/L Chloride 105 (98-107) mmol/L Carbon Dioxide 27 (22-30) mmol/L Anion Gap 11 mmol/L BUN 20 H (7-17) mg/dL Creatinine 1.10 H (0.52-1.04) mg/dL Est GFR (CKD-EPI)AfAm 53 (>60 ml/min/1.73 sqM) Est GFR (CKD-EPI)NonAf 46 (>60 ml/min/1.73 sqM) Glucose 94 (74-99) mg/dL Calcium 8.8 (8.4-10.2) mg/dL Magnesium 1.5 L (1.6-2.3) mg/dL Total Bilirubin 0.5 (0.2-1.3) mg/dL AST 20 (14-36) U/L ALT 16 (9-52) U/L Alkaline Phosphatase 66 (38-126) U/L Total Creatine Kinase 43 (30-135) U/L CK-MB (CK-2) 0.8 (0.0-2.4) ng/mL CK-MB (CK-2) Rel Index 1.9 Troponin I <0.012 (0.000-0.034) ng/mL Total Protein 6.8 (6.3-8.2) g/dL Albumin 3.3 L (3.5-5.0) g/dL 01/01/18 Range/Units 20:03 WBC (3.8-10.6) k/uL RBC (3.80-5.40) m/uL Hgb (11.4-16.0) gm/dL Hct (34.0-46.0) % MCV (80.0-100.0) fL MCH (25.0-35.0) pg MCHC (31.0-37.0) g/dL RDW (11.5-15.5) % Plt Count (150-450) k/uL Neutrophils % % Lymphocytes % % Monocytes % % Eosinophils % % Basophils % % Neutrophils # (1.3-7.7) k/uL Lymphocytes # (1.0-4.8) k/uL Monocytes # (0-1.0) k/uL Eosinophils # (0-0.7) k/uL Basophils # (0-0.2) k/uL PT 10.9 (9.0-12.0) sec INR 1.1 (<1.2) APTT 23.2 (22.0-30.0) sec Sodium (137-145) mmol/L Potassium (3.5-5.1) mmol/L Chloride (98-107) mmol/L Carbon Dioxide (22-30) mmol/L Anion Gap mmol/L BUN (7-17) mg/dL Creatinine (0.52-1.04) mg/dL Est GFR (CKD-EPI)AfAm (>60 ml/min/1.73 sqM) Est GFR (CKD-EPI)NonAf (>60 ml/min/1.73 sqM) Glucose (74-99) mg/dL Calcium (8.4-10.2) mg/dL Magnesium (1.6-2.3) mg/dL Total Bilirubin (0.2-1.3) mg/dL AST (14-36) U/L ALT (9-52) U/L Alkaline Phosphatase (38-126) U/L Total Creatine Kinase (30-135) U/L CK-MB (CK-2) (0.0-2.4) ng/mL CK-MB (CK-2) Rel Index Troponin I (0.000-0.034) ng/mL Total Protein (6.3-8.2) g/dL Albumin (3.5-5.0) g/dL Disposition Is patient prescribed a controlled substance at d/c from ED?: No <Clemente Vega - Last Filed: 01/01/18 20:34> Is patient prescribed a controlled substance at d/c from ED?: No <Anton Pierre - Last Filed: 01/02/18 01:26> Clinical Impression: HTN (hypertension), Hypertensive urgency, Chest pain Disposition: HOME SELF-CARE Condition: Good Instructions: Hypertension (ED) Referrals: Jose Quintana MD [Primary Care Provider] - 1-2 days
[2018-01-01 20:20] LABS: Basophils # (A) 0.1 k/uL (0-0.2); Basophils % (A) 1 %; Eosinophils # (A) 0.5 k/uL (0-0.7); Eosinophils % (A) 6 %; HCT 40.3 % (34.0-46.0); HGB 13.3 gm/dL (11.4-16.0); Lymphocytes % (A) 27 %; MCH 28.3 pg (25.0-35.0); MCV 85.8 fL (80.0-100.0); Mean Platelet Volume 7.5; Monocytes # (A) 0.5 k/uL (0-1.0); Monocytes % (A) 7 %; Neutrophils # (A) 4.4 k/uL (1.3-7.7); Neutrophils % (A) 58 %; Platelet Count 221 k/uL (150-450); RDW 13.4 % (11.5-15.5); WBC 7.7 k/uL (3.8-10.6)
[2018-01-01 20:32] LABS: Albumin 3.3 g/dL (3.5-5.0); Calcium 8.8 mg/dL (8.4-10.2); INR 1.1 (<1.2); Magnesium 1.5 mg/dL (1.6-2.3); Partial Thromboplastin Time 23.2 sec (22.0-30.0); Potassium 4.2 mmol/L (3.5-5.1); Prothrombin Time 10.9 sec (9.0-12.0); Total Bilirubin 0.5 mg/dL (0.2-1.3); Total Protein 6.8 g/dL (6.3-8.2)
--- NOTE | 2018-01-01 20:48 | XR ---
EXAMINATION TYPE: XR chest 2V DATE OF EXAM: 01/01/2018 COMPARISON: 06/26/2017 INDICATION: Chest pain TECHNIQUE: Frontal and lateral views of the chest are obtained. FINDINGS: The heart size is normal. The pulmonary vasculature is normal. There is a stable 0.7 cm granuloma right lung base. Sternotomy wires are in the midline. There is daysi e tortuosity of the aorta. Vascular calcifications within the aorta. Epicardial leads remain present. . IMPRESSION: 1. No acute pulmonary process. 2. Chronic changes stable from 06/26/2017
[2018-01-01 20:50] LABS: Creatine Kinase 43 U/L (30-135)
[2018-01-01 21:01] LABS: Creatine Kinase MB 0.8 ng/mL (0.0-2.4); Troponin I <0.012 ng/mL (0.000-0.034)
[2018-01-01] MEDS ORDERED: hydrALAZINE HCL 20 MG/ML 1 ML VIAL IVP STA (21:04)
[2018-01-01] MEDS: NITROGLYCERIN SL TABS 0.4 MG TAB SUBLINGUAL PRN ×3 (23:38→23:48)
[2018-01-02] MEDS ORDERED: LISINOPRIL 20 MG TAB PO STA (00:01)
[2018-01-02] MEDS ORDERED: CARVEDILOL 12.5 MG TAB PO STA (00:01)
[2018-01-02] MEDS ORDERED: NITROGLYCERIN OINT 1 INCH/GM PACKET TOPICAL STA (00:28)
[2018-01-02] MEDS ORDERED: NITROGLYCERIN SL TABS 0.4 MG TAB SUBLINGUAL PRN ×2 (01:20→11:45)
[2018-01-02] MEDS ORDERED: CLOPIDOGREL 75 MG TAB PO STA (01:25)
[2018-01-02 02:27] VITALS: BMI 25.4
[2018-01-02] MEDS ORDERED: ACETAMINOPHEN TAB 325 MG TAB PO PRN (02:30)
[2018-01-02 04:12] LABS: Creatine Kinase MB 1.1 ng/mL (0.0-2.4); Troponin I 0.014 ng/mL (0.000-0.034)
[2018-01-02] MEDS ORDERED: CARVEDILOL 12.5 MG TAB PO SCH (07:30)
[2018-01-02] MEDS: SYMBICORT 160-4.5 MCG INHALER INHALATION SCH ×2 (08:02→19:10)
[2018-01-02] MEDS: LISINOPRIL 20 MG TAB PO SCH (08:16)
[2018-01-02] MEDS: amLODIPine 10 MG TAB PO SCH (08:16)
[2018-01-02] MEDS: RANOLAZINE 500 MG TAB.ER.12H PO SCH ×2 (08:16→21:32)
[2018-01-02 10:07] LABS: Creatine Kinase MB 1.3 ng/mL (0.0-2.4); Troponin I 0.024 ng/mL (0.000-0.034)
[2018-01-02] MEDS: CARVEDILOL 12.5 MG TAB PO SCH (16:47)
--- NOTE | 2018-01-02 20:33 | ECHOF ---
Referral Reason:cp MEASUREMENTS -------- HEIGHT: 154.9 cm WEIGHT: 60.8 kg BP: 116/56 RVIDd: 3.3 cm (< 3.3) IVSd: 1.2 cm (0.6 - 1.1) LVIDd: 4.5 cm (3.9 - 5.3) LVPWd: 1.4 cm (0.6 - 1.1) IVSs: 1.7 cm LVIDs: 3.0 cm LVPWs: 1.9 cm LAESV Index (A-L): 31.72 ml/m Ao Diam: 3.3 cm (2.0 - 3.7) AV Cusp: 1.7 cm (1.5 - 2.6) LA Diam: 3.9 cm (2.7 - 3.8) MV E Pierre: 1.08 m/s MV DecT: 277 ms MV A Pierre: 1.66 m/s MV E/A Ratio: 0.65 AR PHT: 534 ms RAP: 5.00 mmHg RVSP: 33.55 mmHg FINDINGS -------- Sinus rhythm. This was a technically adequate study. The left ventricular size is normal. There is moderate concentric left ventricular hypertrophy. O verall left ventricular systolic function is normal with, an EF between 55 - 60 %. The right ventricle is mildly enlarged. LA is midly dilated 29-33ml/m2. RA appears enlarged. Aortic valve is trileaflet and is mildly thickened. There is hjxu-rt-cnicmwvl aortic regurgitation. There is no evidence of aortic stenosis. The mitral valve leaflets are mildly thickened. Mild mitral annular calcification present. Mild-t o-moderate mitral regurgitation is present. Mild tricuspid regurgitation present. There is borderline pulmonary hypertension. The right ventr icular systolic pressure, as measured by Doppler, is 33.55mmHg. Trace/mild (physiologic) pulmonic regurgitation. The aortic root size is normal. Normal inferior vena cava with normal inspiratory collapse consistent with estimated right atrial pre ssure of 5 mmHg. There is no pericardial effusion. CONCLUSIONS -------- 1. Sinus rhythm. 2. This was a technically adequate study. 3. The left ventricular size is normal. 4. There is moderate concentric left ventricular hypertrophy. 5. Overall left ventricular systolic function is normal with, an EF between 55 - 60 %. 6. The right ventricle is mildly enlarged. 7. LA is midly dilated 29-33ml/m2. 8. RA appears enlarged. 9. Aortic valve is trileaflet and is mildly thickened. 10. There is alfm-oy-ahjhagig aortic regurgitation. 11. The mitral valve leaflets are mildly thickened. 12. Mild mitral annular calcification present. 13. Hgtq-cz-yflhixzm mitral regurgitation is present. 14. Mild tricuspid regurgitation present. 15. There is borderline pulmonary hypertension. 16. The right ventricular systolic pressure, as measured by Doppler, is 33.55mmHg. 17. Trace/mild (physiologic) pulmonic regurgitation. 18. The aortic root size is normal. 19. There is no pericardial effusion. ASSOCIATE APPLICATION DEVELOPER: [place] RDCS
[2018-01-02] MEDS ORDERED: ASPIRIN 81 MG PO SCH (21:00)
[2018-01-02] MEDS: ATORVASTATIN 80 MG TAB PO SCH ×2 (21:32→21:36)
[2018-01-03 03:50] LABS: Cholesterol 119 mg/dL (<200); HDL Cholesterol 35 mg/dL (40-60); LDL Cholesterol,Calculated 65 mg/dL (0-99); Triglycerides 97 mg/dL (<150)
[2018-01-03 03:55] VITALS: RESP 18
--- NOTE | 2018-01-03 07:45 | HP ---
HISTORY AND PHYSICAL CHIEF COMPLAINT: Chest pain. HISTORY OF PRESENT ILLNESS: This is another admission for this 87-year-old white female who has a long-standing history of hypertension and coronary artery disease. She is noncompliant and does not follow up regularly. She was last seen in the office in June 2017. She started to have chest pain in the left anterior chest and came to the emergency room. Enzymes were normal, but her blood pressure was well over 200. She had no focal neurologic deficits, change in vision or the hearing, headache, etc. REVIEW OF SYSTEMS: She had no other signs or symptoms. She had no vomiting, abdominal pain, etc. Past medical history, family history and personal and social histories reveal that she is allergic to MORPHINE, SULFA, and OXYBUTYNIN. Her medications when last seen were: 1. Lasix 40 mg once a day. 2. Symbicort 160/4.5 two puffs twice a day. 3. Hydralazine 50 mg t.i.d. 4. Lisinopril 40 mg once a day. 5. Amlodipine 10 mg once a day. 6. Carvedilol 12.5 twice a day. 7. Ranexa 500 mg twice a day. 8. Aspirin 81 mg. 9. Lipitor 80. 10.Isosorbide dinitrate 30 mg once a day. 11.Clopidogrel 75 mg once a day. 12.Ferrous sulfate. 13.Updrafts, ipratropium bromide and albuterol q.i.d. and p.r.n. 14.Nitroglycerin. 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 She used to smoke but does not any longer. PHYSICAL EXAMINATION: Blood pressure 246/140 with a pulse of 90, respirations of 32 and she is afebrile. In general, she appeared to be slightly overweight in no acute distress. Skin color is normal. Skin is warm, dry. Lymph nodes not enlarged. Head, ears, eyes, nose, mouth, and throat were normal. Neck veins not distended. Carotids normal. Chest is clear. Cardiac exam with normal sinus rhythm and no murmurs or extra sounds. Abdomen is soft, nontender without visceromegaly or masses. EXTREMITIES: Normal. Neurologically, she is intact. IMPRESSION: 1. Unstable angina pectoris. 2. Coronary artery disease. 3. Malignant hypertension. PLAN: 1. Bed rest. 2. IV fluids. 3. Serial EKGs and enzymes. 4. Control hypertension. 5. Cardiology consult. MADAY / DIANE: [id number] /
[2018-01-03] MEDS ORDERED: Magnesium Replacement Protocol 1 EACH MISC MISCELLANE PRN (08:52)
--- NOTE | 2018-01-03 08:57 | P.CRDCN ---
History of Present Illness Consult date: 01/02/18 History of present illness: Mrs. Farfan is a pleasant 87-year-old female past medical history significant for coronary artery disease with bypass grafting and subsequent stenting of SVG-OM mid and proximal regions, COPD, hypertension and dyslipidemia. She has been seen in the hospital many times but does not follow in the office. We have been asked to see her in consultation for chest pain. She states she initially presented to the emergency department with concerns about elevated blood pressures at home. She checks her blood pressure using an automated wrist cuff and the pressure was 226 systolic. Initially she denied symptoms of chest pain however at the time of my exam she recalls that she has had intermittent episodes of chest pain. The pain is described as in heavy sensation in the precordial region with no radiation to the arm, back, neck or jaw. She denies associated shortness of breath, palpitations, dizziness, nausea , vomiting or diaphoresis. Home medications include coreg 12.5mg BID, atorvastatin 80 mg daily and aspirin 81 mg daily. Blood pressure on admission 246/112. She was given lisinopril 40, labetolol 20 IVP, hydralazine 10 IVP and coreg 12.5. Currently she is ordered to have amlodipine 10 mg daily, carvedilol 12.5mg BID, lisinopril 40 mg daily and ranexa 500 mg BID. Blood pressure this morning 116/56 heart rate 64. EKG reveals sinus mechanism with no acute ST or T-wave abnormalities. Chest x-ray is negative for an acute cardiopulmonary process. A staple 0.7 cm granuloma in the right lung base. Tortuosity of the aorta. Laboratory data reviewed, hemoglobin 13.3, platelets 221, sodium 143, potassium 4.2, magnesium 1.5, cardiac enzymes negative 3, HDL 35, LDL 65. Echocardiogram and Doppler study performed on this admission reveals preserved left ventricular systolic function with ejection fraction 55-60%, moderate concentric left ventricular hypertrophy, mildly dilated left atrium, enlarged right atrium, mild to moderate aortic regurgitation with no stenosis, mild to moderate mitral regurgitation, mild tricuspid regurgitation and borderline pulmonary hypertension with an RVSP of 33.55 mmHg. Review of Systems At the time of my exam: CONSTITUTIONAL: Denies fever. Denies chills. EYES: Denies blurred vision. Denies vision changes. Denies eye pain. EARS, NOSE, MOUTH & THROAT: Denies headache. Denies sore throat. Denies ear pain. CARDIOVASCULAR: Denies chest pain. Denies shortness of breath. Denies orthopnea. Denies PND. Denies palpitations. RESPIRATORY: Denies cough. GASTROINTESTINAL: Denies abdominal pain. Denies diarrhea. Denies constipation. Denies nausea. Denies vomiting. MUSCULOSKELETAL: Denies myalgias. INTEGUMENTARY: Denies pruitis. Denies rash. NEUROLOGIC: Denies numbness. Denies tingling. Denies weakness. PSYCHIATRIC: Denies anxiety. Denies depression. ENDOCRINE: Denies fatigue. Denies weight change. Denies polydipsia. Denies polyurina. GENITOURINARY: Denies burning, hematuria or urgency with micturation. HEMATOLOGIC: Denies history of anemia. Denies bleeding. Past Medical History Past Medical History: Coronary Artery Disease (CAD), COPD, Hyperlipidemia, Hypertension, Myocardial Infarction ([place]) Additional Past Medical History / Comment(s): Coronary artery disease, previous bypass surgery ten years ago, hypertension, hyperlipidemia, COPD maintenance Symbicort on outpatient basis, gout, AAA NOT SURE OF SIZE Last Myocardial Infarction Date:: 2016 History of Any Multi-Drug Resistant Organisms: None Reported Past Surgical History: Cholecystectomy, Coronary Bypass/CABG, Heart Catheterization With Stent, Hysterectomy Additional Past Surgical History / Comment(s): Coronary artery bypass surgery- triple, cardiac catheterization and angioplasty and stenting of the saphenous vein graft to obtuse marginal branch.CATARACTS, "stent in groin" Past Anesthesia/Blood Transfusion Reactions: Motion Sickness Additional Past Anesthesia/Blood Transfusion Reaction / Comment(s): Pt states she has received blood without reaction. Date of Last Stent Placement:: unk Smoking Status: Never smoker - Past Family History Father Family Medical History: Coronary Artery Disease (CAD), Myocardial Infarction ([place] ) Additional Family Medical History / Comment(s): Father of a [place] at the age of 72 yrs. Mother Family Medical History: No Reported History Additional Family Medical History / Comment(s): Pt states her mother was healthy and at the age of 84 yrs. Medications and Allergies Home Medications Medication Instructions Recorded Confirmed Type Aspirin [Adult Low Dose Aspirin EC] 81 mg PO HS 02/15/17 01/02/18 History Nitroglycerin Sl Tabs [Nitrostat] 0.4 mg SUBLINGUAL Q5M PRN 02/15/17 01/02/18 History Atorvastatin [Lipitor] 80 mg PO HS #30 tab 04/19/17 01/02/18 Rx Carvedilol [Coreg] 12.5 mg PO BID 01/02/18 01/02/18 History Allergies Allergy/AdvReac Type Severity Reaction Status Date / Time oxybutynin Allergy SEE Verified 01/02/18 08:19 COMMENTS sulfamethoxazole Allergy SEE Verified 01/02/18 08:19 [From Bactrim] COMMENTS trimethoprim [From Bactrim] Allergy SEE Verified 01/02/18 08:19 COMMENTS morphine AdvReac Confusion Verified 01/02/18 08:19 Physical Exam Vitals: Vital Signs Temp Pulse Pulse Resp BP BP Pulse Ox 01/02/18 11:36 97.7 F 64 16 116/56 93 L 01/02/18 08:03 93 L 01/02/18 07:23 98.2 F 62 16 105/42 94 L 01/02/18 02:36 98.0 F 75 18 149/68 93 L 01/02/18 01:54 73 18 160/72 95 01/02/18 01:24 66 18 160/74 96 01/02/18 00:28 71 18 160/66 96 01/01/18 23:58 77 18 127/58 96 01/01/18 23:48 78 20 96 01/01/18 23:43 78 20 194/81 95 01/01/18 23:14 73 22 182/74 98 01/01/18 22:05 76 24 139/63 95 01/01/18 21:48 165/71 01/01/18 20:58 65 18 184/84 100 01/01/18 20:24 66 18 171/74 98 01/01/18 20:19 82 18 230/105 96 01/01/18 20:00 97.5 F L 86 19 246/112 98 Intake and Output 01/01/18 01/02/18 01/02/18 22:59 06:59 14:59 Other: Voiding Method Diaper Diaper # Voids 1 Weight 61.235 kg 61.2 kg Blood pressure 116/56 heart rate 64 afebrile maintaining oxygen saturation on room air GENERAL: This is a 87-year-old female in no apparent distress at the time of my examination. HEENT: Head is atraumatic, normocephalic. Pupils are equal, round. Sclerae anicteric. Conjunctivae are clear. Mucous membranes of the mouth are moist. Neck is supple. There is no jugular venous distention. No carotid bruit is heard. LUNGS: Clear to auscultation no wheezes, rales or rhonchi. No chest wall tenderness is noted on palpation or with deep breathing. HEART: Regular rate and rhythm with murmur at the base, no rubs or gallops. S1 and S2 heard. ABDOMEN: Soft, nontender. Bowel sounds are heard. No organomegaly noted. EXTREMITIES: No evidence of peripheral edema and no calf tenderness noted. VASCULAR: Radial and dorsalis pedis pulses palpated, no evidence of clubbing. NEUROLOGIC: Patient is awake, alert and oriented x3. Results 01/01/18 20:03 01/01/18 20:03 Cardiac Enzymes 01/01/18 01/01/18 01/02/18 Range/Units 20:03 20:03 03:07 AST 20 (14-36) U/L CK-MB (CK-2) 0.8 1.1 (0.0-2.4) ng/mL Troponin I <0.012 0.014 (0.000-0.034) ng/mL 01/02/18 Range/Units 09:11 AST (14-36) U/L CK-MB (CK-2) 1.3 (0.0-2.4) ng/mL Troponin I 0.024 (0.000-0.034) ng/mL Coagulation 01/01/18 Range/Units 20:03 PT 10.9 (9.0-12.0) sec APTT 23.2 (22.0-30.0) sec CBC 01/01/18 Range/Units 20:03 WBC 7.7 (3.8-10.6) k/uL RBC 4.70 (3.80-5.40) m/uL Hgb 13.3 (11.4-16.0) gm/dL Hct 40.3 (34.0-46.0) % Plt Count 221 (150-450) k/uL Comprehensive Metabolic Panel 01/01/18 Range/Units 20:03 Sodium 143 (137-145) mmol/L Potassium 4.2 (3.5-5.1) mmol/L Chloride 105 (98-107) mmol/L Carbon Dioxide 27 (22-30) mmol/L BUN 20 H (7-17) mg/dL Creatinine 1.10 H (0.52-1.04) mg/dL Glucose 94 (74-99) mg/dL Calcium 8.8 (8.4-10.2) mg/dL AST 20 (14-36) U/L ALT 16 (9-52) U/L Alkaline Phosphatase 66 (38-126) U/L Total Protein 6.8 (6.3-8.2) g/dL Albumin 3.3 L (3.5-5.0) g/dL Current Medications Generic Name Dose Route Start Last Admin Trade Name Freq PRN Reason Stop Dose Admin Acetaminophen 650 mg 01/02/18 02:30 01/02/18 08:20 Tylenol Tab PO 650 mg Q4HR PRN Administration Fever and/ or Pain Amlodipine Besylate 10 mg 01/02/18 09:00 01/02/18 08:16 Norvasc PO 10 mg DAILY [facility] Administration Aspirin 81 mg 01/02/18 21:00 Aspirin PO HS [facility] Atorvastatin Calcium 80 mg 01/02/18 21:00 Lipitor PO HS [facility] Budesonide/Formoterol Fumarate 2 puff 01/02/18 08:00 01/02/18 08:02 Symbicort 160-4.5 Mcg Inhaler INHALATION 2 puff RT-BID SUJATA Administration Carvedilol 12.5 mg 01/02/18 17:30 Coreg PO BID-W/MEALS [facility] Lisinopril 40 mg 01/02/18 09:00 01/02/18 08:16 Zestril PO 40 mg DAILY SUJATA Administration Nitroglycerin 0.4 mg 01/02/18 11:45 Nitrostat SUBLINGUAL Q5M PRN Chest Pain Ranolazine 500 mg 01/02/18 09:00 01/02/18 08:16 Ranexa PO 500 mg BID SUJATA Administration Intake and Output 01/01/18 01/02/18 01/02/18 22:59 06:59 14:59 Other: Voiding Method Diaper Diaper # Voids 1 Weight 61.235 kg 61.2 kg 01/01/18 20:03 01/01/18 20:03 Assessment and Plan Assessment: ASSESSMENT 1. Chest pain, atypical. An acute coronary event has been ruled out. 2. Hypertension, accelerated on admission 3. History of coronary artery disease status post bypass grafting 4. Dyslipidemia 5. Hypomagnesemia PLAN Continue with amlodipine 10 mg daily, aspirin 81 mg daily, atorvastatin 80 mg daily, lisinopril 40 mg daily and Ranexa 500 mg twice a day. Replace magnesium per protocol. Increase activity and assess for ongoing symptoms of chest pain. Stable from a cardiac perspective, an acute coronary event has been ruled out. Medication compliance and outpatient follow-up discussed and recommended. Follow-up with Dr. Nascimento in 2-3 weeks. Thank you kindly for this consultation. Nurse Practitioner note has been reviewed, I agree with a documented findings and plan of care. Patient was seen and examined.
[2018-01-03] MEDS ORDERED: ASPIRIN 325 MG TAB PO SCH (09:00)
[2018-01-03] MEDS: SYMBICORT 160-4.5 MCG INHALER INHALATION SCH (09:05)
[2018-01-03] MEDS: CARVEDILOL 12.5 MG TAB PO SCH (09:20)
[2018-01-03] MEDS: amLODIPine 10 MG TAB PO SCH (09:20)
[2018-01-03] MEDS: RANOLAZINE 500 MG TAB.ER.12H PO SCH (09:20)
[2018-01-03] MEDS: LISINOPRIL 20 MG TAB PO SCH (09:21)
[2018-01-03] MEDS: MAGNESIUM SULFATE-D5W PMX 1 GM in DEXTROSE/WATER 1 100ML.BAG IVPB SCH ×2 (09:23→10:46)
[2018-01-03 11:31] VITALS: BP 148/59; PULSE 67; TEMP 98.5
--- NOTE | 2018-01-04 12:01 | DS ---
DISCHARGE SUMMARY CHIEF COMPLAINT: Chest pain. HISTORY OF PRESENT ILLNESS AND PHYSICAL EXAM: Details of this lady's history and physical can be found in the initial workup. LABORATORY STUDIES: While she was in the hospital she had laboratory studies details which can be found in the laboratory section of her chart. COURSE IN THE HOSPITAL: After admission, she was placed on bedrest, started on intravenous fluids and she had serial EKGs and enzymes that were normal. She was seen by Cardiology and they felt that she could be discharged to outpatient followup. She will go home on regular activity and medication. She will be brought in the office in the next day or two and she will be encouraged to be more compliant and follow up in taking her medications. FINAL DIAGNOSES: 1. Chest pain. 2. Malignant hypertension. 3. Coronary artery disease. OPERATIONS: None. CONSULTATION: Cardiology. She is improved. MADAY / DIANE: [id number] /
== END 2018-01-03 17:15 | disposition home or self-care (01) ==
LOC: EC 19:52 → 3OBS 01-02 01:22
PROVIDERS: ADMIT Family Medicine; ATTEND Family Medicine
DX: R07.89 Other chest pain (principal); I10 Essential (primary) hypertension; E83.42 Hypomagnesemia; I25.810 Atherosclerosis of coronary artery bypass graft(s) without angina pectoris; E78.5 Hyperlipidemia, unspecified; J44.9 Chronic obstructive pulmonary disease, unspecified; M10.9 Gout, unspecified; I71.4 Abdominal aortic aneurysm, without rupture; J84.10 Pulmonary fibrosis, unspecified; Z95.5 Presence of coronary angioplasty implant and graft; Z95.1 Presence of aortocoronary bypass graft; Z91.19 Patient's noncompliance with other medical treatment and regimen; Z79.82 Long term (current) use of aspirin; Z79.899 Other long term (current) drug therapy; Z79.51 Long term (current) use of inhaled steroids; Z88.2 Allergy status to sulfonamides; Z88.5 Allergy status to narcotic agent; Z88.1 Allergy status to other antibiotic agents; Z87.891 Personal history of nicotine dependence; I25.2 Old myocardial infarction; Z82.49 Family history of ischemic heart disease and other diseases of the circulatory system
CPT/HCPCS: 99285 ×2; 96375 ×3; 96361 ×2; 96365; 36415; 94640 ×3; 94760; 93005; 93306; 80061; 80053; 82550 ×2; 82553 ×2; 83735; 84484 ×2; 85025; 85610; 85730; 71046; G0378 ×2; J0360; J3475

== ENCOUNTER 2018-01-29 10:35 | Emergency (ER) | payer MEDICARE ==
[2018-01-29] MEDS ORDERED: FAMOTIDINE 20 MG/2 ML VIAL IV STA (10:59)
[2018-01-29] MEDS ORDERED: methylPREDNISolone SOD SUCCI 125 MG/2 ML VIAL IV STA (10:59)
[2018-01-29] MEDS ORDERED: diphenhydrAMINE 50 MG/ML 1 ML VIAL IVP STA (10:59)
--- NOTE | 2018-01-29 11:02 | ED ---
General Adult HPI - General Chief complaint: Recheck/Abnormal Lab/Rx Stated complaint: Hypertensive Time Seen by Provider: 01/29/18 10:47 Source: patient, RN notes reviewed Mode of arrival: ambulatory Limitations: no limitations - History of Present Illness Initial comments: This is a 87-year-old female who presents with complaints of left facial numbness and swelling and started sometime last night. She also states that her blood pressure was elevated in the 160-170 range yesterday. She states she' s had symptoms like this before the etiology is unknown she denies any focal weakness fevers chills nausea vomiting sweats head or neck pain. She says states she has a little bit of chest tightness on the left seems to get worse with movement and perhaps some slight shortness of breath. She has no other complaints at this time. She denies any cough or phlegm production. - Related Data Home Medications Medication Instructions Recorded Confirmed Aspirin [Adult Low Dose Aspirin EC] 81 mg PO HS 02/15/17 01/02/18 Nitroglycerin Sl Tabs [Nitrostat] 0.4 mg SUBLINGUAL Q5M PRN 02/15/17 01/02/18 Carvedilol [Coreg] 12.5 mg PO BID 01/02/18 01/02/18 Previous Rx's Medication Instructions Recorded Atorvastatin [Lipitor] 80 mg PO HS #30 tab 04/19/17 Lisinopril [Zestril] 40 mg PO DAILY tab 01/03/18 Famotidine [Pepcid] 20 mg PO BID #10 tablet 01/29/18 methylPREDNISolone Dose Pack 4 mg PO DIRECTED #21 package 01/29/18 [Medrol Dose Pack] Allergies Allergy/AdvReac Type Severity Reaction Status Date / Time oxybutynin Allergy SEE Verified 01/29/18 10:38 COMMENTS sulfamethoxazole Allergy SEE Verified 01/29/18 10:38 [From Bactrim] COMMENTS trimethoprim [From Bactrim] Allergy SEE Verified 01/29/18 10:38 COMMENTS morphine AdvReac Confusion Verified 01/29/18 10:38 Review of Systems ROS Statement: Those systems with pertinent positive or pertinent negative responses have been documented in the HPI. ROS Other: All systems not noted in ROS Statement are negative. Past Medical History Past Medical History: Coronary Artery Disease (CAD), COPD, Hyperlipidemia, Hypertension, Myocardial Infarction ([place]) Additional Past Medical History / Comment(s): Coronary artery disease, previous bypass surgery ten years ago, hypertension, hyperlipidemia, COPD maintenance Symbicort on outpatient basis, gout, AAA NOT SURE OF SIZE Last Myocardial Infarction Date:: 2016 History of Any Multi-Drug Resistant Organisms: None Reported Past Surgical History: Cholecystectomy, Coronary Bypass/CABG, Heart Catheterization With Stent, Hysterectomy Additional Past Surgical History / Comment(s): Coronary artery bypass surgery- triple, cardiac catheterization and angioplasty and stenting of the saphenous vein graft to obtuse marginal branch.CATARACTS, "stent in groin" Past Anesthesia/Blood Transfusion Reactions: Motion Sickness Additional Past Anesthesia/Blood Transfusion Reaction / Comment(s): Pt states she has received blood without reaction. Date of Last Stent Placement:: unk Past Psychological History: No Psychological Hx Reported Smoking Status: Never smoker Past Alcohol Use History: None Reported Past Drug Use History: None Reported - Past Family History Father Family Medical History: Coronary Artery Disease (CAD), Myocardial Infarction ([place] ) Additional Family Medical History / Comment(s): Father of a [place] at the age of 72 yrs. Mother Family Medical History: No Reported History Additional Family Medical History / Comment(s): Pt states her mother was healthy and at the age of 84 yrs. General Exam - General Exam Comments Initial Comments: This is a well-developed well-nourished awake alert oriented 3 female Limitations: no limitations General appearance: alert, in no apparent distress Head exam: Present: atraumatic, normocephalic, normal inspection Eye exam: Present: normal appearance, PERRL, EOMI. Absent: scleral icterus, conjunctival injection, periorbital swelling ENT exam: Present: other (There is some left-sided facial edema left lower lip edema very faint erythema no tenderness palpation no evidence of nasolabial fold flattening.) Neck exam: Present: normal inspection, full ROM, other (No stridor JVD or bruits ). Absent: tenderness, meningismus, lymphadenopathy Respiratory exam: Present: normal lung sounds bilaterally (Kyphosis is demonstrated. There is reproducible tenderness palpation of the left costal sternal margin), chest wall tenderness Cardiovascular Exam: Present: regular rate, normal rhythm, normal heart sounds. Absent: systolic murmur, diastolic murmur, rubs, gallop, clicks GI/Abdominal exam: Present: soft, normal bowel sounds. Absent: distended, tenderness, guarding, rebound, rigid Extremities exam: Present: normal inspection, full ROM, normal capillary refill. Absent: tenderness, pedal edema, joint swelling, calf tenderness Back exam: Present: normal inspection Neurological exam: Present: alert, oriented X3, CN II-XII intact Psychiatric exam: Present: normal affect, normal mood Skin exam: Present: warm, dry, intact, normal color. Absent: rash Course Vital Signs 01/29/18 01/29/18 01/29/18 10:37 11:38 12:38 Temperature 98.1 F Pulse Rate 103 H Pulse Rate [ 60 Pulse Oximetery ] Respiratory 20 Rate Blood Pressure 167/106 208/107 O2 Sat by Pulse 96 Oximetry 01/29/18 13:37 Temperature 97.6 F Pulse Rate 84 Pulse Rate [ Pulse Oximetery ] Respiratory 18 Rate Blood Pressure 188/82 O2 Sat by Pulse 94 L Oximetry EKG Findings - EKG Results: EKG: interpreted by ERMD, sinus rhythm (Sinus rhythm rate was 91 appear interval 170 QRS duration 88 QT since QTC of 364/447 old inferior changes no acute ST-T wave elevation or depressions) Medical Decision Making - Medical Decision Making Patient is showing improvement did have a long discussion with her regarding findings patient blood pressure has improved. She had not taken her medication today. She is to follow-up with her doctor and return when necessary. - Lab Data Result diagrams: 01/29/18 11:29 01/29/18 11:29 Lab Results 01/29/18 01/29/18 01/29/18 Range/Units 11:29 11:29 11:29 WBC 8.8 (3.8-10.6) k/uL RBC 4.83 (3.80-5.40) m/uL Hgb 13.6 (11.4-16.0) gm/dL Hct 42.9 (34.0-46.0) % MCV 88.7 (80.0-100.0) fL MCH 28.1 (25.0-35.0) pg MCHC 31.7 (31.0-37.0) g/dL RDW 14.2 (11.5-15.5) % Plt Count 232 (150-450) k/uL Neutrophils % 65 % Lymphocytes % 20 % Monocytes % 7 % Eosinophils % 6 % Basophils % 0 % Neutrophils # 5.7 (1.3-7.7) k/uL Lymphocytes # 1.8 (1.0-4.8) k/uL Monocytes # 0.6 (0-1.0) k/uL Eosinophils # 0.6 (0-0.7) k/uL Basophils # 0.0 (0-0.2) k/uL Sodium 142 (137-145) mmol/L Potassium 4.5 (3.5-5.1) mmol/L Chloride 103 (98-107) mmol/L Carbon Dioxide 24 (22-30) mmol/L Anion Gap 15 mmol/L BUN 14 (7-17) mg/dL Creatinine 1.05 H (0.52-1.04) mg/dL Est GFR (CKD-EPI)AfAm 56 (>60 ml/min/1.73 sqM) Est GFR (CKD-EPI)NonAf 49 (>60 ml/min/1.73 sqM) Glucose 109 H (74-99) mg/dL Calcium 8.9 (8.4-10.2) mg/dL Magnesium 1.8 (1.6-2.3) mg/dL Total Bilirubin 1.0 (0.2-1.3) mg/dL AST 25 (14-36) U/L ALT 20 (9-52) U/L Alkaline Phosphatase 65 (38-126) U/L Total Creatine Kinase 43 (30-135) U/L CK-MB (CK-2) 0.9 (0.0-2.4) ng/mL CK-MB (CK-2) Rel Index 2.1 Troponin I <0.012 (0.000-0.034) ng/mL Total Protein 7.7 (6.3-8.2) g/dL Albumin 3.8 (3.5-5.0) g/dL - Radiology Data Radiology results: report reviewed, image reviewed Disposition Clinical Impression: Urticaria, Hypertension Disposition: HOME SELF-CARE Condition: Good Instructions: Urticaria (ED), Angioedema (ED), Hypertension (ED) Prescriptions: Famotidine [Pepcid] 20 mg PO BID #10 tablet methylPREDNISolone Dose Pack [Medrol Dose Pack] 4 mg PO DIRECTED #21 package Is patient prescribed a controlled substance at d/c from ED?: No Referrals: Jose Quintana MD [Primary Care Provider] - 1-2 days
[2018-01-29 11:34] LABS: Basophils % (A) 0 %; Eosinophils # (A) 0.6 k/uL (0-0.7); Eosinophils % (A) 6 %; HCT 42.9 % (34.0-46.0); HGB 13.6 gm/dL (11.4-16.0); Lymphocytes # (A) 1.8 k/uL (1.0-4.8); Lymphocytes % (A) 20 %; MCH 28.1 pg (25.0-35.0); MCHC 31.7 g/dL (31.0-37.0); MCV 88.7 fL (80.0-100.0); Mean Platelet Volume 7.7; Monocytes # (A) 0.6 k/uL (0-1.0); Monocytes % (A) 7 %; Neutrophils # (A) 5.7 k/uL (1.3-7.7); Neutrophils % (A) 65 %; Platelet Count 232 k/uL (150-450); RBC 4.83 m/uL (3.80-5.40); RDW 14.2 % (11.5-15.5); WBC 8.8 k/uL (3.8-10.6)
[2018-01-29] MEDS ORDERED: CARVEDILOL 6.25 MG TAB PO STA (11:54)
[2018-01-29] MEDS ORDERED: SODIUM CHLORIDE 0.9% 500 ML IV STA (11:55)
--- NOTE | 2018-01-29 11:55 | XR ---
EXAMINATION TYPE: XR chest 2V DATE OF EXAM: 01/29/2018 COMPARISON: Chest x-ray January 01, 2018. HISTORY: History of hypertension with shortness of breath TECHNIQUE: Frontal and lateral views of the chest are obtained. FINDINGS: Overlying sternal wires and mediastinal clips are present. There is chronic emphysematous c hange without new focal air space opacity, pleural effusion, or pneumothorax seen. Calcified granulom a right lung base is redemonstrated. The cardiac silhouette size is enlarged with atherosclerotic and ectatic aorta. Overlying epicardial pacer wires are seen. The osseous structures are demineralized . There is multilevel spurring and disc space narrowing in the mid thoracic spine. Cholecystectomy cl ips are noted. IMPRESSION: Chronic changes without acute pulmonary process.
[2018-01-29 12:02] LABS: Albumin 3.8 g/dL (3.5-5.0); Calcium 8.9 mg/dL (8.4-10.2); Creatine Kinase 43 U/L (30-135); Magnesium 1.8 mg/dL (1.6-2.3); Potassium 4.5 mmol/L (3.5-5.1); Total Protein 7.7 g/dL (6.3-8.2)
[2018-01-29 12:13] LABS: Creatine Kinase MB 0.9 ng/mL (0.0-2.4); Troponin I <0.012 ng/mL (0.000-0.034)
[2018-01-29 13:38] VITALS: BP 188/82; PULSE 84; RESP 18; TEMP 97.6
== END 2018-01-29 14:05 | disposition home or self-care (01) ==
LOC: EC 10:35
DX: I10 Essential (primary) hypertension (principal); L50.9 Urticaria, unspecified; M40.204 Unspecified kyphosis, thoracic region; R20.0 Anesthesia of skin; R07.89 Other chest pain; J44.9 Chronic obstructive pulmonary disease, unspecified; M10.9 Gout, unspecified; I25.2 Old myocardial infarction; Z79.51 Long term (current) use of inhaled steroids; Z79.82 Long term (current) use of aspirin; Z79.899 Other long term (current) drug therapy; Z82.49 Family history of ischemic heart disease and other diseases of the circulatory system; Z88.1 Allergy status to other antibiotic agents; Z88.5 Allergy status to narcotic agent; Z88.8 Allergy status to other drugs, medicaments and biological substances; Z95.1 Presence of aortocoronary bypass graft; Z95.5 Presence of coronary angioplasty implant and graft
CPT/HCPCS: 36415; 93005; 80053; 82550; 82553; 83735; 84484; 85025; 71046; 99284; 96374; 96375 ×2; 96361; J1200; J2930

== ENCOUNTER 2018-04-30 10:00 | Inpatient (IN) | payer MEDICARE ==
[2018-04-30] MEDS ORDERED: KETOROLAC 60 MG/2 ML VIAL IVP STA (10:27)
[2018-04-30] MEDS ORDERED: DIAZEPAM 5 MG/ML 2 ML INJ IVP STA (10:27)
[2018-04-30] MEDS ORDERED: hydrALAZINE HCL 20 MG/ML 1 ML VIAL IVP STA (10:28)
--- NOTE | 2018-04-30 10:31 | ED ---
General Adult HPI - General Chief complaint: Recheck/Abnormal Lab/Rx Stated complaint: Neck pain/ hypertension Time Seen by Provider: 04/30/18 10:00 Source: patient, EMS, RN notes reviewed Mode of arrival: EMS Limitations: no limitations - History of Present Illness Initial comments: This is an 87-year-old female who presents emergency Department complaining of right-sided neck pain. Patient states she's had this for years on and off but over the last few days the pain is getting worse when she woke up this morning the pain was pretty significant so she decided to come to the emergency department. Patient states she still high blood pressure but she hasn't taken any medicine in a while and she's not sure why. EMS stated her blood pressure was significantly elevated. Patient denies any blurred vision patient denies any headache patient denies any chest pain palpitations difficulty breathing or shortness of breath. Patient denies any abdominal pain. Patient denies any nausea vomiting or diarrhea. Patient denies any recent fever chills or cough. Patient denies any lightheadedness dizziness or near syncopal episode. Patient was covered in urine but she denies any urinary symptoms. Patient denies any hematuria urinary frequency or urinary urgency or dysuria. - Related Data Home Medications Medication Instructions Recorded Confirmed Aspirin [Adult Low Dose Aspirin EC] 81 mg PO HS 02/15/17 01/02/18 Nitroglycerin Sl Tabs [Nitrostat] 0.4 mg SUBLINGUAL Q5M PRN 02/15/17 01/02/18 Carvedilol [Coreg] 12.5 mg PO BID 01/02/18 01/02/18 Previous Rx's Medication Instructions Recorded Atorvastatin [Lipitor] 80 mg PO HS #30 tab 04/19/17 Lisinopril [Zestril] 40 mg PO DAILY tab 01/03/18 Famotidine [Pepcid] 20 mg PO BID #10 tablet 01/29/18 methylPREDNISolone Dose Pack 4 mg PO DIRECTED #21 package 01/29/18 [Medrol Dose Pack] Allergies Allergy/AdvReac Type Severity Reaction Status Date / Time oxybutynin Allergy SEE Verified 04/30/18 10:09 COMMENTS sulfamethoxazole Allergy SEE Verified 04/30/18 10:09 [From Bactrim] COMMENTS trimethoprim [From Bactrim] Allergy SEE Verified 04/30/18 10:09 COMMENTS morphine AdvReac Confusion Verified 04/30/18 10:09 Review of Systems ROS Statement: Those systems with pertinent positive or pertinent negative responses have been documented in the HPI. ROS Other: All systems not noted in ROS Statement are negative. Past Medical History Past Medical History: Coronary Artery Disease (CAD), COPD, Hyperlipidemia, Hypertension, Myocardial Infarction ([place]) Additional Past Medical History / Comment(s): Coronary artery disease, previous bypass surgery ten years ago, hypertension, hyperlipidemia, COPD maintenance Symbicort on outpatient basis, gout, AAA NOT SURE OF SIZE Last Myocardial Infarction Date:: 2016 History of Any Multi-Drug Resistant Organisms: None Reported Past Surgical History: Cholecystectomy, Coronary Bypass/CABG, Heart Catheterization With Stent, Hysterectomy Additional Past Surgical History / Comment(s): Coronary artery bypass surgery- triple, cardiac catheterization and angioplasty and stenting of the saphenous vein graft to obtuse marginal branch.CATARACTS, "stent in groin" Past Anesthesia/Blood Transfusion Reactions: Motion Sickness Additional Past Anesthesia/Blood Transfusion Reaction / Comment(s): Pt states she has received blood without reaction. Date of Last Stent Placement:: unk Past Psychological History: No Psychological Hx Reported Smoking Status: Never smoker Past Alcohol Use History: None Reported Past Drug Use History: None Reported - Past Family History Father Family Medical History: Coronary Artery Disease (CAD), Myocardial Infarction ([place] ) Additional Family Medical History / Comment(s): Father of a [place] at the age of 72 yrs. Mother Family Medical History: No Reported History Additional Family Medical History / Comment(s): Pt states her mother was healthy and at the age of 84 yrs. General Exam - General Exam Comments Initial Comments: GENERAL: Patient is well-developed and well-nourished. Patient is nontoxic and well- hydrated and is in mild distress. ENT: Neck is soft and supple. No significant lymphadenopathy is noted. Oropharynx is clear. Moist mucous membranes. Neck is very tender along the right trapezius muscle EYES: The sclera were anicteric and conjunctiva were pink and moist. Extraocular movements were intact and pupils were equal round and reactive to light. Eyelids were unremarkable. PULMONARY: Unlabored respirations. Good breath sounds bilaterally. No audible rales rhonchi or wheezing was noted. CARDIOVASCULAR: There is a regular rate and rhythm without any murmurs gallops or rubs. ABDOMEN: Soft and nontender with normal bowel sounds. No palpable organomegaly was noted. There is no palpable pulsatile mass. SKIN: Skin is clear with no lesions or rashes and otherwise unremarkable. NEUROLOGIC: Patient is alert and oriented x3. Cranial nerves II through XII are grossly intact. Motor and sensory are also intact. Normal speech, volume and content. Symmetrical smile. MUSCULOSKELETAL: Normal extremities with adequate strength and full range of motion. No lower extremity swelling or edema. No calf tenderness. LYMPHATICS: No significant lymphadenopathy is noted PSYCHIATRIC: Normal psychiatric evaluation. Limitations: no limitations Course Vital Signs 04/30/18 04/30/18 10:00 12:08 Temperature 99.2 F Pulse Rate 93 102 H Respiratory 22 24 Rate Blood Pressure 214/115 119/60 O2 Sat by Pulse 93 L 97 Oximetry Medical Decision Making - Medical Decision Making EKG shows sinus tachycardia with occasional PVC at 106 bpm TX interval 166 QRS 92 QT interval 350 QTC is 464. Patient's EKG shows no ST segment elevation or depression or T wave abnormalities are noted. Chest x-ray shows small pleural effusion. - Lab Data Result diagrams: 04/30/18 10:35 04/30/18 10:35 Lab Results 04/30/18 04/30/18 04/30/18 Range/Units 10:35 10:35 10:35 WBC 8.5 (3.8-10.6) k/uL RBC 4.93 (3.80-5.40) m/uL Hgb 13.6 (11.4-16.0) gm/dL Hct 43.7 (34.0-46.0) % MCV 88.7 (80.0-100.0) fL MCH 27.5 (25.0-35.0) pg MCHC 31.0 (31.0-37.0) g/dL RDW 14.3 (11.5-15.5) % Plt Count 221 (150-450) k/uL Neutrophils % 69 % Lymphocytes % 20 % Monocytes % 7 % Eosinophils % 2 % Basophils % 1 % Neutrophils # 5.8 (1.3-7.7) k/uL Lymphocytes # 1.7 (1.0-4.8) k/uL Monocytes # 0.6 (0-1.0) k/uL Eosinophils # 0.2 (0-0.7) k/uL Basophils # 0.1 (0-0.2) k/uL Hypochromasia Slight PT (9.0-12.0) sec INR (<1.2) APTT (22.0-30.0) sec Sodium 139 (137-145) mmol/L Potassium 4.2 (3.5-5.1) mmol/L Chloride 103 (98-107) mmol/L Carbon Dioxide 27 (22-30) mmol/L Anion Gap 9 mmol/L BUN 13 (7-17) mg/dL Creatinine 1.02 (0.52-1.04) mg/dL Est GFR (CKD-EPI)AfAm 58 (>60 ml/min/1.73 sqM) Est GFR (CKD-EPI)NonAf 51 (>60 ml/min/1.73 sqM) Glucose 102 H (74-99) mg/dL Calcium 8.8 (8.4-10.2) mg/dL Magnesium 1.6 (1.6-2.3) mg/dL Total Bilirubin 1.5 H (0.2-1.3) mg/dL AST 19 (14-36) U/L ALT 19 (9-52) U/L Alkaline Phosphatase 72 (38-126) U/L Total Creatine Kinase 40 (30-135) U/L CK-MB (CK-2) 0.8 (0.0-2.4) ng/mL CK-MB (CK-2) Rel Index 2.0 Troponin I 0.018 (0.000-0.034) ng/mL Total Protein 7.4 (6.3-8.2) g/dL Albumin 3.5 (3.5-5.0) g/dL Urine Color Urine Appearance (Clear) Urine pH (5.0-8.0) Ur Specific [place] (1.001-1.035) Urine Protein (Negative) Urine Glucose (UA) (Negative) Urine Ketones (Negative) Urine Blood (Negative) Urine Nitrite (Negative) Urine Bilirubin (Negative) Urine Urobilinogen (<2.0) mg/dL Ur Leukocyte Esterase (Negative) Urine RBC (0-5) /hpf Urine WBC (0-5) /hpf Ur Squamous Epith Cells (0-4) /hpf Urine Bacteria (None) /hpf Urine Mucus (None) /hpf 04/30/18 04/30/18 Range/Units 10:35 10:35 WBC (3.8-10.6) k/uL RBC (3.80-5.40) m/uL Hgb (11.4-16.0) gm/dL Hct (34.0-46.0) % MCV (80.0-100.0) fL MCH (25.0-35.0) pg MCHC (31.0-37.0) g/dL RDW (11.5-15.5) % Plt Count (150-450) k/uL Neutrophils % % Lymphocytes % % Monocytes % % Eosinophils % % Basophils % % Neutrophils # (1.3-7.7) k/uL Lymphocytes # (1.0-4.8) k/uL Monocytes # (0-1.0) k/uL Eosinophils # (0-0.7) k/uL Basophils # (0-0.2) k/uL Hypochromasia PT 10.6 (9.0-12.0) sec INR 1.1 (<1.2) APTT 25.5 (22.0-30.0) sec Sodium (137-145) mmol/L Potassium (3.5-5.1) mmol/L Chloride (98-107) mmol/L Carbon Dioxide (22-30) mmol/L Anion Gap mmol/L BUN (7-17) mg/dL Creatinine (0.52-1.04) mg/dL Est GFR (CKD-EPI)AfAm (>60 ml/min/1.73 sqM) Est GFR (CKD-EPI)NonAf (>60 ml/min/1.73 sqM) Glucose (74-99) mg/dL Calcium (8.4-10.2) mg/dL Magnesium (1.6-2.3) mg/dL Total Bilirubin (0.2-1.3) mg/dL AST (14-36) U/L ALT (9-52) U/L Alkaline Phosphatase (38-126) U/L Total Creatine Kinase (30-135) U/L CK-MB (CK-2) (0.0-2.4) ng/mL CK-MB (CK-2) Rel Index Troponin I (0.000-0.034) ng/mL Total Protein (6.3-8.2) g/dL Albumin (3.5-5.0) g/dL Urine Color Light Yellow Urine Appearance Clear (Clear) Urine pH 6.0 (5.0-8.0) Ur Specific [place] 1.009 (1.001-1.035) Urine Protein Negative (Negative) Urine Glucose (UA) Negative (Negative) Urine Ketones Negative (Negative) Urine Blood Negative (Negative) Urine Nitrite Positive H (Negative) Urine Bilirubin Negative (Negative) Urine Urobilinogen <2.0 (<2.0) mg/dL Ur Leukocyte Esterase Moderate H (Negative) Urine RBC 1 (0-5) /hpf Urine WBC 35 H (0-5) /hpf Ur Squamous Epith Cells <1 (0-4) /hpf Urine Bacteria Few H (None) /hpf Urine Mucus Rare H (None) /hpf Disposition Clinical Impression: Cervical strain, acute, Hypertensive urgency, Urinary tract infection Disposition: ADMITTED IP TO THIS [facility] Referrals: Jose Quintana MD [Primary Care Provider] - 1-2 days Time of Disposition: 12:17
[2018-04-30 10:52] LABS: Basophils # (A) 0.1 k/uL (0-0.2); Basophils % (A) 1 %; Eosinophils # (A) 0.2 k/uL (0-0.7); Eosinophils % (A) 2 %; HCT 43.7 % (34.0-46.0); HGB 13.6 gm/dL (11.4-16.0); Hypochromasia Slight; Lymphocytes # (A) 1.7 k/uL (1.0-4.8); Lymphocytes % (A) 20 %; MCH 27.5 pg (25.0-35.0); MCV 88.7 fL (80.0-100.0); Mean Platelet Volume 8.1; Monocytes # (A) 0.6 k/uL (0-1.0); Monocytes % (A) 7 %; Neutrophils # (A) 5.8 k/uL (1.3-7.7); Neutrophils % (A) 69 %; Platelet Count 221 k/uL (150-450); RBC 4.93 m/uL (3.80-5.40); RDW 14.3 % (11.5-15.5); WBC 8.5 k/uL (3.8-10.6)
[2018-04-30 10:58] LABS: Appearance,Urine Clear (Clear); Bacteria,Urine Few /hpf; Bilirubin,Urine Negative (Negative); Blood,Urine Negative (Negative); Color,Urine Light Yellow; Glucose,Urine (UA) Negative (Negative); Ketones,Urine Negative (Negative); Leukocyte Esterase,Urine Moderate (Negative); Mucus,Urine Rare /hpf; Nitrite,Urine Positive (Negative); Protein,Urine Negative (Negative); RBC,Urine 1 /hpf (0-5); Specific Gravity,Urine 1.009 (1.001-1.035); Squamous Epithelial Cell,Urine <1 /hpf (0-4); Urobilinogen,Urine <2.0 mg/dL (<2.0); WBC,Urine 35 /hpf (0-5)
[2018-04-30 11:00] LABS: INR 1.1 (<1.2); Partial Thromboplastin Time 25.5 sec (22.0-30.0); Prothrombin Time 10.6 sec (9.0-12.0)
[2018-04-30 11:04] LABS: Albumin 3.5 g/dL (3.5-5.0); Calcium 8.8 mg/dL (8.4-10.2); Magnesium 1.6 mg/dL (1.6-2.3); Potassium 4.2 mmol/L (3.5-5.1); Total Bilirubin 1.5 mg/dL (0.2-1.3); Total Protein 7.4 g/dL (6.3-8.2)
--- NOTE | 2018-04-30 11:07 | XR ---
EXAMINATION TYPE: XR chest 2V DATE OF EXAM: 04/30/2018 COMPARISON: 01/29/2013 HISTORY: 87-year-old female with chest pain TECHNIQUE: AP and lateral views FINDINGS: Median sternotomy wires are present. Heart mildly enlarged. Low lung volumes. There is focal peripher al right basilar opacity that appears new from prior. Calcified granuloma at the right base is unchan ged. Surgical clips at the right suprahilar region. IMPRESSION: New small to moderate right pleural effusion with adjacent atelectasis and/or consolidation. There co uld be underlying pneumonia. Given interstitial changes, CHF is an alternative consideration.
[2018-04-30 11:28] LABS: Creatine Kinase MB 0.8 ng/mL (0.0-2.4); Troponin I 0.018 ng/mL (0.000-0.034)
[2018-04-30] MEDS ORDERED: cefTRIAXone 2,000 MG in SODIUM CHLORIDE 0.9% 100 ML IVPB STA (12:03)
[2018-04-30] MEDS ORDERED: cefTRIAXone IN SWFI 2,000 MG/20 ML SYRINGE IVP STA (12:06)
[2018-04-30] MEDS ORDERED: SODIUM CHLORIDE 0.9% 1,000 ML IV ONE (12:17)
[2018-04-30] MEDS: CHLORTHALIDONE 25 MG TAB PO SCH (15:24)
[2018-04-30] MEDS: LISINOPRIL 20 MG TAB PO SCH (15:24)
[2018-04-30] MEDS ORDERED: AMOXICILLIN 250 MG/5 ML 80 ML BOTTLE PO SCH (16:00)
[2018-04-30] MEDS: hydrALAZINE HCL 50 MG TAB PO SCH ×2 (17:53→22:51)
[2018-04-30] MEDS: CARVEDILOL 12.5 MG TAB PO SCH (17:53)
[2018-04-30] MEDS: AMOXICILLIN 250 MG CAP PO SCH (22:55)
[2018-05-01] MEDS: ONDANSETRON 4 MG/2 ML VIAL IVP PRN (01:21)
[2018-05-01] MEDS: AMOXICILLIN 250 MG CAP PO SCH ×3 (07:43→23:10)
[2018-05-01] MEDS: CARVEDILOL 12.5 MG TAB PO SCH ×2 (07:43→19:38)
[2018-05-01] MEDS: hydrALAZINE HCL 50 MG TAB PO SCH ×3 (10:25→21:35)
[2018-05-01] MEDS: ASPIRIN 81 MG PO SCH (10:25)
[2018-05-01] MEDS: LISINOPRIL 20 MG TAB PO SCH (10:25)
[2018-05-01] MEDS: ACETAMINOPHEN TAB 325 MG TAB PO PRN ×2 (10:25→19:38)
[2018-05-01] MEDS: CHLORTHALIDONE 25 MG TAB PO SCH (10:25)
--- NOTE | 2018-05-02 07:56 | PN ---
PROGRESS NOTE DATE OF SERVICE: 05/01/2018. CHIEF COMPLAINT: Hypertensive urgency. HISTORY OF PRESENT ILLNESS: This lady is doing well. Her blood pressure is down and she feels better. She is having no headaches, confusion, lethargy, chest pain, shortness of breath, etc. PHYSICAL EXAM: Blood pressure has come down in the safer range and she has no complaints. Chest is clear. Cardiac exam is normal. Abdomen is soft, nontender. IMPRESSION: Hypertensive urgency. PLAN: Continue on current program and gradually increase activity and home when she is controlled. MMODL / IJN: [id number] /
--- NOTE | 2018-05-02 07:56 | HP ---
HISTORY AND PHYSICAL CHIEF COMPLAINT: Headache and shortness of breath. HISTORY OF PRESENT ILLNESS: This lady has a longstanding history of hypertension and CAD. She has not been taking any medications. She came to emergency room stating she was not feeling well. She had a blood pressure 214/115. She had headache, but she had no focal neurologic deficits, blackouts, etc. REVIEW OF SYSTEMS: She has had no other problems other than already mentioned. She has had no chest pain, shortness of breath, orthopnea, abdominal pain, nausea, vomiting, diarrhea, urinary complaints, etc. Past medical history, family history, personal and social histories are otherwise unremarkable and noncontributory and unchanged. She does not smoke. PHYSICAL EXAMINATION: VITAL SIGNS: Blood pressure is 214/115 with a pulse of 83, respirations of 38, and she is afebrile. GENERAL: In general, she appeared to be well developed, well nourished, no acute distress. Skin color is normal. Skin is warm, dry. Lymph nodes not enlarged. HEENT: Head, ears, eyes, nose, mouth and throat were normal. NECK: Neck veins not distended. Carotids are normal. CHEST: Chest is clear. CARDIOVASCULAR: Cardiac exam was normal sinus rhythm and no murmurs or extra sounds. ABDOMEN: Abdomen is soft, nontender. There are no masses. No masses or visceromegaly. EXTREMITIES: Extremities are normal. NEUROLOGICAL: Neurological is intact. IMPRESSION: 1. Essential hypertension. 2. History of coronary artery disease. 3. ASCVD. PLAN: 1. Bed rest. 2. IV fluids. 3. Control hypertension. MMODL / IJN: [id number] /
[2018-05-02] MEDS: ONDANSETRON 4 MG/2 ML VIAL IVP PRN (08:41)
[2018-05-02] MEDS: hydrALAZINE HCL 50 MG TAB PO SCH (08:48)
[2018-05-02] MEDS: AMOXICILLIN 250 MG CAP PO SCH ×3 (08:48→23:50)
[2018-05-02] MEDS: CARVEDILOL 12.5 MG TAB PO SCH ×2 (08:48→18:06)
[2018-05-02] MEDS: ASPIRIN 81 MG PO SCH (08:48)
[2018-05-02] MEDS: LISINOPRIL 20 MG TAB PO SCH (08:48)
[2018-05-02] MEDS: CHLORTHALIDONE 25 MG TAB PO SCH (08:48)
[2018-05-02 11:39] LABS: Glucose,Whole Blood 121 mg/dL (75-99)
[2018-05-02] MEDS ORDERED: PROCHLORPERAZINE 10 MG TAB PO PRN (13:15)
[2018-05-02 14:37] LABS: Albumin 2.8 g/dL (3.5-5.0); Calcium 8.5 mg/dL (8.4-10.2); Total Bilirubin 0.5 mg/dL (0.2-1.3); Total Protein 6.2 g/dL (6.3-8.2)
--- NOTE | 2018-05-02 15:45 | XR ---
EXAMINATION TYPE: XR chest 2V DATE OF EXAM: 05/02/2018 COMPARISON: 04/30/2018 TECHNIQUE: PA and lateral views submitted. HISTORY: Chest pain FINDINGS: The lungs are clear and there is no pneumothorax, pleural effusion, or focal pneumonia. Calcified g ranuloma right lower lobe with subsegmental consolidation small effusion. Postsurgical changes are se en. Atherosclerotic change aorta. Degenerative change of the spine. Epicardial lead noted. IMPRESSION: 1. Persistent bilateral infiltrate and small effusion. Mild central venous congestion not excluded.
--- NOTE | 2018-05-02 16:33 | PN ---
PROGRESS NOTE CHIEF COMPLAINT: Hypertensive crisis and nausea and vomiting. HISTORY OF PRESENT ILLNESS: This lady's blood pressure is down and she has been doing fairly well but she is still nauseated. She has not had any abdominal pain, fever, etc. PHYSICAL EXAM: Chest is clear. Cardiac exam is normal. Abdomen is soft, nontender and her systolic blood pressure is 129. IMPRESSION: 1. Hypertension-controlled. 2. Nausea and vomiting, etiology unknown. 3. Urinary tract infection. PLAN: 1. Stop Zofran and try Compazine. 2. Stop hydralazine. 3. Cancel discharge. MMODL / IJN: [id number] /
[2018-05-02] MEDS ORDERED: ALBUTEROL NEBULIZED 2.5 MG/3 ML INHALATION PRN (17:48)
[2018-05-02] MEDS: LACTATED RINGERS 1,000 ML IV SCH (18:06)
[2018-05-02 19:10] LABS: Albumin 2.7 g/dL (3.5-5.0); Calcium 8.5 mg/dL (8.4-10.2); Magnesium 1.8 mg/dL (1.6-2.3); Total Bilirubin 0.5 mg/dL (0.2-1.3); Total Protein 5.9 g/dL (6.3-8.2)
[2018-05-02 19:30] LABS: Basophils % (A) 0 %; Eosinophils # (A) 0.1 k/uL (0-0.7); Eosinophils % (A) 1 %; HCT 37.2 % (34.0-46.0); HGB 10.9 gm/dL (11.4-16.0); Hypochromasia Marked; Lymphocytes # (A) 1.1 k/uL (1.0-4.8); Lymphocytes % (A) 10 %; MCH 27.3 pg (25.0-35.0); MCHC 29.4 g/dL (31.0-37.0); MCV 92.9 fL (80.0-100.0); Mean Platelet Volume 8.3; Monocytes # (A) 0.6 k/uL (0-1.0); Monocytes % (A) 6 %; Neutrophils # (A) 8.7 k/uL (1.3-7.7); Neutrophils % (A) 82 %; Platelet Count 196 k/uL (150-450); RDW 14.4 % (11.5-15.5); WBC 10.7 k/uL (3.8-10.6)
[2018-05-02] MEDS: ALBUTEROL NEBULIZED 2.5 MG/3 ML INHALATION SCH (19:44)
[2018-05-03] MEDS: ONDANSETRON 4 MG/2 ML VIAL IVP PRN (00:57)
[2018-05-03] MEDS: LACTATED RINGERS 1,000 ML IV SCH ×3 (06:09→21:33)
[2018-05-03] MEDS: ACETAMINOPHEN TAB 325 MG TAB PO PRN ×2 (06:12→21:45)
[2018-05-03] MEDS: ALBUTEROL NEBULIZED 2.5 MG/3 ML INHALATION SCH ×4 (06:59→21:07)
[2018-05-03] MEDS: CARVEDILOL 12.5 MG TAB PO SCH ×2 (09:21→18:27)
[2018-05-03] MEDS: ASPIRIN 81 MG PO SCH (09:21)
[2018-05-03] MEDS: CHLORTHALIDONE 25 MG TAB PO SCH (09:21)
[2018-05-03] MEDS: AMOXICILLIN 250 MG CAP PO SCH ×3 (09:21→23:28)
[2018-05-03] MEDS: LISINOPRIL 20 MG TAB PO SCH (09:22)
--- NOTE | 2018-05-03 15:50 | PN ---
PROGRESS NOTE CHIEF COMPLAINT: Hypertension. HISTORY OF PRESENT ILLNESS: This lady is still having trouble with nausea. She has not been vomiting. Vital signs are stable. PHYSICAL EXAMINATION: Her chest is clear. Cardiac exam is normal. IMPRESSION: 1. Hypertension. 2. Nausea and vomiting, etiology unknown. PLAN: Hold discharge until vomiting has stopped. MMODL / IJN: [id number] /
[2018-05-04] MEDS: LISINOPRIL 20 MG TAB PO SCH (07:42)
[2018-05-04] MEDS: LACTATED RINGERS 1,000 ML IV SCH (07:43)
[2018-05-04] MEDS: CHLORTHALIDONE 25 MG TAB PO SCH (07:44)
[2018-05-04] MEDS: ASPIRIN 81 MG PO SCH (07:44)
[2018-05-04] MEDS: CARVEDILOL 12.5 MG TAB PO SCH ×2 (07:44→17:35)
[2018-05-04] MEDS: AMOXICILLIN 250 MG CAP PO SCH ×3 (07:54→22:42)
[2018-05-04] MEDS: ALBUTEROL NEBULIZED 2.5 MG/3 ML INHALATION SCH ×4 (08:00→21:52)
[2018-05-04 09:03] LABS: Basophils % (A) 1 %; Eosinophils # (A) 0.3 k/uL (0-0.7); Eosinophils % (A) 3 %; HCT 34.7 % (34.0-46.0); HGB 10.6 gm/dL (11.4-16.0); Hypochromasia Marked; Lymphocytes # (A) 1.3 k/uL (1.0-4.8); Lymphocytes % (A) 15 %; MCH 28.1 pg (25.0-35.0); MCHC 30.6 g/dL (31.0-37.0); MCV 91.8 fL (80.0-100.0); Mean Platelet Volume 8.6; Monocytes # (A) 0.6 k/uL (0-1.0); Monocytes % (A) 8 %; Neutrophils # (A) 5.9 k/uL (1.3-7.7); Neutrophils % (A) 72 %; Platelet Count 254 k/uL (150-450); RBC 3.78 m/uL (3.80-5.40); WBC 8.2 k/uL (3.8-10.6)
[2018-05-04 09:04] LABS: Calcium 8.7 mg/dL (8.4-10.2); Potassium 5.1 mmol/L (3.5-5.1)
--- NOTE | 2018-05-04 12:21 | PN ---
PROGRESS NOTE DATE OF SERVICE: 05/04/2018 CHIEF COMPLAINT: 1. Hypertension. 2. Persistent nausea and vomiting. HISTORY OF PRESENT ILLNESS: This lady is still having nausea and vomiting, which are going unexplained. PHYSICAL EXAM: Her abdomen is soft and nontender. Chest is clear. Cardiac exam is normal. IMPRESSION: 1. Malignant hypertension. 2. Nausea and vomiting, etiology unknown. PLAN: Continue efforts to determine why she is sick to her stomach and work on what can be done to eliminate it. MMODL / IJN: [id number] /
[2018-05-05] MEDS: LACTATED RINGERS 1,000 ML IV SCH ×2 (00:21→09:32)
[2018-05-05] MEDS: ALBUTEROL NEBULIZED 2.5 MG/3 ML INHALATION SCH ×4 (08:44→19:12)
[2018-05-05] MEDS: CHLORTHALIDONE 25 MG TAB PO SCH (09:33)
[2018-05-05] MEDS: LISINOPRIL 20 MG TAB PO SCH (09:33)
[2018-05-05] MEDS: ASPIRIN 81 MG PO SCH (09:33)
[2018-05-05] MEDS: AMOXICILLIN 250 MG CAP PO SCH ×2 (09:33→17:05)
[2018-05-05] MEDS: CARVEDILOL 12.5 MG TAB PO SCH ×2 (09:34→17:05)
--- NOTE | 2018-05-05 17:08 | XR ---
EXAMINATION TYPE: XR chest 2V DATE OF EXAM: 05/05/2018 COMPARISON: 05/02/2018 HISTORY: Short of breath TECHNIQUE: Frontal and lateral views of the chest are obtained. FINDINGS: Heart is enlarged. There is coarsening of the lung markings. There are sternal wires. Ther e are surgical clips over the mediastinum. There is slight blunting of costophrenic angles. IMPRESSION: Lung markings are increased slightly compared to last exam. Mild heart failure is probab le. Small pleural effusions.
[2018-05-05] MEDS ORDERED: FUROSEMIDE 40 MG TAB PO STA (18:49)
--- NOTE | 2018-05-05 18:52 | PN ---
PROGRESS NOTE This lady's course has changed. She is becoming more confused. There is no obvious reason. She still feels nauseated and still is vomiting occasionally. BUN and creatinine are rising and her hemoglobin is dropping slowly, but there is no sign of bleeding. PHYSICAL EXAM: Chest is clear. Cardiac is unchanged. Abdomen is soft and nontender. EXTREMITIES: Normal. IMPRESSION: 1. Developing confusion. 2. Decreasing renal failure. 3. Anemia. PLAN: Continue to follow and decision may have to be made regarding placement. Etiology for her difficulties is not explained at this time. MMODL / IJN: [id number] /
--- NOTE | 2018-05-05 21:45 | P.CNNES ---
History of Present Illness Consult date: 05/05/18 Reason for Consult: Patient being evaluated for worsening confusion. History of Present Illness: This patient is a 87-year-old right-handed white female who was admitted to [facility] on 04/30/2018 for treatment of urinary tract infection and hypertensive urgency. Patient initially presented with symptoms of right-sided neck pain which has since resolved. She has been hospitalized now for the past 5 days. Apparently today she was showing signs of worsening confusion and disorientation. For this reason neurology was consulted today for further assessment. The patient is a poor historian but states she is feeling her speech is her normal. She was noted to have hypertensive urgency on initial evaluation and admission to the hospital. Her blood pressure in the ER was 214/115. She is currently taking several anti-hypertensive medications. She does have history of stent placement that was done last year by cardiology. Patient states that she has been having some shortness of breath and is being treated for respiratory congestion and mild congestive heart failure. Chest x-ray did reveal some pleural effusion as well. According to the nursing staff she was treated with Lasix for this condition earlier today and is having breathing treatments done around the clock. The patient denies any previous history of TIA or stroke. She does seem to be very short of breath and having some respiratory distress. We requested the respiratory therapist to give her a breathing treatment now. Her pulse ox readings prior to this today was 89%. According to the nursing staff at night she does seem to have more difficulty with orientation and becomes more confused. This may be related to some degree of sundowning. During the day she is still confused but not as much as in the evening hours. The patient is being treated for underlying urinary tract infection and is currently taking amoxicillin. Her neurological exam findings today reveal her to have some slurred speech as well as right facial droop with a right pronator drift. These findings suggest possibility of an acute left hemispheric stroke. She did have uncontrolled hypertension on admission and this could've been another factor in terms of her current symptoms. We have recommended tight control of her blood pressure. Her overall prognosis at this time remains very guarded. We will obtain a urgent computed tomography scan of the brain for further evaluation of acute stroke for this patient tonight. We will obtain carotid Doppler ultrasound if this has not been done as well as echocardiogram. Her overall prognosis at this time remains very guarded. Neurology is now been consulted for further evaluation and recommendations. Review of Systems Constitutional: Denies chills, Denies fever Eyes: denies blurred vision, denies pain Ears, nose, mouth and throat: Denies headache, Denies sore throat Cardiovascular: Reports high blood pressure, Reports palpitations, Denies chest pain, Denies shortness of breath Respiratory: Denies cough Gastrointestinal: Denies abdominal pain, Denies diarrhea, Denies nausea, Denies vomiting Genitourinary: Denies dysuria, Denies hematuria Musculoskeletal: Denies myalgias Integumentary: Denies pruritus, Denies rash Neurological: Reports change in speech, Reports confusion, Reports memory loss, Reports paresthesias, Reports tingling, Denies numbness, Denies weakness Psychiatric: Denies anxiety, Denies depression Endocrine: Denies fatigue, Denies weight change Past Medical History Past Medical History: Coronary Artery Disease (CAD), COPD, Hyperlipidemia, Hypertension, Myocardial Infarction ([place]) Additional Past Medical History / Comment(s): Coronary artery disease, previous bypass surgery ten years ago, hypertension, hyperlipidemia, COPD maintenance Symbicort on outpatient basis, gout, AAA NOT SURE OF SIZE Last Myocardial Infarction Date:: 2016 History of Any Multi-Drug Resistant Organisms: None Reported Past Surgical History: Cholecystectomy, Coronary Bypass/CABG, Heart Catheterization With Stent, Hysterectomy Additional Past Surgical History / Comment(s): Coronary artery bypass surgery- triple, cardiac catheterization and angioplasty and stenting of the saphenous vein graft to obtuse marginal branch.CATARACTS, "stent in groin" Past Anesthesia/Blood Transfusion Reactions: Motion Sickness Additional Past Anesthesia/Blood Transfusion Reaction / Comment(s): Pt states she has received blood without reaction. Date of Last Stent Placement:: unk Past Psychological History: No Psychological Hx Reported Additional Psychological History / Comment(s): . Smoking Status: Never smoker Past Alcohol Use History: None Reported Additional Past Alcohol Use History / Comment(s): Pt started smoking in 2 and quit in the 1986 Past Drug Use History: None Reported - Past Family History Father Family Medical History: Coronary Artery Disease (CAD), Myocardial Infarction ([place] ) Additional Family Medical History / Comment(s): Father of a [place] at the age of 72 yrs. Mother Family Medical History: No Reported History Additional Family Medical History / Comment(s): Pt states her mother was healthy and at the age of 84 yrs. Medications and Allergies Home Medications Medication Instructions Recorded Confirmed Type Aspirin [Adult Low Dose Aspirin EC] 81 mg PO HS 02/15/17 05/02/18 History Nitroglycerin Sl Tabs [Nitrostat] 0.4 mg SUBLINGUAL Q5M PRN 02/15/17 05/02/18 History Atorvastatin [Lipitor] 80 mg PO HS #30 tab 04/19/17 05/02/18 Rx Carvedilol [Coreg] 12.5 mg PO BID 01/02/18 05/02/18 History Lisinopril [Zestril] 40 mg PO DAILY tab 01/03/18 05/02/18 Rx Famotidine [Pepcid] 20 mg PO BID #10 tablet 01/29/18 05/02/18 Rx Allergies Allergy/AdvReac Type Severity Reaction Status Date / Time oxybutynin Allergy SEE Verified 04/30/18 10:09 COMMENTS sulfamethoxazole Allergy SEE Verified 04/30/18 10:09 [From Bactrim] COMMENTS trimethoprim [From Bactrim] Allergy SEE Verified 04/30/18 10:09 COMMENTS morphine AdvReac Confusion Verified 04/30/18 10:09 Physical Examination - Vital Signs Vital Signs: Vital Signs Temp Pulse Pulse Resp BP Pulse Ox 05/05/18 19:28 74 05/05/18 19:12 70 05/05/18 16:00 96.5 F L 73 20 128/60 92 L 05/05/18 13:00 97.9 F 69 18 148/63 90 L 05/05/18 12:33 68 05/05/18 12:25 68 16 05/05/18 08:53 68 05/05/18 08:44 68 16 05/05/18 05:00 97.8 F 82 18 167/71 94 L Intake and Output 05/05/18 05/05/18 05/05/18 06:59 14:59 22:59 Other: Voiding Method Toilet Toilet Toilet Incontinent Incontinent # Voids 2 1 Weight 58.967 kg - Constitutional General appearance: average body habitus, cooperative - EENT EENT: PERRL, mucous membranes moist - Respiratory Respiratory: lungs clear, normal breath sounds - Cardiovascular Cardiovascular: regular rate, normal S1, normal S2 Extremities: no peripheral edema bilaterally - Gastrointestinal Gastrointestinal: normoactive bowel sounds - Integumentary Integumentary: normal - Neurologic Cranial nerve examination: PERRL, EOMI, VFF, V1/V2/V3 grossly intact, tongue midline, intact gag reflex, intact corneal reflex, facial droop (Patient has a mild right facial asymmetry.), normal palatal elevation Speech examination: intact Sensorimotor examination: intact Detailed motor examination: full strength in all major muscle groups Motor examination - right side: 3/5: biceps, triceps, wrist flexion, wrist extension, radiagraph operator, 4/5: hip flexors, knee extensors, dorsiflexion, toe extension ( EHL), plantarflexion Motor examination - left side: 4/5: biceps, triceps, wrist flexion, wrist extension, radiagraph operator, hip flexors, knee extensors, dorsiflexion, toe extension (EHL) , plantarflexion Detailed sensory examination: intact Reflex and gait examination: intact Reflexes: 1+: ankle, bicep, knee, tricep - Musculoskeletal Musculoskeletal: no pain - Psychiatric Psychiatric: mood/affect appropriate, cooperative Results - Laboratory Findings CBC and BMP: 05/04/18 08:19 05/04/18 08:19 Abnormal Lab Findings: Abnormal Labs 04/30/18 04/30/18 05/02/18 10:35 10:35 11:18 WBC RBC Hgb MCHC Neutrophils # Sodium BUN Creatinine Glucose 102 H POC Glucose (mg/dL) 121 H Total Bilirubin 1.5 H Total Protein Albumin Urine Nitrite Positive H Ur Leukocyte Esterase Moderate H Urine WBC 35 H Urine Bacteria Few H Urine Mucus Rare H 05/02/18 05/02/18 05/02/18 13:56 18:28 18:29 WBC 10.7 H RBC Hgb 10.9 L MCHC 29.4 L Neutrophils # 8.7 H Sodium 136 L BUN 37 H 38 H Creatinine 2.07 H 2.04 H Glucose 113 H 114 H POC Glucose (mg/dL) Total Bilirubin Total Protein 6.2 L 5.9 L Albumin 2.8 L 2.7 L Urine Nitrite Ur Leukocyte Esterase Urine WBC Urine Bacteria Urine Mucus 05/04/18 05/04/18 08:19 08:19 WBC RBC 3.78 L Hgb 10.6 L MCHC 30.6 L Neutrophils # Sodium BUN 41 H Creatinine 1.78 H Glucose 107 H POC Glucose (mg/dL) Total Bilirubin Total Protein Albumin Urine Nitrite Ur Leukocyte Esterase Urine WBC Urine Bacteria Urine Mucus Assessment and Plan (1) Acute ischemic left MCA stroke Current Visit: Yes Status: Acute Code(s): I63.512 - CEREB INFRC D/T UNSP OCCLS OR STENOS OF LEFT MID CEREB ART SNOMED Code(s): 226964541 (2) Cervical strain, acute Current Visit: Yes Status: Acute Code(s): S16.1XXA - STRAIN OF MUSCLE, FASCIA AND TENDON AT NECK LEVEL, INIT SNOMED Code(s): 070044922 (3) Hypertensive urgency Current Visit: Yes Status: Acute Code(s): I16.0 - HYPERTENSIVE URGENCY SNOMED Code(s): 144383341 (4) Acute anoxic encephalopathy Current Visit: No Status: Acute Code(s): G93.1 - ANOXIC BRAIN DAMAGE, NOT ELSEWHERE CLASSIFIED SNOMED Code(s): 36817326 Plan: This patient is a 87-year-old right-handed white female who was admitted to [facility] on 04/30/2018 for treatment of urinary tract infection and hypertensive urgency. Her blood pressure in the ER was noted to be 214/115. She was started on some additional antihypertensive medications and admitted to Hospital. She was also found to have evidence of a urinary tract infection and is currently on amoxicillin. Today she was showing increasing signs of confusion and disorientation. For this reason neurology was consulted. Her neurological examination reveals her to have some right- sided facial droop as well as right pronator drift. Her speech also appears to be slightly muffled. We recommend patient be evaluated for possibility of acute left hemispheric stroke. We will obtain a urgent computed tomography scan of the brain for further evaluation. Would recommend carotid Doppler ultrasound if this has not been done recently. Blood pressure appears to be fairly well controlled at this time. Her initial blood pressure however in the ER was out of control and may have contributed to acute stroke like symptoms at the time. She does seem to be arousable and does follow some simple commands. We will give further recommendations pending her CAT scan results. Would continue treatment of underlying urinary tract infection with appropriate antibiotics. We will obtain routine EEG for further assessment of cognitive function in this elderly patient as well. Her overall prognosis at this time remains very guarded. Time with Patient: Greater than 30
--- NOTE | 2018-05-05 22:07 | CT ---
EXAMINATION TYPE: CT brain wo con DATE OF EXAM: 05/05/2018 COMPARISON: 04/16/2017 HISTORY: Right sided weakness and slurred speech. CT DLP: 1133.6 mGycm Automated exposure control for dose reduction was used. FINDINGS: There is some mild hypodensity in the periventricular white matter. There is mild cerebral cortical a trophy. There is no mass effect nor midline shift. There is no sign of intracranial hemorrhage. IMPRESSION: CEREBRAL ATROPHY AND CHRONIC SMALL VESSEL ISCHEMIA. NO ACUTE INTRACRANIAL ABNORMALITY. NO CHANGE.
[2018-05-06] MEDS: AMOXICILLIN 250 MG CAP PO SCH ×3 (01:07→18:00)
[2018-05-06] MEDS: LACTATED RINGERS 1,000 ML IV SCH ×3 (02:44→23:51)
[2018-05-06] MEDS: ALBUTEROL NEBULIZED 2.5 MG/3 ML INHALATION SCH ×4 (08:58→21:00)
[2018-05-06] MEDS: CARVEDILOL 12.5 MG TAB PO SCH ×2 (10:39→18:00)
[2018-05-06] MEDS: LISINOPRIL 20 MG TAB PO SCH (10:40)
[2018-05-06] MEDS: ASPIRIN 81 MG PO SCH (10:40)
[2018-05-06] MEDS: CHLORTHALIDONE 25 MG TAB PO SCH (10:40)
--- NOTE | 2018-05-06 14:54 | MR ---
EXAMINATION TYPE: MR brain wo con DATE OF EXAM: 05/06/2018 COMPARISON: CT brain 05/05/2018 HISTORY: Right-sided weakness slurred speech CONTRAST: Performed utilizing 0 mL intravenous Gadavist gadolinium contrast. TECHNIQUE: Multiplanar, multiecho imaging on a 3.0 Robina magnet is performed through the brain. Stud y is not performed within 24 hours of arrival to the hospital. The craniovertebral junction is normal. The pituitary is small. Diffusion-weighted imaging is performed. There may be a couple of punctate hyperintensities within t he left centrum semiovale on diffusion-weighted imaging. Punctate acute ischemic changes may be prese nt. There is some hyperintensity within the left brainstem on T2 and inversion recovery weighted sequence s. Punctate areas within the left thalamus. Periventricular white matter changes are present which ar e likely chronic white matter ischemic changes. Ventricles and sulci are prominent for the patient age. Extra-axial spaces are prominent. IMPRESSIONS: 1. Two punctate hyperintensities on diffusion-weighted imaging. Correspond to white matter changes on T2 and inversion recovery weighted sequences. These may be a punctate acute ischemic changes. 2. Moderate chronic appearing periventricular and deep white matter ischemic changes. These are chron ic would also include an area within the left brain stem. 3. Age-related atrophy.
--- NOTE | 2018-05-06 21:09 | P.PN ---
Subjective Progress Note Date: 05/06/18 This patient is a 87-year-old right-handed white female who was seen in neurology consultation yesterday for change in mental status and confusion. Her neurological examination yesterday revealed evidence of some right-sided facial droop and weakness. She did undergo a emergent computed tomography scan of the brain yesterday which was reported as negative for any acute findings. She was sent for MRI of the brain today on 05/06/2018. MRI reveals 2 hyperintensities on diffusion weighted imaging which would be consistent with acute stroke involving the left centrum semiovale ovale. This is consistent with acute stroke syndrome for this patient. We have recommended that she be maintained on one baby aspirin daily for secondary stroke prevention. We would recommend a carotid Doppler ultrasound to be done if this has not yet been completed. Patient is resting comfortably and we did update her on the results of the MRI that was done today. Hopefully she will make a quick recovery as the areas of acute stroke or punctate in size and are not contributing to a large lobar stroke. She does have evidence of hypertensive urgency and her blood pressure today seems to be under better control. We will continue close neurological follow-up with the patient during this admission. Overall prognosis at this time remains guarded. Objective - Vital Signs Vital signs: Vital Signs Temp 98.7 F 05/06/18 13:00 Pulse 72 05/06/18 21:02 Resp 16 05/06/18 13:00 BP 164/71 05/06/18 13:00 Pulse Ox 92 L 05/06/18 13:50 Intake & Output 05/06/18 05/06/18 05/07/18 06:59 18:59 06:59 Intake Total 800 Balance 800 Weight 58.967 kg Intake: Oral 800 Other: Voiding Method Diaper Diaper # Voids 2 2 - Exam Physical examination: PHYSICAL EXAMINATION: Patient is resting comfortably in bed. VITAL SIGNS: Blood pressure is [164/71]. Heart rate is [72]. Respiration is [16] . Temperature is [98.7]. HEENT: Head is atraumatic, neck is supple, there were no carotid bruits. CHEST: Lungs are clear to auscultation and percussion. CARDIAC: S1, S2 normal rate and rhythm. There is no murmur. ABDOMEN: Soft and nontender. Bowel sounds are present. EXTREMITIES: There is no pedal edema. Peripheral pulses are present. Neurological examination: Patient's neurological examination is unchanged from yesterday. She has mild right facial droop and right hemiparesis. - Labs CBC & Chem 7: 18 08:19 18 08:19 Assessment and Plan (1) Acute ischemic left MCA stroke Current Visit: Yes Status: Acute Code(s): I63.512 - CEREB INFRC D/T UNSP OCCLS OR STENOS OF LEFT MID CEREB ART SNOMED Code(s): 750390298 (2) Cervical strain, acute Current Visit: Yes Status: Acute Code(s): S16.1XXA - STRAIN OF MUSCLE, FASCIA AND TENDON AT NECK LEVEL, INIT SNOMED Code(s): 412872195 (3) Hypertensive urgency Current Visit: Yes Status: Acute Code(s): I16.0 - HYPERTENSIVE URGENCY SNOMED Code(s): 326110944 (4) Acute anoxic encephalopathy Current Visit: No Status: Acute Code(s): G93.1 - ANOXIC BRAIN DAMAGE, NOT ELSEWHERE CLASSIFIED SNOMED Code(s): 95993220 Plan: This patient is a pleasant 87-year-old female who is seen in neurology follow- up today for possible acute left MCA stroke. Patient was able to complete MRI of the brain today which was reviewed with her. MRI reveals evidence of acute stroke involving the left centrum semiovale ovale on diffusion-weighted imaging. This would explain her neurological findings that were noted yesterday. At this time she should be maintained on one baby aspirin 81 mg daily for secondary stroke prevention. Would also continue close monitoring of her blood pressure which seems to be under better control today. We will await any further recommendations from physical therapy as to the need for ongoing subacute rehab at the time of discharge. Case was discussed at length today with the patient. She was updated on the results of the MRI today in detail. We will continue close neurological follow-up with the patient during this admission. Her overall prognosis at this time remains guarded.
--- NOTE | 2018-05-06 22:26 | PN ---
PROGRESS NOTE CHIEF COMPLAINT: Hypertension, CAD and mental status changes. HISTORY OF PRESENT ILLNESS: This lady is going down for an MRI. She remains intermittently confused. She is not vomiting any longer. PHYSICAL EXAM: Chest is clear. Cardiac exam is unchanged. Abdomen is soft, nontender. IMPRESSION: 1. Hypertension. 2. Mental status changes. 3. Encephalopathy. 4. Incontinence. PLAN: Continue to follow and await results of MRI. MMODL / IJN: [id number] /
--- NOTE | 2018-05-06 23:11 | CONS ---
CONSULTATION Patient is seen for renal failure. HISTORY OF PRESENT ILLNESS: The patient is an 87-year-old female who was admitted to the hospital on 04/30/2018 with the complaints off neck pain. The patient's blood pressure had also been running high. She stated she was feeling weak. The patient had not been taking her blood pressure medications at home prior to admission. Her serum creatinine was initially at 1.0 mg/dL, 2 days later it was at 2.07 and now it is down to 1.78. Blood pressure had dropped significantly with systolic as low as 95 mmHg on 05/02/2018. The patient denies use of any nonsteroidal anti-inflammatory agents. She is maintained on JASON inhibitors. PAST MEDICAL HISTORY: Hypertension, coronary artery disease, history of COPD, hyperlipidemia, history of MD, AAA, gout. PAST SURGICAL HISTORY: Cholecystectomy, coronary artery bypass surgery, cardiac catheterization, coronary stent placement, hysterectomy. SOCIAL HISTORY: Patient denies any smoking. No history of drug abuse or alcohol abuse. MEDICATIONS: Prior to admission included Coreg, Lipitor, Zestril, Pepcid, Medrol Dosepak, aspirin, Nitrostat. ALLERGIES: Include Bactrim, morphine, oxybutynin. REVIEW OF SYSTEMS: As per HPI. Other systems negative. Currently no ongoing diarrhea, fever, chills, chest pain, or shortness of breath. EXAMINATION: Patient is comfortable, awake. She is not in any acute distress. Blood pressure this morning was 179/76, heart rate of 72 per minute. She is afebrile. Examination of the heart S1, S2. Examination lungs bilateral breath sounds are heard. Abdomen is soft, nontender. Examination lower extremities shows no significant edema. QUALITY COMPLIANCE MANAGER exam shows patient is moving all 4 extremities. LABS: Sodium 138, potassium 5.1, BUN 41, serum creatinine 1.78, hemoglobin 10.6 g/dL. UA shows nitrite positive, WBCs 35, no protein, no blood. ASSESSMENT: 1. Acute kidney injury secondary to hypotension and hypoperfusion with significant drop in blood pressure post admission. Renal function is currently improving. May continue with the JASON inhibitors. I will check an ultrasound of the kidneys. Her UA does not show any evidence of blood or protein. 2. Urinary tract infection with urine culture growing E coli, maintained on amoxicillin. PLAN: Continue with JASON inhibitors. Continue IV fluids. Repeat labs in a.m. Check ultrasound of the kidneys. Thank you for this consultation. We will continue to follow the patient with you during her hospitalization. MMODL / IJN: [id number] /
--- NOTE | 2018-05-07 08:21 | US ---
EXAMINATION TYPE: US kidneys/renal and bladder DATE OF EXAM: 05/07/2018 COMPARISON: Previous study dated 07/24/2014 CLINICAL HISTORY: rf. Renal failure EXAM MEASUREMENTS: Right Kidney: 9.1 x 4.0 x 3.6 cm Left Kidney: 9.3 x 4.2 x 4.1 cm Right Kidney: cystic area mid = 1.2 x 0.8 x 0.9cm Left Kidney: cystic area upper pole = 1.5 x 1.1 x 1.4cm, limited evaluation 0f lower pole due to over lying bowel content Bladder: not fully distended Bilateral Jets seen: no There is no evidence of hydronephrosis. IMPRESSION: 1. SIMPLE APPEARING BILATERAL RENAL CYSTS.. 2. NO EVIDENCE OF HYDRONEPHROSIS.
[2018-05-07] MEDS: ALBUTEROL NEBULIZED 2.5 MG/3 ML INHALATION SCH ×4 (08:55→20:52)
[2018-05-07] MEDS: LACTATED RINGERS 1,000 ML IV SCH (09:10)
[2018-05-07] MEDS: CARVEDILOL 12.5 MG TAB PO SCH ×2 (09:21→18:02)
[2018-05-07] MEDS: AMOXICILLIN 250 MG CAP PO SCH ×4 (09:21→23:50)
[2018-05-07] MEDS: LISINOPRIL 20 MG TAB PO SCH (09:21)
[2018-05-07] MEDS: CHLORTHALIDONE 25 MG TAB PO SCH (09:21)
[2018-05-07] MEDS: ASPIRIN 81 MG PO SCH (09:21)
[2018-05-07 10:29] LABS: Calcium 8.4 mg/dL (8.4-10.2); Potassium 4.7 mmol/L (3.5-5.1)
--- NOTE | 2018-05-07 13:25 | PN ---
PROGRESS NOTE CHIEF COMPLAINT: Mental status changes. HISTORY OF PRESENT ILLNESS: This lady is doing fairly well. She is a little bit lethargic but seems to be a little bit more alert and oriented today. So far has indicated no SAFETY ASSISTANT pathology. PHYSICAL EXAM: Chest is clear. Cardiac exam is normal. The abdomen is soft, nontender. IMPRESSION: 1. Hypertension. 2. Coronary artery disease. 3. Mental status changes and delirium. PLAN: Continue to monitor and wait for any further workup from Neurology and then plan. MMODL / IJN: [id number] /
--- NOTE | 2018-05-07 15:10 | PN ---
PROGRESS NOTE Patient is seen for followup for acute kidney injury, currently lying in bed. Patient is comfortable. She denies any significant complaints. Her blood pressure was noted to be high this morning. Heart rate 68 per minute, blood pressure was 161/69, and later we have a reading of 182/76. Examination of the heart: S1, S2. Examination of the lungs: Bilateral breath sounds are heard. Abdomen is soft, nontender. Examination lower extremities showed no significant edema. LABS: Show sodium of 138, potassium 4.7, chloride 99, BUN 34, serum creatinine 1.29. Hemoglobin was 10.6 on 05/04. ASSESSMENT: 1. Acute kidney injury, prerenal, currently improved with IV hydration, status post IV fluids. Continue with the JASON inhibitors. 2. Urinary tract infection with urine culture growing E coli, maintained on amoxicillin. 3. 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 PLAN: Encourage increased oral intake. Discontinue IV fluids. Continue with the JASON inhibitors. Repeat labs in a.m. Possible discharge tomorrow. MMODL / IJN: [id number] /
[2018-05-07] MEDS: ACETAMINOPHEN TAB 325 MG TAB PO PRN (21:18)
[2018-05-08] MEDS: ALBUTEROL NEBULIZED 2.5 MG/3 ML INHALATION SCH ×4 (08:16→20:06)
[2018-05-08] MEDS: CHLORTHALIDONE 25 MG TAB PO SCH (08:25)
[2018-05-08] MEDS: LISINOPRIL 20 MG TAB PO SCH (08:25)
[2018-05-08] MEDS: CARVEDILOL 12.5 MG TAB PO SCH ×2 (08:25→17:56)
[2018-05-08] MEDS: ASPIRIN 81 MG PO SCH (08:25)
[2018-05-08] MEDS: AMOXICILLIN 250 MG CAP PO SCH ×2 (09:15→17:56)
--- NOTE | 2018-05-08 18:05 | PN ---
PROGRESS NOTE Patient is seen for followup for acute kidney injury. Patient is currently lying in bed. She is comfortable. She is not in any acute distress. Renal function continues to improve. Her serum creatinine down to 1.29 yesterday. We do not have any labs from today. Patient is maintained on JASON inhibitors. She is off of IV fluids. PHYSICAL EXAMINATION: Blood pressure this morning was 108/53, heart rate of 51 per minute. She is afebrile. Examination of the heart: S1, S2. Examination of the lungs: Bilateral breath sounds are heard. Abdomen is soft, nontender. Examination of lower extremities shows no significant edema. HOUSEMAID exam is grossly intact. LABS: Show sodium 138, potassium 4.7, BUN 34, serum creatinine 1.29. ASSESSMENT: 1. Acute kidney injury, prerenal, currently significantly improved. Repeat labs in a.m. IV fluids have been discontinued. Continue to encourage increased oral intake. 2. Intravascular volume depletion, currently improved. 3. Hypertension. Blood pressure is controlled. May continue with the JASON inhibitors. 4. Urinary tract infection with urine culture growing E coli, maintained on amoxicillin. 5. 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 Ultrasound of the kidneys done yesterday was unremarkable. There is simple appearing bilateral renal cysts noted. PLAN: Repeat labs in a.m. if patient is not discharged. MMODL / IJN: [id number] /
--- NOTE | 2018-05-08 19:11 | PN ---
PROGRESS NOTE DATE OF SERVICE: 05/08/2018 CHIEF COMPLAINT: Persistent lethargy and confusion. HISTORY OF PRESENT ILLNESS: This lady continues to be lethargic and somewhat nauseated and confused at some times. So far, workup has been negative. PHYSICAL EXAM: Head, ears, eyes, nose, mouth, and throat are normal. Cardiac exam is normal. Chest is clear. IMPRESSION: ? anoxic brain injury with confusion, lethargy and nausea. PLAN: Continue to monitor and decision will have to be made soon with regard to discharge plan. MMODL / IJN: [id number] /
[2018-05-09] MEDS: AMOXICILLIN 250 MG CAP PO SCH ×4 (00:24→23:08)
[2018-05-09] MEDS: ALBUTEROL NEBULIZED 2.5 MG/3 ML INHALATION SCH ×4 (07:16→19:48)
[2018-05-09] MEDS: CHLORTHALIDONE 25 MG TAB PO SCH (08:23)
[2018-05-09] MEDS: LISINOPRIL 20 MG TAB PO SCH (08:23)
[2018-05-09] MEDS: CARVEDILOL 12.5 MG TAB PO SCH ×2 (08:23→15:30)
[2018-05-09] MEDS: ASPIRIN 81 MG PO SCH (08:24)
[2018-05-09 11:54] LABS: Calcium 8.3 mg/dL (8.4-10.2); Potassium 4.5 mmol/L (3.5-5.1)
--- NOTE | 2018-05-09 21:53 | PN ---
PROGRESS NOTE Patient is seen for followup for acute kidney injury which is mainly prerenal. The patient was maintained on IV fluids. Her creatinine had improved to 1.29, however, this morning it is up to 1.5. Patient has been voiding. She is maintained on Zestril at 40 mg daily. Blood pressure has not been significantly low. EXAMINATION: This morning, blood pressure was 158/53, heart rate 64 per minute. She is afebrile. Examination of the heart S1, S2. Examination of lungs bilateral breath sounds are heard. Abdomen is soft, nontender. Examination of lower extremities shows no evidence of edema. BELT SANDER STONE exam is grossly intact. LABS SHOW: Sodium 139, potassium 4.5, chloride 101, CO2 33, BUN 29, serum creatinine 1.52. ASSESSMENT: 1. Acute kidney injury. Prerenal. Initially improved. Now serum creatinine is high again. We need to rule out urine retention. Patient is also maintained on a good dose of JASON inhibitors. The dose of which may need to be decreased. Her blood pressure is slightly on the higher side. We can add calcium channel blockers or increase the Coreg if her blood pressure remains elevated. 2. Hypertension. Decrease JASON inhibitors. Consider increasing Coreg if blood pressure is further elevated. 3. Chronic kidney disease stage III, secondary to nephrosclerosis with previous creatinine about 1.02. 4. Bilateral renal cysts, simple appearing. 5. Urinary tract infection with urine culture growing E coli, maintained on amoxicillin. PLAN: Decrease lisinopril. Check postvoid residual. Repeat labs in a.m. We can increase the Coreg if blood pressure remains elevated. MMODL / IJN: [id number] /
[2018-05-10] MEDS: ALBUTEROL NEBULIZED 2.5 MG/3 ML INHALATION SCH ×4 (06:50→21:42)
[2018-05-10] MEDS: AMOXICILLIN 250 MG CAP PO SCH ×3 (08:56→23:49)
[2018-05-10] MEDS: CHLORTHALIDONE 25 MG TAB PO SCH (08:57)
[2018-05-10] MEDS: ASPIRIN 81 MG PO SCH (08:58)
[2018-05-10] MEDS: LISINOPRIL 20 MG TAB PO SCH (09:00)
[2018-05-10] MEDS: CARVEDILOL 12.5 MG TAB PO SCH ×2 (09:00→17:27)
--- NOTE | 2018-05-10 17:28 | PN ---
PROGRESS NOTE The patient is seen for followup for acute kidney injury. Her renal function has improved significantly and creatinine was down to 1.79. However, labs from yesterday showed a serum creatinine back up to 1.5. The patient has been off of IV fluids. She is encouraged to increase oral intake. She also had a bladder scan done which did not reveal significant urine retention. There was concern for urine retention as the patient has been incontinent. PHYSICAL EXAMINATION: Blood pressure was 161/67, heart rate 61 per minute. Patient is afebrile. Examination of the heart: S1, S2. Examination of the lungs: Bilateral breath sounds are heard. Abdomen is soft, nontender. Exam lower extremities shows no significant edema. LABS: Are not available from today. Yesterday, serum creatinine was 1.5, BUN of 29. ASSESSMENT: 1. Acute kidney injury mainly prerenal currently improved. The patient has been off of IV fluids and creatinine went up a little bit to 1.5 from 1.29 two days before. She is encouraged to increase her fluids. The patient has been incontinent and bladder scan has been ordered to rule out urine retention. 2. Urine tract infection with urine culture growing E coli. 3. 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 4. Bilateral renal cysts, benign appearing. 5. Hypertension. Dose of JASON inhibitor has been decreased and we will need to continue with the lower dose upon discharge as well. We can increase the Coreg to 25 mg b.i.d. since the Zestril has been decreased. PLAN: Increase Coreg to 25 mg b.i.d. Continue with the lower dose of Zestril at 20 mg daily, and the patient will need repeat labs to be done as outpatient if she is discharged today. She should follow up as outpatient for CKD and acute kidney injury. MMODL / IJN: [id number] /
--- NOTE | 2018-05-10 18:49 | PN ---
PROGRESS NOTE DATE OF SERVICE: 05/09/2018 CHIEF COMPLAINT: Hypertension, CAD, nausea and lethargy. HISTORY OF PRESENT ILLNESS: This lady is doing much better. The nausea and vomiting have stopped and she is becoming more awake and alert. PHYSICAL EXAMINATION: She remains pale. Chest is clear. Cardiac exam is normal. The abdomen is soft and nontender. IMPRESSION: 1. Malignant hypertension. 2. Coronary artery disease. 3. Unexplained lethargy and nausea, improving. PLAN: Start to think about discharging home. MMODL / IJN: [id number] /
[2018-05-10 21:13] VITALS: RESP 18
--- NOTE | 2018-05-10 23:36 | DS ---
DISCHARGE SUMMARY CHIEF COMPLAINT: Malignant hypertension. HISTORY OF PRESENT ILLNESS AND PHYSICAL EXAM: Details of this lady's history and physical can be found in the initial workup. COURSE IN HOSPITAL: After admission, she was placed on bedrest and started on IV and oral medications to bring blood pressure under control, which was done successfully. However, then she began to become more and lethargic, and started to develop fairly persistent nausea and vomiting. She had no abdominal pain, fever and chills, diarrhea, hematochezia, etc. Eventually the nausea began to subside and she became a little bit more alert and started to eat. On the , it was felt that she is able to be discharged. She thought she could handle things at home and did not want to go to rehab. She will be sent home on activity as tolerated and will set her up with home care. FINAL DIAGNOSES: 1. Malignant hypertension. 2. Coronary artery disease. 3. Delirium. 4. Unexplained nausea and vomiting. 5. Generalized weakness. PLAN: Home today with home care to be lined up for tomorrow. MMERIK / LUISN: [id number] /
[2018-05-11 06:11] VITALS: BP 109/57; TEMP 97
[2018-05-11] MEDS: ALBUTEROL NEBULIZED 2.5 MG/3 ML INHALATION SCH ×2 (07:26→11:50)
[2018-05-11 07:29] VITALS: PULSE 64
[2018-05-11] MEDS: CARVEDILOL 12.5 MG TAB PO SCH (08:19)
[2018-05-11] MEDS: ASPIRIN 81 MG PO SCH (08:19)
[2018-05-11] MEDS: CHLORTHALIDONE 25 MG TAB PO SCH (08:19)
[2018-05-11] MEDS: LISINOPRIL 20 MG TAB PO SCH (08:19)
[2018-05-11] MEDS: AMOXICILLIN 250 MG CAP PO SCH (08:19)
[2018-05-11 10:50] VITALS: BMI 24.3
[2018-05-11 11:22] LABS: Calcium 8.5 mg/dL (8.4-10.2); Potassium 4.8 mmol/L (3.5-5.1)
--- NOTE | 2018-05-11 18:23 | PN ---
PROGRESS NOTE The patient is seen for followup for acute kidney injury which was mainly prerenal and renal function improved with creatinine at 1.29. Following that, it did go up to 1.52, but now back down to 1.3. The patient denies any significant complaints. She was waiting for a bed to rehab facility. EXAMINATION: Today, blood pressure was 109/57, heart rate 74 per minute, patient is afebrile. Examination of the heart S1, S2. Examination of the lungs bilateral breath sounds are heard. Abdomen is soft, nontender. Examination of the lower extremities shows no evidence of edema. VOLTAGE INSPECTOR exam is grossly intact. LABORATORY DATA: Show sodium 138, potassium 4.8, BUN 25, serum creatinine 1.3. ASSESSMENT: 1. Acute kidney injury, prerenal, currently improved. IV fluids have been discontinued. The patient has been eating well. She has oral intake. No evidence of urine retention. 2. Urinary tract infection with urine culture growing E coli, status post amoxicillin, currently much improved. 3. Mental status changes secondary to urinary tract infection, now back to baseline. 4. Hypertension, fairly well controlled. PLAN: Patient is stable for discharge from Nephrology standpoint. Maintain good oral intake, particularly fluids. MMODL / IJN: [id number] /
--- NOTE | 2018-05-15 13:42 | CDI ---
Last Revision, July 2017 Documentation Clarification Form Date: 05/15/18 From: Jackie Burgos Phone: If you have a question regarding this query, please contact Brianda Shook at [phone] between 8am and 5pm. Admit Date: 05/03/2018 10:25:00 AM Patient Name: Shey Farfan Visit Number: [id number] Discharge Date: 05/11/18 ATTENTION: The Clinical Documentation Specialists (CDI) and [facility] Coding Staff appreciate your assistance in clarifying documentation. Please respond to the clarification below the line at the bottom and electronically sign. The CDI & [facility] Coding staff will review the response and follow-up if needed. Please note: Queries are made part of the Legal Health Record. If you have any questions, please contact the author of this message via ITS. Jose Cano MD Acute ischemic left MCA stroke is documented as a diagnosis in the Neurology consult note and 05/06 progress note. History/risk factors: Patient presented to the ED with hypertensive urgency. Patient has a history of CAD, previous MS and CKD III Clinical Indicators: Patient started developing confusion and disorientation on 05/05 and had some slurred speech as well as right facial droop with a righ pronator drift. CT: Cerebral atrophy and chronic small vessel ischemia. No acute intracranial abnormality. MRI/MRA: Revealed 2 hyperintensities on diffusion weighted imaging which could be consistent with acute stroke involoving the left centrum semiovale ovale. In your professional opinion, please clarify if the acute ischemic stroke was Ruled In Ruled Out Other Unable to determine MTDD
--- NOTE | 2018-05-15 21:48 | MISC ---
MISCELLANOUS REPORT QUERY: Acute ischemic stroke was ruled out. MMMARTAL / IJN: [id number] /
--- NOTE | 2018-05-17 15:47 | PN ---
PROGRESS NOTE DATE OF SERVICE: 05/11/2018 CHIEF COMPLAINT: Hypertension, lethargy and delirium. HISTORY OF PRESENT ILLNESS: This lady is slowly improving. She is becoming more awake and alert each day. Nausea and vomiting have disappeared. PHYSICAL EXAM: Cardiac exam is normal. Chest is clear. IMPRESSION: 1. Hypertensive urgency. 2. Encephalopathy. 3. Delirium-clearing. PLAN: Increase activity and will try to either discharge her to rehab facility or the home. MMODL / IJN: [id number] /
== END 2018-05-11 11:30 | DRG 392 ==
LOC: EC 10:00 → 5MS5E 12:17 → OBSVTOIN 05-03 10:25
PROVIDERS: ADMIT Family Medicine; ATTEND Family Medicine
DX: R11.2 Nausea with vomiting, unspecified (principal); N17.9 Acute kidney failure, unspecified; N39.0 Urinary tract infection, site not specified; I13.0 Hypertensive heart and chronic kidney disease with heart failure and stage 1 through stage 4 chronic kidney disease, or unspecified chronic kidney disease; I16.0 Hypertensive urgency; I95.9 Hypotension, unspecified; E86.9 Volume depletion, unspecified; R06.03 Acute respiratory distress; D64.9 Anemia, unspecified; B96.20 Unspecified Escherichia coli [E. coli] as the cause of diseases classified elsewhere; E78.5 Hyperlipidemia, unspecified; I25.10 Atherosclerotic heart disease of native coronary artery without angina pectoris; I25.2 Old myocardial infarction; I49.3 Ventricular premature depolarization; J44.9 Chronic obstructive pulmonary disease, unspecified; N18.3 Chronic kidney disease, stage 3 (moderate); N28.1 Cyst of kidney, acquired; R32 Unspecified urinary incontinence; S16.1XXA Strain of muscle, fascia and tendon at neck level, initial encounter; I71.4 Abdominal aortic aneurysm, without rupture; M10.9 Gout, unspecified; Z95.1 Presence of aortocoronary bypass graft; Z90.710 Acquired absence of both cervix and uterus; Z79.82 Long term (current) use of aspirin; Z79.51 Long term (current) use of inhaled steroids; Z79.899 Other long term (current) drug therapy; Z88.1 Allergy status to other antibiotic agents; Z88.2 Allergy status to sulfonamides; Z88.8 Allergy status to other drugs, medicaments and biological substances; Z90.49 Acquired absence of other specified parts of digestive tract; Z98.42 Cataract extraction status, left eye; Z98.41 Cataract extraction status, right eye; Z96.1 Presence of intraocular lens; Z82.49 Family history of ischemic heart disease and other diseases of the circulatory system
CPT/HCPCS: 36415; 70450; 70551; 71046; 76770; 80048; 80053; 81001; 82550; 82553; 83735; 83880; 84484; 85025; 85610; 85730; 87077; 87086; 87186; 93005; 94640; 94760; 95819; 96374; 96375; 99284

== ENCOUNTER 2018-12-12 14:53 | Inpatient (IN) | payer MEDICARE ==
[2018-12-12] MEDS ORDERED: SODIUM CHLORIDE 0.9% 500 ML 500 ML IV STA (15:12)
[2018-12-12] MEDS ORDERED: IPRATROPIUM-ALBUTEROL 3 ML NEB INHALATION STA (15:12)
--- NOTE | 2018-12-12 15:14 | ED ---
General Adult HPI - General Chief complaint: Shortness of Breath Stated complaint: KATY, weakness Time Seen by Provider: 12/12/18 15:06 Source: patient, family, RN notes reviewed Mode of arrival: wheelchair Limitations: no limitations - History of Present Illness Initial comments: 88-year-old female presents generalized weakness, dyspnea. Patient is on home oxygen however she does not wear this according to her family members. She does not like to wear her oxygen. She's had progressive dyspnea over the past several weeks. She's had increasing generalized weakness and is unable to make an appointment to see her primary care physician. Denies fever. Denies nausea or vomiting. Denies chest pain. No pain complaints. No cough. She has histor y of both COPD and heart failure. - Related Data Home Medications Medication Instructions Recorded Confirmed Aspirin [Adult Low Dose Aspirin EC] 81 mg PO HS 02/15/17 05/02/18 Nitroglycerin Sl Tabs [Nitrostat] 0.4 mg SUBLINGUAL Q5M PRN 02/15/17 05/02/18 Previous Rx's Medication Instructions Recorded Atorvastatin [Lipitor] 80 mg PO HS #30 tab 04/19/17 Famotidine [Pepcid] 20 mg PO BID #10 tablet 01/29/18 Albuterol Nebulized [Ventolin 2.5 mg INHALATION RT-QID #120 nebu 05/10/18 Nebulized] Amoxicillin 250 mg PO Q8HR #30 cap 05/10/18 Carvedilol [Coreg*] 25 mg PO BID-W/MEALS tab 05/11/18 Lisinopril [Zestril] 20 mg PO DAILY tab 05/11/18 Allergies Allergy/AdvReac Type Severity Reaction Status Date / Time oxybutynin Allergy SEE Verified 12/12/18 15:03 COMMENTS sulfamethoxazole Allergy SEE Verified 12/12/18 15:03 [From Bactrim] COMMENTS trimethoprim [From Bactrim] Allergy SEE Verified 12/12/18 15:03 COMMENTS morphine AdvReac Confusion Verified 12/12/18 15:03 Review of Systems ROS Statement: Those systems with pertinent positive or pertinent negative responses have been documented in the HPI. ROS Other: All systems not noted in ROS Statement are negative. Past Medical History Past Medical History: Coronary Artery Disease (CAD), COPD, Hyperlipidemia, Hypertension, Myocardial Infarction (NH) Additional Past Medical History / Comment(s): Coronary artery disease, previous bypass surgery ten years ago, hypertension, hyperlipidemia, COPD maintenance Symbicort on outpatient basis, gout, AAA NOT SURE OF SIZE Last Myocardial Infarction Date:: 2016 History of Any Multi-Drug Resistant Organisms: None Reported Past Surgical History: Cholecystectomy, Coronary Bypass/CABG, Heart Catheterization With Stent, Hysterectomy Additional Past Surgical History / Comment(s): Coronary artery bypass surgery- triple, cardiac catheterization and angioplasty and stenting of the saphenous vein graft to obtuse marginal branch.CATARACTS, "stent in groin" Past Anesthesia/Blood Transfusion Reactions: Motion Sickness Additional Past Anesthesia/Blood Transfusion Reaction / Comment(s): Pt states she has received blood without reaction. Date of Last Stent Placement:: unk Past Psychological History: No Psychological Hx Reported Smoking Status: Never smoker Past Alcohol Use History: None Reported Past Drug Use History: None Reported - Past Family History Father Family Medical History: Coronary Artery Disease (CAD), Myocardial Infarction (NH) Additional Family Medical History / Comment(s): Father of a NH at the age of 72 yrs. Mother Family Medical History: No Reported History Additional Family Medical History / Comment(s): Pt states her mother was healthy and at the age of 84 yrs. General Exam Limitations: no limitations General appearance: alert, in no apparent distress Head exam: Present: atraumatic, normocephalic Eye exam: Present: normal appearance, PERRL ENT exam: Present: normal exam Neck exam: Present: normal inspection, meningismus Respiratory exam: Present: respiratory distress (Mild tachypnea). Absent: wheezes, rhonchi Cardiovascular Exam: Present: normal rhythm, bradycardia GI/Abdominal exam: Present: soft. Absent: distended, tenderness Extremities exam: Present: normal inspection, normal capillary refill. Absent: pedal edema Neurological exam: Present: alert, oriented X3, CN II-XII intact. Absent: motor sensory deficit Skin exam: Present: warm, dry, intact. Absent: cyanosis, diaphoretic Course Vital Signs 12/12/18 12/12/18 12/12/18 14:59 16:06 16:14 Temperature 97.6 F Pulse Rate 52 L 52 L 53 L Respiratory 20 Rate Blood Pressure 72/40 144/96 O2 Sat by Pulse 93 L 97 Oximetry 12/12/18 12/12/18 16:21 16:36 Temperature Pulse Rate 54 L 54 L Respiratory Rate Blood Pressure O2 Sat by Pulse Oximetry EKG Findings - EKG Comments: EKG Findings:: Marked sinus bradycardia rate 44, AL interval 208, QRS duration 112, QTC 403, no ST segment changes, concerning for hyperkalemia Medical Decision Making - Medical Decision Making 88 yo presenting for evaluation of dyspnea, patient found to be bradycardic. History of CKD. There is concern for hyperkalemia, laboratory testing does reveal potassium 7.7, CO2 of 16, creatinine 6.38 from baseline 1.3. Patient has normal CBC, chest x-ray shows COPD with no focal pneumonia, no CHF. Patient is given usual treatment for hyperkalemia, 1.5 L normal saline, Kayexalate, calcium gluconate, albuterol, insulin, dextrose, sodium bicarbonate. Case is discussed with both the pulmonary spot sprayer and the account manager education. Dr. Boo recommend sodium bicarbonate drip. Potassium will be rechecked in 3 hours. Patient will be admitted to the ICU for close monitoring. Marcelino catheter will be placed for strict I's and O's Diagnosis: Acute renal failure, hyperkalemia, bradycardia. - Lab Data Result diagrams: 12/12/18 15:25 12/12/18 15:25 Lab Results 12/12/18 12/12/18 12/12/18 Range/Units 15:25 15:25 15:25 WBC 6.9 (3.8-10.6) k/uL RBC 4.00 (3.80-5.40) m/uL Hgb 11.4 (11.4-16.0) gm/dL Hct 37.1 (34.0-46.0) % MCV 92.6 (80.0-100.0) fL MCH 28.5 (25.0-35.0) pg MCHC 30.8 L (31.0-37.0) g/dL RDW 16.4 H (11.5-15.5) % Plt Count 159 (150-450) k/uL Neutrophils % 70 % Lymphocytes % 19 % Monocytes % 4 % Eosinophils % 4 % Basophils % 1 % Neutrophils # 4.8 (1.3-7.7) k/uL Lymphocytes # 1.3 (1.0-4.8) k/uL Monocytes # 0.3 (0-1.0) k/uL Eosinophils # 0.3 (0-0.7) k/uL Basophils # 0.1 (0-0.2) k/uL Hypochromasia Marked Anisocytosis Slight PT (9.0-12.0) sec INR (<1.2) APTT (22.0-30.0) sec Sodium 139 (137-145) mmol/L Potassium 7.7 H* (3.5-5.1) mmol/L Chloride 109 H (98-107) mmol/L Carbon Dioxide 16 L (22-30) mmol/L Anion Gap 14 mmol/L BUN 114 H* (7-17) mg/dL Creatinine 6.38 H (0.52-1.04) mg/dL Est GFR (CKD-EPI)AfAm 6 (>60 ml/min/1.73 sqM) Est GFR (CKD-EPI)NonAf 5 (>60 ml/min/1.73 sqM) Glucose 80 (74-99) mg/dL Calcium 8.7 (8.4-10.2) mg/dL Magnesium 2.2 (1.6-2.3) mg/dL Total Bilirubin 0.5 (0.2-1.3) mg/dL AST 16 (14-36) U/L ALT 24 (9-52) U/L Alkaline Phosphatase 70 (38-126) U/L Troponin I (0.000-0.034) ng/mL NT-Pro-B Natriuret Pep 2180 pg/mL Total Protein 7.3 (6.3-8.2) g/dL Albumin 3.7 (3.5-5.0) g/dL 12/12/18 12/12/18 Range/Units 15:25 15:25 WBC (3.8-10.6) k/uL RBC (3.80-5.40) m/uL Hgb (11.4-16.0) gm/dL Hct (34.0-46.0) % MCV (80.0-100.0) fL MCH (25.0-35.0) pg MCHC (31.0-37.0) g/dL RDW (11.5-15.5) % Plt Count (150-450) k/uL Neutrophils % % Lymphocytes % % Monocytes % % Eosinophils % % Basophils % % Neutrophils # (1.3-7.7) k/uL Lymphocytes # (1.0-4.8) k/uL Monocytes # (0-1.0) k/uL Eosinophils # (0-0.7) k/uL Basophils # (0-0.2) k/uL Hypochromasia Anisocytosis PT 10.9 (9.0-12.0) sec INR 1.0 (<1.2) APTT 25.1 (22.0-30.0) sec Sodium (137-145) mmol/L Potassium (3.5-5.1) mmol/L Chloride (98-107) mmol/L Carbon Dioxide (22-30) mmol/L Anion Gap mmol/L BUN (7-17) mg/dL Creatinine (0.52-1.04) mg/dL Est GFR (CKD-EPI)AfAm (>60 ml/min/1.73 sqM) Est GFR (CKD-EPI)NonAf (>60 ml/min/1.73 sqM) Glucose (74-99) mg/dL Calcium (8.4-10.2) mg/dL Magnesium (1.6-2.3) mg/dL Total Bilirubin (0.2-1.3) mg/dL AST (14-36) U/L ALT (9-52) U/L Alkaline Phosphatase (38-126) U/L Troponin I <0.012 (0.000-0.034) ng/mL NT-Pro-B Natriuret Pep pg/mL Total Protein (6.3-8.2) g/dL Albumin (3.5-5.0) g/dL Critical Care Time Critical Care Time: Yes Total Critical Care Time: 35 Disposition Clinical Impression: Hyperkalemia, Acute renal failure, Bradycardia Disposition: ADMITTED IP TO THIS [facility] Condition: Serious Is patient prescribed a controlled substance at d/c from ED?: No Referrals: Jose Quintana MD [Primary Care Provider] - 1-2 days Decision to Admit Reason: Admit from EC Decision Date: 12/12/18 Decision Time: 16:49
[2018-12-12 15:55] LABS: Anisocytosis Slight; Basophils # (A) 0.1 k/uL (0-0.2); Basophils % (A) 1 %; Eosinophils # (A) 0.3 k/uL (0-0.7); Eosinophils % (A) 4 %; HCT 37.1 % (34.0-46.0); HGB 11.4 gm/dL (11.4-16.0); Hypochromasia Marked; Lymphocytes # (A) 1.3 k/uL (1.0-4.8); Lymphocytes % (A) 19 %; MCH 28.5 pg (25.0-35.0); MCHC 30.8 g/dL (31.0-37.0); MCV 92.6 fL (80.0-100.0); Mean Platelet Volume 9.3; Monocytes # (A) 0.3 k/uL (0-1.0); Monocytes % (A) 4 %; Neutrophils # (A) 4.8 k/uL (1.3-7.7); Neutrophils % (A) 70 %; Platelet Count 159 k/uL (150-450); RDW 16.4 % (11.5-15.5); WBC 6.9 k/uL (3.8-10.6)
[2018-12-12 16:01] LABS: Albumin 3.7 g/dL (3.5-5.0); Calcium 8.7 mg/dL (8.4-10.2); Magnesium 2.2 mg/dL (1.6-2.3); Total Bilirubin 0.5 mg/dL (0.2-1.3); Total Protein 7.3 g/dL (6.3-8.2)
[2018-12-12 16:05] LABS: Partial Thromboplastin Time 25.1 sec (22.0-30.0); Potassium 7.7 mmol/L (3.5-5.1); Prothrombin Time 10.9 sec (9.0-12.0)
[2018-12-12] MEDS ORDERED: CALCIUM GLUCONATE 1 GM in SODIUM CHLORIDE 0.9% 100 ML IVPB ONE ×2 (16:16→21:00)
[2018-12-12] MEDS ORDERED: SODIUM BICARB 8.4% 50 ML SYR (1 MEQ/ML) IV ONE (16:16)
[2018-12-12] MEDS ORDERED: DEXTROSE 50%-WATER 50 ML SYRINGE IVP ONE (16:16)
[2018-12-12] MEDS ORDERED: INSULIN REGULAR 100 UNIT/ML VIAL IV ONE ×2 (16:16→20:42)
[2018-12-12] MEDS ORDERED: SODIUM POLYSTYRENE SULFONATE 15 GM/60 ML BOTTLE PO ONE (16:16)
[2018-12-12] MEDS ORDERED: SODIUM CHLORIDE 0.9% 500 ML 500 ML IV ONE ×2 (16:17→16:38)
--- NOTE | 2018-12-12 16:19 | XR ---
EXAMINATION TYPE: XR chest 2V DATE OF EXAM: 12/12/2018 COMPARISON: 05/05/2018 chest x-ray and CT chest dated 04/15/2017 HISTORY: Shortness of breath TECHNIQUE: Frontal and lateral views of the chest are obtained. FINDINGS: There is no focal air space opacity, pleural effusion, or pneumothorax seen. Post CABG georges nges are seen of the chest. Epicardial pacing leads are noted. Median sternotomy wires are seen. Righ t superior mediastinal surgical clips are also noted. Heart is enlarged. Calcified right basilar pulm onary nodule is seen. There is tortuosity of the descending thoracic aorta. Diffuse osseous deminera lization and mild multilevel degenerative changes of the spine are noted. Flattening of the hemidiaph ragms and pulmonary hyperinflation relates underlying COPD. The osseous structures are intact. IMPRESSION: COPD, cardiomegaly, postoperative changes the chest, and calcified benign right basilar granuloma. No acute cardiac pulmonary process.
[2018-12-12] MEDS ORDERED: SODIUM CHLORIDE 0.9% 1,000 ML IV SCH (16:30)
[2018-12-12] MEDS ORDERED: NALOXONE 0.4 MG/ML 1 ML VIAL IV PRN (16:35)
[2018-12-12 18:19] LABS: Glucose,Whole Blood 91 mg/dL (75-99)
[2018-12-12 18:52] LABS: Calcium 8.2 mg/dL (8.4-10.2)
[2018-12-12] MEDS: DEXTROSE 5% IN WATER 1,000 ML with SODIUM BICARB (1 MEQ/ML) 150 ML IV SCH (18:54)
[2018-12-12 19:19] LABS: Potassium 6.4 mmol/L (3.5-5.1)
[2018-12-12 19:31] LABS: Glucose,Whole Blood 90 mg/dL (75-99)
[2018-12-12 20:09] LABS: Calcium 8.1 mg/dL (8.4-10.2)
[2018-12-12 20:29] LABS: Potassium 6.4 mmol/L (3.5-5.1)
[2018-12-12] MEDS ORDERED: DEXTROSE 50%-WATER 50 ML SYRINGE IVP STA (20:42)
[2018-12-12] MEDS ORDERED: SODIUM BICARB 8.4% 50 ML SYR (1 MEQ/ML) IV STA (20:44)
[2018-12-12] MEDS ORDERED: SODIUM CHLORIDE 0.9% 1,000 ML IV ONE (20:46)
[2018-12-12 21:35] LABS: Glucose,Whole Blood 107 mg/dL (75-99)
[2018-12-13 01:14] LABS: Anisocytosis Slight; Basophils % (A) 1 %; Eosinophils # (A) 0.3 k/uL (0-0.7); Eosinophils % (A) 3 %; HCT 33.6 % (34.0-46.0); Hypochromasia Marked; Lymphocytes # (A) 1.1 k/uL (1.0-4.8); Lymphocytes % (A) 14 %; MCH 27.8 pg (25.0-35.0); MCHC 29.8 g/dL (31.0-37.0); MCV 93.5 fL (80.0-100.0); Mean Platelet Volume 8.6; Monocytes # (A) 0.5 k/uL (0-1.0); Monocytes % (A) 6 %; Neutrophils # (A) 5.9 k/uL (1.3-7.7); Neutrophils % (A) 74 %; RBC 3.59 m/uL (3.80-5.40); RDW 16.3 % (11.5-15.5); WBC 7.9 k/uL (3.8-10.6)
[2018-12-13 02:03] LABS: Platelet Count 93 k/uL (150-450)
[2018-12-13 02:24] LABS: Appearance,Urine Clear (Clear); Bacteria,Urine Rare /hpf; Bilirubin,Urine Negative (Negative); Blood,Urine Moderate (Negative); Color,Urine Light Yellow; Glucose,Urine (UA) Negative (Negative); Hyaline Casts,Urine 9 /lpf (0-2); Ketones,Urine Negative (Negative); Leukocyte Esterase,Urine Large (Negative); Mucus,Urine Rare /hpf; Nitrite,Urine Negative (Negative); Protein,Urine Trace (Negative); RBC,Urine 161 /hpf (0-5); Specific Gravity,Urine 1.009 (1.001-1.035); Squamous Epithelial Cell,Urine <1 /hpf (0-4); Urobilinogen,Urine <2.0 mg/dL (<2.0); WBC,Urine 67 /hpf (0-5)
[2018-12-13 02:54] LABS: Anisocytosis Slight; Basophils # (A) 0.1 k/uL (0-0.2); Basophils % (A) 1 %; Eosinophils # (A) 0.3 k/uL (0-0.7); Eosinophils % (A) 4 %; HCT 33.4 % (34.0-46.0); HGB 10.2 gm/dL (11.4-16.0); Hypochromasia Marked; Lymphocytes # (A) 1.1 k/uL (1.0-4.8); Lymphocytes % (A) 15 %; MCH 28.7 pg (25.0-35.0); MCHC 30.6 g/dL (31.0-37.0); MCV 93.9 fL (80.0-100.0); Mean Platelet Volume 9.1; Monocytes # (A) 0.5 k/uL (0-1.0); Monocytes % (A) 6 %; Neutrophils # (A) 5.7 k/uL (1.3-7.7); Neutrophils % (A) 73 %; Platelet Count 134 k/uL (150-450); RBC 3.56 m/uL (3.80-5.40); RDW 16.4 % (11.5-15.5); WBC 7.8 k/uL (3.8-10.6)
[2018-12-13 03:02] LABS: Albumin 2.7 g/dL (3.5-5.0); Calcium 7.6 mg/dL (8.4-10.2); Magnesium 1.7 mg/dL (1.6-2.3); Phosphorus 6.8 mg/dL (2.5-4.5); Potassium 4.5 mmol/L (3.5-5.1); Total Bilirubin 0.5 mg/dL (0.2-1.3); Total Protein 5.7 g/dL (6.3-8.2)
[2018-12-13] MEDS: DEXTROSE 5% IN WATER 1,000 ML with SODIUM BICARB (1 MEQ/ML) 150 ML IV SCH (04:30)
[2018-12-13 07:18] LABS: Glucose,Whole Blood 130 mg/dL (75-99)
[2018-12-13 07:38] LABS: Glucose,Whole Blood 76 mg/dL (75-99)
--- NOTE | 2018-12-13 07:51 | XR ---
EXAMINATION TYPE: XR chest 1V portable DATE OF EXAM: 12/13/2018 CLINICAL HISTORY: Difficulty breathing progress study. TECHNIQUE: Single AP portable upright view of the chest is obtained. COMPARISON: Chest x-ray from one day earlier and older studies. FINDINGS: There is cardiomegaly with atherosclerotic and ectatic thoracic aorta. Overlying mediastin al clips are present. There is chronic parenchymal change with bibasilar atelectasis and/or scarring. No new focal airspace opacity or pneumothorax is seen bilaterally. Overlying epicardial pacer wires are noted. Osseous structures are intact. Overlying EKG leads redemonstrated. IMPRESSION: Overall stable findings, cardiomegaly and chronic parenchymal changes without new acute pulmonary process
--- NOTE | 2018-12-13 10:26 | P.NPCON ---
History of Present Illness - Reason for Consult acute renal failure, hyperkalemia - History of Present Illness Reason for us patient: Acute kidney injury and hyperkalemia History of present illness: Patient is a 88-year-old female seen in renal consultation for acute kidney injury and hyperkalemia. Patient presented to the hospital due to generalized weakness. She was also dyspneic but was refusing to wear her home oxygen. Patient presented to the hospital her creatinine was 6.38 and potassium level was 7.7. She was maintained on lisinopril, Aldactone as well as potassium supplementation as an outpatient. She was also acidotic with bicarb level as low as 13 this admission. She is currently maintained on D5W with 3 A of bicarbonate running at 125 mL an hour. She is now nonoliguric. Hyperkalemia was medically treated with IV insulin, Kayexalate, sodium bicarbonate and also albuterol. This morning her potassium level was 4.5. She is awake and alert. Denies chest pain or shortness of breath. No vomiting or diarrhea. Blood pressure was low in the systolic 70s to 80s on admission. She received 2-1/2 L of normal saline bolus. Blood pressure this morning was 109/64. She is not on any vasopressors. Denies use of nonsteroidals. 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 Vital signs are stable. General: The patient appeared well nourished and normally developed. HEENT: Head exam is unremarkable. Neck is without jugular venous distension. LUNGS: Lungs are clear to auscultation and percussion. Breath sounds decreased. HEART: Rate and Rhythm are regular. First and second heart sounds normal. No murmurs, rubs or gallops. ABDOMEN: Abdominal exam reveals normal bowel sounds. Non-tender and non- distended. No evidence of peritonitis. EXTREMITITES: No clubbing, cyanosis, or edema. Past Medical History Past Medical History: Coronary Artery Disease (CAD), COPD, Hyperlipidemia, Hypertension, Myocardial Infarction (PA) Additional Past Medical History / Comment(s): Coronary artery disease, previous bypass surgery ten years ago, hypertension, hyperlipidemia, COPD maintenance Symbicort on outpatient basis, gout, AAA NOT SURE OF SIZE Last Myocardial Infarction Date:: 2016 History of Any Multi-Drug Resistant Organisms: None Reported Past Surgical History: Cholecystectomy, Coronary Bypass/CABG, Heart Catheterization With Stent, Hysterectomy Additional Past Surgical History / Comment(s): Coronary artery bypass surgery-tr iple, cardiac catheterization and angioplasty and stenting of the saphenous vein graft to obtuse marginal branch.CATARACTS, "stent in groin" Past Anesthesia/Blood Transfusion Reactions: Motion Sickness Additional Past Anesthesia/Blood Transfusion Reaction / Comment(s): Pt states she has received blood without reaction. Date of Last Stent Placement:: unk Past Psychological History: No Psychological Hx Reported Additional Psychological History / Comment(s): . Smoking Status: Former smoker Past Alcohol Use History: None Reported Additional Past Alcohol Use History / Comment(s): Pt started smoking in 1961 and quit in the 1986 Past Drug Use History: None Reported - Past Family History Father Family Medical History: Coronary Artery Disease (CAD), Myocardial Infarction (PA) Additional Family Medical History / Comment(s): Father of a PA at the age of 72 yrs. Mother Family Medical History: No Reported History Additional Family Medical History / Comment(s): Pt states her mother was healthy and at the age of 84 yrs. Medications and Allergies Home Medications Medication Instructions Recorded Confirmed Type Aspirin [Adult Low Dose Aspirin EC] 81 mg PO HS 02/15/17 12/13/18 History Nitroglycerin Sl Tabs [Nitrostat] 0.4 mg SUBLINGUAL Q5M PRN 02/15/17 12/12/18 History Atorvastatin [Lipitor] 80 mg PO HS #30 tab 04/19/17 12/13/18 Rx Albuterol Nebulized [Ventolin 2.5 mg INHALATION RT-QID #120 nebu 05/10/18 12/12/18 Rx Nebulized] Carvedilol [Coreg*] 25 mg PO BID-W/MEALS tab 05/11/18 12/13/18 Rx Furosemide [Lasix] 40 mg PO DAILY 12/12/18 12/13/18 History Ipratropium Nebulized [Atrovent 0.5 mg INHALATION RT-QID PRN 12/12/18 12/13/18 History Nebulized 0.2 MG/ML] Lisinopril 40 mg PO DAILY 12/12/18 12/13/18 History Nystatin [Nystop] 1 applic TOPICAL QID 12/12/18 12/12/18 History Potassium Chloride ER [K-Dur 10] 10 meq PO BID 12/12/18 12/13/18 History Spironolactone 25 mg PO DAILY 12/12/18 12/13/18 History Allergies Allergy/AdvReac Type Severity Reaction Status Date / Time oxybutynin Allergy SEE Verified 12/12/18 17:31 COMMENTS sulfamethoxazole Allergy SEE Verified 12/12/18 17:31 [From Bactrim] COMMENTS trimethoprim [From Bactrim] Allergy SEE Verified 12/12/18 17:31 COMMENTS morphine AdvReac Confusion Verified 12/12/18 17:31 Physical Exam Vitals: Vital Signs Temp Pulse Resp BP Pulse Ox 12/13/18 08:00 97.6 F 78 17 109/64 96 12/13/18 07:00 73 13 126/58 96 12/13/18 06:00 77 13 106/58 96 12/13/18 05:00 72 12 119/78 95 12/13/18 04:00 97.9 F 77 12 119/78 95 12/13/18 03:00 78 15 112/63 94 L 12/13/18 02:00 72 13 92/70 94 L 12/13/18 01:00 58 L 12 108/55 94 L 12/13/18 00:00 97.7 F 60 16 103/37 95 12/12/18 23:00 62 12 100/45 94 L 12/12/18 22:00 96.0 F L 66 10 L 92/45 95 12/12/18 21:00 61 13 93/47 97 12/12/18 20:00 56 L 13 88/45 94 L 12/12/18 19:00 97.5 F L 48 L 16 97/43 92 L 12/12/18 17:53 97.7 F 61 18 80/40 97 12/12/18 17:31 61 18 80/33 95 12/12/18 17:04 72/39 12/12/18 17:02 57 L 16 96 12/12/18 16:36 54 L 12/12/18 16:21 54 L 12/12/18 16:14 53 L 144/96 97 12/12/18 16:06 52 L 12/12/18 14:59 97.6 F 52 L 20 72/40 93 L Intake and Output 12/12/18 12/13/18 12/13/18 22:59 06:59 14:59 Intake Total 1180 2600 250 Output Total 133 409 225 Balance 1047 2191 25 Intake: IV 500 1000 250 Dextrose 5% in Water 1, 500 1000 250 000 ml @ 125 mls/hr IV . Q9H12M SUJATA with Sodium Bicarb (1 Meq/ml) 150 ml Rx#:[id number] Intake, IV Titration 200 1000 Amount Calcium Gluconate 1 gm In 200 Sodium Chloride 0.9% 100 ml @ 100 mls/hr IVPB ONCE ONE Rx#:[id number] Sodium Chloride 0.9% 1, 1000 000 ml @ 999 mls/hr IV . Q1H1M ONE Rx#:[id number] Oral 480 600 Output: Urine 133 409 225 Uretheral (Marcelino) 10 Other: Voiding Method Indwelling Catheter Indwelling Catheter # Bowel Movements 1 Weight 68.3 kg Results - Lab Results Most recent lab results Calcium 7.6 mg/dL (8.4-10.2) L 12/13/18 02:34 Phosphorus 6.8 mg/dL (2.5-4.5) H 12/13/18 02:34 Magnesium 1.7 mg/dL (1.6-2.3) 12/13/18 02:34 12/13/18 02:34 12/13/18 02:34 Assessment and Plan Plan: Assessment: 1. Acute kidney injury mostly prerenal secondary to hypotension. Creatinine was 6.38 on admission and is down to 4.79 today. Trace proteinuria on UA. 2. Chronic kidney disease stage III secondary to nephrosclerosis with baseline creatinine in the range of 1.1-1.5. 3. Hyperkalemia secondary to acute kidney injury, metabolic acidosis and further worsened with the use of lisinopril, Aldactone and potassium supplementation. Improved with medical management. 4. Hyperphosphatemia secondary to acute kidney injury. Expect improvement with improving renal function. 5. Metabolic acidosis secondary to acute kidney injury. Improving. Plan: Discontinue sodium bicarbonate. Start normal saline at 100 mL an hour. Add sodium bicarbonate. Avoid nephrotoxins. Continue to monitor renal function and urine output. Thank you for the consultation. I will continue to follow the patient with you during her hospital stay.
[2018-12-13] MEDS ORDERED: IPRATROPIUM-ALBUTEROL 3 ML NEB INHALATION PRN (12:13)
--- NOTE | 2018-12-13 12:15 | P.CNPUL ---
History of Present Illness Consult date: 12/13/18 Requesting physician: Jose Quintana Reason for consult: dyspnea Chief complaint: Dyspnea, generalized weakness, acute kidney injury, hyperkalemia History of present illness: This is a 88-year-old white female patient of Dr. Quintana with past medical history of COPD, hypertension, hyperlipidemia, previous episode of myocardial infarction, coronary artery disease with previous bypass surgery, and coronary stenting, peripheral vascular disease, former smoker, who was brought into the hospital on 12/12/2018 by her son evaluation of generalized weakness, and worsening dyspnea. There is no family around, patient is not the best historian, so the information was obtained from the chart and the patient's nurse. Apparently until recently patient was living by herself, and the family was having concerns about her not being able to take care of herself, not eating, not taking her meds properly, not wearing her oxygen. She has been progressively weak and short of breath over the past several weeks, she had recently moved in with her daughter. ID any fever or chills, denied any chest pain, no cough or chest congestion. chest x-ray was completed, and showed COPD, cardiomegaly, calcified benign right basilar granuloma, no acute cardiopulmonary process. She was found to be in acute renal failure, with BUN of 114, and creatinine of 6.38, and potassium of 7.7. no leukocytosis, with blood cell count was 6.9, hemoglobin was 11.4, INR was 1.0, and was 141, chloride was 114, CO2 w as 18, troponin was negative 1, proBNP was 2180, urinalysis showed signs of infection, with large amount of leuks, 161 of red blood cells and 67 of WBCs. She was hypotensive on presentation with a blood pressure 72/40, afebrile, was bradycardic with a heart rate in the 40s. He has been fluid resuscitated, with Liters of normal saline, given calcium gluconate, sodium bicarb, Kayexalate, insulin and 50% dextrose. Nephrology has been consulted and are following. Mornings work showed improvement in patient's renal profile, and improvement of electrolytes, BUN down to 101, creatinine of 4.79, potassium is 4.5, sodium is 139, chloride is 107, CO2 is 22, white blood cells is 7.8, hemoglobin is 10.2, platelet count is 134. She is awake and alert, bradycardia has improved, patient is in sinus rhythm currently with a rate of 70 BPM, not on any vasopressor support, no fever or chills, no signs of respiratory difficulty, no complaints of chest pain. D5 W with 3 A of bicarbonate at a rate of 125 ML per hour infusing. Indwelling catheter is in, and patient is receiving urine in the order of 35 225 ML per hour. She did pass a bowel movement as well. Review of Systems All systems: negative Constitutional: Reports lethargy, Reports poor appetite, Reports weakness, Denies chills, Denies fever Eyes: denies blurred vision, denies pain Ears, nose, mouth and throat: Denies headache, Denies sore throat Cardiovascular: Denies chest pain, Denies shortness of breath Respiratory: Reports dyspnea, Reports home oxygen, Denies cough Gastrointestinal: Denies abdominal pain, Denies diarrhea, Denies nausea, Denies vomiting Genitourinary: Denies dysuria, Denies hematuria Musculoskeletal: Denies myalgias Integumentary: Denies pruritus, Denies rash Neurological: Denies numbness, Denies weakness Psychiatric: Denies anxiety, Denies depression Endocrine: Denies fatigue, Denies weight change Past Medical History Past Medical History: Coronary Artery Disease (CAD), COPD, Hyperlipidemia, Hypertension, Myocardial Infarction (NE) Additional Past Medical History / Comment(s): Coronary artery disease, previous bypass surgery ten years ago, hypertension, hyperlipidemia, COPD maintenance Symbicort on outpatient basis, gout, AAA NOT SURE OF SIZE Last Myocardial Infarction Date:: 2016 History of Any Multi-Drug Resistant Organisms: None Reported Past Surgical History: Cholecystectomy, Coronary Bypass/CABG, Heart Francy terization With Stent, Hysterectomy Additional Past Surgical History / Comment(s): Coronary artery bypass surgery- triple, cardiac catheterization and angioplasty and stenting of the saphenous vein graft to obtuse marginal branch.CATARACTS, "stent in groin" Past Anesthesia/Blood Transfusion Reactions: Motion Sickness Additional Past Anesthesia/Blood Transfusion Reaction / Comment(s): Pt states she has received blood without reaction. Date of Last Stent Placement:: unk Past Psychological History: No Psychological Hx Reported Additional Psychological History / Comment(s): . Smoking Status: Former smoker Past Alcohol Use History: None Reported Additional Past Alcohol Use History / Comment(s): Pt started smoking in 1961 and quit in the 1986 Past Drug Use History: None Reported - Past Family History Father Family Medical History: Coronary Artery Disease (CAD), Myocardial Infarction (NE) Additional Family Medical History / Comment(s): Father of a NE at the age of 72 yrs. Mother Family Medical History: No Reported History Additional Family Medical History / Comment(s): Pt states her mother was healthy and at the age of 84 yrs. Medications and Allergies Home Medications Medication Instructions Recorded Confirmed Type Aspirin [Adult Low Dose Aspirin EC] 81 mg PO HS 02/15/17 12/13/18 History Nitroglycerin Sl Tabs [Nitrostat] 0.4 mg SUBLINGUAL Q5M PRN 02/15/17 12/12/18 History Atorvastatin [Lipitor] 80 mg PO HS #30 tab 04/19/17 12/13/18 Rx Albuterol Nebulized [Ventolin 2.5 mg INHALATION RT-QID #120 nebu 05/10/18 12/12/18 Rx Nebulized] Carvedilol [Coreg*] 25 mg PO BID-W/MEALS tab 05/11/18 12/13/18 Rx Furosemide [Lasix] 40 mg PO DAILY 12/12/18 12/13/18 History Ipratropium Nebulized [Atrovent 0.5 mg INHALATION RT-QID PRN 12/12/18 12/13/18 History Nebulized 0.2 MG/ML] Lisinopril 40 mg PO DAILY 12/12/18 12/13/18 History Nystatin [Nystop] 1 applic TOPICAL QID 12/12/18 12/12/18 History Potassium Chloride ER [K-Dur 10] 10 meq PO BID 12/12/18 12/13/18 History Spironolactone 25 mg PO DAILY 12/12/18 12/13/18 History Allergies Allergy/AdvReac Type Severity Reaction Status Date / Time oxybutynin Allergy SEE Verified 12/12/18 17:31 COMMENTS sulfamethoxazole Allergy SEE Verified 12/12/18 17:31 [From Bactrim] COMMENTS trimethoprim [From Bactrim] Allergy SEE Verified 12/12/18 17:31 COMMENTS morphine AdvReac Confusion Verified 12/12/18 17:31 Physical Exam Vitals: Vital Signs Temp Pulse Resp BP Pulse Ox 12/13/18 08:00 97.6 F 78 17 109/64 96 12/13/18 07:00 73 13 126/58 96 12/13/18 06:00 77 13 106/58 96 12/13/18 05:00 72 12 119/78 95 12/13/18 04:00 97.9 F 77 12 119/78 95 12/13/18 03:00 78 15 112/63 94 L 12/13/18 02:00 72 13 92/70 94 L 12/13/18 01:00 58 L 12 108/55 94 L 12/13/18 00:00 97.7 F 60 16 103/37 95 12/12/18 23:00 62 12 100/45 94 L 12/12/18 22:00 96.0 F L 66 10 L 92/45 95 12/12/18 21:00 61 13 93/47 97 12/12/18 20:00 56 L 13 88/45 94 L 12/12/18 19:00 97.5 F L 48 L 16 97/43 92 L 12/12/18 17:53 97.7 F 61 18 80/40 97 12/12/18 17:31 61 18 80/33 95 12/12/18 17:04 72/39 12/12/18 17:02 57 L 16 96 12/12/18 16:36 54 L 12/12/18 16:21 54 L 12/12/18 16:14 53 L 144/96 97 12/12/18 16:06 52 L 12/12/18 14:59 97.6 F 52 L 20 72/40 93 L Intake and Output 12/12/18 12/13/18 12/13/18 22:59 06:59 14:59 Intake Total 1180 2600 250 Output Total 133 409 225 Balance 1047 2191 25 Intake: IV 500 1000 250 Dextrose 5% in Water 1, 500 1000 250 000 ml @ 125 mls/hr IV . Q9H12M SUJATA with Sodium Bicarb (1 Meq/ml) 150 ml Rx#:[id number] Intake, IV Titration 200 1000 Amount Calcium Gluconate 1 gm In 200 Sodium Chloride 0.9% 100 ml @ 100 mls/hr IVPB ONCE ONE Rx#:[id number] Sodium Chloride 0.9% 1, 1000 000 ml @ 999 mls/hr IV . Q1H1M ONE Rx#:[id number] Oral 480 600 Output: Urine 133 409 225 Uretheral (Marcelino) 10 Other: Voiding Method Indwelling Catheter Indwelling Catheter # Bowel Movements 1 Weight 68.3 kg GENERAL EXAM: Alert, pleasant, 88-year-old white female 2 L of oxygen with a pulse ox of 96% comfortable in no apparent distress. HEAD: Normocephalic/atraumatic. EYES: Normal reaction of pupils, equal size. Conjunctiva pink, sclera white. NOSE: Clear with pink turbinates. THROAT: No erythema or exudates. NECK: No masses, no JVD, no thyroid enlargement, no adenopathy. CHEST: No chest wall deformity. Symmetrical expansion. LUNGS: Equal air entry with a few bibasilar crackles, no significant wheezes or rhonchi CVS: Regular rate and rhythm, normal S1 and S2, no gallops, no murmurs, no rubs ABDOMEN: Soft, nontender. No hepatosplenomegaly, normal bowel sounds, no guarding or rigidity. EXTREMITIES: No clubbing, no edema, no cyanosis, 2+ pulses and upper and lower extremities. MUSCULOSKELETAL: Muscle strength and tone normal. SPINE: No scoliosis or deformity SKIN: No rashes CENTRAL NERVOUS SYSTEM: Alert and oriented -3. No focal deficits, tone is normal in all 4 extremities. PSYCHIATRIC: Alert and oriented -3. Appropriate affect. Intact judgment and insight. Results - Laboratory Findings CBC and BMP: 12/13/18 02:34 12/13/18 02:34 PT/INR, D-dimer PT 10.9 sec (9.0-12.0) 12/12/18 15:25 INR 1.0 (<1.2) 12/12/18 15:25 Abnormal lab findings: Abnormal Labs 12/12/18 12/12/18 12/12/18 15:25 15:25 18:30 RBC Hgb Hct MCHC 30.8 L RDW 16.4 H Plt Count Potassium 7.7 H* 6.4 H* Chloride 109 H 115 H Carbon Dioxide 16 L 13 L BUN 114 H* 111 H* Creatinine 6.38 H 5.70 H Glucose 48 L* POC Glucose (mg/dL) Calcium 8.2 L Phosphorus Total Protein Albumin Urine Protein Urine Blood Ur Leukocyte Esterase Urine RBC Urine WBC Urine WBC Clumps Urine Bacteria Hyaline Casts Urine Mucus 12/12/18 12/12/18 12/13/18 19:40 21:22 00:58 RBC 3.59 L Hgb 10.0 L Hct 33.6 L MCHC 29.8 L RDW 16.3 H Plt Count 93 L Potassium 6.4 H* Chloride 114 H Carbon Dioxide 18 L BUN 115 H* Creatinine 5.60 H Glucose 52 L POC Glucose (mg/dL) 107 H Calcium 8.1 L Phosphorus Total Protein Albumin Urine Protein Urine Blood Ur Leukocyte Esterase Urine RBC Urine WBC Urine WBC Clumps Urine Bacteria Hyaline Casts Urine Mucus 12/13/18 12/13/18 12/13/18 01:25 02:34 02:34 RBC 3.56 L Hgb 10.2 L Hct 33.4 L MCHC 30.6 L RDW 16.4 H Plt Count 134 L Potassium Chloride Carbon Dioxide BUN 101 H* Creatinine 4.79 H Glucose POC Glucose (mg/dL) Calcium 7.6 L Phosphorus 6.8 H Total Protein 5.7 L Albumin 2.7 L Urine Protein Trace H Urine Blood Moderate H Ur Leukocyte Esterase Large H Urine RBC 161 H Urine WBC 67 H Urine WBC Clumps Few H Urine Bacteria Rare H Hyaline Casts 9 H Urine Mucus Rare H 12/13/18 07:14 RBC Hgb Hct MCHC RDW Plt Count Potassium Chloride Carbon Dioxide BUN Creatinine Glucose POC Glucose (mg/dL) 130 H Calcium Phosphorus Total Protein Albumin Urine Protein Urine Blood Ur Leukocyte Esterase Urine RBC Urine WBC Urine WBC Clumps Urine Bacteria Hyaline Casts Urine Mucus - Diagnostic Findings Chest x-ray: report reviewed, image reviewed Additional studies: EKG reviewed Assessment and Plan Plan: Assessment #1. Generalized weakness, likely related to dehydration, diminished oral intake #2. Dyspnea. Chest x-ray did not show any acute pulmonary process, proBNP was elevated at 2180, suggesting exacerbation of congestive heart failure. Could possibly be related to mild exacerbation of COPD #3. Acute on chronic kidney injury related to dehydration, hypotension #4. Acute anemia #5. Non-anion gap metabolic acidosis related to acute kidney injury #6. Chronic kidney disease stage III related to nephrosclerosis with baseline creatinine ranging from 1.1-1.5 #7. Underlying history of COPD, with home oxygen at baseline, #8. Nicotine dependence, currently in remission, quit smoking in 1986, carries [id number] smoking history #9. Very artery disease with previous history of bypass grafting and stenting #10. Hypertension #11. Hyperlipidemia #12. Abdominal aortic aneurysm surveillance #13. Peripheral vascular disease Plan: Electrolytes and renal profile are improving, patient is making urine, hemodynamically she remains stable, awake and alert, oriented 3, no difficulty breathing, no chest pain, blood and urine cultures have been sent, patient is afebrile, with thickened wheezing or chest congestion, and tinea with GI and DVT prophylaxis, continue with nebulized bronchodilators. GI and DVT prophylaxis. I performed a history & physical examination of the patient and discussed their management with my nurse practitioner, Vannessa Kaplan. I reviewed the nurse practitioner's note and agree with the documented findings and plan of care. Elicia ng sounds are positive for basilar crackles. The findings and the impression was discussed with the patient. I attest to the documentation by the nurse practitioner. Time with Patient: Greater than 30
[2018-12-13] MEDS ORDERED: IPRATROPIUM 0.5 MG/2.5 ML NEBU INHALATION PRN (12:51)
[2018-12-13] MEDS ORDERED: NITROGLYCERIN SL TABS 0.4 MG TAB SUBLINGUAL PRN (12:51)
--- NOTE | 2018-12-13 13:43 | HP ---
HISTORY AND PHYSICAL CHIEF COMPLAINT: Weakness and confusion. HISTORY OF PRESENT ILLNESS: This is another admission for this 88-year-old white female with chronic congestive heart failure. She is a noncompliant individual for the most part. She is on nasal O2 at home and apparently became lethargic and confused. She is brought to the emergency room where her blood pressure which was around 70 systolically and her pulse was 40. She denied any focal neurologic deficits, chest pain, palpitation, syncope, etc. REVIEW OF SYSTEMS: She has had no TIAs or CVAs, and she has had no hemoptysis, cough, abdominal pain, nausea, vomiting, melena, hematochezia, hematemesis, renal failure, dysuria, frequency, urgency, incontinence, hematuria, etc. Past medical history, family history and personal and social histories reveal that she is allergic to MORPHINE, SULFA, and cannot take OXYBUTYNIN. She is on updrafts at home with Atrovent and albuterol p.r.n., nasal O2, potassium, Aldactone, lisinopril, Symbicort, carvedilol, atorvastatin, aspirin, Pepcid, amlodipine, and Nitrostat. Other medical problems that she has had in the past include anemia and glaucoma. She had a previous myocardial infarction. Surgically, she has had a cholecystectomy, hysterectomy. She used to smoke. PHYSICAL EXAMINATION: Pulse is 40 and regular and blood pressure is 70/0, respirations are 32 and she is afebrile. In general, she appeared to be pale and somewhat lethargic. Skin was dry. Head, ears, eyes, nose, mouth, and throat were normal. Carotids could not be assessed. Neck veins are not distended. Chest demonstrated breath sounds on both sides with scattered rales. Cardiac exam demonstrated bradycardia with no murmurs or extra sounds. Abdomen is soft, nontender without any visceromegaly or masses. Bowel sounds present. Extremities are normal. Neurologically, she is intact. She is admitted to the hospital diagnoses: 1. Hypotension. 2. Bradycardia. 3. History of coronary artery disease with myocardial infarction. 4. Chronic obstructive pulmonary disease. 5. Congestive heart failure. PLAN: 1. Bed rest in ICU. 2. Cardiology consult. 3. IV fluids. 4. Nasal oxygen. 5. Serial EKGs and enzymes. MMODL / IJN: [id number] /
--- NOTE | 2018-12-13 13:45 | PN ---
PROGRESS NOTE CHIEF COMPLAINT: Bradycardia and hypotension. HISTORY OF PRESENT ILLNESS: This lady is doing much better. Blood pressure is back up to normal range as is her pulse. She is awake and alert. Denies any headaches, focal neurologic problems, chest pain, shortness of breath, etc. PHYSICAL EXAMINATION: Chest exam demonstrates scattered rales. Cardiac exam is normal with normal sinus rhythm. Abdomen is soft and nontender. IMPRESSION: 1. Hypoglycemia. 2. Bradycardia. 3. History of coronary artery disease. 4. History of chronic obstructive pulmonary disease. 5. Congestive heart failure. PLAN: Continue with ICU management and gradually increase diet and activity. We are awaiting further recommendations from Intensive Medicine or Cardiology. MMODL / IJN: [id number] /
[2018-12-13] MEDS: IPRATROPIUM-ALBUTEROL 3 ML NEB INHALATION SCH ×2 (15:41→19:46)
[2018-12-13] MEDS ORDERED: ALBUTEROL NEBULIZED 2.5 MG/3 ML INHALATION SCH (16:00)
[2018-12-13] MEDS: NYSTATIN 100,000 UNIT/GM POWD 15 GM TOPICAL SCH ×3 (17:48→21:06)
[2018-12-13] MEDS: SODIUM CHLORIDE 0.9% 1,000 ML IV SCH (17:48)
[2018-12-13] MEDS: SYMBICORT 160-4.5 MCG INHALER INHALATION SCH (19:46)
[2018-12-13] MEDS: ASPIRIN 81 MG PO SCH (21:05)
[2018-12-14] MEDS: SODIUM CHLORIDE 0.9% 1,000 ML IV SCH ×2 (00:11→08:45)
[2018-12-14 05:50] LABS: Anisocytosis Slight; Basophils # (A) 0.1 k/uL (0-0.2); Basophils % (A) 1 %; Eosinophils # (A) 0.4 k/uL (0-0.7); Eosinophils % (A) 4 %; HGB 9.7 gm/dL (11.4-16.0); Hypochromasia Slight; Lymphocytes # (A) 1.6 k/uL (1.0-4.8); Lymphocytes % (A) 20 %; MCH 28.2 pg (25.0-35.0); MCHC 32.2 g/dL (31.0-37.0); Mean Platelet Volume 8.6; Monocytes # (A) 0.5 k/uL (0-1.0); Monocytes % (A) 6 %; Neutrophils # (A) 5.6 k/uL (1.3-7.7); Neutrophils % (A) 67 %; Platelet Count 121 k/uL (150-450); RBC 3.42 m/uL (3.80-5.40); RDW 16.8 % (11.5-15.5); WBC 8.3 k/uL (3.8-10.6)
[2018-12-14 06:03] LABS: MCV 87.8 fL (80.0-100.0)
[2018-12-14 06:31] LABS: Potassium 4.6 mmol/L (3.5-5.1)
[2018-12-14] MEDS: SYMBICORT 160-4.5 MCG INHALER INHALATION SCH ×2 (07:34→20:03)
[2018-12-14] MEDS: IPRATROPIUM-ALBUTEROL 3 ML NEB INHALATION SCH ×4 (07:34→20:04)
[2018-12-14] MEDS: NYSTATIN 100,000 UNIT/GM POWD 15 GM TOPICAL SCH ×4 (08:49→20:38)
[2018-12-14] MEDS ORDERED: FAMOTIDINE 20 MG/2 ML VIAL IV SCH (09:00)
--- NOTE | 2018-12-14 10:27 | P.PN ---
Subjective Patient is seen in follow-up for acute kidney injury on chronic kidney disease and hyperkalemia. Potassium is now on the normal range. Currently resting in bed. She is maintained on IV fluids. Urine output is good. Oral intake is fair. No vomiting or diarrhea. 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 Creatinine was 6.38 on admission is 3.37 today. Vital signs are stable. General: The patient appeared well nourished and normally developed. HEENT: Head exam is unremarkable. Neck is without jugular venous distension. LUNGS: Lungs are clear to auscultation and percussion. Breath sounds decreased. HEART: Rate and Rhythm are regular. First and second heart sounds normal. No murmurs, rubs or gallops. ABDOMEN: Abdominal exam reveals normal bowel sounds. Non-tender and non- distended. No evidence of peritonitis. EXTREMITITES: No clubbing, cyanosis, or edema. Objective - Vital Signs Vital signs: Vital Signs Temp 99.3 F 12/14/18 08:00 Pulse 66 12/14/18 08:00 Resp 23 12/14/18 08:00 BP 125/68 12/14/18 08:00 Pulse Ox 92 L 12/14/18 08:00 Intake & Output 12/13/18 12/14/18 12/14/18 18:59 06:59 18:59 Intake Total 1510 1920 100 Output Total 865 670 325 Balance 645 1250 -225 Weight 68.7 kg Intake: IV 1150 1200 100 Dextrose 5% in Water 1, 1150 1200 000 ml @ 125 mls/hr IV . Q9H12M [facility] with Sodium Bicarb (1 Meq/ml) 150 ml Rx#:[id number] Sodium Chloride 0.9% 1, 100 000 ml @ 100 mls/hr IV . Q10H [facility] Rx#:[id number] Oral 360 720 Output: Urine 865 670 325 Other: Voiding Method Indwelling Catheter Indwelling Catheter Indwelling Catheter # Bowel Movements 1 - Labs CBC & Chem 7: 12/14/18 05:18 12/14/18 05:18 Labs: Abnormal Lab Results - Last 24 Hours (Table) 12/14/18 12/14/18 Range/Units 05:18 05:18 RBC 3.42 L (3.80-5.40) m/uL Hgb 9.7 L (11.4-16.0) gm/dL Hct 30.0 L (34.0-46.0) % RDW 16.8 H (11.5-15.5) % Plt Count 121 L (150-450) k/uL BUN 82 H (7-17) mg/dL Creatinine 3.37 H (0.52-1.04) mg/dL Calcium 7.0 L (8.4-10.2) mg/dL Microbiology - Last 24 Hours (Table) 12/13/18 18:30 Urine Culture - Preliminary Urine,Catheterized 12/12/18 16:11 Blood Culture - Preliminary Blood No Growth after 24 hours Assessment and Plan Plan: Assessment: 1. Acute kidney injury mostly prerenal secondary to hypotension. Creatinine was 6.38 on admission and is down to 3.37 today. Trace proteinuria on UA. 2. Chronic kidney disease stage III secondary to nephrosclerosis with baseline creatinine in the range of 1.1-1.5. 3. Hyperkalemia secondary to acute kidney injury, metabolic acidosis and further worsened with the use of lisinopril, Aldactone and potassium supplementation. Improved with medical management. 4. Hyperphosphatemia secondary to acute kidney injury. Expect improvement with improving renal function. 5. Metabolic acidosis secondary to acute kidney injury. Resolved. 6. Hypocalcemia secondary to acute kidney injury. Rectal calcium is near 8. Plan: Maintain normal saline at 100 mL an hour. Avoid nephrotoxins. Continue to monitor renal function and urine output.
--- NOTE | 2018-12-14 12:48 | P.PN ---
Subjective Progress Note Date: 12/14/18 Principal diagnosis: Acute hypovolemic shock This is a 88-year-old white female patient of Dr. Quintana with past medical history of COPD, hypertension, hyperlipidemia, previous episode of myocardial infarction, coronary artery disease with previous bypass surgery, and coronary s tenting, peripheral vascular disease, former smoker, who was brought into the hospital on 12/12/2018 by her son evaluation of generalized weakness, and worsening dyspnea. There is no family around, patient is not the best historian, so the information was obtained from the chart and the patient's n urse. Apparently until recently patient was living by herself, and the family was having concerns about her not being able to take care of herself, not eating, not taking her meds properly, not wearing her oxygen. She has been progressively weak and short of breath over the past several weeks, she had recently moved in with her daughter. ID any fever or chills, denied any chest pain, no cough or chest congestion. chest x-ray was completed, and showed COPD, cardiomegaly, calcified benign right basilar granuloma, no acute cardiopulmonary process. She was found to be in acute renal failure, with BUN of 114, and creatinine of 6.38, and potassium of 7.7. no leukocytosis, with blood cell count was 6.9, hemoglobin was 11.4, INR was 1.0, and was 141, chloride was 114, CO2 was 18, troponin was negative 1, proBNP was 2180, urinalysis showed signs of infection, with large amount of leuks, 161 of red blood cells and 67 of WBCs. She was hypotensive on presentation with a blood pressure 72/40, afebrile, was bradycardic with a heart rate in the 40s. He has been fluid resuscitated, with Liters of normal saline, given calcium gluconate, sodium bicarb, Kayexalate, insulin and 50% dextrose. Nephrology has been consulted and are following. Mornings work showed improvement in patient's renal profile, and improvement of electrolytes, BUN down to 101, creatinine of 4.79, potassium is 4.5, sodium is 139, chloride is 107, CO2 is 22, white blood cells is 7.8, hemoglobin is 10.2, platelet count is 134. She is awake and alert, bradycardia has improved, patient is in sinus rhythm currently with a rate of 70 BPM, not on any vasopressor support, no fever or chills, no signs of respiratory difficulty, no complaints of chest pain. D5 W with 3 A of bicarbonate at a rate of 125 ML per hour infusing. Indwelling catheter is in, and patient is receiving urine in the order of 35 225 ML per hour. She did pass a bowel movement as well. Reevaluated today on 12/14/2018, patient remains in the ICU, hemodynamically stable, mental status is significantly improved. Her labs have significantly im proved including her renal profile. Patient mostly responded to hydration. Cultures of blood and urine remain negative. CBC is relatively normal. Electrolytes are normal BUN is down to 82 creatinine is down to 3.37. BUN was 114 on admission and creatinine was 6.38 on admission. Patient has a baseline creatinine of 1.1-1.5. Her hyperkalemia significantly improved and it is normal today. The metabolic acidosis which was related to acute kidney injury has also resolved. Objective - Vital Signs Vital signs: Vital Signs Temp 99.5 F 12/14/18 12:00 Pulse 75 12/14/18 12:00 Resp 23 12/14/18 12:00 BP 135/79 12/14/18 12:00 Pulse Ox 91 L 12/14/18 12:00 Intake & Output 12/13/18 12/14/18 12/14/18 18:59 06:59 18:59 Intake Total 1510 1920 500 Output Total 865 670 550 Balance 645 1250 -50 Weight 68.7 kg Intake: IV 1150 1200 500 Dextrose 5% in Water 1, 1150 1200 000 ml @ 125 mls/hr IV . Q9H12M [facility] with Sodium Bicarb (1 Meq/ml) 150 ml Rx#:[id number] Sodium Chloride 0.9% 1, 500 000 ml @ 100 mls/hr IV . Q10H [facility] Rx#:[id number] Oral 360 720 Output: Urine 865 670 550 Other: Voiding Method Indwelling Catheter Indwelling Catheter Indwelling Catheter # Bowel Movements 1 1 - Exam Physical Exam: Revealed a 88-year-old female, pleasant, in no distress. Head: Atraumatic, normocephalic. HEENT:[Neck is supple.] [No neck masses.] [No thyromegaly.] [No JVD.] PERRLA, EOMI, no icterus. Chest: [Symmetrical chest expansion. Clear throughout, no crackles, no rhonchi, no wheezes.] No chest wall deformity, no tenderness over the chest. Cardiac Exam: [Normal S1 and S2, no S3 gallop, no murmur.] Abdomen: [Soft, nontender, no megaly, no rebound, no guarding, normal bowel sounds.] Extremities: [No clubbing, no edema, no cyanosis.] Neurological Exam: Alert oriented 3, no gross focal neurologic deficit. Seems to be generally weak however. Psychiatric: Normal mood affect and mental status examination. Skin: No rashes. Lymphatics: No lymphadenopathy. - Labs CBC & Chem 7: 12/14/18 05:18 12/14/18 05:18 Labs: Abnormal Lab Results - Last 24 Hours (Table) 12/14/18 12/14/18 Range/Units 05:18 05:18 RBC 3.42 L (3.80-5.40) m/uL Hgb 9.7 L (11.4-16.0) gm/dL Hct 30.0 L (34.0-46.0) % RDW 16.8 H (11.5-15.5) % Plt Count 121 L (150-450) k/uL BUN 82 H (7-17) mg/dL Creatinine 3.37 H (0.52-1.04) mg/dL Calcium 7.0 L (8.4-10.2) mg/dL Microbiology - Last 24 Hours (Table) 12/13/18 18:30 Urine Culture - Preliminary Urine,Catheterized 12/12/18 16:11 Blood Culture - Preliminary Blood No Growth after 24 hours Assessment and Plan Assessment: #1. Hypovolemic shock with dehydration, weakness, and diminished oral intake. #2. Dyspnea. Possible mild interstitial edema secondary to hydration and fluid overload. Possible diastolic congestive heart failure. Underlying COPD as per history is also contributing to her dyspnea. #3. Acute on chronic kidney injury, prerenal azotemia. #4. Chronic anemia, etiology not clear, yet to be determined on outpatient basis. #5. Non-anion gap metabolic acidosis related to acute kidney injury #6. Chronic kidney disease stage III related to nephrosclerosis with baseline creatinine ranging from 1.1-1.5 #7. Underlying history of COPD, with home oxygen at baseline, #8. Nicotine dependence, currently in remission, quit smoking in 1986, carries [id number] smoking history #9. Very artery disease with previous history of bypass grafting and stenting #10. Hypertension #11. Hyperlipidemia #12. Abdominal aortic aneurysm surveillance, and lower extremities peripheral vessel occlusive disease. Recommendation: Continue hydration, continue to monitor renal profile, continue present meds including bronchodilators, continue GI and DVT prophylaxis, will transfer the patient out of the ICU to a medical surgical floor with remote telemetry. Possible discharge planning in the next 48 hours. We'll continue to follow. Time with Patient: Less than 30 (1111)
--- NOTE | 2018-12-14 13:24 | CDI ---
Documentation Clarification Form Date: 12/14/2018 12:53:26 PM From: Johanna Guido RN CCDS Admit Date: 12/12/2018 4:36:00 PM Patient Name: Shey Farfan Visit Number: [id number] Discharge Date: ATTENTION: The Clinical Documentation Specialists (CDI) and [facility] Coding Staff appreciate your assistance in clarifying documentation. Please respond to the clarification below the line at the bottom and electronically sign. The CDI & [facility] Coding staff will review the response and follow-up if needed. Please note: Queries are made part of the Legal Health Record. If you have any questions, please contact the author of this message via ITS. Dr. Jose Quintana CHF is documented in the H & P and in your progress note. History/Risk Factors: 88 y/o female presents to the ED with generalized weakness and dyspnea Clinical Indicators: medical history of CAD, COPD, hyperlipidemia , HTN, MS, CHF VS/Pulse OX: 72/70 97.6 52 20 93% ra BNP:2180 Chest X Ray: copd, cardiomegaly, No acute cardiac pulmonary process Treatment: ICU admission, Albuterol; 0.9ns 2L bolus, In your professional opinion, can you please clarify the acuity and type of CHF if known? Systolic Heart Failure: * Acute * Chronic * Acute on Chronic Diastolic Heart Failure: * Acute * Chronic * Acute on Chronic Systolic & Diastolic Heart Failure: * Acute * Chronic * Acute on Chronic Heart Failure * Unable to Determine * Other, please specify (Last Revision: November 2017) HOANGD
--- NOTE | 2018-12-14 13:45 | CDI ---
Date: 12/14/2018 1:26:55 PM From: Johanna Guido RN CCDS Phone: '[phone] Admit Date: 12/12/2018 4:36:00 PM Patient Name: Shey Farfan Visit Number: [id number] Discharge Date: ATTENTION: The Clinical Documentation Specialists (CDI) and [facility] Coding Staff appreciate your assistance in clarifying documentation. Please respond to the clarification below the line at the bottom and electronically sign. The CDI & [facility] Coding staff will review the response and follow-up if needed. Please note: Queries are made part of the Legal Health Record. If you have any questions, please contact the author of this message via ITS. Dr. Tadeo Benitez The patient presented with the following respiratory symptoms Dyspnea History/Risk Factors: Tobacco use: Former smoker started in 1961 and quit in 1986 Home oxygen: Reports home oxygen Clinical Indicators: Vital signs: 72/40 52 97.6 20 93% ra Lung/Breathing assessment: equal air entry with a few bibasilar crackles , no significant wheezes or rhonchi Treatment: Breathing tx Ventolin; Duoneb; Symbicort , 2L oxygen nasal cannula In your professional opinion, can you please clarify if these findings signify one of the following conditions? Acuity Chronic Specificity * Respiratory Failure (further specify (if known)): With hypercapnia? (pCO2 >50 and pH <7.35) With hypoxia? (pO2 <60 mm Hg or SpO2 <91% on room air) * Respiratory Distress * Respiratory Insufficiency * Other Diagnosis, please specify * Unable to determine (Last Revision: November 2017) MTDD
--- NOTE | 2018-12-14 18:35 | PN ---
PROGRESS NOTE DATE OF SERVICE: 12/14/2018 CHIEF COMPLAINT: Congestive heart failure, coronary artery disease, hypotension, bradycardia. HISTORY OF PRESENT ILLNESS: This lady was thought to be doing fairly well. Blood pressure and pulse have recovered. However, she is very confused. She denies headaches, focal neurologic deficits, etc. Laboratory studies reveal hemoglobin of 9.7 and a calcium which is low at 7.0. BUN is 82 and creatinine is 3.3. Platelets are only 12,000. PHYSICAL EXAMINATION: Blood pressure is 124/72 with a pulse of 70. She does have some periorbital and facial edema. She is confused. Chest demonstrates scattered rales throughout. Cardiac exam demonstrates tachycardia. Abdomen is soft, nontender. Extremities are normal. IMPRESSION: 1. Acute congestive heart failure. 2. Chronic systolic and diastolic congestive heart failure. 3. Delirium. 4. Thrombocytopenia. 5. Renal failure. 6. Anemia. PLAN: Continue to monitor her mental status issues while tracking her kidney function and anemia. She is being followed by Cardiology as well. MMODL / IJN: [id number] /
[2018-12-14] MEDS: ACETAMINOPHEN TAB 325 MG TAB PO PRN (20:37)
[2018-12-14] MEDS: ASPIRIN 81 MG PO SCH (20:38)
[2018-12-15 06:46] LABS: Anisocytosis Slight; HCT 30.9 % (34.0-46.0); HGB 9.7 gm/dL (11.4-16.0); Hypochromasia Slight; MCH 27.7 pg (25.0-35.0); MCHC 31.2 g/dL (31.0-37.0); MCV 88.5 fL (80.0-100.0); Mean Platelet Volume 8.8; Platelet Count 122 k/uL (150-450); RDW 16.7 % (11.5-15.5); WBC 8.7 k/uL (3.8-10.6)
[2018-12-15 07:04] LABS: Albumin 2.4 g/dL (3.5-5.0); Calcium 7.5 mg/dL (8.4-10.2); Magnesium 1.3 mg/dL (1.6-2.3); Phosphorus 4.2 mg/dL (2.5-4.5); Potassium 4.5 mmol/L (3.5-5.1); Total Protein 5.2 g/dL (6.3-8.2)
[2018-12-15] MEDS: SYMBICORT 160-4.5 MCG INHALER INHALATION SCH ×2 (08:35→19:57)
[2018-12-15] MEDS: IPRATROPIUM-ALBUTEROL 3 ML NEB INHALATION SCH ×5 (08:36→19:56)
[2018-12-15] MEDS: SODIUM CHLORIDE 0.9% 1,000 ML IV SCH ×2 (10:34→16:35)
[2018-12-15] MEDS: NYSTATIN 100,000 UNIT/GM POWD 15 GM TOPICAL SCH ×4 (12:33→21:08)
[2018-12-15] MEDS: FAMOTIDINE 20 MG TAB PO SCH (12:33)
--- NOTE | 2018-12-15 12:56 | P.PN ---
Subjective Progress Note Date: 12/15/18 Principal diagnosis: Acute hypovolemic shock This is a 88-year-old white female patient of Dr. Quintana with past medical history of COPD, hypertension, hyperlipidemia, previous episode of myocardial infarction, coronary artery disease with previous bypass surgery, and coronary s tenting, peripheral vascular disease, former smoker, who was brought into the hospital on 12/12/2018 by her son evaluation of generalized weakness, and worsening dyspnea. There is no family around, patient is not the best historian, so the information was obtained from the chart and the patient's n urse. Apparently until recently patient was living by herself, and the family was having concerns about her not being able to take care of herself, not eating, not taking her meds properly, not wearing her oxygen. She has been progressively weak and short of breath over the past several weeks, she had recently moved in with her daughter. ID any fever or chills, denied any chest pain, no cough or chest congestion. chest x-ray was completed, and showed COPD, cardiomegaly, calcified benign right basilar granuloma, no acute cardiopulmonary process. She was found to be in acute renal failure, with BUN of 114, and creatinine of 6.38, and potassium of 7.7. no leukocytosis, with blood cell count was 6.9, hemoglobin was 11.4, INR was 1.0, and was 141, chloride was 114, CO2 was 18, troponin was negative 1, proBNP was 2180, urinalysis showed signs of infection, with large amount of leuks, 161 of red blood cells and 67 of WBCs. She was hypotensive on presentation with a blood pressure 72/40, afebrile, was bradycardic with a heart rate in the 40s. He has been fluid resuscitated, with Liters of normal saline, given calcium gluconate, sodium bicarb, Kayexalate, insulin and 50% dextrose. Nephrology has been consulted and are following. Mornings work showed improvement in patient's renal profile, and improvement of electrolytes, BUN down to 101, creatinine of 4.79, potassium is 4.5, sodium is 139, chloride is 107, CO2 is 22, white blood cells is 7.8, hemoglobin is 10.2, platelet count is 134. She is awake and alert, bradycardia has improved, patient is in sinus rhythm currently with a rate of 70 BPM, not on any vasopressor support, no fever or chills, no signs of respiratory difficulty, no complaints of chest pain. D5 W with 3 A of bicarbonate at a rate of 125 ML per hour infusing. Indwelling catheter is in, and patient is receiving urine in the order of 35 225 ML per hour. She did pass a bowel movement as well. Reevaluated today on 12/14/2018, patient remains in the ICU, hemodynamically stable, mental status is significantly improved. Her labs have significantly im proved including her renal profile. Patient mostly responded to hydration. Cultures of blood and urine remain negative. CBC is relatively normal. Electrolytes are normal BUN is down to 82 creatinine is down to 3.37. BUN was 114 on admission and creatinine was 6.38 on admission. Patient has a baseline creatinine of 1.1-1.5. Her hyperkalemia significantly improved and it is normal today. The metabolic acidosis which was related to acute kidney injury has also resolved. Patient was reevaluated today on 12/15/2018, resting in bed, comfortable, she is an overflow from regular medical floor. Improving steadily. Renal functioning is also better. Patient is hemodynamically stable, blood pressure is a bit elevated hence I recommended added Norvasc 5 mg daily. CBC is relatively unremarkable hemoglobin is 9.7 and elects lites are normal BUN is 67 creatinine is 2.53, significantly improved compared to admission. Objective - Vital Signs Vital signs: Vital Signs Temp 96.9 F L 12/15/18 08:00 Pulse 88 12/15/18 09:38 Resp 18 12/15/18 08:00 BP 161/80 12/15/18 08:00 Pulse Ox 95 12/15/18 08:00 Intake & Output 12/14/18 12/15/18 12/15/18 18:59 06:59 18:59 Intake Total 900 400 Output Total 777 100 Balance 123 300 Weight 68.1 kg Intake: IV 900 400 Sodium Chloride 0.9% 1, 900 400 000 ml @ 100 mls/hr IV . Q10H [facility] Rx#:[id number] Output: Urine 775 100 Stool 2 Other: Voiding Method Indwelling Catheter Diaper Diaper # Voids 1 # Bowel Movements 1 - Exam Physical Exam: Revealed a 88-year-old female, pleasant, in no distress. Head: Atraumatic, normocephalic. HEENT:[Neck is supple.] [No neck masses.] [No thyromegaly.] [No JVD.] PERRLA, EOMI, no icterus. Chest: [Symmetrical chest expansion. Clear throughout, no crackles, no rhonchi, no wheezes.] No chest wall deformity, no tenderness over the chest. Cardiac Exam: [Normal S1 and S2, no S3 gallop, no murmur.] Abdomen: [Soft, nontender, no megaly, no rebound, no guarding, normal bowel sounds.] Extremities: [No clubbing, no edema, no cyanosis.] Neurological Exam: Alert oriented 3, no gross focal neurologic deficit. Seems to be generally weak however. Psychiatric: Normal mood affect and mental status examination. Skin: No rashes. Lymphatics: No lymphadenopathy. - Labs CBC & Chem 7: 12/15/18 06:02 12/15/18 06:02 Labs: Abnormal Lab Results - Last 24 Hours (Table) 12/15/18 12/15/18 Range/Units 06:02 06:02 RBC 3.50 L (3.80-5.40) m/uL Hgb 9.7 L (11.4-16.0) gm/dL Hct 30.9 L (34.0-46.0) % RDW 16.7 H (11.5-15.5) % Plt Count 122 L (150-450) k/uL Chloride 110 H (98-107) mmol/L BUN 67 H (7-17) mg/dL Creatinine 2.53 H (0.52-1.04) mg/dL Glucose 73 L (74-99) mg/dL Calcium 7.5 L (8.4-10.2) mg/dL Magnesium 1.3 L (1.6-2.3) mg/dL Total Protein 5.2 L (6.3-8.2) g/dL Albumin 2.4 L (3.5-5.0) g/dL Microbiology - Last 24 Hours (Table) 12/13/18 18:30 Urine Culture - Preliminary Urine,Catheterized Gram Neg Bacilli 12/12/18 16:11 Blood Culture - Preliminary Blood No Growth after 48 hours Assessment and Plan Assessment: #1. Hypovolemic shock with dehydration, weakness, and diminished oral intake. #2. Dyspnea. Possible mild interstitial edema secondary to hydration and fluid overload. Possible diastolic congestive heart failure. Underlying COPD as per history is also contributing to her dyspnea. #3. Acute on chronic kidney injury, prerenal azotemia. #4. Chronic anemia, etiology not clear, yet to be determined on outpatient basis. #5. Non-anion gap metabolic acidosis related to acute kidney injury #6. Chronic kidney disease stage III related to nephrosclerosis with baseline creatinine ranging from 1.1-1.5 #7. Underlying history of COPD, with home oxygen at baseline, #8. Nicotine dependence, currently in remission, quit smoking in 1986, carries [id number] smoking history #9. Very artery disease with previous history of bypass grafting and stenting #10. Hypertension #11. Hyperlipidemia #12. Abdominal aortic aneurysm surveillance, and lower extremities peripheral vessel occlusive disease. #13 benign essential hypertension, added Norvasc 5 mg daily. Recommendation: Continue present treatment plan including IV fluids, blood pressure medications, GI and DVT prophylaxis, continue to monitor renal status on a daily basis, patient could be transferred to a regular medical floor once a bed becomes available Time with Patient: Less than 30
--- NOTE | 2018-12-15 13:12 | P.PN ---
Subjective Patient is seen in follow-up for acute kidney injury on chronic kidney disease and hyperkalemia. Potassium is now on the normal range. Currently resting in bed. She is maintained on IV fluids. Urine output is good. Oral intake is fair. No vomiting or diarrhea. 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 Creatinine was 6.38 on admission is 2.53 today. Vital signs are stable. General: The patient appeared well nourished and normally developed. HEENT: Head exam is unremarkable. Neck is without jugular venous distension. LUNGS: Lungs are clear to auscultation and percussion. Breath sounds decreased. HEART: Rate and Rhythm are regular. First and second heart sounds normal. No murmurs, rubs or gallops. ABDOMEN: Abdominal exam reveals normal bowel sounds. Non-tender and non- distended. No evidence of peritonitis. EXTREMITITES: No clubbing, cyanosis, or edema. Objective - Vital Signs Vital signs: Vital Signs Temp 96.9 F L 12/15/18 08:00 Pulse 88 12/15/18 09:38 Resp 18 12/15/18 08:00 BP 161/80 12/15/18 08:00 Pulse Ox 95 12/15/18 08:00 Intake & Output 12/14/18 12/15/18 12/15/18 18:59 06:59 18:59 Intake Total 900 400 Output Total 777 100 Balance 123 300 Weight 68.1 kg Intake: IV 900 400 Sodium Chloride 0.9% 1, 900 400 000 ml @ 100 mls/hr IV . Q10H [facility] Rx#:[id number] Output: Urine 775 100 Stool 2 Other: Voiding Method Indwelling Catheter Diaper Diaper # Voids 1 # Bowel Movements 1 - Labs CBC & Chem 7: 12/15/18 06:02 12/15/18 06:02 Labs: Abnormal Lab Results - Last 24 Hours (Table) 12/15/18 12/15/18 Range/Units 06:02 06:02 RBC 3.50 L (3.80-5.40) m/uL Hgb 9.7 L (11.4-16.0) gm/dL Hct 30.9 L (34.0-46.0) % RDW 16.7 H (11.5-15.5) % Plt Count 122 L (150-450) k/uL Chloride 110 H (98-107) mmol/L BUN 67 H (7-17) mg/dL Creatinine 2.53 H (0.52-1.04) mg/dL Glucose 73 L (74-99) mg/dL Calcium 7.5 L (8.4-10.2) mg/dL Magnesium 1.3 L (1.6-2.3) mg/dL Total Protein 5.2 L (6.3-8.2) g/dL Albumin 2.4 L (3.5-5.0) g/dL Microbiology - Last 24 Hours (Table) 12/13/18 18:30 Urine Culture - Preliminary Urine,Catheterized Gram Neg Bacilli 12/12/18 16:11 Blood Culture - Preliminary Blood No Growth after 48 hours Assessment and Plan Plan: Assessment: 1. Acute kidney injury mostly prerenal secondary to hypotension. Creatinine wa s 6.38 on admission and is down to 2.53 today. Trace proteinuria on UA. 2. Chronic kidney disease stage III secondary to nephrosclerosis with baseline creatinine in the range of 1.1-1.5. 3. Hyperkalemia secondary to acute kidney injury, metabolic acidosis and further worsened with the use of lisinopril, Aldactone and potassium supplementation. Improved with medical management. 4. Hyperphosphatemia secondary to acute kidney injury. Improved with improving renal function. 5. Metabolic acidosis secondary to acute kidney injury. Resolved. 6. Hypocalcemia secondary to acute kidney injury and hypoalbuminemia. Corrected calcium 8.7. 7. Hypomagnesemia secondary to poor oral intake. 8. UTI. Urine culture positive for gram-negative bacilli maintained on antibiotics. Plan: Decrease rate of normal saline to 75 mL an hour. Avoid nephrotoxins. Continue to monitor renal function and urine output. Replace magnesium. 3 g IV today.
[2018-12-15] MEDS: amLODIPine 5 MG TAB PO SCH (14:08)
--- NOTE | 2018-12-15 14:15 | PN ---
PROGRESS NOTE CHIEF COMPLAINT: Congestive heart failure, coronary artery disease with confusion. HISTORY OF PRESENT ILLNESS: This lady remains confused and lethargic. BUN and creatinine are coming down very slowly. She does have urinary tract infection with E coli and this is being addressed. REVIEW OF SYSTEMS: Cannot be obtained. She is lethargic and she is confused. PHYSICAL EXAMINATION: Vital signs are normal. Chest is fairly clear. There are occasional rales. Cardiac exam is unremarkable. Abdomen is soft and nontender. IMPRESSION: 1. Acute congestive heart failure. 2. Chronic renal failure. 3. Acute renal failure. 4. Urinary tract infection. 5. Delirium and lethargy. PLAN: Continue with IV fluids and current management. Watching her kidney function in hopes that it will continue to improve. Prognosis is poor. MMODL / IJN: [id number] /
[2018-12-15] MEDS: MAGNESIUM SULFATE-D5W PMX 1 GM in DEXTROSE/WATER 1 100ML.BAG IVPB SCH ×3 (15:26→17:47)
[2018-12-15] MEDS: ASPIRIN 81 MG PO SCH (21:08)
[2018-12-16] MEDS: SODIUM CHLORIDE 0.9% 1,000 ML IV SCH (05:49)
[2018-12-16] MEDS: SYMBICORT 160-4.5 MCG INHALER INHALATION SCH ×2 (07:53→20:33)
[2018-12-16] MEDS: IPRATROPIUM-ALBUTEROL 3 ML NEB INHALATION SCH ×4 (07:53→20:33)
[2018-12-16] MEDS: DEXTROSE 5% IN WATER 1,000 ML with SODIUM BICARB (1 MEQ/ML) 150 ML IV SCH (08:14)
[2018-12-16 08:55] LABS: Anisocytosis Slight; Basophils # (A) 0.1 k/uL (0-0.2); Basophils % (A) 1 %; Eosinophils # (A) 0.4 k/uL (0-0.7); Eosinophils % (A) 4 %; HCT 31.1 % (34.0-46.0); HGB 9.9 gm/dL (11.4-16.0); Hypochromasia Slight; Lymphocytes # (A) 1.4 k/uL (1.0-4.8); Lymphocytes % (A) 14 %; MCH 28.8 pg (25.0-35.0); MCHC 31.8 g/dL (31.0-37.0); MCV 90.6 fL (80.0-100.0); Mean Platelet Volume 8.6; Monocytes # (A) 0.7 k/uL (0-1.0); Monocytes % (A) 7 %; Neutrophils # (A) 7.2 k/uL (1.3-7.7); Neutrophils % (A) 72 %; Platelet Count 131 k/uL (150-450); RBC 3.43 m/uL (3.80-5.40); RDW 16.7 % (11.5-15.5)
[2018-12-16 09:09] LABS: Calcium 7.8 mg/dL (8.4-10.2); Magnesium 2.1 mg/dL (1.6-2.3); Potassium 4.9 mmol/L (3.5-5.1)
[2018-12-16] MEDS: amLODIPine 5 MG TAB PO SCH (10:37)
[2018-12-16] MEDS: FAMOTIDINE 20 MG TAB PO SCH (10:37)
[2018-12-16] MEDS: NYSTATIN 100,000 UNIT/GM POWD 15 GM TOPICAL SCH ×4 (10:37→21:23)
--- NOTE | 2018-12-16 11:03 | P.PN ---
Subjective Progress Note Date: 12/16/18 Principal diagnosis: 88-year-old with acute kidney injury secondary to hypotension, as well as Nestor us mirabilis urine tract infection. She was Hydrated, Was on normal saline 75 an hour. She is complaining of shortness of breath. Her creatinine has improved from a peak of 6.38, to 1.86. Urine output is 8 77 mL with an intake of 1300 mL. She is eating fair no nausea vomiting diarrhea abdominal pain no dysuria frequency. She has a low-grade temperature of 99.3. History of present illness: Patient is a 88-year-old female seen in renal consultation for acute kidney inj ury and hyperkalemia. Patient presented to the hospital due to generalized weakness. She was also dyspneic but was refusing to wear her home oxygen. Patient presented to the hospital her creatinine was 6.38 and potassium level was 7.7. She was maintained on lisinopril, Aldactone as well as potassium supplementation as an outpatient. She was also acidotic with bicarb level as low as 13 this admission. She is currently maintained on D5W with 3 A of bicarbonate running at 125 mL an hour. She is now nonoliguric. Hyperkalemia was medically treated with IV insulin, Kayexalate, sodium bicarbonate and also albuterol. This morning her potassium level was 4.5. She is awake and alert. Denies chest pain or shortness of breath. No vomiting or diarrhea. Blood pressure was low in the systolic 70s to 80s on admission. She received 2-1/2 L of normal saline bolus. Blood pressure this morning was 109/64. She is not on any vasopressors. Denies use of nonsteroidals. 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 Objective - Vital Signs Vital signs: Vital Signs Temp 99.3 F 12/16/18 08:35 Pulse 80 12/16/18 08:35 Resp 15 12/16/18 08:35 BP 147/67 12/16/18 08:35 Pulse Ox 95 12/16/18 08:35 Intake & Output 12/15/18 12/16/18 12/16/18 18:59 06:59 18:59 Intake Total 220 970 Balance 220 970 Weight 70 kg Intake: IV 70 Sodium Chloride 0.9% 1, 70 000 ml @ 70 mls/hr IV . [id number] [facility] Rx#:[id number] Intake, IV Titration 150 770 Amount Magnesium Sulfate-D5w Pmx 100 1 gm In Dextrose/Water 1 100ml.bag @ 100 mls/hr IVPB Q1H [facility] Rx#: [id number] Sodium Chloride 0.9% 1, 770 000 ml @ 70 mls/hr IV . [id number] [facility] Rx#:[id number] cefTRIAXone 1 gm In 50 Sodium Chloride 0.9% 50 ml @ 100 mls/hr IVPB Q24HR [facility] Rx#:[id number] Oral 200 Other: Voiding Method Diaper Diaper Incontinent Incontinent # Voids 1 3 She is awake alert oriented but weak. HEENT exam no JVP neck is supple no facial asymmetry she has some puffiness of her eyes Lungs are significant for diminished breath sounds are heard. Fair air entry Heart sounds are unremarkable for any murmur rub gallop Abdomen soft nontender no masses felt Extremity exam was trace edema Neurologically awake alert oriented 3 but generalized weakness - Labs CBC & Chem 7: 12/16/18 08:14 12/16/18 08:14 Labs: Abnormal Lab Results - Last 24 Hours (Table) 12/16/18 12/16/18 Range/Units 08:14 08:14 RBC 3.43 L (3.80-5.40) m/uL Hgb 9.9 L (11.4-16.0) gm/dL Hct 31.1 L (34.0-46.0) % RDW 16.7 H (11.5-15.5) % Plt Count 131 L (150-450) k/uL Chloride 110 H (98-107) mmol/L BUN 49 H (7-17) mg/dL Creatinine 1.86 H (0.52-1.04) mg/dL Calcium 7.8 L (8.4-10.2) mg/dL Microbiology - Last 24 Hours (Table) 12/12/18 16:11 Blood Culture - Preliminary Blood No Growth after 72 hours 12/13/18 18:30 Urine Culture - Final Urine,Catheterized Proteus mirabilis Assessment and Plan Assessment: Impression 1. Acute kidney injury secondary to hypotension. Creatinine peaked at 6.38 and currently down to 1.8 this morning after hydration. 2. Chronic kidney disease with creatinine of about 1.1-1.3 secondary to nephrosclerosis CK D stage III. 3. Hyperkalemia resolved. 4. Metabolic acidosis secondary to acute kidney injury. Resolved bicarb is 28 Acidosis 5. Short of breath today rule out CHF 6. Anemia hemoglobin is 9.9 adequate, cannot explain the shortness of breath Recommendation 1. Discontinue IV fluids. 2. We'll give her 1 dose of Lasix 20 mg by mouth. 3. Watch hemoglobin, renal function.
[2018-12-16] MEDS ORDERED: FUROSEMIDE 20 MG TAB PO STA (11:16)
[2018-12-16] MEDS: ACETAMINOPHEN TAB 325 MG TAB PO PRN (13:44)
--- NOTE | 2018-12-16 13:52 | MISC ---
MISCELLANOUS REPORT QUERY Heart failure is acute on chronic. MMODL / IJN: [id number] /
--- NOTE | 2018-12-16 14:52 | PN ---
PROGRESS NOTE CHIEF COMPLAINT: Acute congestive heart failure and renal failure. HISTORY OF PRESENT ILLNESS: This lady is slowly improving. BUN and creatinine are coming down. She has less shortness of breath. She still at times is a little bit confused, but this has basically cleared. PHYSICAL EXAM: Chest demonstrates scattered rhonchi and scattered rales. Cardiac exam is unchanged. Abdomen is soft, nontender. IMPRESSION: 1. Acute congestive heart failure. 2. Acute exacerbation of chronic renal failure. PLAN: Continue with current program and start to increase her activity. MMODL / IJN: [id number] /
[2018-12-16] MEDS: ASPIRIN 81 MG PO SCH (21:23)
[2018-12-17] MEDS ORDERED: FUROSEMIDE 10 MG/ML 10 ML VIAL IV STA (07:46)
[2018-12-17] MEDS: amLODIPine 5 MG TAB PO SCH (07:51)
[2018-12-17] MEDS: FAMOTIDINE 20 MG TAB PO SCH (07:51)
[2018-12-17] MEDS: NYSTATIN 100,000 UNIT/GM POWD 15 GM TOPICAL SCH ×4 (07:53→20:33)
[2018-12-17] MEDS: SYMBICORT 160-4.5 MCG INHALER INHALATION SCH ×2 (07:58→21:25)
[2018-12-17] MEDS: IPRATROPIUM-ALBUTEROL 3 ML NEB INHALATION SCH ×4 (07:58→21:25)
[2018-12-17] MEDS: ACETAMINOPHEN TAB 325 MG TAB PO PRN (08:18)
--- NOTE | 2018-12-17 09:56 | P.PN ---
Subjective Progress Note Date: 12/17/18 Principal diagnosis: 88-year-old with acute kidney injury secondary to hypotension, as well as Proteus mirabilis urine tract infection. She was Hydrated, Was on normal saline 75 an hour. She is complaining of shortness of breath. Her creatinine had improved from a peak of 6.38, to 1.86. Her IV fluids were discontinued yesterday and give her 20 mg of Lasix 1 dose. Urine output is documented at only 100 mL. This morning she complained of shortness of breath again and was given 80 mg of Lasix 1 dose. She did make some urine but is not documented. History of present illness: Patient is a 88-year-old female seen in renal consultation for acute kidney injury and hyperkalemia. Patient presented to the hospital due to generalized weakness. She was also dyspneic but was refusing to wear her home oxygen. Patient presented to the hospital her creatinine was 6.38 and potassium level was 7.7. She was maintained on lisinopril, Aldactone as well as potassium supplementation as an outpatient. She was also acidotic with bicarb level as low as 13 this admission. She is currently maintained on D5W with 3 A of bicarbonate running at 125 mL an hour. She is now nonoliguric. Hyperkalemia was medically treated with IV insulin, Kayexalate, sodium bicarbonate and also albuterol. This morning her potassium level was 4.5. She is awake and alert. Denies chest pain or shortness of breath. No vomiting or diarrhea. Blood pressure was low in the systolic 70s to 80s on admission. She received 2-1/2 L of normal saline bolus. Blood pressure this morning was 109/64. She is not on any vasopressors. Denies use of nonsteroidals. 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 Objective - Vital Signs Vital signs: Vital Signs Temp 98.6 F 12/17/18 07:20 Pulse 76 12/17/18 08:09 Resp 22 12/17/18 07:33 BP 166/78 12/17/18 07:20 Pulse Ox 94 L 12/17/18 07:20 Intake & Output 12/16/18 12/17/18 12/17/18 18:59 06:59 18:59 Intake Total 600 1140 510 Output Total 100 200 Balance 500 1140 310 Weight 70 kg Intake: Intake, IV Titration 50 Amount cefTRIAXone 1 gm In 50 Sodium Chloride 0.9% 50 ml @ 100 mls/hr IVPB Q24HR [facility] Rx#:[id number] Oral 550 1140 510 Output: Urine 100 200 Other: Voiding Method Diaper Diaper Diaper Incontinent Incontinent Incontinent # Voids 1 2 1 On examination she was sleepy but arousable and cooperative HEENT exam no JVP neck is supple no facial asymmetry Lungs are significant for bilateral wheezing at end expiration Good air entry bilaterally Heart sounds are unremarkable for any murmur rub gallop Abdomen soft nontender Extremity exam was trace edema Neurologically arousable awake alert and speaks and follows commands - Labs CBC & Chem 7: 12/16/18 08:14 12/16/18 08:14 Labs: Microbiology - Last 24 Hours (Table) 12/12/18 16:11 Blood Culture - Preliminary Blood No Growth after 96 hours Assessment and Plan Assessment: Impression 1. Acute kidney injury secondary to hypotension. Creatinine peaked at 6.38 and currently down to 1.8 yesterday but no labs this morning. Improvement after after hydration. 2. Add shortness of breath this morning and was given Lasix 80 mg has some wheezing possible CHF. Will follow-up with strict I's and O's. 3. Chronic kidney disease with creatinine of about 1.1-1.3 secondary to nephrosclerosis CK D stage III. 4. Metabolic acidosis secondary to acute kidney injury. Resolved bicarb is 28 Acidosis 5. Short of breath today rule out CHF 6. Anemia hemoglobin is 9.9 adequate, cannot explain the shortness of breath Recommendation 1. Watch labs. She received 80 mg of Lasix 1 dose this morning because of shortness of breath. 2. Strict I's and O's. 3. Watch blood pressure, currently slightly high at times Thank you for this opportunity to follow up this patient
[2018-12-17 11:04] LABS: Calcium 7.7 mg/dL (8.4-10.2); Potassium 4.6 mmol/L (3.5-5.1)
[2018-12-17] MEDS: ASPIRIN 81 MG PO SCH (20:33)
[2018-12-18] MEDS: SYMBICORT 160-4.5 MCG INHALER INHALATION SCH ×2 (07:27→20:55)
[2018-12-18] MEDS: IPRATROPIUM-ALBUTEROL 3 ML NEB INHALATION SCH ×4 (07:27→20:55)
[2018-12-18] MEDS: FAMOTIDINE 20 MG TAB PO SCH (08:51)
[2018-12-18] MEDS: NYSTATIN 100,000 UNIT/GM POWD 15 GM TOPICAL SCH ×4 (08:51→21:43)
[2018-12-18] MEDS: amLODIPine 5 MG TAB PO SCH (08:51)
[2018-12-18 10:52] VITALS: BMI 27.8
--- NOTE | 2018-12-18 11:22 | P.PN ---
Subjective Patient is seen in follow-up for acute kidney injury on chronic kidney disease and hyperkalemia. Potassium is now on the normal range. Currently resting in bed. She is off IV fluids. Oral intake is fair. Urine output is good. No vomiting or diarrhea. 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 Creatinine was 6.38 on admission and is down to 1.54 as of yesterday. Vital signs are stable. General: The patient appeared well nourished and normally developed. HEENT: Head exam is unremarkable. Neck is without jugular venous distension. LUNGS: Breath sounds decreased. HEART: Rate and Rhythm are regular. First and second heart sounds normal. No murmurs, rubs or gallops. ABDOMEN: Abdominal exam reveals normal bowel sounds. Non-tender and non- distended. No evidence of peritonitis. EXTREMITITES: No clubbing, cyanosis, or edema. Objective - Vital Signs Vital signs: Vital Signs Temp 98.5 F 12/18/18 07:00 Pulse 68 12/18/18 11:14 Resp 14 12/18/18 07:00 BP 132/71 12/18/18 07:00 Pulse Ox 98 12/18/18 07:00 Intake & Output 12/17/18 12/18/18 12/18/18 18:59 06:59 18:59 Intake Total 610 210 118 Output Total 1200 Balance -590 210 118 Weight 69 kg 69 kg Intake: Intake, IV Titration 100 Amount cefTRIAXone 1 gm In 100 Sodium Chloride 0.9% 50 ml @ 100 mls/hr IVPB Q24HR [facility] Rx#:[id number] Oral 510 210 118 Output: Urine 1200 Other: Voiding Method Diaper Diaper Diaper Incontinent Incontinent Incontinent # Voids 1 # Bowel Movements 0 - Labs CBC & Chem 7: 12/16/18 08:14 12/17/18 10:25 Labs: Microbiology - Last 24 Hours (Table) 12/12/18 16:11 Blood Culture - Preliminary Blood No Growth after 120 hours Assessment and Plan Plan: Assessment: 1. Acute kidney injury mostly prerenal secondary to hypotension. Creatinine was 6.38 on admission and down to 1.54 as of yesterday. Trace proteinuria on UA. 2. Chronic kidney disease stage III secondary to nephrosclerosis with baseline creatinine in the range of 1.1-1.5. 3. Hyperkalemia secondary to acute kidney injury, metabolic acidosis and further worsened with the use of lisinopril, Aldactone and potassium supplementation. Improved with medical management. 4. Hyperphosphatemia secondary to acute kidney injury. Improved with improving renal function. 5. Metabolic acidosis secondary to acute kidney injury. Resolved. 6. Hypocalcemia secondary to acute kidney injury and hypoalbuminemia. Corrected calcium in the normal range. 7. Hypomagnesemia secondary to poor oral intake. Better post replacement. 8. UTI. Urine culture positive for Proteus maintained on antibiotics. Plan: Encourage oral intake. Status post IV Lasix yesterday. Avoid nephrotoxins. Repeat electrolytes in the morning.
--- NOTE | 2018-12-18 17:16 | PN ---
PROGRESS NOTE CHIEF COMPLAINT: Congestive heart failure and renal failure. HISTORY OF PRESENT ILLNESS: This lady is doing a lot better. Yesterday she was quite edematous. She has improved a great deal over the last 24 hours. PHYSICAL EXAM: She is less short of breath. She has less facial edema. Chest demonstrates better breath sounds with fewer rales at the bases. Cardiac exam is unchanged. IMPRESSION: Congestive heart failure. PLAN: Continue to manage her fluids with increased activity. MMODL / IJN: [id number] /
--- NOTE | 2018-12-18 17:31 | PN ---
PROGRESS NOTE DATE OF SERVICE: 12/17/2018 CHIEF COMPLAINT: Renal failure and congestive heart failure. HISTORY OF PRESENT ILLNESS: This lady looks much worse today. She is quite dyspneic and she has very significant and increased facial edema. She is awake and alert. PHYSICAL EXAMINATION: Chest demonstrates a few scattered rales. Cardiac exam is normal. IMPRESSION: 1. Acute congestive heart failure. 2. Chronic congestive heart failure. 3. Renal failure. PLAN: 1. Add diuretic. 2. Await recommendations from Nephrology and Cardiology. MMODL / IJN: [id number] /
[2018-12-18] MEDS: ASPIRIN 81 MG PO SCH (21:43)
[2018-12-19] MEDS: ACETAMINOPHEN TAB 325 MG TAB PO PRN (05:26)
[2018-12-19] MEDS: SYMBICORT 160-4.5 MCG INHALER INHALATION SCH (07:32)
[2018-12-19] MEDS: IPRATROPIUM-ALBUTEROL 3 ML NEB INHALATION SCH ×2 (07:32→11:20)
[2018-12-19 08:13] VITALS: BP 135/64; RESP 16; TEMP 98.4
[2018-12-19 08:18] LABS: Calcium 7.9 mg/dL (8.4-10.2); Potassium 4.5 mmol/L (3.5-5.1)
[2018-12-19] MEDS: amLODIPine 5 MG TAB PO SCH (09:17)
[2018-12-19] MEDS: NYSTATIN 100,000 UNIT/GM POWD 15 GM TOPICAL SCH ×2 (09:17→14:39)
[2018-12-19] MEDS: FAMOTIDINE 20 MG TAB PO SCH (09:17)
[2018-12-19 11:26] VITALS: PULSE 72
--- NOTE | 2018-12-19 12:08 | P.PN ---
Subjective Patient is seen in follow-up for acute kidney injury on chronic kidney disease and hyperkalemia. Potassium is now on the normal range. Currently resting in bed. She is off IV fluids. Oral intake is fair. Urine output is good. No vomiting or diarrhea. 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 Creatinine was 6.38 on admission and is down to 1.3 today. Vital signs are stable. General: The patient appeared well nourished and normally developed. HEENT: Head exam is unremarkable. Neck is without jugular venous distension. LUNGS: Breath sounds decreased. HEART: Rate and Rhythm are regular. First and second heart sounds normal. No murmurs, rubs or gallops. ABDOMEN: Abdominal exam reveals normal bowel sounds. Non-tender and non- distended. No evidence of peritonitis. EXTREMITITES: No clubbing, cyanosis, or edema. Objective - Vital Signs Vital signs: Vital Signs Temp 98.4 F 12/19/18 07:00 Pulse 72 12/19/18 11:26 Resp 16 12/19/18 07:00 BP 135/64 12/19/18 07:00 Pulse Ox 94 L 12/19/18 07:00 Intake & Output 12/18/18 12/19/18 12/19/18 18:59 06:59 18:59 Intake Total 472 680 Output Total 700 425 Balance -228 255 Weight 69 kg 70.5 kg Intake: IV 180 Sodium Chloride 0.9% 1, 180 000 ml @ 70 mls/hr IV . [id number] [facility] Rx#:[id number] Oral 472 500 Output: Urine 700 425 Other: Voiding Method Diaper Incontinent Incontinent Incontinent # Voids 1 - Labs CBC & Chem 7: 12/16/18 08:14 12/19/18 07:47 Labs: Abnormal Lab Results - Last 24 Hours (Table) 12/19/18 Range/Units 07:47 Carbon Dioxide 33 H (22-30) mmol/L BUN 31 H (7-17) mg/dL Creatinine 1.30 H (0.52-1.04) mg/dL Calcium 7.9 L (8.4-10.2) mg/dL Microbiology - Last 24 Hours (Table) 12/12/18 16:11 Blood Culture - Final Blood No Growth after 144 hours Assessment and Plan Plan: Assessment: 1. Acute kidney injury mostly prerenal secondary to hypotension. Creatinine was 6.38 on admission and down to 1.3 today. Trace proteinuria on UA. 2. Chronic kidney disease stage III secondary to nephrosclerosis with baseline creatinine in the range of 1.1-1.5. 3. Hyperkalemia secondary to acute kidney injury, metabolic acidosis and further worsened with the use of lisinopril, Aldactone and potassium supplementation. Improved with medical management. 4. Hyperphosphatemia secondary to acute kidney injury. Improved with improving renal function. 5. Metabolic acidosis secondary to acute kidney injury. Resolved. 6. Hypocalcemia secondary to acute kidney injury and hypoalbuminemia. Corrected calcium in the normal range. 7. Hypomagnesemia secondary to poor oral intake. Better post replacement. 8. UTI. Urine culture positive for Proteus maintained on antibiotics. Plan: Encourage oral intake. Avoid nephrotoxins. Repeat electrolytes in the morning.
[2018-12-19] MEDS ORDERED: CEPHALEXIN 250 MG CAP PO SCH (13:00)
[2018-12-19] MEDS ORDERED: CARVEDILOL 3.125 MG TAB PO SCH (17:30)
--- NOTE | 2018-12-19 18:12 | DS ---
DISCHARGE SUMMARY CHIEF COMPLAINT: Weakness, shortness of breath and acute renal failure with hyperkalemia. HISTORY OF PRESENT ILLNESS AND PHYSICAL EXAM: Details of this lady's history and physical can be found in the initial workup. COURSE IN HOSPITAL: After admission, she was placed on bedrest, started on intravenous fluids and hyperkalemia was corrected. She was followed by Cardiology for her congestive heart failure as well as Nephrology. She did have an episode of acute congestive heart failure, but responded to diuretics and decreased IV fluids as her renal function improved. She was stable enough it was felt that she could go to the alf and she will be transferred to [facility] on December 19. FINAL DIAGNOSES: 1. Acute congestive heart failure. 2. Chronic congestive heart failure. 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 4. Prerenal azotemia. 5. Acute renal failure. 6. Chronic renal failure. 7. Hyperkalemia. OPERATIONS: None. CONSULTATIONS: Cardiology and Nephrology. She is improved. MMMARTAL / LUISN: [id number] /
[2018-12-19] MEDS ORDERED: SACUBITRIL/VALSARTAN 24 MG-26 MG TABLET PO SCH (21:00)
[2018-12-20] MEDS ORDERED: FUROSEMIDE 20 MG TAB PO SCH (09:00)
[2018-12-20] MEDS ORDERED: LISINOPRIL 2.5 MG TAB PO SCH (09:00)
== END 2018-12-19 15:05 | DRG 682 ==
LOC: EC 14:53 → 2SICU 16:36 → 4SSUR 12-15 15:52
PROVIDERS: ADMIT Family Medicine; ATTEND Family Medicine
DX: N17.9 Acute kidney failure, unspecified (principal); R57.1 Hypovolemic shock; I50.43 Acute on chronic combined systolic (congestive) and diastolic (congestive) heart failure; I13.0 Hypertensive heart and chronic kidney disease with heart failure and stage 1 through stage 4 chronic kidney disease, or unspecified chronic kidney disease; J96.11 Chronic respiratory failure with hypoxia; E87.2 Acidosis; J44.1 Chronic obstructive pulmonary disease with (acute) exacerbation; N39.0 Urinary tract infection, site not specified; E87.5 Hyperkalemia; D69.6 Thrombocytopenia, unspecified; E83.51 Hypocalcemia; E83.42 Hypomagnesemia; E83.39 Other disorders of phosphorus metabolism; R00.1 Bradycardia, unspecified; N18.3 Chronic kidney disease, stage 3 (moderate); D64.9 Anemia, unspecified; I73.9 Peripheral vascular disease, unspecified; B96.4 Proteus (mirabilis) (morganii) as the cause of diseases classified elsewhere; I25.2 Old myocardial infarction; I25.10 Atherosclerotic heart disease of native coronary artery without angina pectoris; E78.5 Hyperlipidemia, unspecified; M10.9 Gout, unspecified; I71.4 Abdominal aortic aneurysm, without rupture; E16.2 Hypoglycemia, unspecified; R32 Unspecified urinary incontinence; Z71.3 Dietary counseling and surveillance; Z79.82 Long term (current) use of aspirin; Z79.899 Other long term (current) drug therapy; Z95.1 Presence of aortocoronary bypass graft; Z90.710 Acquired absence of both cervix and uterus; Z98.42 Cataract extraction status, left eye; Z98.41 Cataract extraction status, right eye; Z91.19 Patient's noncompliance with other medical treatment and regimen; Z99.81 Dependence on supplemental oxygen; Z90.49 Acquired absence of other specified parts of digestive tract; Z95.5 Presence of coronary angioplasty implant and graft; Z87.891 Personal history of nicotine dependence; Z88.5 Allergy status to narcotic agent; Z88.2 Allergy status to sulfonamides; Z88.8 Allergy status to other drugs, medicaments and biological substances; Z82.49 Family history of ischemic heart disease and other diseases of the circulatory system
CPT/HCPCS: 36415; 71045; 71046; 80048; 80053; 81001; 83735; 83880; 84100; 84484; 85025; 85027; 85610; 85730; 87040; 87077; 87086; 87186; 93005; 94640; 94760; 96361; 96365; 96375; 99291

== ENCOUNTER 2018-12-26 13:47 | Inpatient (IN) | payer MEDICARE ==
--- NOTE | 2018-12-26 14:05 | ED ---
Chest Pain HPI - General Chief Complaint: Chest Pain Stated Complaint: Chest pain Time Seen by Provider: 12/26/18 13:55 Source: patient, RN notes reviewed, old records reviewed Mode of arrival: EMS Limitations: no limitations - History of Present Illness Initial Comments: This is an 88-year-old female the ER for evaluation shortness a for evaluation of chest pain. Patient had chest pain at [facility] and sent ER for evaluation. Patient has persistent but intermittent chest pain currently. She was given nitro with no help. Patient denies fever or shortness of breath or sweating MD Complaint: chest pain -: days(s) Onset: during exertion Pain Location: substernal Pain Radiation: LUE Severity: mild Severity scale (1-10): 3 Quality: tightness Consistency: constant Improves With: nothing Worsens With: nothing Other Symptoms: cough Treatments Prior to Arrival: none - Related Data Home Medications Medication Instructions Recorded Confirmed Aspirin [Adult Low Dose Aspirin EC] 81 mg PO HS 02/15/17 12/26/18 Nitroglycerin Sl Tabs [Nitrostat] 0.4 mg SUBLINGUAL Q5M PRN 02/15/17 12/26/18 Nystatin [Nystop] 1 applic TOPICAL QID 12/12/18 12/26/18 Spironolactone 25 mg PO DAILY 12/12/18 12/26/18 guaiFENesin [Mucinex] 1,200 mg PO BID 12/17/18 12/26/18 Bisacodyl [Dulcolax] 10 mg RECTAL DAILY PRN 12/26/18 12/26/18 Na Phos,M-B/Na Phos,Di-Ba [Fleet 133 ml RECTAL DAILY PRN 12/26/18 12/26/18 Adult] Sacubitril/Valsartan [Entresto 24 1 tab PO AC-BID 12/26/18 12/26/18 mg-26 mg Tablet] Previous Rx's Medication Instructions Recorded Atorvastatin [Lipitor] 80 mg PO HS #30 tab 04/19/17 Budesonide-Formot 160-4.5 Mcg 2 puff INHALATION RT-BID 30 Days 12/19/18 [Symbicort 160-4.5 Mcg Inhaler] #1 inhaler Carvedilol [Coreg] 3.125 mg PO BID-W/MEALS #60 tab 04/23/19 Furosemide [Lasix] 20 mg PO DAILY #30 tab 12/19/18 Ipratropium-Albuterol Nebulize 3 ml INHALATION RT-QID #120 12/19/18 [Duoneb 0.5 mg-3 mg/3 ml Soln] ampul.neb amLODIPine [Norvasc] 5 mg PO DAILY #30 tab 12/19/18 Allergies Allergy/AdvReac Type Severity Reaction Status Date / Time oxybutynin Allergy SEE Verified 12/26/18 13:51 COMMENTS sulfamethoxazole Allergy SEE Verified 12/26/18 13:51 [From Bactrim] COMMENTS trimethoprim [From Bactrim] Allergy SEE Verified 12/26/18 13:51 COMMENTS morphine AdvReac Confusion Verified 12/26/18 13:51 Review of Systems ROS Statement: Those systems with pertinent positive or pertinent negative responses have been documented in the HPI. ROS Other: All systems not noted in ROS Statement are negative. EKG Findings - EKG Comments: EKG Findings:: EKG shows normal sinus rhythm rate of 60, FL 150, QRS 80, QTC 433 Past Medical History Past Medical History: Coronary Artery Disease (CAD), COPD, Hyperlipidemia, Hypertension, Myocardial Infarction ([place]) Additional Past Medical History / Comment(s): Coronary artery disease, previous bypass surgery ten years ago, hypertension, hyperlipidemia, COPD maintenance Symbicort on outpatient basis, gout, AAA NOT SURE OF SIZE Last Myocardial Infarction Date:: 2016 History of Any Multi-Drug Resistant Organisms: None Reported Past Surgical History: Cholecystectomy, Coronary Bypass/CABG, Heart Catheterization With Stent, Hysterectomy Additional Past Surgical History / Comment(s): Coronary artery bypass surgery- triple, cardiac catheterization and angioplasty and stenting of the saphenous vein graft to obtuse marginal branch.CATARACTS, "stent in groin" Past Anesthesia/Blood Transfusion Reactions: Motion Sickness Additional Past Anesthesia/Blood Transfusion Reaction / Comment(s): Pt states she has received blood without reaction. Date of Last Stent Placement:: unk Past Psychological History: No Psychological Hx Reported Smoking Status: Former smoker Past Alcohol Use History: None Reported Past Drug Use History: None Reported - Past Family History Father Family Medical History: Coronary Artery Disease (CAD), Myocardial Infarction ([place]) Additional Family Medical History / Comment(s): Father of a [place] at the age of 72 yrs. Mother Family Medical History: No Reported History Additional Family Medical History / Comment(s): Pt states her mother was healthy and at the age of 84 yrs. General Exam Limitations: no limitations General appearance: alert, in no apparent distress Head exam: Present: atraumatic, normocephalic, normal inspection Eye exam: Present: normal appearance, PERRL, EOMI. Absent: scleral icterus, conjunctival injection, periorbital swelling ENT exam: Present: normal exam, mucous membranes moist Neck exam: Present: normal inspection. Absent: tenderness, meningismus, lymphadenopathy Respiratory exam: Present: normal lung sounds bilaterally. Absent: respiratory distress, wheezes, rales, rhonchi, stridor Cardiovascular Exam: Present: regular rate, normal rhythm, normal heart sounds. Absent: systolic murmur, diastolic murmur, rubs, gallop, clicks GI/Abdominal exam: Present: soft, normal bowel sounds. Absent: distended, tenderness, guarding, rebound, rigid Extremities exam: Present: normal inspection, full ROM, normal capillary refill. Absent: tenderness, pedal edema, joint swelling, calf tenderness Back exam: Present: normal inspection Neurological exam: Present: alert, oriented X3, CN II-XII intact Psychiatric exam: Present: normal affect, normal mood Skin exam: Present: warm, dry, intact, normal color. Absent: rash Course Vital Signs 12/26/18 13:54 Temperature 98.2 F Pulse Rate 69 Respiratory 18 Rate Blood Pressure 106/53 O2 Sat by Pulse 96 Oximetry - Reevaluation(s) Reevaluation #1: 12/26/18 14:59 medical record is reviewed Reevaluation #2: 12/26/18 14:59 Patient still complains of some occasional episodic chest pain Chest Pain MDM - [facility] 88 female the ER for evaluation positive chest pain, patient will admit for chest pain observation, spoke with Dr. Waldron and toshia for admission Disposition Clinical Impression: Chest pain, Hyperkalemia Disposition: ADMITTED IP TO THIS HOSP Condition: Undetermined Instructions (If sedation given, give patient instructions): Chest Pain (ED) Is patient prescribed a controlled substance at d/c from ED?: No Referrals: Jose Quintana MD [Primary Care Provider] - 1-2 days
[2018-12-26 14:40] LABS: Anisocytosis Slight; Basophils # (A) 0.1 k/uL (0-0.2); Basophils % (A) 1 %; Eosinophils # (A) 0.3 k/uL (0-0.7); Eosinophils % (A) 5 %; HCT 31.5 % (34.0-46.0); HGB 9.7 gm/dL (11.4-16.0); Hypochromasia Slight; Lymphocytes # (A) 1.3 k/uL (1.0-4.8); Lymphocytes % (A) 20 %; MCH 27.8 pg (25.0-35.0); MCHC 30.9 g/dL (31.0-37.0); MCV 90.2 fL (80.0-100.0); Mean Platelet Volume 8.2; Monocytes # (A) 0.4 k/uL (0-1.0); Monocytes % (A) 7 %; Neutrophils # (A) 4.1 k/uL (1.3-7.7); Neutrophils % (A) 64 %; Platelet Count 291 k/uL (150-450); RBC 3.49 m/uL (3.80-5.40); RDW 17.4 % (11.5-15.5); WBC 6.4 k/uL (3.8-10.6)
[2018-12-26 14:48] LABS: Magnesium 1.5 mg/dL (1.6-2.3); Partial Thromboplastin Time 23.4 sec (22.0-30.0); Prothrombin Time 11.1 sec (9.0-12.0); Total Bilirubin 0.7 mg/dL (0.2-1.3); Total Protein 6.7 g/dL (6.3-8.2)
[2018-12-26] MEDS ORDERED: NITROGLYCERIN SL TABS 0.4 MG TAB SUBLINGUAL PRN ×2 (14:57→21:19)
[2018-12-26 15:01] LABS: Potassium 6.4 mmol/L (3.5-5.1)
--- NOTE | 2018-12-26 15:02 | XR ---
EXAMINATION TYPE: XR chest 2V DATE OF EXAM: 12/26/2018 COMPARISON: 12/13/2018 HISTORY: 88-year-old female with chest pain TECHNIQUE: AP and lateral views FINDINGS: Median sternotomy wires are present. Heart borderline enlarged. Trace effusion on the left. Calcified granuloma right base. Some patchy left basilar opacity. Retained epicardial pacer leads. Hyperinflat ion. IMPRESSION: Borderline cardiomegaly with trace left effusion and adjacent atelectasis and/or consolidation. Suspe ct underlying COPD.
[2018-12-26] MEDS ORDERED: SODIUM BICARB 8.4% 50 ML SYR (1 MEQ/ML) IV STA (15:05)
[2018-12-26] MEDS ORDERED: DEXTROSE 50% SYRINGE 50 ML IVP STA ×2 (15:05→17:10)
[2018-12-26] MEDS ORDERED: SODIUM POLYSTYRENE SULFONATE 15 GM/60 ML BOTTLE PO STA (15:05)
[2018-12-26] MEDS ORDERED: INSULIN REGULAR 100 UNIT/ML VIAL IV ONE (15:05)
[2018-12-26 17:33] LABS: Glucose,Whole Blood 40 mg/dL (75-99)
[2018-12-26 17:33] LABS: Glucose,Whole Blood 229 mg/dL (75-99)
[2018-12-26] MEDS ORDERED: Magnesium Replacement Protocol 1 EACH MISC MISCELLANE PRN (21:17)
[2018-12-26] MEDS ORDERED: BISACODYL 10 MG SUPP RECTAL PRN (21:19)
[2018-12-26] MEDS ORDERED: HEPARIN SODIUM,PORCINE 5,000 UNIT/ML 1 ML VIAL IV PRN (21:23)
[2018-12-26] MEDS ORDERED: HEPARIN SODIUM,PORCINE 5,000 UNIT/ML 1 ML VIAL IV ONE (21:23)
[2018-12-26] MEDS ORDERED: HEPARIN SOD,PORK IN 0.45% NACL 25,000 UNIT in 0.45% NACL 1 250ML.BAG IV SCH (21:30)
[2018-12-26] MEDS ORDERED: NYSTATIN 100,000 UNIT/GM POWD 15 GM TOPICAL SCH (22:00)
[2018-12-26] MEDS: MAGNESIUM SULFATE-D5W PMX 1 GM in DEXTROSE/WATER 1 100ML.BAG IVPB SCH ×2 (22:48→23:57)
[2018-12-27 00:07] LABS: Glucose,Whole Blood 117 mg/dL (75-99)
[2018-12-27 03:41] LABS: Anisocytosis Slight; Basophils # (A) 0.1 k/uL (0-0.2); Basophils % (A) 1 %; Eosinophils # (A) 0.4 k/uL (0-0.7); Eosinophils % (A) 5 %; HCT 32.4 % (34.0-46.0); HGB 9.9 gm/dL (11.4-16.0); Hypochromasia Moderate; Lymphocytes # (A) 1.9 k/uL (1.0-4.8); Lymphocytes % (A) 28 %; MCHC 30.6 g/dL (31.0-37.0); MCV 91.4 fL (80.0-100.0); Mean Platelet Volume 8.1; Monocytes # (A) 0.5 k/uL (0-1.0); Monocytes % (A) 7 %; Neutrophils # (A) 3.9 k/uL (1.3-7.7); Neutrophils % (A) 56 %; Platelet Count 276 k/uL (150-450); RBC 3.55 m/uL (3.80-5.40); RDW 17.1 % (11.5-15.5); WBC 6.9 k/uL (3.8-10.6)
[2018-12-27 04:04] LABS: Cholesterol 91 mg/dL (<200); HDL Cholesterol 25 mg/dL (40-60); LDL Cholesterol,Calculated 53 mg/dL (0-99); Triglycerides 64 mg/dL (<150)
[2018-12-27] MEDS: CARVEDILOL 3.125 MG TAB PO SCH ×2 (06:17→17:23)
[2018-12-27] MEDS: SYMBICORT 160-4.5 MCG INHALER INHALATION SCH ×2 (07:53→20:15)
[2018-12-27] MEDS: IPRATROPIUM-ALBUTEROL 3 ML NEB INHALATION SCH ×4 (07:53→20:15)
[2018-12-27] MEDS ORDERED: FUROSEMIDE 20 MG TAB PO SCH (09:00)
[2018-12-27] MEDS ORDERED: ASPIRIN 325 MG TAB PO SCH (09:00)
[2018-12-27] MEDS: amLODIPine 5 MG TAB PO SCH (09:09)
[2018-12-27 12:02] LABS: Albumin 2.6 g/dL (3.5-5.0); Calcium 8.3 mg/dL (8.4-10.2); Potassium 5.1 mmol/L (3.5-5.1); Total Bilirubin 0.2 mg/dL (0.2-1.3); Total Protein 5.9 g/dL (6.3-8.2)
[2018-12-27] MEDS: SACUBITRIL/VALSARTAN 24 MG-26 MG TABLET PO SCH ×2 (13:37→17:23)
[2018-12-27] MEDS: FUROSEMIDE 40 MG TAB PO SCH (13:37)
--- NOTE | 2018-12-27 14:44 | XR ---
EXAMINATION TYPE: XR chest 2V DATE OF EXAM: 12/27/2018 COMPARISON: Chest x-ray 2 days ago and older studies. HISTORY: CHF and difficulty breathing. TECHNIQUE: Frontal and lateral views of the chest are obtained. FINDINGS: Post-CABG changes with mediastinal clips and sternal wires is redemonstrated. There is pers istent cardiomegaly with atherosclerotic and ectatic thoracic aorta. Additional surgical clips near r ight trachea are redemonstrated. There is persistent blunting posterior costophrenic angles consisten t with small to tiny left greater than right pleural effusions and/or pleural thickening. Former favo red as this is new from older studies. No new suspicious focal airspace opacity or pneumothorax. Th e osseous structures remain demineralized. Levoconvex scoliosis centered in the lower thoracic spine is present. IMPRESSION: Overall stable findings, cardiomegaly with small tiny left greater than right pleural ef fusions. No new focal infiltrate.
--- NOTE | 2018-12-27 16:36 | HP ---
HISTORY AND PHYSICAL CHIEF COMPLAINT: Chest pain and shortness of breath. HISTORY OF PRESENT ILLNESS: This is another admission for this 88-year-old white female who comes from [facility]. She developed substernal chest discomfort with exacerbation of shortness of breath and associated diaphoresis and she was brought to the emergency room. Cardiac enzymes were normal, but her potassium was extremely high. She was also dyspneic. She has been on Aldactone. BNP was also markedly elevated. REVIEW OF SYSTEMS: She has had no syncope, fever, chills, etc. Past medical history, family history, and personal and social histories are all unchanged from her recent admitting and discharge summaries. PHYSICAL EXAMINATION: Blood pressure 142/86 with a pulse of 97 and regular, respirations 39 and she is afebrile. In general she appeared to be pale and chronically ill. Face was slightly edematous, but less so than it was when she was in the hospital last week. Head, ears, eyes, nose, mouth and throat were normal. Chest demonstrated decreased breath sounds with rales at both bases. Cardiac exam demonstrated tachycardia with a grade 2/6 murmur and S4. Abdomen was soft and nontender without any visceromegaly or masses. Bowel sounds present. Extremities were normal. Neurologically she was intact. She is admitted to the hospital with the diagnoses: 1. Unstable angina pectoris. 2. Congestive heart failure. 3. Rule out myocardial infarction. 4. Coronary artery disease. 5. Chronic renal failure. PLAN: 1. Bed rest. 2. IV fluids. 3. Serial EKGs and enzymes. 4. Stop spironolactone. 5. Increase diuretic management. MMODL / IJN: [id number] /
--- NOTE | 2018-12-27 16:39 | PN ---
PROGRESS NOTE DATE OF SERVICE: 12/27/2018 CHIEF COMPLAINT: Chest pain, shortness of breath. HISTORY OF PRESENT ILLNESS: This lady is not having any further chest pain. Her enzymes have been negative. However, whenever she takes her oxygen off she drops her pulse ox. BNP is over 2000. PHYSICAL EXAMINATION: Breath sounds are diminished with rales at the bases and dullness to percussion. Cardiac exam is unchanged. Abdomen is soft. IMPRESSION: 1. Unstable angina. 2. Coronary artery disease. 3. Acute exacerbation of chronic congestive heart failure. 4. Renal failure. 5. Hyperkalemia. PLAN: 1. Increase Lasix to 40 mg a day. 2. Consult Pulmonology and Cardiology. MMODL / IJN: [id number] /
[2018-12-27] MEDS: ASPIRIN 81 MG PO SCH (20:58)
[2018-12-27] MEDS: ATORVASTATIN 80 MG TAB PO SCH (20:58)
[2018-12-28] MEDS: CARVEDILOL 3.125 MG TAB PO SCH ×2 (06:25→17:33)
[2018-12-28] MEDS: SACUBITRIL/VALSARTAN 24 MG-26 MG TABLET PO SCH ×2 (06:25→17:33)
[2018-12-28 07:18] LABS: Anisocytosis Slight; Basophils # (A) 0.1 k/uL (0-0.2); Basophils % (A) 1 %; Eosinophils # (A) 0.3 k/uL (0-0.7); Eosinophils % (A) 6 %; HCT 30.5 % (34.0-46.0); HGB 9.4 gm/dL (11.4-16.0); Hypochromasia Moderate; Lymphocytes # (A) 1.6 k/uL (1.0-4.8); Lymphocytes % (A) 29 %; MCH 28.1 pg (25.0-35.0); MCHC 30.7 g/dL (31.0-37.0); MCV 91.4 fL (80.0-100.0); Mean Platelet Volume 7.7; Monocytes # (A) 0.4 k/uL (0-1.0); Monocytes % (A) 7 %; Neutrophils % (A) 54 %; Platelet Count 293 k/uL (150-450); RBC 3.33 m/uL (3.80-5.40); RDW 17.2 % (11.5-15.5); WBC 5.6 k/uL (3.8-10.6)
[2018-12-28] MEDS: IPRATROPIUM-ALBUTEROL 3 ML NEB INHALATION SCH ×4 (08:36→20:18)
[2018-12-28] MEDS: SYMBICORT 160-4.5 MCG INHALER INHALATION SCH ×2 (08:36→20:18)
[2018-12-28] MEDS: FUROSEMIDE 40 MG TAB PO SCH ×2 (08:46→15:46)
[2018-12-28] MEDS: amLODIPine 5 MG TAB PO SCH (08:46)
[2018-12-28 09:40] LABS: Albumin 2.7 g/dL (3.5-5.0); Calcium 8.3 mg/dL (8.4-10.2); Potassium 4.8 mmol/L (3.5-5.1); Total Bilirubin 0.4 mg/dL (0.2-1.3)
--- NOTE | 2018-12-28 13:13 | XR ---
EXAMINATION TYPE: XR chest 2V DATE OF EXAM: 12/28/2018 COMPARISON: 12/27/2018, 04/15/2017 INDICATION: CHF TECHNIQUE: Frontal and lateral views of the chest are obtained. FINDINGS: The heart size is normal. The pulmonary vasculature is normal. There is a stable nodule at the right lung base on the frontal projection The costophrenic angle.. There is hyperinflation flattening the diaphragms and increased AP diameter compatible with senile emphysematous changes. No spinal epicardial leads are present which would con traindicate MRI. IMPRESSION: 1. Senile emphysematous changes
--- NOTE | 2018-12-28 15:25 | PN ---
PROGRESS NOTE CHIEF COMPLAINT: Shortness of breath and congestive heart failure with unstable angina. HISTORY OF PRESENT ILLNESS: This lady is still quite dyspneic. PHYSICAL EXAM: She does have facial edema and rales scattered throughout and particularly at the bases. Cardiac exam is normal. IMPRESSION: 1. Unstable angina. 2. Coronary artery disease. 3. Congestive heart failure. PLAN: 1. Repeat x-ray and labs as well as BNP. 2. Increase Lasix to b.i.d. MMODL / IJN: [id number] /
--- NOTE | 2018-12-28 17:28 | P.CNPUL ---
History of Present Illness Consult date: 12/28/18 Requesting physician: Jose Quintana Reason for consult: dyspnea Chief complaint: Shortness of breath, chest pain History of present illness: This is a pleasant 88-year-old female patient who resides at an extended care facility. She has a history of coronary artery disease with previous coronary artery bypass grafting over 10 years ago and previous stenting of the saphenous vein graft to the obtuse marginal branch, chronic diastolic congestive heart failure, hypertension, hyperlipidemia, chronic kidney disease stage III, abdominal aortic aneurysm under surveillance, peripheral vascular disease. She also has history of chronic obstructive pulmonary disease, chronic hypoxemic respiratory failure and previous chronic tobacco dependence. She was just discharged for COPD/heart failure exacerbation on 12/19/2018. She represented here on 12/26/2018 from the extended care facility with complaints of chest pain and shortness of breath. Chest x-ray revealed evidence of COPD but no acute pulmonary process. White count 5.6. Hemoglobin 9.4. Creatinine 1.34. Pertinence were negative. ProBNP 1830. She is seen today in consultation on the selective care unit. She is currently awake and alert in no acute distress. Somewhat confused as to place and time. She is maintaining O2 saturations in the high 90s on 2 L/m per nasal cannula. She's been afebrile. Hemodynamically stable. She's been initiated on DuoNeb inhalations and Symbicort. Currently on oral Lasix and Entresto. Review of Systems REVIEW OF SYSTEMS: CONSTITUTIONAL: Denies any recent significant weight loss or weight gain. EYES: Denies change in vision. EARS, NOSE, MOUTH, THROAT: Denies headaches, denies sore throat. CARDIOVASCULAR: Positive for chest pain, no palpitations or syncopal episodes. RESPIRATORY: Positive for shortness of breath, cough, congestion no hemoptysis. GASTROINTESTINAL: Denies change in appetite, denies abdominal pain GENITOURINARY: Denies hematuria, denies infections. MUSKULOSKELETAL: Denies pain, denies swelling. INTEGUMENTARY: Denies rash, denies eczema. NEUROLOGICAL: Denies recent memory loss, no recent seizure activity. PSYCHIATRIC: Denies anxiety, denies depression. HEMATOLOGIC/LYMPHATIC: Denies anemia, denies enlarged lymph nodes. Past Medical History Past Medical History: Coronary Artery Disease (CAD), COPD, Hyperlipidemia, Hypertension, Myocardial Infarction ([place]) Additional Past Medical History / Comment(s): Coronary artery disease, previous bypass surgery ten years ago, hypertension, hyperlipidemia, COPD maintenance Symbicort on outpatient basis, gout, AAA NOT SURE OF SIZE Last Myocardial Infarction Date:: 2016 History of Any Multi-Drug Resistant Organisms: None Reported Past Surgical History: Cholecystectomy, Coronary Bypass/CABG, Heart Catheterization With Stent, Hysterectomy Additional Past Surgical History / Comment(s): Coronary artery bypass surgery-tr iple, cardiac catheterization and angioplasty and stenting of the saphenous vein graft to obtuse marginal branch.CATARACTS, "stent in groin" Past Anesthesia/Blood Transfusion Reactions: No Reported Reaction, Motion Sickness Additional Past Anesthesia/Blood Transfusion Reaction / Comment(s): Pt states she has received blood without reaction. Date of Last Stent Placement:: unk Past Psychological History: No Psychological Hx Reported Additional Psychological History / Comment(s): . Smoking Status: Former smoker Past Alcohol Use History: None Reported Additional Past Alcohol Use History / Comment(s): Pt started smoking in 1961 and quit in the 1986 Past Drug Use History: None Reported - Past Family History Father Family Medical History: Coronary Artery Disease (CAD), Myocardial Infarction ([place]) Additional Family Medical History / Comment(s): Father of a [place] at the age of 72 yrs. Mother Family Medical History: No Reported History Additional Family Medical History / Comment(s): Pt states her mother was healthy and at the age of 84 yrs. Medications and Allergies Home Medications Medication Instructions Recorded Confirmed Type Aspirin [Adult Low Dose Aspirin EC] 81 mg PO HS 02/15/17 12/26/18 History Nitroglycerin Sl Tabs [Nitrostat] 0.4 mg SUBLINGUAL Q5M PRN 02/15/17 12/26/18 History Atorvastatin [Lipitor] 80 mg PO HS #30 tab 04/19/17 12/26/18 Rx Nystatin [Nystop] 1 applic TOPICAL QID 12/12/18 12/26/18 History Spironolactone 25 mg PO DAILY 12/12/18 12/26/18 History guaiFENesin [Mucinex] 1,200 mg PO BID 12/17/18 12/26/18 History Budesonide-Formot 160-4.5 Mcg 2 puff INHALATION RT-BID 30 Days 12/19/18 12/26/18 Rx [Symbicort 160-4.5 Mcg Inhaler] #1 inhaler Carvedilol [Coreg] 3.125 mg PO BID-W/MEALS #60 tab 12/19/18 12/26/18 Rx Furosemide [Lasix] 20 mg PO DAILY #30 tab 12/19/18 12/26/18 Rx Ipratropium-Albuterol Nebulize 3 ml INHALATION RT-QID #120 12/19/18 12/26/18 Rx [Duoneb 0.5 mg-3 mg/3 ml Soln] ampul.neb amLODIPine [Norvasc] 5 mg PO DAILY #30 tab 12/19/18 12/26/18 Rx Bisacodyl [Dulcolax] 10 mg RECTAL DAILY PRN 12/26/18 12/26/18 History Na Phos,M-B/Na Phos,Di-Ba [Fleet 133 ml RECTAL DAILY PRN 12/26/18 12/26/18 History Adult] Sacubitril/Valsartan [Entresto 24 1 tab PO AC-BID 12/26/18 12/26/18 History mg-26 mg Tablet] Allergies Allergy/AdvReac Type Severity Reaction Status Date / Time oxybutynin Allergy SEE Verified 12/26/18 13:51 COMMENTS sulfamethoxazole Allergy SEE Verified 12/26/18 13:51 [From Bactrim] COMMENTS trimethoprim [From Bactrim] Allergy SEE Verified 12/26/18 13:51 COMMENTS morphine AdvReac Confusion Verified 12/26/18 13:51 Physical Exam Vitals: Vital Signs Temp Pulse Pulse Resp BP Pulse Ox 12/28/18 16:15 71 18 12/28/18 16:04 70 16 12/28/18 16:00 97.6 F 80 20 107/51 99 12/28/18 12:00 97.6 F 68 20 125/61 97 12/28/18 08:47 72 12/28/18 08:37 70 12/28/18 08:00 99.2 F 73 20 109/64 98 12/28/18 06:23 97.7 F 88 16 124/64 98 12/27/18 23:41 65 19 118/50 95 12/27/18 20:45 97.9 F 83 18 130/55 96 12/27/18 20:25 74 16 12/27/18 20:15 78 16 Intake and Output 12/28/18 12/28/18 12/28/18 06:59 14:59 22:59 Intake Total 220 Balance 220 Intake: Oral 220 Other: # Voids 2 2 Weight 62.4 kg GENERAL EXAM: Alert, active, comfortable in no apparent distress. On 2 L nasal cannula. HEAD: Normocephalic. EYES: Normal reaction of pupils, equal size. NOSE: Clear with pink turbinates. THROAT: No erythema or exudates. NECK: No masses, no JVD. CHEST: No chest wall deformity. LUNGS: Equal air entry with faint crackles in the posterior bases. Diminished. CVS: S1 and S2 normal with no audible murmur, regular rhythm. ABDOMEN: No hepatosplenomegaly, normal bowel sounds, no guarding or rigidity. SPINE: No scoliosis or deformity SKIN: No rashes CENTRAL NERVOUS SYSTEM: No focal deficits, tone is normal in all 4 extremities. EXTREMITIES: There is trace peripheral edema. No clubbing, no cyanosis. Peripheral pulses are intact. Results - Laboratory Findings CBC and BMP: 12/28/18 06:30 12/28/18 06:30 PT/INR, D-dimer PT 11.1 sec (9.0-12.0) 12/26/18 14:26 INR 1.0 (<1.2) 12/26/18 14:26 Abnormal lab findings: Abnormal Labs 12/26/18 12/26/18 12/26/18 14:26 14:26 17:17 RBC 3.49 L Hgb 9.7 L Hct 31.5 L MCHC 30.9 L RDW 17.4 H APTT Potassium 6.4 H* Carbon Dioxide BUN 23 H Creatinine 1.08 H Glucose 111 H POC Glucose (mg/dL) 40 L Calcium 8.0 L Magnesium 1.5 L AST 46 H ALT 53 H Total Protein Albumin 3.0 L HDL Cholesterol Lipase 340 H 12/26/18 12/27/18 12/27/18 17:29 00:06 02:59 RBC Hgb Hct MCHC RDW APTT Potassium Carbon Dioxide BUN Creatinine Glucose POC Glucose (mg/dL) 229 H 117 H Calcium Magnesium AST ALT Total Protein Albumin HDL Cholesterol 25 L Lipase 12/27/18 12/27/18 12/27/18 02:59 02:59 02:59 RBC 3.55 L Hgb 9.9 L Hct 32.4 L MCHC 30.6 L RDW 17.1 H APTT 118.8 H* Potassium Carbon Dioxide BUN 20 H Creatinine 1.05 H Glucose 104 H POC Glucose (mg/dL) Calcium 8.3 L Magnesium AST ALT Total Protein 5.9 L Albumin 2.6 L HDL Cholesterol Lipase 318 H 12/28/18 12/28/18 06:30 06:30 RBC 3.33 L Hgb 9.4 L Hct 30.5 L MCHC 30.7 L RDW 17.2 H APTT Potassium Carbon Dioxide 35 H BUN 25 H Creatinine 1.34 H Glucose POC Glucose (mg/dL) Calcium 8.3 L Magnesium AST ALT Total Protein 6.0 L Albumin 2.7 L HDL Cholesterol Lipase - Diagnostic Findings Chest x-ray: image reviewed Assessment and Plan Assessment: Impression: #1 Atypical chest pain in a patient found to have negative troponins. No acute EKG abnormalities. #2 Acute exacerbation of mild chronic obstructive pulmonary disease. #3 Acute on chronic hypoxemic respiratory failure secondary to above. #4 Acute exacerbation of mild diastolic congestive heart failure. #5 Remote history of chronic tobacco dependence. #6 Coronary artery disease with previous coronary artery bypass grafting and subsequent stenting to the saphenous vein graft to the obtuse marginal branch. #7 Hypertension. #8 Hyperlipidemia. #9 Minimal aortic aneurysm, under surveillance. #10 [facility] resident. Plan: The patient was seen and evaluated by Dr. Krueger. Chest x-ray and labs were reviewed. We'll continue with DuoNeb inhalations and Symbicort. She remains on oral diuretics and Entresto. He is improved today as compared to yesterday. [facility]. We will continue to follow make further recommendations based on her clinical status. I, the cosigning physician, performed a history & physical examination of the patient. Lungs sounds with faint crackles in posterior bases, diminished. Maintaining good O2 saturations in the 90s on 2 L/m per nasal cannula. I discussed the assessment and plan of care with my nurse practitioner, Talita Bell. I attest to the above consultation as dictated by her. Time with Patient: Greater than 30
[2018-12-28] MEDS: ATORVASTATIN 80 MG TAB PO SCH (19:45)
[2018-12-28] MEDS: ASPIRIN 81 MG PO SCH (19:45)
[2018-12-29 06:47] LABS: Anisocytosis Slight; Basophils # (A) 0.1 k/uL (0-0.2); Basophils % (A) 1 %; Eosinophils # (A) 0.3 k/uL (0-0.7); Eosinophils % (A) 6 %; HCT 31.6 % (34.0-46.0); HGB 9.6 gm/dL (11.4-16.0); Hypochromasia Slight; Lymphocytes # (A) 1.8 k/uL (1.0-4.8); Lymphocytes % (A) 33 %; MCH 27.7 pg (25.0-35.0); MCHC 30.3 g/dL (31.0-37.0); MCV 91.6 fL (80.0-100.0); Mean Platelet Volume 7.8; Monocytes # (A) 0.5 k/uL (0-1.0); Monocytes % (A) 8 %; Neutrophils # (A) 2.6 k/uL (1.3-7.7); Neutrophils % (A) 47 %; Platelet Count 314 k/uL (150-450); RBC 3.45 m/uL (3.80-5.40); RDW 17.1 % (11.5-15.5); WBC 5.5 k/uL (3.8-10.6)
[2018-12-29] MEDS: SACUBITRIL/VALSARTAN 24 MG-26 MG TABLET PO SCH ×2 (06:55→16:09)
[2018-12-29] MEDS: CARVEDILOL 3.125 MG TAB PO SCH ×2 (06:55→16:09)
--- NOTE | 2018-12-29 08:02 | P.CRDCN ---
History of Present Illness Consult date: 12/29/18 Requesting physician: Jose Quintana Consult reason: chest pain Chief complaint: Chest pain History of present illness: This is a pleasant 88-year-old female patient who resides at an extended care facility. She has a history of coronary artery disease with previous coronary artery bypass grafting over 10 years ago and previous stenting of the saphenous vein graft to the obtuse marginal branch, chronic diastolic congestive heart failure, hypertension, hyperlipidemia, chronic kidney disease stage III, abdominal aortic aneurysm under surveillance, peripheral vascular disease. She also has history of chronic obstructive pulmonary disease, chronic hypoxemic respiratory failure and previous chronic tobacco dependence. She was just discharged for COPD/heart failure exacerbation on 12/19/2018. She represented here on 12/26/2018 from the extended care facility with complaints of chest pain and shortness of breath. Chest x-ray revealed evidence of COPD but no acute pulmonary process. White count 5.6. Hemoglobin 9.4. Creatinine 1.34. Troponins were negative. ProBNP 1830. EKG shows normal sinus rhythm with no acute changes. At the time of my examination this morning, patient is complaining of some mild numbness in her right arm, she also complains of feeling stuffy in her nose. Denies any chest discomfort at present. She is currently on aspirin 81 mg daily, Norvasc 5 mg daily, Lipitor 80 mg daily, Coreg 3.125 mg twice a day, Lasix 40 mg by mouth twice a day and and Entresto. Blood pressure 112/50 with a heart rate in the 60s, 97% on 2 L of oxygen. Past Medical History Past Medical History: Coronary Artery Disease (CAD), COPD, Hyperlipidemia, Hypertension, Myocardial Infarction (OR) Additional Past Medical History / Comment(s): Coronary artery disease, previous bypass surgery ten years ago, hypertension, hyperlipidemia, COPD maintenance Symbicort on outpatient basis, gout, AAA NOT SURE OF SIZE Last Myocardial Infarction Date:: 2016 History of Any Multi-Drug Resistant Organisms: None Reported Past Surgical History: Cholecystectomy, Coronary Bypass/CABG, Heart Catheterization With Stent, Hysterectomy Additional Past Surgical History / Comment(s): Coronary artery bypass surgery- triple, cardiac catheterization and angioplasty and stenting of the saphenous vein graft to obtuse marginal branch.CATARACTS, "stent in groin" Past Anesthesia/Blood Transfusion Reactions: No Reported Reaction, Motion Sickness Additional Past Anesthesia/Blood Transfusion Reaction / Comment(s): Pt states she has received blood without reaction. Date of Last Stent Placement:: unk Past Psychological History: No Psychological Hx Reported Additional Psychological History / Comment(s): . Smoking Status: Former smoker Past Alcohol Use History: None Reported Additional Past Alcohol Use History / Comment(s): Pt started smoking in 1961 and quit in the 1986 Past Drug Use History: None Reported - Past Family History Father Family Medical History: Coronary Artery Disease (CAD), Myocardial Infarction (OR) Additional Family Medical History / Comment(s): Father of a OR at the age of 72 yrs. Mother Family Medical History: No Reported History Additional Family Medical History / Comment(s): Pt states her mother was healthy and at the age of 84 yrs. Medications and Allergies Home Medications Medication Instructions Recorded Confirmed Type Aspirin [Adult Low Dose Aspirin EC] 81 mg PO HS 02/15/17 12/26/18 History Nitroglycerin Sl Tabs [Nitrostat] 0.4 mg SUBLINGUAL Q5M PRN 02/15/17 12/26/18 History Atorvastatin [Lipitor] 80 mg PO HS #30 tab 04/19/17 12/26/18 Rx Nystatin [Nystop] 1 applic TOPICAL QID 12/12/18 12/26/18 History Spironolactone 25 mg PO DAILY 12/12/18 12/26/18 History guaiFENesin [Mucinex] 1,200 mg PO BID 12/17/18 12/26/18 History Budesonide-Formot 160-4.5 Mcg 2 puff INHALATION RT-BID 30 Days 12/19/18 12/26/18 Rx [Symbicort 160-4.5 Mcg Inhaler] #1 inhaler Carvedilol [Coreg] 3.125 mg PO BID-W/MEALS #60 tab 12/19/18 12/26/18 Rx Furosemide [Lasix] 20 mg PO DAILY #30 tab 12/19/18 12/26/18 Rx Ipratropium-Albuterol Nebulize 3 ml INHALATION RT-QID #120 12/19/18 12/26/18 Rx [Duoneb 0.5 mg-3 mg/3 ml Soln] ampul.neb amLODIPine [Norvasc] 5 mg PO DAILY #30 tab 12/19/18 12/26/18 Rx Bisacodyl [Dulcolax] 10 mg RECTAL DAILY PRN 12/26/18 12/26/18 History Na Phos,M-B/Na Phos,Di-Ba [Fleet 133 ml RECTAL DAILY PRN 12/26/18 12/26/18 History Adult] Sacubitril/Valsartan [Entresto 24 1 tab PO AC-BID 12/26/18 12/26/18 History mg-26 mg Tablet] Allergies Allergy/AdvReac Type Severity Reaction Status Date / Time oxybutynin Allergy SEE Verified 12/26/18 13:51 COMMENTS sulfamethoxazole Allergy SEE Verified 12/26/18 13:51 [From Bactrim] COMMENTS trimethoprim [From Bactrim] Allergy SEE Verified 12/26/18 13:51 COMMENTS morphine AdvReac Confusion Verified 12/26/18 13:51 Physical Exam Vitals: Vital Signs Temp Pulse Pulse Resp BP Pulse Ox 12/29/18 03:58 97.6 F 78 18 101/56 96 12/28/18 23:34 66 16 112/51 97 12/28/18 19:40 98.1 F 81 16 120/60 97 12/28/18 17:34 121/76 12/28/18 16:15 71 18 12/28/18 16:04 70 16 12/28/18 16:00 97.6 F 80 20 107/51 99 12/28/18 12:00 97.6 F 68 20 125/61 97 12/28/18 08:47 72 12/28/18 08:37 70 12/28/18 08:00 99.2 F 73 20 109/64 98 Intake and Output 12/28/18 12/29/18 12/29/18 22:59 06:59 14:59 Intake Total 236 Balance 236 Intake: Oral 236 Other: Voiding Method Toilet Diaper # Voids 1 1 Weight 61.3 kg GENERAL EXAM: Alert, active, comfortable in no apparent distress. On 2 L nasal cannula. HEAD: Normocephalic. EYES: Normal reaction of pupils, equal size. NOSE: Clear with pink turbinates. THROAT: No erythema or exudates. NECK: No masses, no JVD. CHEST: No chest wall deformity. LUNGS: Equal air entry with faint crackles in the posterior bases. Diminished. CVS: S1 and S2 normal with no audible murmur, regular rhythm. ABDOMEN: No hepatosplenomegaly, normal bowel sounds, no guarding or rigidity. SPINE: No scoliosis or deformity SKIN: No rashes CENTRAL NERVOUS SYSTEM: No focal deficits, tone is normal in all 4 extremities. EXTREMITIES: There is trace peripheral edema. No clubbing, no cyanosis. Peripheral pulses are intact. Results 12/29/18 06:22 12/28/18 06:30 Cardiac Enzymes 12/28/18 Range/Units 06:30 AST 31 (14-36) U/L CBC 12/29/18 Range/Units 06:22 WBC 5.5 (3.8-10.6) k/uL RBC 3.45 L (3.80-5.40) m/uL Hgb 9.6 L (11.4-16.0) gm/dL Hct 31.6 L (34.0-46.0) % Plt Count 314 (150-450) k/uL Comprehensive Metabolic Panel 12/28/18 Range/Units 06:30 Sodium 141 (137-145) mmol/L Potassium 4.8 (3.5-5.1) mmol/L Chloride 102 (98-107) mmol/L Carbon Dioxide 35 H (22-30) mmol/L BUN 25 H (7-17) mg/dL Creatinine 1.34 H (0.52-1.04) mg/dL Glucose 90 (74-99) mg/dL Calcium 8.3 L (8.4-10.2) mg/dL AST 31 (14-36) U/L ALT 48 (9-52) U/L Alkaline Phosphatase 63 (38-126) U/L Total Protein 6.0 L (6.3-8.2) g/dL Albumin 2.7 L (3.5-5.0) g/dL Current Medications Generic Name Dose Route Start Last Admin Trade Name Freq PRN Reason Stop Dose Admin Albuterol/Ipratropium 3 ml 12/27/18 08:00 12/28/18 20:18 Duoneb 0.5 Mg-3 Mg/3 Ml Soln INHALATION Not Given RT-QID SUJATA Amlodipine Besylate 5 mg 12/27/18 09:00 12/28/18 08:46 Norvasc PO 5 mg DAILY SUJATA Administration Aspirin 81 mg 12/27/18 21:00 12/28/18 19:45 Aspirin PO 81 mg HS SUJATA Administration Atorvastatin Calcium 80 mg 12/27/18 21:00 12/28/18 19:45 Lipitor PO 80 mg HS SUJATA Administration Bisacodyl 10 mg 12/26/18 21:19 Dulcolax RECTAL DAILY PRN Constipation Budesonide/Formoterol Fumarate 2 puff 12/27/18 08:00 12/28/18 20:18 Symbicort 160-4.5 Mcg Inhaler INHALATION Not Given RT-BID SUJATA Carvedilol 3.125 mg 12/27/18 07:30 12/29/18 06:55 Coreg PO 3.125 mg BID-W/MEALS SUJATA Administration Furosemide 40 mg 12/28/18 16:00 12/28/18 15:46 Lasix PO 40 mg BID@0900,1600 SUJATA Administration Heparin Sodium (Porcine) 0 unit 12/26/18 21:23 Heparin IV PER PROTOCOL PRN Low PTT Protocol Miscellaneous Information 1 each 12/26/18 21:17 Magnesium Per Protocol MISCELLANE DAILY PRN Per Protocol Protocol Nitroglycerin 0.4 mg 12/26/18 14:57 Nitrostat SUBLINGUAL Q5M PRN Chest Pain Sacubitril/Valsartan 1 each 12/27/18 11:45 12/29/18 06:55 Entresto 24 Mg-26 Mg Tablet PO 1 each AC-BID SUJATA Administration Intake and Output 12/28/18 12/29/18 12/29/18 22:59 06:59 14:59 Intake Total 236 Balance 236 Intake: Oral 236 Other: Voiding Method Toilet Diaper # Voids 1 1 Weight 61.3 kg 12/29/18 06:22 12/28/18 06:30 EKG Interpretations (text) EKG shows a normal sinus rhythm with no acute changes. Assessment and Plan Plan: Impression: #1 Atypical chest pain in a patient found to have negative troponins. No acute EKG abnormalities. #2 Acute exacerbation of mild chronic obstructive pulmonary disease. #3 Acute on chronic hypoxemic respiratory failure secondary to above. #4 Acute exacerbation of mild diastolic congestive heart failure. #5 Remote history of chronic tobacco dependence. #6 Coronary artery disease with previous coronary artery bypass grafting and subsequent stenting to the saphenous vein graft to the obtuse marginal branch. #7 Hypertension. #8 Hyperlipidemia. #9 Minimal aortic aneurysm, under surveillance. Plan We will obtain an echocardiogram with Doppler study, continue current medications. Further recommendations to follow. DNP note has been reviewed, I agree with a documented findings and plan of care. Patient was seen and examined.
[2018-12-29] MEDS: IPRATROPIUM-ALBUTEROL 3 ML NEB INHALATION SCH ×4 (08:29→19:24)
[2018-12-29] MEDS: SYMBICORT 160-4.5 MCG INHALER INHALATION SCH ×2 (08:30→19:24)
[2018-12-29] MEDS: FUROSEMIDE 40 MG TAB PO SCH ×2 (11:10→16:09)
[2018-12-29] MEDS: ISOSORBIDE MONONITRATE ER 30 MG TAB.ER.24H PO SCH (11:10)
[2018-12-29] MEDS: amLODIPine 5 MG TAB PO SCH (13:07)
--- NOTE | 2018-12-29 16:05 | P.PN ---
Progress Note - Text Progress Note Date: 12/29/18 This note is dictated on 01/25/2019, and this is to verify the previous documentation. Patient was admitted with acute on chronic hypoxic respiratory failure secondary to underlying COPD and acute diastolic congestive heart failure. The chart and the notes were reviewed, clearly the patient had chronic hypoxic respiratory failure maintained on oxygen for severe COPD, however her presentation was mostly secondary to combined picture of acute diastolic congestive heart failure and underlying COPD.
--- NOTE | 2018-12-29 16:44 | P.PN ---
Subjective Progress Note Date: 12/29/18 Principal diagnosis: Shortness of breath and chest pain This is a pleasant 88-year-old female patient who resides at an extended care facility. She has a history of coronary artery disease with previous coronary artery bypass grafting over 10 years ago and previous stenting of the saphenous vein graft to the obtuse marginal branch, chronic diastolic congestive heart failure, hypertension, hyperlipidemia, chronic kidney disease stage III, abdominal aortic aneurysm under surveillance, peripheral vascular disease. She also has history of chronic obstructive pulmonary disease, chronic hypoxemic respiratory failure and previous chronic tobacco dependence. She was just disc harged for COPD/heart failure exacerbation on 12/19/2018. She represented here on 12/26/2018 from the extended care facility with complaints of chest pain and shortness of breath. Chest x-ray revealed evidence of COPD but no acute pulmonary process. White count 5.6. Hemoglobin 9.4. Creatinine 1.34. Pertinence were negative. ProBNP 1830. She is seen today in consultation on the selective care unit. She is currently awake and alert in no acute distress. Somewhat confused as to place and time. She is maintaining O2 saturations in the high 90s on 2 L/m per nasal cannula. She's been afebrile. Hemodynamically stable. She's been initiated on DuoNeb inhalations and Symbicort. Currently on oral Lasix and Entresto. The patient was seen today 12/29/2018 in follow-up on the selective care unit. She is currently sitting up in bed. Having lunch. No worsening shortness of breath, cough or congestion. No chest pain, palpitations, lightheadedness or dizziness. She is maintaining good O2 saturations in the 90s on 2 L/m per nasal cannula. White count 5.5. Hemoglobin 9.6. Objective - Vital Signs Vital signs: Vital Signs Temp 97.4 F L 12/29/18 08:00 Pulse 74 12/29/18 15:49 Resp 18 12/29/18 15:37 BP 119/58 12/29/18 12:00 Pulse Ox 94 L 12/29/18 15:37 Intake & Output 12/28/18 12/29/18 12/29/18 18:59 06:59 18:59 Intake Total 456 240 Balance 456 240 Weight 61.3 kg Intake: Oral 456 240 Other: Voiding Method Toilet Toilet Diaper Diaper # Voids 2 1 2 - Exam GENERAL EXAM: Alert, active, comfortable in no apparent distress. On 2 L nasal cannula. HEAD: Normocephalic. EYES: Normal reaction of pupils, equal size. NOSE: Clear with pink turbinates. THROAT: No erythema or exudates. NECK: No masses, no JVD. CHEST: No chest wall deformity. LUNGS: Equal air entry with faint crackles in the posterior bases. Diminished. CVS: S1 and S2 normal with no audible murmur, regular rhythm. ABDOMEN: No hepatosplenomegaly, normal bowel sounds, no guarding or rigidity. SPINE: No scoliosis or deformity SKIN: No rashes CENTRAL NERVOUS SYSTEM: No focal deficits, tone is normal in all 4 extremities. EXTREMITIES: There is trace peripheral edema. No clubbing, no cyanosis. Peripheral pulses are intact. - Labs CBC & Chem 7: 12/29/18 06:22 12/28/18 06:30 Labs: Abnormal Lab Results - Last 24 Hours (Table) 12/29/18 12/29/18 Range/Units 06:22 06:22 RBC 3.45 L (3.80-5.40) m/uL Hgb 9.6 L (11.4-16.0) gm/dL Hct 31.6 L (34.0-46.0) % MCHC 30.3 L (31.0-37.0) g/dL RDW 17.1 H (11.5-15.5) % Magnesium 1.4 L (1.6-2.3) mg/dL Assessment and Plan Assessment: Impression: #1 Atypical chest pain in a patient found to have negative troponins. No acute EKG abnormalities. #2 Acute exacerbation of mild chronic obstructive pulmonary disease. #3 Acute on chronic hypoxemic respiratory failure secondary to above. #4 Acute exacerbation of mild diastolic congestive heart failure. #5 Remote history of chronic tobacco dependence. #6 Coronary artery disease with previous coronary artery bypass grafting and subsequent stenting to the saphenous vein graft to the obtuse marginal branch. #7 Hypertension. #8 Hyperlipidemia. #9 Minimal aortic aneurysm, under surveillance. #10 custodial resident. Plan: The patient was seen and evaluated by Dr. Krueger. She is cleared for discharge from the pulmonary standpoint. Continue her Symbicort and DuoNeb inhalations in the outpatient setting. I, the cosigning physician, performed a history & physical examination of the patient. Lungs sounds with faint crackles in posterior bases, diminished. Maintaining good O2 saturations in the 90s on 2 L/m per nasal cannula. I discussed the assessment and plan of care with my nurse practitioner, Talita Bell. I attest to the above consultation as dictated by her.
--- NOTE | 2018-12-29 18:03 | PN ---
PROGRESS NOTE CHIEF COMPLAINT: Shortness of breath and chest pain. HISTORY OF PRESENT ILLNESS: This lady is not having any further chest pain, but she still remains quite dyspneic. BNP is also staying very high. We will try adding additional diuretics. PHYSICAL EXAM: Chest is fairly clear but there are still rales at both bases. Cardiac exam is unremarkable and unchanged. Abdomen is soft, nontender. IMPRESSION: 1. Chronic congestive heart failure. 2. Coronary artery disease. 3. Unstable angina. PLAN: 1. Try adding Zaroxolyn 2.5 mg once a day. 2. Increase Entresto. MMODL / IJN: [id number] /
[2018-12-29] MEDS: METOLAZONE 2.5 MG TAB PO SCH (18:28)
[2018-12-29] MEDS: ATORVASTATIN 80 MG TAB PO SCH (20:09)
[2018-12-29] MEDS: SACUBITRIL/VALSARTAN 49 MG-51 MG TABLET PO SCH (20:09)
[2018-12-29] MEDS: ASPIRIN 81 MG PO SCH (20:09)
[2018-12-30] MEDS ORDERED: MAGNESIUM SULFATE-D5W PMX 1 GM in DEXTROSE/WATER 1 100ML.BAG IVPB SCH (02:30)
[2018-12-30 03:59] LABS: Anisocytosis Slight; Basophils # (A) 0.1 k/uL (0-0.2); Basophils % (A) 1 %; Eosinophils # (A) 0.4 k/uL (0-0.7); Eosinophils % (A) 6 %; HCT 30.9 % (34.0-46.0); HGB 9.7 gm/dL (11.4-16.0); Hypochromasia Slight; Lymphocytes # (A) 2.1 k/uL (1.0-4.8); Lymphocytes % (A) 33 %; MCH 28.3 pg (25.0-35.0); MCHC 31.3 g/dL (31.0-37.0); MCV 90.3 fL (80.0-100.0); Mean Platelet Volume 7.9; Monocytes # (A) 0.6 k/uL (0-1.0); Monocytes % (A) 9 %; Neutrophils # (A) 3.1 k/uL (1.3-7.7); Neutrophils % (A) 47 %; Platelet Count 291 k/uL (150-450); RBC 3.43 m/uL (3.80-5.40); WBC 6.5 k/uL (3.8-10.6)
[2018-12-30 04:19] LABS: Calcium 8.4 mg/dL (8.4-10.2); Potassium 5.2 mmol/L (3.5-5.1)
[2018-12-30 04:20] LABS: Magnesium 1.5 mg/dL (1.6-2.3)
[2018-12-30] MEDS: MAGNESIUM SULFATE-D5W PMX 1 GM in DEXTROSE/WATER 1 100ML.BAG IVPB SCH ×2 (04:53→06:37)
[2018-12-30] MEDS: SACUBITRIL/VALSARTAN 49 MG-51 MG TABLET PO SCH (08:02)
[2018-12-30] MEDS: CARVEDILOL 3.125 MG TAB PO SCH ×2 (08:02→18:04)
[2018-12-30] MEDS: SYMBICORT 160-4.5 MCG INHALER INHALATION SCH ×2 (08:08→19:51)
[2018-12-30] MEDS: IPRATROPIUM-ALBUTEROL 3 ML NEB INHALATION SCH ×4 (08:08→19:51)
[2018-12-30] MEDS: ISOSORBIDE MONONITRATE ER 30 MG TAB.ER.24H PO SCH (09:29)
--- NOTE | 2018-12-30 09:48 | P.PN ---
Subjective Progress Note Date: 12/30/18 Principal diagnosis: Chest discomfort/shortness of breath This is a pleasant 88-year-old female patient with a past medical history significant for chronic diastolic congestive heart failure, chronic obstructive pulmonary disease, coronary artery disease and prior coronary artery revascularization, as well as hypertension, and dyslipidemia, was admitted to the hospital with atypical chest discomfort as well as shortness of breath. The patient is also known to have chronic kidney disease with a GFR around 35. The last echocardiogram on her was from 2018 and that revealed normal LV function was mild valvular abnormalities. Because of the atypical nature of the chest discomfort and because of the renal dysfunction with decided to treat her chest pain medically and we started the patient yesterday on oral nitrates. On follow-up with her today, she continues to have intermittent episodes of atypical chest discomfort. Her kidney function has gotten slightly worse. Her GFR continues to be around 35 but that the BUN was doubled. She is on Lasix by mouth as well as she is on Zaroxolyn. Objective - Vital Signs Vital signs: Vital Signs Temp 97.7 F 12/30/18 07:55 Pulse 70 12/30/18 09:27 Resp 18 12/30/18 07:55 BP 103/48 12/30/18 09:27 Pulse Ox 94 L 12/30/18 07:55 Intake & Output 12/29/18 12/30/18 12/30/18 18:59 06:59 18:59 Intake Total 260 Balance 260 Intake: Oral 260 Other: Voiding Method Toilet Toilet Toilet Diaper Diaper Diaper # Voids 3 - Constitutional General appearance: Present: no acute distress - Respiratory Respiratory: bilateral: diminished - Cardiovascular Rhythm: regular - Labs CBC & Chem 7: 12/30/18 02:54 12/30/18 02:54 Labs: Abnormal Lab Results - Last 24 Hours (Table) 12/30/18 12/30/18 Range/Units 02:54 02:54 RBC 3.43 L (3.80-5.40) m/uL Hgb 9.7 L (11.4-16.0) gm/dL Hct 30.9 L (34.0-46.0) % RDW 17.0 H (11.5-15.5) % Sodium 136 L (137-145) mmol/L Potassium 5.2 H (3.5-5.1) mmol/L Chloride 95 L (98-107) mmol/L Carbon Dioxide 36 H (22-30) mmol/L BUN 43 H (7-17) mg/dL Creatinine 1.38 H (0.52-1.04) mg/dL Magnesium 1.5 L (1.6-2.3) mg/dL Assessment and Plan Assessment: Assessment #1 chest discomfort #2 shortness of breath #3 chronic diastolic congestive heart failure #4 chronic obstructive pulmonary disease #5 coronary artery disease #6 acute on chronic renal failure Plan #1 avoid any nephrotoxic medication #2 hold the Lasix and hold Zaroxolyn #3 continue oral nitrate #4 continue monitor the kidney function #5 follow-up on the echocardiogram
[2018-12-30] MEDS: METOLAZONE 2.5 MG TAB PO SCH (10:48)
[2018-12-30] MEDS: FUROSEMIDE 40 MG TAB PO SCH (10:48)
--- NOTE | 2018-12-30 17:30 | ECHOF ---
Referral Reason:LV function MEASUREMENTS -------- HEIGHT: 154.9 cm WEIGHT: 61.2 kg BP: RVIDd: 2.7 cm (< 3.3) IVSd: 1.7 cm (0.6 - 1.1) LVIDd: 3.6 cm (3.9 - 5.3) LVPWd: 1.6 cm (0.6 - 1.1) IVSs: 1.9 cm LVIDs: 3.1 cm LVPWs: 1.8 cm LA Diam: 4.5 cm (2.7 - 3.8) LAESV Index (A-L): 26.68 ml/m Ao Diam: 3.0 cm (2.0 - 3.7) AV Cusp: 1.4 cm (1.5 - 2.6) LA Diam: 3.5 cm (2.7 - 3.8) MV EXCURSION: 13.883 mm (> 18.000) MV EF SLOPE: 41 mm/s (70 - 150) EPSS: 0.9 cm MV E Pierre: 0.52 m/s MV DecT: 316 ms MV A Pierre: 1.06 m/s MV E/A Ratio: 0.49 RAP: 5.00 mmHg RVSP: 23.88 mmHg FINDINGS -------- Sinus rhythm. This was a technically adequate study. There is severe concentric left ventricular hypertrophy. Overall left ventricular systolic function is low-normal with, an EF between 50 - 55 %. Basal inferior LV wall motion is hypokinetic. The right ventricle is normal in size. The left atrium is mildly dilated. The right atrial size is normal. There is mild aortic valve sclerosis. There is no evidence of aortic regurgitation. Mild mitral annular calcification present. Mild mitral regurgitation is present. Mild tricuspid regurgitation present. There is no evidence of pulmonary hypertension. The right v entricular systolic pressure, as measured by Doppler, is 23.88mmHg. There is no pulmonic regurgitation present. The aortic root size is normal. There is no pericardial effusion. CONCLUSIONS -------- 1. There is severe concentric left ventricular hypertrophy. 2. Overall left ventricular systolic function is low-normal with, an EF between 50 - 55 %. 3. Basal inferior LV wall motion is hypokinetic. 4. The right ventricle is normal in size. 5. The left atrium is mildly dilated. 6. The right atrial size is normal. 7. There is mild aortic valve sclerosis. 8. Mild mitral annular calcification present. 9. Mild mitral regurgitation is present. 10. Mild tricuspid regurgitation present. 11. There is no evidence of pulmonary hypertension. 12. The right ventricular systolic pressure, as measured by Doppler, is 23.88mmHg. 13. There is no pulmonic regurgitation present. 14. The aortic root size is normal. 15. There is no pericardial effusion. MANAGER [employer]: Monica Chavez RDCS
[2018-12-30] MEDS: ASPIRIN 81 MG PO SCH (20:05)
[2018-12-30] MEDS: ATORVASTATIN 80 MG TAB PO SCH (20:05)
[2018-12-31 06:44] LABS: Anisocytosis Slight; Basophils # (A) 0.1 k/uL (0-0.2); Basophils % (A) 1 %; Eosinophils # (A) 0.4 k/uL (0-0.7); Eosinophils % (A) 6 %; HCT 32.5 % (34.0-46.0); HGB 10.5 gm/dL (11.4-16.0); Hypochromasia Slight; Lymphocytes # (A) 2.3 k/uL (1.0-4.8); Lymphocytes % (A) 35 %; MCH 29.2 pg (25.0-35.0); MCHC 32.4 g/dL (31.0-37.0); MCV 90.1 fL (80.0-100.0); Mean Platelet Volume 7.8; Monocytes # (A) 0.5 k/uL (0-1.0); Monocytes % (A) 8 %; Neutrophils # (A) 3.1 k/uL (1.3-7.7); Neutrophils % (A) 46 %; Platelet Count 333 k/uL (150-450); RDW 17.1 % (11.5-15.5); WBC 6.7 k/uL (3.8-10.6)
[2018-12-31 06:58] LABS: Albumin 3.1 g/dL (3.5-5.0); Calcium 8.7 mg/dL (8.4-10.2); Magnesium 2.2 mg/dL (1.6-2.3); Potassium 4.8 mmol/L (3.5-5.1); Total Bilirubin 0.5 mg/dL (0.2-1.3); Total Protein 6.5 g/dL (6.3-8.2)
--- NOTE | 2018-12-31 09:42 | P.PN ---
Subjective Progress Note Date: 12/31/18 Principal diagnosis: Chest discomfort/shortness of breath This is a pleasant 88-year-old female patient with a past medical history significant for chronic diastolic congestive heart failure, chronic obstructive pulmonary disease, coronary artery disease and prior coronary artery revascularization, as well as hypertension, and dyslipidemia, was admitted to the hospital with atypical chest discomfort as well as shortness of breath. The patient is also known to have chronic kidney disease with a GFR around 35. The last echocardiogram on her was from 2018 and that revealed normal LV function was mild valvular abnormalities. Because of the atypical nature of the chest discomfort and because of the renal dysfunction with decided to treat her chest pain medically and we started the patient yesterday on oral nitrates. On follow-up with her today, December [id number], she continues to have intermittent episodes of atypical chest discomfort about 4-5/10 in intensity. She is on oral nitrate as well as she is on aspirin and statin. Her kidney function was worse yesterday and because of that we did stop the Lasix as well as Zaroxolyn. If the patient continues to have a chest discomfort she is to undergo coronary angiogram. Objective - Vital Signs Vital signs: Vital Signs Temp 97.8 F 12/31/18 08:00 Pulse 77 12/31/18 08:00 Resp 20 12/31/18 08:00 BP 97/51 12/31/18 08:00 Pulse Ox 94 L 12/31/18 08:00 Intake & Output 12/30/18 12/31/18 12/31/18 18:59 06:59 18:59 Intake Total 582 120 Balance 582 120 Weight 60.7 kg Intake: Oral 582 120 Other: Voiding Method Toilet Diaper Diaper # Voids 2 - Constitutional General appearance: Present: no acute distress - Respiratory Respiratory: bilateral: CTA - Cardiovascular Rhythm: regular Heart sounds: normal: S1, S2 - Labs CBC & Chem 7: 12/31/18 06:17 12/31/18 06:17 Labs: Abnormal Lab Results - Last 24 Hours (Table) 12/31/18 12/31/18 Range/Units 06:17 06:17 RBC 3.60 L (3.80-5.40) m/uL Hgb 10.5 L (11.4-16.0) gm/dL Hct 32.5 L (34.0-46.0) % RDW 17.1 H (11.5-15.5) % Chloride 96 L (98-107) mmol/L Carbon Dioxide 38 H (22-30) mmol/L BUN 50 H (7-17) mg/dL Creatinine 1.77 H (0.52-1.04) mg/dL Albumin 3.1 L (3.5-5.0) g/dL Assessment and Plan Assessment: Assessment #1 chest discomfort #2 shortness of breath #3 chronic diastolic congestive heart failure #4 chronic obstructive pulmonary disease #5 coronary artery disease #6 acute on chronic renal failure Plan #1 avoid any nephrotoxic medication #2 continue holding the diuretics #3 continue oral nitrate #4 continue monitor the kidney function #5 if she continues to have a chest discomfort she is to undergo coronary angiogram.
[2018-12-31] MEDS: CARVEDILOL 3.125 MG TAB PO SCH ×2 (10:11→17:53)
[2018-12-31] MEDS: IPRATROPIUM-ALBUTEROL 3 ML NEB INHALATION SCH ×4 (11:00→20:33)
[2018-12-31] MEDS: SYMBICORT 160-4.5 MCG INHALER INHALATION SCH ×2 (11:05→20:33)
[2018-12-31] MEDS: ISOSORBIDE MONONITRATE ER 30 MG TAB.ER.24H PO SCH (12:36)
[2018-12-31] MEDS: ATORVASTATIN 80 MG TAB PO SCH (21:51)
[2018-12-31] MEDS: ASPIRIN 81 MG PO SCH (21:51)
[2019-01-01] MEDS: SYMBICORT 160-4.5 MCG INHALER INHALATION SCH ×2 (07:35→20:53)
[2019-01-01] MEDS: IPRATROPIUM-ALBUTEROL 3 ML NEB INHALATION SCH ×4 (07:35→20:53)
[2019-01-01 08:50] LABS: Anisocytosis Slight; Basophils # (A) 0.1 k/uL (0-0.2); Basophils % (A) 2 %; Eosinophils # (A) 0.4 k/uL (0-0.7); Eosinophils % (A) 7 %; Hypochromasia Slight; Lymphocytes # (A) 1.9 k/uL (1.0-4.8); Lymphocytes % (A) 31 %; MCH 29.1 pg (25.0-35.0); MCHC 32.1 g/dL (31.0-37.0); MCV 90.6 fL (80.0-100.0); Mean Platelet Volume 7.9; Monocytes # (A) 0.4 k/uL (0-1.0); Monocytes % (A) 6 %; Neutrophils % (A) 50 %; Platelet Count 303 k/uL (150-450); RBC 3.42 m/uL (3.80-5.40); WBC 5.9 k/uL (3.8-10.6)
[2019-01-01] MEDS: ISOSORBIDE MONONITRATE ER 30 MG TAB.ER.24H PO SCH (10:41)
[2019-01-01] MEDS: CARVEDILOL 3.125 MG TAB PO SCH (10:41)
[2019-01-01 10:54] LABS: Calcium 8.5 mg/dL (8.4-10.2); Potassium 5.3 mmol/L (3.5-5.1)
[2019-01-01] MEDS ORDERED: ALPRAZolam 0.5 MG TAB PO PRN ×2 (13:56→14:06)
[2019-01-01] MEDS ORDERED: SODIUM CHLORIDE 0.9% 1,000 ML in EMPTY BAG 1 BAG IV ONE (13:56)
[2019-01-01] MEDS ORDERED: ALPRAZolam 0.25 MG TAB PO PRN ×2 (13:56→14:06)
[2019-01-01] MEDS ORDERED: NITROGLYCERIN SL TABS 0.4 MG TAB SUBLINGUAL PRN ×2 (13:56→14:06)
[2019-01-01] MEDS ORDERED: ATORVASTATIN 80 MG TAB PO STA (14:06)
[2019-01-01] MEDS ORDERED: ASPIRIN 325 MG TAB PO STA (14:06)
--- NOTE | 2019-01-01 14:10 | P.PN ---
Subjective Progress Note Date: 01/01/19 This is a pleasant 88-year-old female patient who resides at an extended care facility. She has a history of coronary artery disease with previous coronary artery bypass grafting over 10 years ago and previous stenting of the saphenous vein graft to the obtuse marginal branch, chronic diastolic congestive heart failure, hypertension, hyperlipidemia, chronic kidney disease stage III, abdominal aortic aneurysm under surveillance, peripheral vascular disease. She also has history of chronic obstructive pulmonary disease, chronic hypoxemic respiratory failure and previous chronic tobacco dependence. She was just discharged for COPD/heart failure exacerbation on 12/19/2018. She represented here on 12/26/2018 from the extended care facility with complaints of chest pain and shortness of breath. Chest x-ray revealed evidence of COPD but no acute pulmonary process. White count 5.6. Hemoglobin 9.4. Creatinine 1.34. Troponins were negative. ProBNP 1830. EKG shows normal sinus rhythm with no acute changes. At the time of my examination this morning, patient is complaining of some mild numbness in her right arm, she also complains of feeling stuffy in her nose. Denies any chest discomfort at present. She is currently on aspirin 81 mg daily, Norvasc 5 mg daily, Lipitor 80 mg daily, Coreg 3.125 mg twice a day, Lasix 40 mg by mouth twice a day and and Entresto. Blood pressure 112/50 with a heart rate in the 60s, 97% on 2 L of oxygen. 01/01/2019 She was seen and examined this morning, continued to have intermittent chest pressure, because of the intermittent chest discomfort she's been having here it was recommended that she undergo cardiac catheterization. The risks and the benefits were explained to her in detail. This will be performed tomorrow by Dr. Pepper. Her creatinine today is 1.4. We will hydrate the patient had 100 mL per hour. Objective - Vital Signs Vital signs: Vital Signs Temp 96.3 F L 01/01/19 08:00 Pulse 72 01/01/19 11:12 Resp 16 01/01/19 04:00 BP 110/56 01/01/19 08:00 Pulse Ox 97 01/01/19 08:00 Intake & Output 12/31/18 01/01/19 01/01/19 18:59 06:59 18:59 Intake Total 240 360 Output Total 200 Balance 40 360 Weight 60.6 kg Intake: Oral 240 360 Output: Urine 200 Other: Voiding Method Diaper Diaper # Voids 1 1 1 - Exam GENERAL EXAM: Alert, active, comfortable in no apparent distress. On 2 L nasal cannula. HEAD: Normocephalic. EYES: Normal reaction of pupils, equal size. NOSE: Clear with pink turbinates. THROAT: No erythema or exudates. NECK: No masses, no JVD. CHEST: No chest wall deformity. LUNGS: Equal air entry with faint crackles in the posterior bases. Diminished. CVS: S1 and S2 normal with no audible murmur, regular rhythm. ABDOMEN: No hepatosplenomegaly, normal bowel sounds, no guarding or rigidity. SPINE: No scoliosis or deformity SKIN: No rashes CENTRAL NERVOUS SYSTEM: No focal deficits, tone is normal in all 4 extremities. EXTREMITIES: There is trace peripheral edema. No clubbing, no cyanosis. Peripheral pulses are intact. - Labs CBC & Chem 7: 01/01/19 08:30 01/01/19 08:30 Labs: Abnormal Lab Results - Last 24 Hours (Table) 01/01/19 01/01/19 Range/Units 08:30 08:30 RBC 3.42 L (3.80-5.40) m/uL Hgb 10.0 L (11.4-16.0) gm/dL Hct 31.0 L (34.0-46.0) % RDW 17.0 H (11.5-15.5) % Potassium 5.3 H (3.5-5.1) mmol/L Carbon Dioxide 34 H (22-30) mmol/L BUN 52 H (7-17) mg/dL Creatinine 1.54 H (0.52-1.04) mg/dL Assessment and Plan Plan: Impression: #1 Atypical chest pain in a patient found to have negative troponins. No acute EKG abnormalities. #2 Acute exacerbation of mild chronic obstructive pulmonary disease. #3 Acute on chronic hypoxemic respiratory failure secondary to above. #4 Acute exacerbation of mild diastolic congestive heart failure. #5 Remote history of chronic tobacco dependence. #6 Coronary artery disease with previous coronary artery bypass grafting and subsequent stenting to the saphenous vein graft to the obtuse marginal branch. #7 Hypertension. #8 Hyperlipidemia. #9 Minimal aortic aneurysm, under surveillance. Plan As of the persistent chest pain, patient has been recommended to undergo cardiac catheterization. The risks and benefits were explained in detail, this will be performed tomorrow by Dr. Pepper. DNP note has been reviewed, I agree with a documented findings and plan of care. Patient was seen and examined.
[2019-01-01] MEDS: ATORVASTATIN 80 MG TAB PO SCH (20:38)
[2019-01-01] MEDS: ASPIRIN 81 MG PO SCH (20:39)
--- NOTE | 2019-01-02 04:11 | PN ---
PROGRESS NOTE CHIEF COMPLAINT: Congestive heart failure and renal failure. HISTORY OF PRESENT ILLNESS: This lady continues to do poorly. She is fairly lethargic and she becomes very short of breath with the least amount of activity. BUN, creatinine started to rise slightly. She is still very dyspneic even at rest. PHYSICAL EXAM: She has decreased breath sounds on both bases with rales scattered about. Cardiac exam is unchanged. Abdomen is soft, nontender. IMPRESSION: 1. Chronic congestive heart failure. Acute, diastolic. 2. Acute congestive heart failure. 3. Renal failure. PLAN: Efforts continue to stabilize this patient, but prognosis is poor. We will try to get her back to the custodial early in the week if possible. MMODL / IJN: [id number] /
--- NOTE | 2019-01-02 04:38 | PN ---
PROGRESS NOTE DATE OF SERVICE: 12/31/2018. CHIEF COMPLAINT: Persistent congestive heart failure. HISTORY OF PRESENT ILLNESS: This lady is still having a great deal of difficulty breathing even with minimal exertion. She denies chest pain. She has had no fever or chills. PHYSICAL EXAM: Chest demonstrates scattered rales. Cardiac exam is unchanged. Abdomen is soft, nontender. IMPRESSION: 1. Acute on chronic diastolic congestive heart failure. 2. Renal failure. PLAN: We will make every effort to get her back to the residential soon, but she is not responding. MMODL / IJN: [id number] /
--- NOTE | 2019-01-02 04:45 | PN ---
PROGRESS NOTE DATE OF SERVICE: 01/01/2019 CHIEF COMPLAINT: Congestive heart failure. HISTORY OF PRESENT ILLNESS: This lady's shortness of breath is actually worse. She is not complaining of any chest pain. PHYSICAL EXAM: She appears to be more edematous and more pale. Chest demonstrates breath sounds to be more diminished and there are rales and rhonchi are more extensive. Cardiac exam is unchanged. Abdomen is soft, nontender. IMPRESSION: 1. Worsening chronic diastolic congestive heart failure. 2. Chronic renal failure. PLAN: If she does not rally soon, hospice or palliative care will be discussed. MMODL / IJN: [id number] /
[2019-01-02] MEDS ORDERED: SODIUM CHLORIDE 0.9% 1,000 ML in EMPTY BAG 1 BAG IV ONE (06:00)
[2019-01-02] MEDS ORDERED: ASPIRIN 325 MG TAB PO ONE (06:00)
[2019-01-02] MEDS ORDERED: ATORVASTATIN 80 MG TAB PO ONE (06:00)
[2019-01-02] MEDS: SYMBICORT 160-4.5 MCG INHALER INHALATION SCH ×2 (07:41→19:05)
[2019-01-02] MEDS: IPRATROPIUM-ALBUTEROL 3 ML NEB INHALATION SCH ×4 (07:41→19:05)
[2019-01-02] MEDS ORDERED: IV FLUID CONTINUATION 1,000 ML IV ONE (08:43)
[2019-01-02] MEDS ORDERED: MIDAZOLAM (PF) 2 MG/2 ML VIAL IV ONE (08:49)
[2019-01-02] MEDS ORDERED: LIDOCAINE 1% INJ 10MG/ML (20 ML MDV) SQ ONE (08:50)
[2019-01-02] MEDS ORDERED: IOPAMIDOL-370 150ML BTL INJ ONE (09:10)
[2019-01-02] MEDS ORDERED: RX INFO: IV CONTRAST WAS GIVEN 1 EACH MISC MISCELLANE PRN (09:11)
[2019-01-02] MEDS ORDERED: SODIUM CHLORIDE 0.9% 1,000 ML IV SCH (09:15)
[2019-01-02] MEDS ORDERED: HYDROmorphone 1 MG/ML 1 ML SYRINGE ONE (09:36)
[2019-01-02] MEDS ORDERED: HYDROmorphone 0.5 MG/0.5 ML SYRINGE IVP STA (09:39)
[2019-01-02] MEDS ORDERED: ONDANSETRON 4 MG/2 ML VIAL ONE (09:42)
--- NOTE | 2019-01-02 10:48 | CC ---
CARDIAC CATHETERIZATION REPORT DATE OF SERVICE: January 02, 2019 PERFORMING PHYSICIAN: Zack Nascimento MD, bale piler. PROCEDURE PERFORMED: 1. Selective left and right coronary angiogram. 2. DIETRICH to LAD angiogram. 3. SVG to left circumflex angiogram. INDICATION: This is a pleasant 88-year-old female patient with a known history of coronary artery disease and prior coronary artery bypass grafting with the last heart catheterization in 2017 showing severe triple-vessel coronary artery disease with DIETRICH to LAD and SVG to left circumflex, which was stented and the occlusion of SVG to right coronary artery. The patient presented to the hospital with chest discomfort and continues to have ongoing chest discomfort in spite of maximized medical treatment. Because of that, a heart catheterization was advised. APPROACH: Right common femoral artery. COMPLICATION: None. LEVEL OF SEDATION: Moderate with sedation length of 16 minutes. PROCEDURE DESCRIPTION: After obtaining an informed consent, the patient was brought to the cardiac laboratory animal facility supervisor. The right common femoral artery was cannulated using micropuncture technique and a micropuncture wire passed easily then I placed a 6-Latvian sheath in the right common femoral artery. After that I did perform selective left and right coronary angiogram using JL4 and JR4 catheters. DIETRICH to LAD angiogram and SVG to left circumflex angiogram was performed using the JR4 catheter. The procedure was completed without any complication. SELECTIVE CORONARY ANGIOGRAM: 1. The left main is a large caliber vessel and seems to be angiographically normal. It bifurcates into left circumflex and left anterior descending artery. 2. The left circumflex is a large caliber vessel. The left circumflex is chronically occluded in the midportion. It gives rise proximally into a medium size OM branch which seems to be angiographically normal. 3. The LAD: The proximal LAD appeared to have mild disease only. The mid LAD has a lesion appeared to be in the range of 70%. The LAD distally appeared to be angiographically normal with competitive flow from the DIETRICH. 4. The right coronary artery is a medium caliber vessel with a very tight lesion proximal to midportion. CORONARY BYPASS ANGIOGRAM: 1. The DIETRICH to LAD is patent. 2. The SVG to the left circumflex is stented and the stent is patent as well. CONCLUSION: 1. Severe triple-vessel coronary artery disease. 2. Patent DIETRICH to LAD. 3. Patent SVG to left circumflex. 4. Occluded SVG to right coronary artery. POSTPROCEDURE MANAGEMENT: 1. If the patient continues to have chest discomfort, she needs to undergo PCI of the right coronary artery. 2. We did not perform that today because we reached or maximum contrast use, which is about 90 mL of contrast. MMODL / IJN: [id number] /
[2019-01-02 11:34] LABS: Calcium 8.5 mg/dL (8.4-10.2); Potassium 5.3 mmol/L (3.5-5.1)
--- NOTE | 2019-01-02 11:50 | XR ---
EXAMINATION TYPE: XR chest 1V DATE OF EXAM: 01/02/2019 COMPARISON: 12/28/2018 HISTORY: 88-year-old female CHF TECHNIQUE: Single frontal view of the chest is obtained. FINDINGS: Median sternotomy wires are present with post-CABG clips. Heart upper limits of normal in size. Mild hyperinflation and mild interstitial prominence. Strandy atelectasis or scarring at the left base. No consolidation or pleural effusion. Retained epicardial pacing leads. IMPRESSION: Chronic changes, possible underlying COPD. No overt CHF.
--- NOTE | 2019-01-02 12:21 | CONS ---
CONSULTATION REASON FOR CONSULT: Renal failure. HISTORY OF PRESENT ILLNESS: The patient is an 88-year-old female who has history of coronary artery disease. Patient also has history of chronic kidney disease, NKF stage III, secondary to nephrosclerosis. She was admitted to the hospital on 12/26/2018 with shortness of breath and chest discomfort associated with diuresis. The patient was hyperkalemic with a potassium of 6.4 mEq/L except he may subsequently improved to 4.8. Serum creatinine was 1.08 mg. It did go up to 1.7 mg/dL yesterday and today it was 1.54. Cardiac enzyme were negative. Troponin was not elevated. The patient was taken to cardiac cath to solder making laborer this morning. The she is currently not on any JASON inhibitors. She is maintained on IV fluids at 75 mL an hours. The patient has had good urine output. She was found to have significant coronary artery disease. The official cath report is not available. The patient will be going back in about 2 weeks time in 4-5 days time for a repeat cardiac cath and intervention. Echocardiogram on 12/30/2018 shows ejection fraction 50%-55%. percent. The patient has not received any IV contrast during this admission. Her blood pressure has not been low in fact has her blood pressure is currently not low. However, it had been low with systolic in the 90s and I do see 80s as well on 12/30/2018. PAST MEDICAL HISTORY: Chronic kidney disease, NKF stage III, secondary to nephrosclerosis, previous creatinine about 1 mg/dL, hypertension, coronary artery disease, hyperlipidemia, history of VT, COPD. PAST SOCIAL HISTORY: Patient is a former smoker. No history of drug abuse or alcohol abuse. MEDICATIONS: Prior to admission included aspirin, Nitrostat, Lipitor, Mucinex, spironolactone, Coreg, Lasix, Norvasc, Dulcolax, Entresto. ALLERGIES: BACTRIM, OXYBUTYNIN, MORPHINE which causes confusion. PHYSICAL EXAMINATION: Currently patient is laying in bed. She has just returned from the solder making laborer. She is arousable but sleepy. She is not in any acute distress. Blood pressure was 163/75, heart rate 71 per minute. She is afebrile. Examination of the heart, S1, S2. Examination of the lungs, bilateral breath sounds are heard. Abdomen is soft, nontender. Exam of lower extremities shows no significant edema. INPATIENT NURSING AIDE exam is grossly intact. Patient moving all 4 extremities. LABS: Show sodium 137, potassium 5.3, BUN 52, serum creatinine 1.54, hemoglobin 10.0 g/dL. Chest X-ray on admission showed cardiomegaly with trace left pleural effusion. We do not have a recent chest x-ray. ASSESSMENT: 1. Acute kidney injury, mainly associated with hypotension hypoperfusion with systolic blood pressure was as low as 80 mmHg on December 30, 2018. Currently, her blood pressure is on the high side. Patient is maintained on IV fluids which we will continue. She is status post cardiac catheterization. Hopefully, the renal function will stabilize. Creatinine is at 1.5 from a peak of 1.7 from 12/31. We will check a BMP today as well as in a.m. Potassium was mildly elevated yesterday. 2. Chronic kidney disease secondary to nephrosclerosis, NKF stage III. 3. Hyperkalemia on admission. Patient had been on angiotensin receptor blockers and spironolactone. The medications have been on hold. I will repeat labs today. She will likely benefit from low-dose loop diuretics. 4. Coronary artery disease, status post cardiac catheterization with plans for repeat catheterization and intervention in the next few days. 5. Peripheral vascular disease. 6. History of coronary artery bypass surgery. 7. Chronic obstructive pulmonary disease with acute exacerbation. 8. Acute on top of chronic diastolic heart failure on initial admission, currently compensated. 9. Hyperlipidemia. PLAN: Check chest x-ray. Continue with IV fluids. Check BMP today and then again in a.m. Continue to hold off on Entresto and spironolactone for now because of the hyperkalemia. Thank you for this consultation. Will continue to follow the patient with you during her hospitalization. MMODL / IJN: [id number] /
--- NOTE | 2019-01-02 15:52 | PN ---
PROGRESS NOTE DATE OF SERVICE: 01/02/2019 CHIEF COMPLAINT: Intractable congestive heart failure along with renal failure. HISTORY OF PRESENT ILLNESS: This lady is going to the laborer hoisting today for a cardiac cath. She continues to complain of chest pain and her heart failure is not improving; nor is her renal function. Physical exam is unchanged. IMPRESSION: 1. Intractable congestive heart failure. 2. History of coronary artery disease. 3. Renal failure. PLAN: Await results of cardiac cath today and then make further recommendations. MMMARTAL / LUISN: [id number] /
[2019-01-02] MEDS: ISOSORBIDE MONONITRATE ER 30 MG TAB.ER.24H PO SCH (17:43)
[2019-01-03] MEDS: SYMBICORT 160-4.5 MCG INHALER INHALATION SCH ×2 (08:29→19:39)
[2019-01-03] MEDS: IPRATROPIUM-ALBUTEROL 3 ML NEB INHALATION SCH ×4 (08:29→19:39)
[2019-01-03] MEDS: ISOSORBIDE MONONITRATE ER 30 MG TAB.ER.24H PO SCH (09:52)
--- NOTE | 2019-01-03 11:00 | P.PN ---
Subjective Progress Note Date: 01/03/19 Principal diagnosis: Chest discomfort/shortness of breath This is a pleasant 88-year-old female patient with a past medical history significant for chronic diastolic congestive heart failure, chronic obstructive pulmonary disease, coronary artery disease and prior coronary artery revascularization, as well as hypertension, and dyslipidemia, was admitted to the hospital with atypical chest discomfort as well as shortness of breath. The patient is also known to have chronic kidney disease with a GFR around 35. The last echocardiogram on her was from 2018 and that revealed normal LV function was mild valvular abnormalities. Because of the atypical nature of the chest discomfort and because of the renal dysfunction with decided to treat her chest pain medically and we started the patient yesterday on oral nitrates. On follow-up with the patient today, January [id number], the patient did undergo a heart catheterization yesterday and was found to have severe disease involving unprotected right coronary artery. We did not do an angioplasty on her because we reached the maximum amount of contrast. She did have an episode of chest pain today. Objective - Vital Signs Vital signs: Vital Signs Temp 97.7 F 01/03/19 03:39 Pulse 100 01/03/19 08:44 Resp 16 01/03/19 03:40 BP 108/58 01/03/19 03:39 Pulse Ox 94 L 01/03/19 03:39 Intake & Output 01/02/19 01/03/19 01/03/19 18:59 06:59 18:59 Intake Total 910 240 Balance 910 240 Weight 61 kg Intake: IV 100 Intake, IV Titration 600 Amount Sodium Chloride 0.9% 1, 600 000 ml @ 75 mls/hr IV . [id number] [facility] Rx#:[id number] Oral 210 240 Other: Voiding Method Diaper Diaper # Voids 2 2 1 # Bowel Movements 1 - Constitutional General appearance: Present: no acute distress - Respiratory Respiratory: bilateral: CTA - Cardiovascular Rhythm: regular - Labs CBC & Chem 7: 01/01/19 08:30 01/02/19 11:07 Labs: Abnormal Lab Results - Last 24 Hours (Table) 01/02/19 Range/Units 11:07 Potassium 5.3 H (3.5-5.1) mmol/L BUN 44 H (7-17) mg/dL Creatinine 1.45 H (0.52-1.04) mg/dL Glucose 120 H (74-99) mg/dL Assessment and Plan Assessment: Assessment #1 chest discomfort #2 shortness of breath #3 chronic diastolic congestive heart failure #4 chronic obstructive pulmonary disease #5 coronary artery disease #6 acute on chronic renal failure Plan #1 continue the current medical regimen #2 avoid any nephrotoxic medications #3 PCI of the right coronary artery the next 24-48 hours
[2019-01-03] MEDS ORDERED: ALPRAZolam 0.5 MG TAB PO PRN (14:52)
[2019-01-03] MEDS ORDERED: NITROGLYCERIN SL TABS 0.4 MG TAB SUBLINGUAL PRN (14:52)
[2019-01-03] MEDS ORDERED: ALPRAZolam 0.25 MG TAB PO PRN (14:52)
--- NOTE | 2019-01-03 18:16 | PN ---
PROGRESS NOTE Patient is seen for followup for acute kidney injury on top of chronic kidney disease. She is status post cardiac catheterization yesterday which showed severe triple-vessel disease and occluded SVG to RCA. Plan is for possible percutaneous intervention for the right coronary artery down the road if the patient is symptomatic. The patient had been on IV fluids which are currently still running at about 60 mL an hour. Serum creatinine is at 1.45 down from 1.5 yesterday and previously it was at 1.7. Currently, patient is awake and comfortable. She denies any significant complaints. She does not have any chest pains. PHYSICAL EXAMINATION: This morning: Blood pressure was 148/65, heart rate 100 per minute. She is afebrile. Examination of the heart S1, S2. Examination of the lungs bilateral breath sounds are heard. Abdomen is soft, nontender. Examination of lower extremities shows trace edema bilaterally. BRICK SETTER OPERATOR exam is grossly intact. LAB: Shows sodium 137, potassium 5.3, BUN 44, serum creatinine 1.45, hemoglobin 10.0 g/dL. ASSESSMENT: 1. Acute kidney injury secondary to hypotension and hypoperfusion, currently seems to be improving. 2. Diastolic heart failure, currently not significantly volume overloaded. 3. Hyperkalemia on initial admission, currently off of angiotensin receptor blockers and spironolactone. 4. Chronic kidney disease and NKF stage III, secondary to nephrosclerosis with previous creatinine about 1.08 mg/dL. PLAN: DC IV fluids. Repeat labs in a.m. Avoid hypotension and continue to avoid any other nephrotoxic medications. Check urinalysis as well. Continue to hold off on the angiotensin receptor blockers given the hyperkalemia. I expect that when patient resumes her loop diuretics, her potassium will improve and we can hopefully maintain low-dose JASON inhibitors or angiotensin receptor blockers as outpatient. MMODL / IJN: [id number] /
[2019-01-03] MEDS: ATORVASTATIN 80 MG TAB PO SCH (19:46)
[2019-01-03] MEDS: ASPIRIN 81 MG PO SCH (19:46)
[2019-01-04 06:38] LABS: Calcium 8.6 mg/dL (8.4-10.2)
[2019-01-04] MEDS: SYMBICORT 160-4.5 MCG INHALER INHALATION SCH ×2 (08:56→20:42)
[2019-01-04] MEDS: IPRATROPIUM-ALBUTEROL 3 ML NEB INHALATION SCH ×4 (08:56→20:42)
[2019-01-04] MEDS: ISOSORBIDE MONONITRATE ER 30 MG TAB.ER.24H PO SCH (10:02)
--- NOTE | 2019-01-04 12:12 | P.PN ---
Subjective Progress Note Date: 01/04/19 Principal diagnosis: Chest discomfort/shortness of breath This is a pleasant 88-year-old female patient with a past medical history significant for chronic diastolic congestive heart failure, chronic obstructive pulmonary disease, coronary artery disease and prior coronary artery revascularization, as well as hypertension, and dyslipidemia, was admitted to the hospital with atypical chest discomfort as well as shortness of breath. The patient is also known to have chronic kidney disease with a GFR around 35. The last echocardiogram on her was from 2018 and that revealed normal LV function was mild valvular abnormalities. Because of the atypical nature of the chest discomfort and because of the renal dysfunction with decided to treat her chest pain medically and we started the patient yesterday on oral nitrates. On follow-up with the patient today, January [id number], she seems to be asymptomatic at this point. The heart catheterization from 2 days ago revealed severe disease involving unprotected right coronary artery. At this point we'll continue the current medical regimen. If she continues to have chest discomfort I would consider doing PCI of the RCA. Objective - Vital Signs Vital signs: Vital Signs Temp 98 F 01/04/19 04:00 Pulse 80 01/04/19 12:03 Resp 18 01/04/19 04:00 BP 129/60 01/04/19 04:00 Pulse Ox 97 01/04/19 04:00 Intake & Output 01/03/19 01/04/19 01/04/19 18:59 06:59 18:59 Intake Total 240 100 Balance 240 100 Weight 57.2 kg Intake: Oral 240 100 Other: Voiding Method Diaper Diaper # Voids 1 1 # Bowel Movements 1 1 - Constitutional General appearance: Present: no acute distress - Respiratory Respiratory: bilateral: CTA - Cardiovascular Rhythm: regular Heart sounds: normal: S1, S2 - Labs CBC & Chem 7: 01/01/19 08:30 01/04/19 05:31 Labs: Abnormal Lab Results - Last 24 Hours (Table) 01/04/19 Range/Units 05:31 BUN 32 H (7-17) mg/dL Creatinine 1.27 H (0.52-1.04) mg/dL Assessment and Plan Assessment: Assessment #1 chest discomfort #2 shortness of breath #3 chronic diastolic congestive heart failure #4 chronic obstructive pulmonary disease #5 coronary artery disease #6 acute on chronic renal failure Plan #1 continue the current medical regimen #2 avoid any nephrotoxic medications #3 PCI of the right coronary artery the next 24-48 hours if she continues to have any chest
--- NOTE | 2019-01-04 14:00 | PN ---
PROGRESS NOTE DATE OF SERVICE: 01/03/2019 CHIEF COMPLAINT: Chronic congestive heart failure, CAD, and renal failure. HISTORY OF PRESENT ILLNESS: This lady has been evaluated with cath and apparently has a significant stenosis. She will be going back in the in the next few days for stenting. REVIEW OF SYSTEMS: She feels fine otherwise. She is not having any pain, but she still feels short of breath, tired and sluggish. PHYSICAL EXAM: She remains slightly pale. Chest is quite clear. There were only occasional rales at the bases. The cardiac exam is unremarkable and the abdomen is soft, nontender. IMPRESSION: 1. Coronary artery disease. 2. Previous myocardial infarction. 3. Chronic obstructive pulmonary disease. 4. Chronic congestive heart failure. 5. Renal failure. PLAN: Await definitive procedure with stenting on Tuesday. MMODL / IJN: [id number] /
--- NOTE | 2019-01-04 14:06 | PN ---
PROGRESS NOTE CHIEF COMPLAINT: Congestive heart failure, renal failure, and CAD. HISTORY OF PRESENT ILLNESS: This lady is having no further problems and waits her procedure tomorrow. PHYSICAL EXAM: Chest is quite clear with only occasional rales. Cardiac exam is normal and the abdomen is soft, nontender. IMPRESSION: 1. Coronary artery disease. 2. Coronary artery disease. 3. Renal failure. 4. Chronic obstructive pulmonary disease. PLAN: Stenting tomorrow and then start to work on discharge plan. MMODL / IJN: [id number] /
--- NOTE | 2019-01-04 16:57 | PN ---
PROGRESS NOTE Patient is seen for followup for acute kidney injury. She is status post cardiac catheterization. Patient received IV fluids initially. They were discontinued yesterday. Her creatinine is down to 1.27. There are plans for repeat catheterization and coronary stent placement. Currently patient denies any significant chest pains or shortness of breath. On examination today, blood pressure was 106/53, heart rate 80 per minute. She is afebrile. EXAMINATION OF THE HEART: S1 and S2. EXAMINATION OF LUNGS: Bilateral breath sounds are heard. ABDOMEN: Soft, non-tender. Examination of lower extremities shows no evidence of edema. COPYRIGHT EXPERT exam is grossly intact. Patient is moving all 4 extremities. Labs show sodium 138, potassium 5.0, BUN 32, serum creatinine 1.27. ASSESSMENT: 1. Acute kidney injury associated with hypotension, currently improved. Patient is status post cardiac cath and IV fluids which were discontinued yesterday. She has been voiding well. There are no nephrotoxic agents on board. 2. Status post cardiac catheterization. 3. Significant coronary artery disease with plans for possible stenting of the right coronary artery. 4. Chronic obstructive pulmonary disease. 5. Chronic kidney disease, stage III, secondary to nephrosclerosis. Previous creatinine about 1.08 mg/dL. PLAN: Continue off of IV fluids for now. Patient will need followup as outpatient for CKD. Hold off on JASON inhibitors, given the hyperkalemia and possible need for repeat cardiac catheterization, stenting of the RCA. MMODL / IJN: [id number] /
[2019-01-04] MEDS: ASPIRIN 81 MG PO SCH (19:49)
[2019-01-04] MEDS: ATORVASTATIN 80 MG TAB PO SCH (19:49)
[2019-01-05 05:58] LABS: Glucose,Whole Blood 93 mg/dL (75-99)
[2019-01-05] MEDS ORDERED: ATORVASTATIN 80 MG TAB PO ONE (06:00)
[2019-01-05] MEDS ORDERED: ASPIRIN 325 MG TAB PO ONE (06:00)
[2019-01-05] MEDS: ISOSORBIDE MONONITRATE ER 30 MG TAB.ER.24H PO SCH (06:25)
[2019-01-05] MEDS ORDERED: LIDOCAINE 1% INJ 10MG/ML (20 ML MDV) ONE ×2 (07:49→09:26)
[2019-01-05] MEDS ORDERED: IV FLUID CONTINUATION 1,000 ML IV ONE (07:52)
[2019-01-05] MEDS: MIDAZOLAM (PF) 2 MG/2 ML VIAL IV ONE ×2 (08:13→09:01)
[2019-01-05] MEDS ORDERED: LIDOCAINE 1% INJ 10MG/ML (20 ML MDV) SQ ONE ×2 (08:17→09:28)
[2019-01-05] MEDS ORDERED: BIVALIRUDIN BOLUS 250 MG/50 ML IV ONE (08:20)
[2019-01-05] MEDS ORDERED: fentaNYL (PF) 50 MCG/ML 2 ML AMP ONE (08:20)
[2019-01-05] MEDS ORDERED: BIVALIRUDIN 250 MG in SODIUM CHLORIDE 0.9% 50 ML IV ONE (08:21)
[2019-01-05] MEDS: fentaNYL (PF) 50 MCG/ML 2 ML AMP IV ONE ×3 (08:21→09:28)
[2019-01-05] MEDS: SYMBICORT 160-4.5 MCG INHALER INHALATION SCH ×2 (08:22→21:16)
[2019-01-05] MEDS: IPRATROPIUM-ALBUTEROL 3 ML NEB INHALATION SCH ×4 (08:22→21:16)
[2019-01-05] MEDS ORDERED: SODIUM CHLORIDE 0.9% 1,000 ML in EMPTY BAG 1 BAG IV ONE (09:00)
[2019-01-05] MEDS ORDERED: NITROGLYCERIN 1000MCG/10ML SYRINGE INTRACORON ONE (09:44)
[2019-01-05] MEDS ORDERED: CLOPIDOGREL 75 MG TAB ONE (09:48)
[2019-01-05] MEDS ORDERED: ZOLPIDEM 5 MG TAB PO PRN (09:55)
[2019-01-05] MEDS ORDERED: RX INFO: IV CONTRAST WAS GIVEN 1 EACH MISC MISCELLANE PRN (09:55)
[2019-01-05] MEDS ORDERED: NITROGLYCERIN SL TABS 0.4 MG TAB SUBLINGUAL PRN (09:55)
[2019-01-05] MEDS ORDERED: MAG HYDROX/AL HYDROX/SIMETH 30 ML CUP PO PRN (09:55)
[2019-01-05] MEDS ORDERED: ATROPINE SULFATE 0.1 MG/ML 10ML SYRINGE IV PRN (09:55)
[2019-01-05] MEDS ORDERED: SODIUM CHLORIDE 0.9% 1,000 ML IV SCH (10:00)
[2019-01-05] MEDS ORDERED: IOPAMIDOL-370 125ML BTL INJ ONE (10:04)
[2019-01-05] MEDS ORDERED: CLOPIDOGREL 75 MG TAB PO ONE (10:04)
[2019-01-05] MEDS ORDERED: hydrALAZINE HCL 25 MG TAB PO PRN (10:50)
--- NOTE | 2019-01-05 11:05 | PTCA ---
PERCUTANEOUSTRANS CORORONARY ANGIOGRAPHY DATE OF SERVICE: 01/05/2019 PERFORMING PHYSICIAN: Zack Nascimento MD, Obstetrical Nurse. PROCEDURE PERFORMED: 1. An atherectomy of the right coronary artery using the orbital atherectomy device from [employer]. 2. Successful balloon angioplasty and stenting of the right coronary artery using 3.25 x 28 mm Xience drug-eluting stent with an excellent angiographic result and reduction of stenosis from 99% to 0%. 3. Placement of transvenous temporary pacemaker. INDICATION: This is a pleasant 88-year-old female patient who sees Dr. Kerrie Warren in the office as an outpatient with known history of coronary artery disease and prior coronary artery bypass grafting, who presented to the hospital with chest discomfort, which was treated medically with conservative medical approach, but unfortunately she continues to have ongoing chest discomfort. Because of that, she underwent a heart catheterization and that revealed a critical lesion involving the mid right coronary artery. We did not do an angioplasty at the time of the heart cath because we reached our max contrast use. She was brought today to undergo a PCI of the RCA. Today is 2 days after the heart catheterization was performed. APPROACH: A left common femoral artery. COMPLICATION: None. LEVEL OF SEDATION: Moderate with sedation length of 94 minutes. PROCEDURE DESCRIPTION: After obtaining an informed consent, the patient was brought to the cardiac photo lab manager. The left common femoral artery was cannulated using micropuncture technique, the micropuncture wire passed easily, then I placed a 6-Greek sheath in the left common femoral artery. After that, anticoagulation was initiated using Angiomax. I took JR4 guide and the right coronary artery was engaged. Initially, I attempted wiring the right coronary artery using a run-through wire, but I was able to cross the lesion. At that point, I did wire using a Whisper wire. I attempted initially advancing 2.0 mm x 12 mm balloon but the balloon will not cross the lesion in the proximal right coronary artery. At that point, I attempted crossing it using 1.5 mm balloon but the balloon again will not cross the lesion. After that, I did wire the right coronary artery using a kimani wire with a run-through, but I was unable to cross the run-through again and then I was able to get a kimani wire with another whisper wire. I attempted again advancing the 2.0 balloon over each of these wires, but I was unable to cross the lesion. I attempted using 1.5 mm balloon on each of the wire and I was unable to cross the lesion. After that, I attempted using the GuideLiner, but I was unable to cross the lesion as well in spite of using the GuideLiner for backup support. After that, I attempted wiring the lesion using the Ironman and then I was unable as well. Subsequently, I was able to cross the lesion using the Viper Wire itself where the wire was advanced to distal right coronary artery, then I did atherectomy using the orbital atherectomy device with 2 runs under 2 speeds, each one about 15 to 20 seconds. After that, I did balloon angioplasty initially using 2.0 mm balloon before I deployed 3.25 x 28 mm Xience drug- eluting stent where the stent was positioned under fluoroscopy guidance and deployed under 12 atmospheres for 20 seconds with the following angiogram showing good angiographic results and the procedure was completed without any complication. POSTPROCEDURE MANAGEMENT: 1. Dual anti-platelet therapy. 2. Risk factors modifications. 3. Follow up with the patient. MADAY / LUISN: [id number] /
--- NOTE | 2019-01-05 14:07 | PN ---
PROGRESS NOTE DATE OF SERVICE: 01/05/2019 CHIEF COMPLAINT: Coronary artery disease, congestive heart failure and renal failure. HISTORY OF PRESENT ILLNESS: This lady underwent thrombectomy, angioplasty of the RCA. We will follow postoperatively to see how she does and probably [facility] the next day or 2. PHYSICAL EXAM: Her chest is fairly clear. Cardiac exam is unremarkable. Abdomen is soft, nontender. IMPRESSION: 1. Coronary artery disease. 2. Congestive heart failure. 3. Renal failure. PLAN: Continue to follow with Cardiology and hopefully, be able to be [facility] back [facility] the first of the week. MMODL / IJN: [id number] /
[2019-01-05] MEDS: ATORVASTATIN 80 MG TAB PO SCH (20:48)
[2019-01-05] MEDS: ASPIRIN 81 MG PO SCH (20:48)
[2019-01-06] MEDS: IPRATROPIUM-ALBUTEROL 3 ML NEB INHALATION SCH ×5 (07:21→20:39)
[2019-01-06] MEDS: SYMBICORT 160-4.5 MCG INHALER INHALATION SCH ×3 (07:21→20:39)
--- NOTE | 2019-01-06 09:01 | P.PN ---
Subjective Progress Note Date: 01/06/19 This is a pleasant 88-year-old female patient who resides at an extended care facility. She has a history of coronary artery disease with previous coronary artery bypass grafting over 10 years ago and previous stenting of the saphenous vein graft to the obtuse marginal branch, chronic diastolic congestive heart failure, hypertension, hyperlipidemia, chronic kidney disease stage III, abdominal aortic aneurysm under surveillance, peripheral vascular disease. She also has history of chronic obstructive pulmonary disease, chronic hypoxemic respiratory failure and previous chronic tobacco dependence. She was just discharged for COPD/heart failure exacerbation on 12/19/2018. She represented here on 12/26/2018 from the [facility] with complaints of chest pain and shortness of breath. Chest x-ray revealed evidence of COPD but no acute pulmonary process. White count 5.6. Hemoglobin 9.4. Creatinine 1.34. Troponins were negative. ProBNP 1830. EKG shows normal sinus rhythm with no acute changes. At the time of my examination this morning, patient is complaining of some mild numbness in her right arm, she also complains of feeling stuffy in her nose. Denies any chest discomfort at present. She is currently on aspirin 81 mg daily, Norvasc 5 mg daily, Lipitor 80 mg daily, Coreg 3.125 mg twice a day, Lasix 40 mg by mouth twice a day and and Entresto. Blood pressure 112/50 with a heart rate in the 60s, 97% on 2 L of oxygen. 01/01/2019 She was seen and examined this morning, continued to have intermittent chest pressure, because of the intermittent chest discomfort she's been having here it was recommended that she undergo cardiac catheterization. The risks and the benefits were explained to her in detail. This will be performed tomorrow by Dr. Pepper. Her creatinine today is 1.4. We will hydrate the patient had 100 mL per hour. 01/06/2019 Patient was seen and examined this morning, feeling well, had some mild chest pressure earlier but nothing like she's been having, she states she feels significantly better. She underwent arthrectomy of the right coronary artery with successful balloon angioplasty and stenting of the RCA yesterday, Blood pressure 130/60 with a heart rate of 90, 95% on room air. Creatinine this morning 1.1. Objective - Vital Signs Vital signs: Vital Signs Temp 97.7 F 01/06/19 04:00 Pulse 68 01/06/19 07:33 Resp 16 01/06/19 04:00 BP 131/63 01/06/19 04:00 Pulse Ox 95 01/06/19 07:24 Intake & Output 01/05/19 01/06/19 01/06/19 18:59 06:59 18:59 Intake Total 555 137 Output Total 200 575 Balance 355 -438 Weight 61.1 kg 61.1 kg Intake: IV 545 Oral 10 137 Output: Urine 200 575 Other: Voiding Method Indwelling Catheter Indwelling Catheter - Exam GENERAL EXAM: Alert, active, comfortable in no apparent distress. On 2 L nasal cannula. HEAD: Normocephalic. EYES: Normal reaction of pupils, equal size. NOSE: Clear with pink turbinates. THROAT: No erythema or exudates. NECK: No masses, no JVD. CHEST: No chest wall deformity. LUNGS: Equal air entry with faint crackles in the posterior bases. Diminished. CVS: S1 and S2 normal with no audible murmur, regular rhythm. ABDOMEN: No hepatosplenomegaly, normal bowel sounds, no guarding or rigidity. SPINE: No scoliosis or deformity SKIN: No rashes CENTRAL NERVOUS SYSTEM: No focal deficits, tone is normal in all 4 extremities. EXTREMITIES: There is trace peripheral edema. No clubbing, no cyanosis. Per ipheral pulses are intact. Right and left groins are soft, no evidence of hematoma. - Labs CBC & Chem 7: 01/01/19 08:30 01/06/19 06:24 Labs: Abnormal Lab Results - Last 24 Hours (Table) 01/06/19 Range/Units 06:24 Creatinine 1.10 H (0.52-1.04) mg/dL Assessment and Plan Plan: Impression: #1 status post arthrectomy and subsequent stenting of the right coronary artery #2 Acute exacerbation of mild chronic obstructive pulmonary disease. #3 Acute on chronic hypoxemic respiratory failure secondary to above. #4 Acute exacerbation of mild diastolic congestive heart failure. #5 Remote history of chronic tobacco dependence. #6 Coronary artery disease with previous coronary artery bypass grafting and subsequent stenting to the saphenous vein graft to the obtuse marginal branch. #7 Hypertension. #8 Hyperlipidemia. #9 Minimal aortic aneurysm, under surveillance. Plan From cardiology's perspective, patient may be able to be discharged home today. She can follow-up with Dr. VC Warren in the office post discharge. Discharge medications include aspirin 81 mg daily, Lipitor 80 mg daily, Plavix 75 mg daily, Entresto and Coreg along with sublingual nitroglycerin. DNP note has been reviewed, I agree with a documented findings and plan of care. Patient was seen and examined.
[2019-01-06] MEDS: CLOPIDOGREL 75 MG TAB PO SCH (09:11)
[2019-01-06] MEDS: ISOSORBIDE MONONITRATE ER 30 MG TAB.ER.24H PO SCH (09:11)
[2019-01-06] MEDS: SACUBITRIL/VALSARTAN 24 MG-26 MG TABLET PO SCH ×2 (12:31→21:23)
--- NOTE | 2019-01-06 15:34 | PN ---
PROGRESS NOTE Patient is seen for followup for acute kidney injury which was mainly associated with low blood pressure and hypoperfusion. Renal function has improved. Patient had another cardiac catheterization with intervention of the right coronary artery and stent placement yesterday. She is doing very well. Serum creatinine is at 1.10 mg/dL today. The patient denies any chest pains or shortness of breath. She is currently not on any IV fluids. The patient is maintained on Entresto. PHYSICAL EXAMINATION: On examination this morning, blood pressure was 97/52, heart rate of 97 per minute. Patient is afebrile. EXAMINATION OF THE HEART: S1, S2. EXAMINATION OF THE LUNGS: Bilateral breath sounds are heard. Abdomen is soft, nontender. Examination of the lower extremities shows no significant edema. DIGITAL IMAGER exam is grossly intact. LABS: Labs show sodium 138, potassium 5.0 from yesterday and this morning serum creatinine was 1.10. ASSESSMENT: 1. Acute kidney injury secondary to hypotension hypoperfusion currently improved and resolved. 2. Coronary artery disease, status post cardiac catheterization and coronary stent placement in RCA. 3. Chronic obstructive pulmonary disease. 4. Chronic kidney disease stage 3 secondary to nephrosclerosis. Baseline creatinine about 1.0 mg/dL. PLAN: Monitor serum potassium levels, especially if the patient is going to be maintained on angiotensin receptor blockers with Entresto. She has been hyperkalemic without these medications. Therefore, we do need to monitor her electrolytes closely. Use of loop diuretics will help facilitate use of Entresto/angiotensin receptor blockers. MMODL / IJN: [id number] /
[2019-01-06] MEDS: CARVEDILOL 3.125 MG TAB PO SCH (17:07)
[2019-01-06] MEDS: ASPIRIN 81 MG PO SCH (21:22)
[2019-01-06] MEDS: ATORVASTATIN 80 MG TAB PO SCH (21:22)
--- NOTE | 2019-01-06 21:40 | PN ---
PROGRESS NOTE DATE OF SERVICE: 01/06/2019. CHIEF COMPLAINT: Congestive heart failure, CAD, and renal failure. HISTORY OF PRESENT ILLNESS: This lady remains stable. She is feeling a little bit better and a little bit less short of breath since her angioplasty on Tuesday. PHYSICAL EXAM: Color remains the same. Chest still demonstrates rales scattered throughout. Cardiac exam is unchanged. IMPRESSION: 1. Coronary artery disease status post stenting of right coronary artery. 2. Chronic congestive heart failure. 3. Atherosclerotic cardiomyopathy. PLAN: Probably back to Tuesday. MMODL / IJN: [id number] /
[2019-01-07] MEDS: CARVEDILOL 3.125 MG TAB PO SCH ×2 (06:12→16:50)
[2019-01-07] MEDS: IPRATROPIUM-ALBUTEROL 3 ML NEB INHALATION SCH ×4 (08:19→18:53)
[2019-01-07] MEDS: SYMBICORT 160-4.5 MCG INHALER INHALATION SCH ×2 (08:19→18:52)
[2019-01-07] MEDS: CLOPIDOGREL 75 MG TAB PO SCH (08:25)
[2019-01-07] MEDS: ISOSORBIDE MONONITRATE ER 30 MG TAB.ER.24H PO SCH (08:25)
[2019-01-07] MEDS: SACUBITRIL/VALSARTAN 24 MG-26 MG TABLET PO SCH ×2 (08:25→20:02)
--- NOTE | 2019-01-07 11:03 | P.PN ---
Subjective Progress Note Date: 01/07/19 Principal diagnosis: Chest discomfort/shortness of breath This is a pleasant 88-year-old female patient with a past medical history significant for chronic diastolic congestive heart failure, chronic obstructive pulmonary disease, coronary artery disease and prior coronary artery revascularization, as well as hypertension, and dyslipidemia, was admitted to the hospital with chest discomfort and continues to have ongoing chest discomfort in spite of maximize medical treatment. Because of that she underwent a heart catheterization which revealed critical disease involving and unprotected right coronary artery which has a critical lesion appeared to be very calcified and eccentric. She underwent successful balloon angioplasty and stenting of the lesion with a good angiographic results by the end. I did follow-up with the patient today, 01/07/2019, she is asymptomatic from a perivascular standpoint of view. She is hemodynamically stable. She is on dual antiplatelet therapy along with a statin. From the cardiovascular standpoint overview, the patient can be discharged home. Objective - Vital Signs Vital signs: Vital Signs Temp 97.6 F 01/07/19 08:00 Pulse 74 01/07/19 08:30 Resp 16 01/07/19 08:00 BP 122/58 01/07/19 08:00 Pulse Ox 92 L 01/07/19 08:00 Intake & Output 01/06/19 01/07/19 01/07/19 18:59 06:59 18:59 Output Total 2575 Balance -2575 Weight 53 kg Output: Urine 2575 Other: Voiding Method Indwelling Catheter Diaper # Voids 2 1 - Constitutional General appearance: Present: no acute distress - Respiratory Respiratory: bilateral: CTA - Cardiovascular Heart sounds: normal: S1, S2 - Labs CBC & Chem 7: 01/01/19 08:30 01/06/19 06:24 Assessment and Plan Assessment: Assessment #1 coronary artery disease #2 chronic diastolic congestive heart failure #3 chronic obstructive pulmonary disease #4 chronic kidney disease Plan #1 continue the current medical regimen including dual antiplatelet therapy #2 the patient can be discharged home
[2019-01-07 12:06] LABS: Calcium 8.4 mg/dL (8.4-10.2); Potassium 4.7 mmol/L (3.5-5.1)
--- NOTE | 2019-01-07 12:27 | PN ---
PROGRESS NOTE The patient is seen for followup for acute kidney injury. Her renal function has improved significantly. The patient is status post cardiac catheterization and coronary stent placement. Serum creatinine was 1.1 yesterday. I do not have any labs from today. The patient denies any chest pains or shortness of breath. PHYSICAL EXAMINATION: This morning, blood pressure 122/58, heart rate 83 per minute. She is afebrile. Examination of the heart S1, S2. Examination of lungs bilateral breath sounds are heard. Abdomen is soft, nontender. Examination of lower extremities shows no significant edema. SIGNALING DESIGN ENGINEER exam is grossly intact. LABS: Not available from today. Serum creatinine was 1.1 yesterday. ASSESSMENT: 1. Acute kidney injury associated with hypotension. Currently improved. Patient is status post cardiac catheterization. So far, renal function is stable and improved as of yesterday. We will check labs today. 2. Coronary artery disease status post coronary stent placement in RCA. 3. Chronic kidney disease stage III, secondary to nephrosclerosis. Baseline creatinine about 1 mg/dL. PLAN: Patient is stable for discharge from Nephrology standpoint. Monitor renal function and electrolytes closely as patient has been hyperkalemic. She is maintained on Entresto. MMODL / IJN: [id number] /
[2019-01-07] MEDS: ATORVASTATIN 80 MG TAB PO SCH (20:02)
[2019-01-07] MEDS: ASPIRIN 81 MG PO SCH (20:02)
--- NOTE | 2019-01-07 21:54 | PN ---
PROGRESS NOTE DATE OF SERVICE: 01/07/2019 CHIEF COMPLAINT: Coronary artery disease, congestive heart failure and renal failure. HISTORY OF PRESENT ILLNESS: This lady is doing a little bit better. Thinks she is breathing a little bit better since her angioplasty. PHYSICAL EXAM: Her chest demonstrates occasional rales. Cardiac exam is normal. Abdomen is soft. IMPRESSION: 1. Coronary artery disease. 2. Acute and chronic congestive heart failure, atherosclerotic. 3. Renal failure. PLAN: If she continues to progress stably, she can go back to [facility] tomorrow. MMODL / IJN: [id number] /
[2019-01-08 06:40] LABS: Anisocytosis Slight; Basophils # (A) 0.1 k/uL (0-0.2); Basophils % (A) 1 %; Eosinophils # (A) 0.5 k/uL (0-0.7); Eosinophils % (A) 7 %; HCT 24.3 % (34.0-46.0); Hypochromasia Slight; Lymphocytes # (A) 2.2 k/uL (1.0-4.8); Lymphocytes % (A) 29 %; MCH 30.4 pg (25.0-35.0); MCHC 33.1 g/dL (31.0-37.0); MCV 91.9 fL (80.0-100.0); Mean Platelet Volume 8.2; Monocytes # (A) 0.5 k/uL (0-1.0); Monocytes % (A) 7 %; Neutrophils # (A) 4.1 k/uL (1.3-7.7); Neutrophils % (A) 54 %; Platelet Count 170 k/uL (150-450); RBC 2.65 m/uL (3.80-5.40); RDW 17.2 % (11.5-15.5); WBC 7.5 k/uL (3.8-10.6)
[2019-01-08] MEDS: CARVEDILOL 3.125 MG TAB PO SCH (06:43)
[2019-01-08 06:53] LABS: Calcium 8.2 mg/dL (8.4-10.2); Potassium 4.5 mmol/L (3.5-5.1)
[2019-01-08] MEDS: SYMBICORT 160-4.5 MCG INHALER INHALATION SCH (08:19)
[2019-01-08] MEDS: IPRATROPIUM-ALBUTEROL 3 ML NEB INHALATION SCH ×2 (08:19→11:39)
[2019-01-08] MEDS: CLOPIDOGREL 75 MG TAB PO SCH (09:14)
[2019-01-08] MEDS: ISOSORBIDE MONONITRATE ER 30 MG TAB.ER.24H PO SCH (09:14)
[2019-01-08] MEDS: SACUBITRIL/VALSARTAN 24 MG-26 MG TABLET PO SCH (09:14)
[2019-01-08 09:18] VITALS: BP 164/74; RESP 17; TEMP 97.7
[2019-01-08 10:45] VITALS: BMI 25.5
--- NOTE | 2019-01-08 11:16 | DS ---
DISCHARGE SUMMARY CHIEF COMPLAINT: Chest pain, shortness of breath, congestive heart failure and renal failure. HISTORY OF PRESENT ILLNESS AND PHYSICAL EXAM: Details of this lady's history and physical can be found in the initial workup. LABORATORY STUDIES: While she was in a hospital she had laboratory studies, details of which can be found in the laboratory section of her chart. COURSE IN HOSPITAL: After admission, she was placed on bedrest and started on management for her congestive heart failure. Treatment was not successful and she was diuresed, and her renal function deteriorated. She was seen and followed by Nephrology. She continued to complain of chest discomfort as well and eventually was taken for a cardiac cath where she had stenting of the right coronary artery. Postoperatively, she did well, but she still had some mild chest discomfort. It was felt that she could return to [facility] on 01/08 and she will go there for rehab. FINAL DIAGNOSES: 1. Unstable angina pectoris. 2. Coronary artery disease. 3. Acute on chronic congestive heart failure. 4. Atherosclerotic cardiomyopathy. 5. Renal failure. OPERATIONS: Cardiac cath. CONSULTATIONS: Cardiology, Nephrology. She is improved. MMODL / IJN: [id number] /
[2019-01-08 11:43] VITALS: PULSE 82
--- NOTE | 2019-01-08 12:15 | P.PN ---
Subjective Progress Note Date: 01/08/19 This is a pleasant 88-year-old female patient who resides at an extended care facility. She has a history of coronary artery disease with previous coronary artery bypass grafting over 10 years ago and previous stenting of the saphenous vein graft to the obtuse marginal branch, chronic diastolic congestive heart failure, hypertension, hyperlipidemia, chronic kidney disease stage III, abdominal aortic aneurysm under surveillance, peripheral vascular disease. She also has history of chronic obstructive pulmonary disease, chronic hypoxemic respiratory failure and previous chronic tobacco dependence. She was just discharged for COPD/heart failure exacerbation on 12/19/2018. She represented here on 12/26/2018 from the [facility] with complaints of chest pain and shortness of breath. Chest x-ray revealed evidence of COPD but no acute pulmonary process. White count 5.6. Hemoglobin 9.4. Creatinine 1.34. Troponins were negative. ProBNP 1830. EKG shows normal sinus rhythm with no acute changes. At the time of my examination this morning, patient is complaining of some mild numbness in her right arm, she also complains of feeling stuffy in her nose. Denies any chest discomfort at present. She is currently on aspirin 81 mg daily, Norvasc 5 mg daily, Lipitor 80 mg daily, Coreg 3.125 mg twice a day, Lasix 40 mg by mouth twice a day and and Entresto. Blood pressure 112/50 with a heart rate in the 60s, 97% on 2 L of oxygen. 01/01/2019 She was seen and examined this morning, continued to have intermittent chest pressure, because of the intermittent chest discomfort she's been having here it was recommended that she undergo cardiac catheterization. The risks and the benefits were explained to her in detail. This will be performed tomorrow by Dr. Pepper. Her creatinine today is 1.4. We will hydrate the patient had 100 mL per hour. 01/06/2019 Patient was seen and examined this morning, feeling well, had some mild chest pressure earlier but nothing like she's been having, she states she feels significantly better. She underwent arthrectomy of the right coronary artery with successful balloon angioplasty and stenting of the RCA yesterday, Blood pressure 130/60 with a heart rate of 90, 95% on room air. Creatinine this morning 1.1. 01/08/2019 Patient was seen and examined this morning, feeling well overall, complained of some mild chest tightness earlier. Being transferred to [facility] today. Objective - Vital Signs Vital signs: Vital Signs Temp 97.7 F 01/08/19 08:00 Pulse 82 01/08/19 11:46 Resp 17 01/08/19 08:00 BP 164/74 01/08/19 08:00 Pulse Ox 97 01/08/19 08:19 Intake & Output 01/07/19 01/08/19 01/08/19 18:59 06:59 18:59 Intake Total 410 1030 240 Output Total 800 100 Balance -390 1030 140 Weight 61.3 kg 61.3 kg Intake: Oral 410 1030 240 Output: Urine 800 100 Other: Voiding Method Diaper Diaper Diaper # Voids 3 3 1 # Bowel Movements 1 - Exam GENERAL EXAM: Alert, active, comfortable in no apparent distress. On 2 L nasal cannula. HEAD: Normocephalic. EYES: Normal reaction of pupils, equal size. NOSE: Clear with pink turbinates. THROAT: No erythema or exudates. NECK: No masses, no JVD. CHEST: No chest wall deformity. LUNGS: Equal air entry with faint crackles in the posterior bases. Diminished. CVS: S1 and S2 normal with no audible murmur, regular rhythm. ABDOMEN: No hepatosplenomegaly, normal bowel sounds, no guarding or rigidity. SPINE: No scoliosis or deformity SKIN: No rashes CENTRAL NERVOUS SYSTEM: No focal deficits, tone is normal in all 4 extremities. EXTREMITIES: There is trace peripheral edema. No clubbing, no cyanosis. Peripheral pulses are intact. Right and left groins are soft, no evidence of hematoma. - Labs CBC & Chem 7: 01/08/19 06:25 01/08/19 06:25 Labs: Abnormal Lab Results - Last 24 Hours (Table) 01/08/19 01/08/19 Range/Units 06:25 06:25 RBC 2.65 L (3.80-5.40) m/uL Hgb 8.0 L D (11.4-16.0) gm/dL Hct 24.3 L (34.0-46.0) % RDW 17.2 H (11.5-15.5) % Chloride 109 H (98-107) mmol/L BUN 20 H (7-17) mg/dL Creatinine 1.24 H (0.52-1.04) mg/dL Calcium 8.2 L (8.4-10.2) mg/dL Assessment and Plan Plan: Impression: #1 status post arthrectomy and subsequent stenting of the right coronary artery #2 Acute exacerbation of mild chronic obstructive pulmonary disease. #3 Acute on chronic hypoxemic respiratory failure secondary to above. #4 Acute exacerbation of mild diastolic congestive heart failure. #5 Remote history of chronic tobacco dependence. #6 Coronary artery disease with previous coronary artery bypass grafting and subsequent stenting to the saphenous vein graft to the obtuse marginal branch. #7 Hypertension. #8 Hyperlipidemia. #9 Minimal aortic aneurysm, under surveillance. Plan From cardiology's perspective, patient may be transferred to [facility] today. She can follow-up with Dr. VC Warren in the office post discharge. Discharge medications include aspirin 81 mg daily, Lipitor 80 mg daily, Plavix 75 mg daily, Entresto and Coreg along with sublingual nitroglycerin. DNP note has been reviewed, I agree with a documented findings and plan of care. Patient was seen and examined.
--- NOTE | 2019-01-08 20:13 | PN ---
PROGRESS NOTE Patient is seen for followup for acute kidney injury. Her renal function has improved. She is status post cardiac catheterization. Serum creatinine did go up to 1.2 from 1.19 yesterday. Currently patient is asymptomatic. She was seen this morning. She was comfortable. Denies any chest pains or shortness of breath. On examination, blood pressure this morning was 164/74, heart rate 90 per minute. She is afebrile. EXAMINATION OF THE HEART: S1 and S2. EXAMINATION OF LUNGS: Bilateral breath sounds are heard. ABDOMEN: Soft, non-tender. Examination of lower extremities shows no evidence of edema. [employer] exam is grossly intact. Labs show hemoglobin 8.0, sodium 139, potassium 4.5, BUN 20, serum creatinine 1.24. ASSESSMENT: 1. Acute kidney injury secondary to hypotension, hypoperfusion, currently resolved. 2. Coronary artery disease, status post cardiac catheterization and coronary stent placement. 3. Chronic kidney disease, stage III, secondary to nephrosclerosis. Baseline creatinine about 1.0 mg/dL. 4. Generalized debility. Patient is being discharged to rehab. PLAN: Patient is stable for discharge. Monitor electrolytes closely, as she is maintained on Entresto. MMODL / IJN: [id number] /
== END 2019-01-08 13:02 | DRG 246 ==
LOC: EC 13:47 → 3SCARD 15:09
PROVIDERS: ADMIT Family Medicine; ATTEND Family Medicine
PROC: B2131ZZ Fluoroscopy of Multiple Coronary Artery Bypass Grafts using Low Osmolar Contrast (ICD-10-PCS; 2019-01-02)
PROC: B2181ZZ Fluoroscopy of Left Internal Mammary Bypass Graft using Low Osmolar Contrast (ICD-10-PCS; 2019-01-02)
PROC: B2111ZZ Fluoroscopy of Multiple Coronary Arteries using Low Osmolar Contrast (ICD-10-PCS; 2019-01-02)
PROC: 027034Z Dilation of Coronary Artery, One Artery with Drug-eluting Intraluminal Device, Percutaneous Approach (ICD-10-PCS; 2019-01-05)
PROC: X2C0361 Extirpation of Matter from Coronary Artery, One Artery using Orbital Atherectomy Technology, Percutaneous Approach, New Technology Group 1 (ICD-10-PCS; principal; 2019-01-05 07:30)
DX: I13.0 Hypertensive heart and chronic kidney disease with heart failure and stage 1 through stage 4 chronic kidney disease, or unspecified chronic kidney disease (principal); I50.33 Acute on chronic diastolic (congestive) heart failure; J96.21 Acute and chronic respiratory failure with hypoxia; J44.1 Chronic obstructive pulmonary disease with (acute) exacerbation; N17.9 Acute kidney failure, unspecified; I95.9 Hypotension, unspecified; E87.5 Hyperkalemia; I25.110 Atherosclerotic heart disease of native coronary artery with unstable angina pectoris; N18.3 Chronic kidney disease, stage 3 (moderate); I73.9 Peripheral vascular disease, unspecified; I25.84 Coronary atherosclerosis due to calcified coronary lesion; I71.4 Abdominal aortic aneurysm, without rupture; E78.5 Hyperlipidemia, unspecified; I25.2 Old myocardial infarction; Z79.82 Long term (current) use of aspirin; Z79.51 Long term (current) use of inhaled steroids; Z79.899 Other long term (current) drug therapy; Z95.1 Presence of aortocoronary bypass graft; Z95.5 Presence of coronary angioplasty implant and graft; Z90.49 Acquired absence of other specified parts of digestive tract; Z90.710 Acquired absence of both cervix and uterus; Z95.828 Presence of other vascular implants and grafts; Z87.891 Personal history of nicotine dependence; Z98.42 Cataract extraction status, left eye; Z98.41 Cataract extraction status, right eye; Z88.5 Allergy status to narcotic agent; Z88.2 Allergy status to sulfonamides; Z88.8 Allergy status to other drugs, medicaments and biological substances; Z82.49 Family history of ischemic heart disease and other diseases of the circulatory system
CPT/HCPCS: 36415; 71045; 71046; 80048; 80053; 80061; 82150; 82565; 83690; 83735; 83880; 84132; 84484; 85025; 85610; 85730; 93005; 93306; 93455; 94640; 94760; 96374; 96375; 99285

== ENCOUNTER 2019-01-11 18:23 | Observation (INO) | payer MEDICARE ==
[2019-01-11] MEDS ORDERED: ASPIRIN 81 MG PO STA (18:38)
[2019-01-11] MEDS ORDERED: NITROGLYCERIN OINT 1 INCH/GM PACKET TOPICAL STA (18:38)
--- NOTE | 2019-01-11 18:43 | ED ---
General Adult HPI - General Chief complaint: Chest Pain Stated complaint: chest pain Time Seen by Provider: 01/11/19 18:25 Source: patient, RN notes reviewed Mode of arrival: ambulatory Limitations: no limitations - History of Present Illness Initial comments: This is an 88-year-old female presents emergency Department because she complained of chest pain. Patient is very poor historian. She does not know any of her past medical history. Patient does not know the duration of the pain. Patient states the pain was a pressure sensation and is not as bad now but still exists. Patient does not believe the pain radiated anywhere. Patient denies any shortness of breath or difficulty breathing. Patient denies any diaphoretic episodes. Patient denies any nausea. Patient denies being sick recently. Patient denies any headache patient denies any lightheadedness. No know family or caregivers with the patient. No further history can be obtained at this time. - Related Data Home Medications Medication Instructions Recorded Confirmed Aspirin [Adult Low Dose Aspirin EC] 81 mg PO HS 02/15/17 01/11/19 Nitroglycerin Sl Tabs [Nitrostat] 0.4 mg SUBLINGUAL Q5M PRN 02/15/17 01/11/19 Nystatin [Nystop] 1 applic TOPICAL QID 12/12/18 01/11/19 Spironolactone 25 mg PO DAILY 12/12/18 01/11/19 guaiFENesin [Mucinex] 1,200 mg PO BID 12/17/18 01/11/19 Bisacodyl [Dulcolax] 10 mg RECTAL DAILY PRN 12/26/18 01/11/19 Na Phos,M-B/Na Phos,Di-Ba [Fleet 133 ml RECTAL DAILY PRN 12/26/18 01/11/19 Adult] Sacubitril/Valsartan [Entresto 24 1 tab PO AC-BID 12/26/18 01/11/19 mg-26 mg Tablet] Acetaminophen [Tylenol 8 Hour] 650 mg PO Q4H 01/11/19 01/11/19 Lactose-Reduced Food [Ensure Plus] 237 ml PO BID 01/11/19 01/11/19 Magnesium Hydroxide [Milk of 7,200 ml PO DAILY PRN 01/11/19 01/11/19 Magnesia Concentrate] Previous Rx's Medication Instructions Recorded Atorvastatin [Lipitor] 80 mg PO HS #30 tab 04/19/17 Budesonide-Formot 160-4.5 Mcg 2 puff INHALATION RT-BID 30 Days 12/19/18 [Symbicort 160-4.5 Mcg Inhaler] #1 inhaler Carvedilol [Coreg] 3.125 mg PO BID-W/MEALS #60 tab 12/19/18 Furosemide [Lasix] 20 mg PO DAILY #30 tab 12/19/18 Ipratropium-Albuterol Nebulize 3 ml INHALATION RT-QID #120 12/19/18 [Duoneb 0.5 mg-3 mg/3 ml Soln] ampul.neb amLODIPine [Norvasc] 5 mg PO DAILY #30 tab 12/19/18 Clopidogrel [Plavix] 75 mg PO DAILY #100 tab 01/08/19 Isosorbide Mononitrate ER [Imdur] 30 mg PO DAILY #100 tab.er.24h 01/08/19 Allergies Allergy/AdvReac Type Severity Reaction Status Date / Time oxybutynin Allergy SEE Verified 01/11/19 18:53 COMMENTS sulfamethoxazole Allergy SEE Verified 01/11/19 18:53 [From Bactrim] COMMENTS trimethoprim [From Bactrim] Allergy SEE Verified 01/11/19 18:53 COMMENTS morphine AdvReac Confusion Verified 01/11/19 18:53 Review of Systems ROS Statement: Those systems with pertinent positive or pertinent negative responses have been documented in the HPI. ROS Other: All systems not noted in ROS Statement are negative. Past Medical History Past Medical History: Coronary Artery Disease (CAD), COPD, Hyperlipidemia, Hypertension, Myocardial Infarction ([place]) Additional Past Medical History / Comment(s): Coronary artery disease, previous bypass surgery ten years ago, hypertension, hyperlipidemia, COPD maintenance Sy mbicort on outpatient basis, gout, AAA NOT SURE OF SIZE Last Myocardial Infarction Date:: 2016 History of Any Multi-Drug Resistant Organisms: None Reported Past Surgical History: Cholecystectomy, Coronary Bypass/CABG, Heart C atheterization With Stent, Hysterectomy Additional Past Surgical History / Comment(s): Coronary artery bypass surgery- triple, cardiac catheterization and angioplasty and stenting of the saphenous vein graft to obtuse marginal branch.CATARACTS, "stent in groin" Past Anesthesia/Blood Transfusion Reactions: No Reported Reaction, Motion Sickness Additional Past Anesthesia/Blood Transfusion Reaction / Comment(s): Pt states she has received blood without reaction. Date of Last Stent Placement:: unk Past Psychological History: No Psychological Hx Reported Smoking Status: Former smoker Past Alcohol Use History: None Reported Past Drug Use History: None Reported - Past Family History Father Family Medical History: Coronary Artery Disease (CAD), Myocardial Infarction ([place]) Additional Family Medical History / Comment(s): Father of a [place] at the age of 72 yrs. Mother Family Medical History: No Reported History Additional Family Medical History / Comment(s): Pt states her mother was healthy and at the age of 84 yrs. General Exam - General Exam Comments Initial Comments: GENERAL: Patient is well-developed and well-nourished. Patient is nontoxic and well- hydrated and is in no acute distress. ENT: Neck is soft and supple. No significant lymphadenopathy is noted. Oropharynx is clear. Moist mucous membranes. Neck has full range of motion without eliciting any pain. EYES: The sclera were anicteric and conjunctiva were pink and moist. Extraocular movements were intact and pupils were equal round and reactive to light. Eyelids were unremarkable. PULMONARY: Unlabored respirations. Good breath sounds bilaterally. No audible rales rhonchi or wheezing was noted. CARDIOVASCULAR: There is a regular rate and rhythm without any murmurs gallops or rubs. ABDOMEN: Soft and nontender with normal bowel sounds. No palpable organomegaly was noted. There is no palpable pulsatile mass. SKIN: Skin is clear with no lesions or rashes and otherwise unremarkable. NEUROLOGIC: Patient is alert and oriented x3. Cranial nerves II through XII are grossly intact. Motor and sensory are also intact. Normal speech, volume and content. Symmetrical smile. MUSCULOSKELETAL: Normal extremities with adequate strength and full range of motion. No lower extremity swelling or edema. No calf tenderness. LYMPHATICS: No significant lymphadenopathy is noted PSYCHIATRIC: Normal psychiatric evaluation. Limitations: no limitations Course Vital Signs 01/11/19 01/11/19 01/11/19 18:27 18:31 20:00 Temperature 98.5 F Pulse Rate 86 73 Respiratory 18 16 Rate Blood Pressure 118/63 111/62 O2 Sat by Pulse 95 97 Oximetry Medical Decision Making - Medical Decision Making EKG shows normal sinus rhythm at 81 bpm MT interval is 184 QRS is 92 QT interval 380 QTC is 441 per patient's EKG shows no ST segment elevation or depression or does have Q waves in the inferior leads 3 and aVF Chest x-ray shows no acute abnormality. Patient continues to have chest pressure I spoke with Dr. Waldron and he wanted me to admit the patient admitted the patient consult cardiology. - Lab Data Result diagrams: 01/11/19 18:45 01/11/19 18:45 Lab Results 01/11/19 01/11/19 01/11/19 Range/Units 18:45 18:45 18:45 WBC 8.6 (3.8-10.6) k/uL RBC 3.01 L (3.80-5.40) m/uL Hgb 8.6 L (11.4-16.0) gm/dL Hct 27.9 L (34.0-46.0) % MCV 92.7 (80.0-100.0) fL MCH 28.5 (25.0-35.0) pg MCHC 30.8 L (31.0-37.0) g/dL RDW 18.1 H (11.5-15.5) % Plt Count 272 (150-450) k/uL Neutrophils % 58 % Lymphocytes % 25 % Monocytes % 6 % Eosinophils % 7 % Basophils % 1 % Neutrophils # 5.0 (1.3-7.7) k/uL Lymphocytes # 2.2 (1.0-4.8) k/uL Monocytes # 0.6 (0-1.0) k/uL Eosinophils # 0.6 (0-0.7) k/uL Basophils # 0.1 (0-0.2) k/uL Hypochromasia Moderate Anisocytosis Slight PT (9.0-12.0) sec INR (<1.2) APTT (22.0-30.0) sec Sodium 138 (137-145) mmol/L Potassium 5.8 H (3.5-5.1) mmol/L Chloride 106 (98-107) mmol/L Carbon Dioxide 26 (22-30) mmol/L Anion Gap 6 mmol/L BUN 31 H (7-17) mg/dL Creatinine 1.64 H (0.52-1.04) mg/dL Est GFR (CKD-EPI)AfAm 32 (>60 ml/min/1.73 sqM) Est GFR (CKD-EPI)NonAf 28 (>60 ml/min/1.73 sqM) Glucose 134 H (74-99) mg/dL Calcium 8.4 (8.4-10.2) mg/dL Magnesium 1.7 (1.6-2.3) mg/dL Total Bilirubin 0.7 (0.2-1.3) mg/dL AST 33 (14-36) U/L ALT 22 (9-52) U/L Alkaline Phosphatase 61 (38-126) U/L Troponin I (0.000-0.034) ng/mL NT-Pro-B Natriuret Pep 456 pg/mL Total Protein 6.6 (6.3-8.2) g/dL Albumin 3.2 L (3.5-5.0) g/dL 01/11/19 01/11/19 Range/Units 18:45 18:45 WBC (3.8-10.6) k/uL RBC (3.80-5.40) m/uL Hgb (11.4-16.0) gm/dL Hct (34.0-46.0) % MCV (80.0-100.0) fL MCH (25.0-35.0) pg MCHC (31.0-37.0) g/dL RDW (11.5-15.5) % Plt Count (150-450) k/uL Neutrophils % % Lymphocytes % % Monocytes % % Eosinophils % % Basophils % % Neutrophils # (1.3-7.7) k/uL Lymphocytes # (1.0-4.8) k/uL Monocytes # (0-1.0) k/uL Eosinophils # (0-0.7) k/uL Basophils # (0-0.2) k/uL Hypochromasia Anisocytosis PT 10.9 (9.0-12.0) sec INR 1.0 (<1.2) APTT 21.3 L (22.0-30.0) sec Sodium (137-145) mmol/L Potassium (3.5-5.1) mmol/L Chloride (98-107) mmol/L Carbon Dioxide (22-30) mmol/L Anion Gap mmol/L BUN (7-17) mg/dL Creatinine (0.52-1.04) mg/dL Est GFR (CKD-EPI)AfAm (>60 ml/min/1.73 sqM) Est GFR (CKD-EPI)NonAf (>60 ml/min/1.73 sqM) Glucose (74-99) mg/dL Calcium (8.4-10.2) mg/dL Magnesium (1.6-2.3) mg/dL Total Bilirubin (0.2-1.3) mg/dL AST (14-36) U/L ALT (9-52) U/L Alkaline Phosphatase (38-126) U/L Troponin I <0.012 (0.000-0.034) ng/mL NT-Pro-B Natriuret Pep pg/mL Total Protein (6.3-8.2) g/dL Albumin (3.5-5.0) g/dL Disposition Clinical Impression: Chest pain Disposition: ADMITTED IP TO THIS HOSP Referrals: Jose Quintana MD [Primary Care Provider] - 1-2 days Time of Disposition: 20:43
[2019-01-11 18:57] LABS: Anisocytosis Slight; Basophils # (A) 0.1 k/uL (0-0.2); Basophils % (A) 1 %; Eosinophils # (A) 0.6 k/uL (0-0.7); Eosinophils % (A) 7 %; HCT 27.9 % (34.0-46.0); HGB 8.6 gm/dL (11.4-16.0); Hypochromasia Moderate; Lymphocytes # (A) 2.2 k/uL (1.0-4.8); Lymphocytes % (A) 25 %; MCH 28.5 pg (25.0-35.0); MCHC 30.8 g/dL (31.0-37.0); MCV 92.7 fL (80.0-100.0); Mean Platelet Volume 7.7; Monocytes # (A) 0.6 k/uL (0-1.0); Monocytes % (A) 6 %; Neutrophils % (A) 58 %; Platelet Count 272 k/uL (150-450); RBC 3.01 m/uL (3.80-5.40); RDW 18.1 % (11.5-15.5); WBC 8.6 k/uL (3.8-10.6)
[2019-01-11 19:13] LABS: Albumin 3.2 g/dL (3.5-5.0); Calcium 8.4 mg/dL (8.4-10.2); Magnesium 1.7 mg/dL (1.6-2.3); Potassium 5.8 mmol/L (3.5-5.1); Total Bilirubin 0.7 mg/dL (0.2-1.3); Total Protein 6.6 g/dL (6.3-8.2)
[2019-01-11 19:14] LABS: Prothrombin Time 10.9 sec (9.0-12.0)
[2019-01-11 19:16] LABS: Partial Thromboplastin Time 21.3 sec (22.0-30.0)
--- NOTE | 2019-01-11 19:43 | XR ---
EXAMINATION TYPE: XR chest 2V DATE OF EXAM: 01/11/2019 COMPARISON: NONE HISTORY: 01/02/2019 TECHNIQUE: Frontal and lateral views of the chest are obtained. FINDINGS: There is no heart failure nor confluent pneumonic infiltrate. There is calcified granuloma right lower lobe. Thoracic aorta is atheromatous. There are sternal wires. There are chest leads. IMPRESSION: Atheromatous aorta. No active cardiopulmonary disease. No change.
[2019-01-11] MEDS ORDERED: ONDANSETRON 4 MG/2 ML VIAL IVP STA (20:40)
[2019-01-11] MEDS ORDERED: NITROGLYCERIN SL TABS 0.4 MG TAB SUBLINGUAL PRN ×2 (20:44→22:43)
[2019-01-11] MEDS ORDERED: MAGNESIUM HYDROXIDE 2,400 MG/10 ML CUP PO PRN (22:43)
[2019-01-11] MEDS ORDERED: BISACODYL 10 MG SUPP RECTAL PRN (23:00)
[2019-01-11] MEDS: ACETAMINOPHEN TAB 325 MG TAB PO SCH (23:35)
[2019-01-11] MEDS: ATORVASTATIN 80 MG TAB PO SCH (23:36)
[2019-01-11] MEDS: NITROGLYCERIN OINT 1 INCH/GM PACKET TOPICAL SCH (23:38)
[2019-01-12] MEDS: ACETAMINOPHEN TAB 325 MG TAB PO SCH ×6 (03:51→20:40)
[2019-01-12] MEDS: NITROGLYCERIN OINT 1 INCH/GM PACKET TOPICAL SCH (06:03)
[2019-01-12] MEDS: SYMBICORT 160-4.5 MCG INHALER INHALATION SCH ×2 (07:30→20:03)
[2019-01-12] MEDS: IPRATROPIUM-ALBUTEROL 3 ML NEB INHALATION SCH ×4 (07:30→20:03)
[2019-01-12 08:29] LABS: Potassium 5.5 mmol/L (3.5-5.1)
[2019-01-12] MEDS ORDERED: NA PHOS,M-B/NA PHOS,DI-BA 133 ML ENEMA RECTAL PRN (09:00)
[2019-01-12] MEDS ORDERED: ASPIRIN 325 MG TAB PO SCH (09:00)
[2019-01-12] MEDS ORDERED: NON-FORMULARY DRUG (Lactose-Reduced Food [Ensure Plus] 237 ML) PO SCH (09:00)
[2019-01-12] MEDS ORDERED: ISOSORBIDE MONONITRATE ER 30 MG TAB.ER.24H PO SCH (09:00)
[2019-01-12] MEDS ORDERED: amLODIPine 5 MG TAB PO SCH (09:00)
[2019-01-12] MEDS: CARVEDILOL 3.125 MG TAB PO SCH ×2 (11:10→17:54)
[2019-01-12] MEDS: SACUBITRIL/VALSARTAN 24 MG-26 MG TABLET PO SCH ×2 (11:10→17:54)
[2019-01-12] MEDS: FUROSEMIDE 20 MG TAB PO SCH (11:11)
[2019-01-12] MEDS: NYSTATIN 100,000 UNIT/GM POWD 15 GM TOPICAL SCH ×4 (11:11→20:55)
[2019-01-12] MEDS: CLOPIDOGREL 75 MG TAB PO SCH (11:11)
[2019-01-12] MEDS: SODIUM CHLORIDE 0.9% 1,000 ML IV SCH (12:01)
--- NOTE | 2019-01-12 13:22 | P.CRDCN ---
History of Present Illness History of present illness: This is a pleasant 88-year-old female past medical history significant for coronary artery disease status post bypass grafting with stent placement to the mid and proximal SVG to OM January 2017 and atherectomy and stent placement in the RCA January [address] Nascimento. She was discharged to [facility] on January 08. She is seen and examined resting comfortably laying flat in bed. She is a very poor historian. When asked which came to the hospital she said "my chest hurts". She is unable to verbalize wherein her chest is hurting, describe the type of pain she is experiencing or remember if there is any associated symptoms. All she says is her chest hurt when she came in and now it doesn't. Her respirations are equal and unlabored with no evidence of tachypne a. Physical exam is completely normal. Clinically she is euvolemic. Most recent echocardiogram obtained 12/30/2018 reveals preserved LV systolic function with ejection fraction 50-55%. EKG reveals sinus mechanism with inferior Q wave suggestive of prior infarct. No acute ST or T wave abnormalities noted. Chest x-ray is negative for an acute cardiopulmonary process. Laboratory data reviewed, WBC 8.6, hemoglobin 8.6, platelets 272, sodium 138, potassium on admission 5. 8 repeat this morning 5.5, creatinine 1.64 with a GFR of 28, magnesium 1.7, cardiac enzymes negative 3, and T proBNP 456, LDL 54 and HDL 25. Current cardiac medications include aspirin 81 mg daily, atorvastatin 80 mg daily, carvedilol 3.125 mg twice a day, Plavix 75 mg daily, Lasix 20 mg daily, Imdur 30 mg daily, Aldactone 25 mg daily, amlodipine 5 mg daily and entresto 24/26 mg daily. At the time of my exam: CONSTITUTIONAL: Denies fever. Denies chills. EYES: Denies blurred vision. Denies vision changes. Denies eye pain. EARS, NOSE, MOUTH & THROAT: Denies headache. Denies sore throat. Denies ear pain. CARDIOVASCULAR: Denies chest pain. Denies shortness of breath. Denies orthopnea. Denies PND. Denies palpitations. RESPIRATORY: Denies cough. GASTROINTESTINAL: Denies abdominal pain. Denies diarrhea. Denies constipation. Denies nausea. Denies vomiting. MUSCULOSKELETAL: Denies myalgias. INTEGUMENTARY: Denies pruitis. Denies rash. NEUROLOGIC: Denies numbness. Denies tingling. Denies weakness. PSYCHIATRIC: Denies anxiety. Denies depression. ENDOCRINE: Denies fatigue. Denies weight change. Denies polydipsia. Denies polyurina. GENITOURINARY: Denies burning, hematuria or urgency with micturation. HEMATOLOGIC: Denies history of anemia. Denies bleeding. GENERAL: This is a 88-year-old female in no apparent distress at the time of my examination. HEENT: Head is atraumatic, normocephalic. Pupils are equal, round. Sclerae anicteric. Conjunctivae are clear. Mucous membranes of the mouth are moist. Neck is supple. There is no jugular venous distention. No carotid bruit is heard. LUNGS: Clear to auscultation no wheezes, rales or rhonchi. No chest wall tenderness is noted on palpation or with deep breathing. HEART: Regular rate and rhythm with systolic ejection murmur at the base, no rubs or gallops. S1 and S2 heard. ABDOMEN: Soft, nontender. Bowel sounds are heard. No organomegaly noted. EXTREMITIES: No evidence of peripheral edema and no calf tenderness noted. Left groin access site from previous angioplasty soft, mildly tender with significant ecchymosis of her left upper thigh. No evidence of bleeding, no hematoma. VASCULAR: Radial and dorsalis pedis pulses palpated, no evidence of clubbing. NEUROLOGIC: Patient is awake, alert and oriented but unable to verbalize reason for hospitalization. ASSESSMENT Chest pain, atypical for angina. An acute coronary event has been ruled out. Hyperkalemia History of coronary artery disease s/p bypass grafting in 2005 with 2 stents placed to SVG-OM 01/2017 and recent athrectomy and stent placement to the RCA last week COPD Chronic kidney disease History of small aortic aneurysm Chronic diastolic heart failure, currently euvolemic PLAN Symptoms are very vague and unlikely to be related to angina. An acute coronary event has been ruled out. Due to her known CAD with recent athrectomy and stent placement we recommend increasing imdur to 30 mg BID. Hydrate her with 0.9% normal saline at 75 cc per hour and repeat BMP in the morning. Discontinue aldactone. Review of medical record indicates this has been done multiple times in the past but continues to be re-ordered. Thank you kindly for this consultation. Nurse Practitioner note has been reviewed, I agree with a documented findings and plan of care. Patient was seen and examined. Past Medical History Past Medical History: Coronary Artery Disease (CAD), COPD, Hyperlipidemia, Hypertension, Myocardial Infarction ([place]) Additional Past Medical History / Comment(s): Coronary artery disease, previous bypass surgery ten years ago, COPD maintenance Symbicort on outpatient basis, gout, AAA NOT SURE OF SIZE Last Myocardial Infarction Date:: 2016 History of Any Multi-Drug Resistant Organisms: None Reported Past Surgical History: Cholecystectomy, Coronary Bypass/CABG, Heart Catheterization With Stent, Hysterectomy Additional Past Surgical History / Comment(s): Coronary artery bypass surgery- triple, cardiac catheterization and angioplasty and stenting of the saphenous vein graft to obtuse marginal branch.CATARACTS, "stent in groin" Past Anesthesia/Blood Transfusion Reactions: No Reported Reaction, Motion Sickness Additional Past Anesthesia/Blood Transfusion Reaction / Comment(s): Pt states she has received blood without reaction. Date of Last Stent Placement:: 01/02/19 Past Psychological History: No Psychological Hx Reported Additional Psychological History / Comment(s): . Smoking Status: Former smoker Past Alcohol Use History: None Reported Additional Past Alcohol Use History / Comment(s): Pt started smoking in 1961 and quit in the 1986 Past Drug Use History: None Reported - Past Family History Father Family Medical History: Coronary Artery Disease (CAD), Myocardial Infarction ([place]) Additional Family Medical History / Comment(s): Father of a [place] at the age of 72 yrs. Mother Family Medical History: No Reported History Additional Family Medical History / Comment(s): Pt states her mother was healthy and at the age of 84 yrs. Medications and Allergies Home Medications Medication Instructions Recorded Confirmed Type Aspirin [Adult Low Dose Aspirin EC] 81 mg PO HS 02/15/17 01/11/19 History Nitroglycerin Sl Tabs [Nitrostat] 0.4 mg SUBLINGUAL Q5M PRN 02/15/17 01/11/19 History Atorvastatin [Lipitor] 80 mg PO HS #30 tab 04/19/17 01/11/19 Rx Nystatin [Nystop] 1 applic TOPICAL QID 12/12/18 01/11/19 History Spironolactone 25 mg PO DAILY 12/12/18 01/11/19 History guaiFENesin [Mucinex] 1,200 mg PO BID 12/17/18 01/11/19 History Budesonide-Formot 160-4.5 Mcg 2 puff INHALATION RT-BID 30 Days 12/19/18 01/11/19 Rx [Symbicort 160-4.5 Mcg Inhaler] #1 inhaler Carvedilol [Coreg] 3.125 mg PO BID-W/MEALS #60 tab 12/19/18 01/11/19 Rx Furosemide [Lasix] 20 mg PO DAILY #30 tab 12/19/18 01/11/19 Rx Ipratropium-Albuterol Nebulize 3 ml INHALATION RT-QID #120 12/19/18 01/11/19 Rx [Duoneb 0.5 mg-3 mg/3 ml Soln] ampul.neb amLODIPine [Norvasc] 5 mg PO DAILY #30 tab 12/19/18 01/11/19 Rx Bisacodyl [Dulcolax] 10 mg RECTAL DAILY PRN 12/26/18 01/11/19 History Na Phos,M-B/Na Phos,Di-Ba [Fleet 133 ml RECTAL DAILY PRN 12/26/18 01/11/19 History Adult] Sacubitril/Valsartan [Entresto 24 1 tab PO AC-BID 12/26/18 01/11/19 History mg-26 mg Tablet] Clopidogrel [Plavix] 75 mg PO DAILY #100 tab 01/08/19 01/11/19 Rx Isosorbide Mononitrate ER [Imdur] 30 mg PO DAILY #100 tab.er.24h 01/08/19 01/11/19 Rx Acetaminophen [Tylenol 8 Hour] 650 mg PO Q4H 01/11/19 01/11/19 History Lactose-Reduced Food [Ensure Plus] 237 ml PO BID 01/11/19 01/11/19 History Magnesium Hydroxide [Milk of 7,200 ml PO DAILY PRN 01/11/19 01/11/19 History Magnesia Concentrate] Allergies Allergy/AdvReac Type Severity Reaction Status Date / Time oxybutynin Allergy SEE Verified 01/11/19 18:53 COMMENTS sulfamethoxazole Allergy SEE Verified 01/11/19 18:53 [From Bactrim] COMMENTS trimethoprim [From Bactrim] Allergy SEE Verified 05/16/19 18:53 COMMENTS morphine AdvReac Confusion Verified 01/11/19 18:53 Physical Exam Vitals: Vital Signs Temp Pulse Pulse Resp BP BP BP 01/12/19 12:00 18 01/12/19 11:55 88 01/12/19 11:47 84 01/12/19 11:20 97.7 F 70 18 105/58 01/12/19 08:00 18 01/12/19 07:39 98 01/12/19 07:31 90 01/12/19 07:20 98.1 F 82 18 116/62 01/12/19 04:00 97.5 F L 61 18 111/66 01/12/19 03:30 18 01/12/19 00:00 98 F 78 18 123/72 01/11/19 22:37 16 01/11/19 22:05 96/39 01/11/19 22:02 98.4 F 75 16 01/11/19 20:30 70 16 113/53 01/11/19 20:00 73 16 111/62 01/11/19 18:31 98.5 F 01/11/19 18:27 86 18 118/63 Pulse Ox 01/12/19 12:00 01/12/19 11:55 01/12/19 11:47 01/12/19 11:20 95 01/12/19 08:00 01/12/19 07:39 01/12/19 07:31 01/12/19 07:20 99 01/12/19 04:00 94 L 01/12/19 03:30 01/12/19 00:00 97 01/11/19 22:37 01/11/19 22:05 01/11/19 22:02 01/11/19 20:30 97 01/11/19 20:00 97 01/11/19 18:31 01/11/19 18:27 95 Intake and Output 01/11/19 01/12/19 01/12/19 22:59 06:59 14:59 Other: Voiding Method Toilet Toilet Toilet Diaper Diaper Diaper Incontinent # Voids 1 1 Weight 59.421 kg Results 01/11/19 18:45 01/12/19 07:34 Cardiac Enzymes 01/11/19 01/11/19 01/12/19 Range/Units 18:45 18:45 00:56 AST 33 (14-36) U/L Troponin I <0.012 <0.012 (0.000-0.034) ng/mL 01/12/19 Range/Units 07:34 AST (14-36) U/L Troponin I <0.012 (0.000-0.034) ng/mL Coagulation 01/11/19 Range/Units 18:45 PT 10.9 (9.0-12.0) sec APTT 21.3 L (22.0-30.0) sec Lipids 01/12/19 Range/Units 07:34 Triglycerides 119 (<150) mg/dL Cholesterol 103 (<200) mg/dL HDL Cholesterol 25 L (40-60) mg/dL CBC 01/11/19 Range/Units 18:45 WBC 8.6 (3.8-10.6) k/uL RBC 3.01 L (3.80-5.40) m/uL Hgb 8.6 L (11.4-16.0) gm/dL Hct 27.9 L (34.0-46.0) % Plt Count 272 (150-450) k/uL Comprehensive Metabolic Panel 01/11/19 01/12/19 Range/Units 18:45 07:34 Sodium 138 (137-145) mmol/L Potassium 5.8 H 5.5 H (3.5-5.1) mmol/L Chloride 106 (98-107) mmol/L Carbon Dioxide 26 (22-30) mmol/L BUN 31 H (7-17) mg/dL Creatinine 1.64 H (0.52-1.04) mg/dL Glucose 134 H (74-99) mg/dL Calcium 8.4 (8.4-10.2) mg/dL AST 33 (14-36) U/L ALT 22 (9-52) U/L Alkaline Phosphatase 61 (38-126) U/L Total Protein 6.6 (6.3-8.2) g/dL Albumin 3.2 L (3.5-5.0) g/dL Current Medications Generic Name Dose Route Start Last Admin Trade Name Freq PRN Reason Stop Dose Admin Acetaminophen 650 mg 01/11/19 22:45 01/12/19 11:11 Tylenol Tab PO Not Given Q4H SUJATA Albuterol/Ipratropium 3 ml 01/12/19 08:00 01/12/19 11:46 Duoneb 0.5 Mg-3 Mg/3 Ml Soln INHALATION 3 ml RT-QID [facility] Administration Amlodipine Besylate 5 mg 01/12/19 09:00 01/12/19 11:10 Norvasc PO 5 mg DAILY [facility] Administration Aspirin 81 mg 01/12/19 21:00 Aspirin PO HS [facility] Atorvastatin Calcium 80 mg 01/11/19 23:00 01/11/19 23:36 Lipitor PO 80 mg HS [facility] Administration Bisacodyl 10 mg 01/11/19 23:00 Dulcolax RECTAL DAILY PRN Constipation Budesonide/Formoterol Fumarate 2 puff 01/12/19 08:00 01/12/19 07:30 Symbicort 160-4.5 Mcg Inhaler INHALATION 2 puff RT-BID [facility] Administration Carvedilol 3.125 mg 01/12/19 07:30 01/12/19 11:10 Coreg PO 3.125 mg BID-W/MEALS [facility] Administration Clopidogrel Bisulfate 75 mg 01/12/19 09:00 01/12/19 11:11 Plavix PO 75 mg DAILY [facility] Administration Furosemide 20 mg 01/12/19 09:00 01/12/19 11:11 Lasix PO 20 mg DAILY [facility] Administration Sodium Chloride 1,000 mls @ 75 mls/hr 01/12/19 10:30 01/12/19 12:01 Saline 0.9% IV Not Given .[id number] [facility] Isosorbide Mononitrate 30 mg 01/12/19 21:00 Imdur PO BID [facility] Magnesium Hydroxide 2,400 mg 01/11/19 22:43 Milk Of Magnesia PO DAILY PRN Constipation Nitroglycerin 0.4 mg 01/11/19 20:44 Nitrostat SUBLINGUAL Q5M PRN Chest Pain Nitroglycerin 0.4 mg 01/11/19 22:43 Nitrostat SUBLINGUAL Q5M PRN Chest Pain Nystatin 1 applic 01/12/19 09:00 01/12/19 12:02 Mycostatin Powder TOPICAL Not Given QID [facility] Sacubitril/Valsartan 1 each 01/12/19 07:30 01/12/19 11:10 Entresto 24 Mg-26 Mg Tablet PO 1 each AC-BID [facility] Administration Sodium Biphosphate/Sodium Phosphate 133 ml 01/12/19 09:00 Fleet Adult RECTAL DAILY PRN Constipation Intake and Output 01/11/19 01/12/19 01/12/19 22:59 06:59 14:59 Other: Voiding Method Toilet Toilet Toilet Diaper Diaper Diaper Incontinent # Voids 1 1 Weight 59.421 kg 01/11/19 18:45 01/12/19 07:34
--- NOTE | 2019-01-12 20:30 | HP ---
HISTORY AND PHYSICAL CHIEF COMPLAINT: Unstable angina. HISTORY OF PRESENT ILLNESS: This is another recent admission for this 88-year-old white female who has advanced coronary artery disease, acute and chronic congestive heart failure and renal failure. She was recently discharged from this institution after an extended stay for poorly controlled congestive heart failure and renal failure. She was eventually stabilized and able to be sent to [facility]. She had only been there a short period time when she started to complain of chest pain and her blood pressure dropped to 91 systolically. She was referred here. She does not recall having chest pain or shortness of breath. REVIEW OF SYSTEMS: At present time she has no headaches, neurologic problems, chest pain, shortness of breath, abdominal pain, nausea, diarrhea, constipation, frequency, urgency, dysuria, etc. Past medical history, family history, and personal and social histories are all unchanged from her recent discharge summary. PHYSICAL EXAMINATION: Blood pressure is 104/61 with a pulse 60, respirations 16. She is afebrile. In general she appears to be comfortable and in no acute distress. Skin color is slightly pale. Skin is dry. Head, ears, eyes, nose, mouth and throat are normal. Neck exam is normal. The chest demonstrates rales at both bases and there are occasional rhonchi. Cardiac exam demonstrates normal sinus rhythm with an S4. Abdomen is soft. There are no masses. Extremities are normal. Neurologically she is intact. She is admitted to the hospital with the diagnoses: 1. Unstable angina pectoris. 2. Rule out acute coronary syndrome or myocardial infarction. 3. Acute and chronic congestive heart failure. 4. Atherosclerotic cardiomyopathy. PLAN: 1. Bed rest. 2. IV fluids. 3. Repeat serial EKGs and enzymes. 4. Cardiology consult. MMODL / IJN: [id number] /
--- NOTE | 2019-01-12 20:32 | PN ---
PROGRESS NOTE DATE OF SERVICE: 01/12/2019 CHIEF COMPLAINT: Unstable angina. HISTORY OF PRESENT ILLNESS: This lady has been stable and comfortable today. She is still having occasional episodes of angina, but she has had no increase in shortness of breath, cough, orthopnea, etc. PHYSICAL EXAMINATION: Blood pressure is 94/87 with a pulse of 72. Chest still demonstrates occasional rales posteriorly. The cardiac exam is unchanged. Abdomen is soft. IMPRESSION: 1. Unstable angina pectoris. 2. Coronary artery disease. 3. Congestive heart failure. 4. Cardiomyopathy. PLAN: Progress activity and monitor for any progression or deterioration in her chest pain or heart failure. MMODL / IJN: [id number] /
[2019-01-12] MEDS: ATORVASTATIN 80 MG TAB PO SCH (20:55)
[2019-01-12] MEDS ORDERED: ASPIRIN 81 MG PO SCH (21:00)
[2019-01-13] MEDS: ISOSORBIDE MONONITRATE ER 30 MG TAB.ER.24H PO SCH ×2 (00:34→08:57)
[2019-01-13] MEDS: SODIUM CHLORIDE 0.9% 1,000 ML IV SCH ×2 (01:30→13:58)
[2019-01-13] MEDS: ACETAMINOPHEN TAB 325 MG TAB PO SCH ×4 (03:22→15:49)
[2019-01-13 06:36] LABS: Calcium 8.2 mg/dL (8.4-10.2); Potassium 5.6 mmol/L (3.5-5.1)
[2019-01-13] MEDS: IPRATROPIUM-ALBUTEROL 3 ML NEB INHALATION SCH ×2 (07:29→11:03)
[2019-01-13] MEDS: SYMBICORT 160-4.5 MCG INHALER INHALATION SCH (07:29)
--- NOTE | 2019-01-13 08:48 | PN ---
PROGRESS NOTE Mrs. Farfan is an 88-year-old female who recently underwent stenting of her right coronary artery, presented with vague symptoms of chest discomfort and dyspnea. She was found to have worsening renal function and has been hydrated. She is still feeling tired but otherwise no clear symptoms of chest pain. Her breathing is unchanged. She denies any dizziness or palpitations. She is lying supine without any difficulty. She continues to be at this time on IV fluid, amlodipine 5 mg daily, aspirin once a day Lipitor 80 mg daily Coreg 3.125 mg twice a day, Plavix 75 mg daily, Lasix 20 mg daily, isosorbide mononitrate 30 mg twice a day, and Entresto 24-26 mg twice a day. PHYSICAL EXAMINATION: Blood pressure running in the 80s with the heart in 60s. LUNGS: Clear. HEART: Regular rhythm S1, S2. No S3 with systolic murmur. No diastolic murmur. ABDOMEN: Soft nontender. EXTREMITIES: No edema. LAB DATA: BUN and creatinine 34 and 1.39, which improved compared to the admission and close to her baseline. Her potassium is 5.6. Her troponin less than 0.012, cholesterol 103, LDL of 54. Her hemoglobin is 8.6 which has been in this range in the prior admission. IMPRESSION: 1. Symptoms of chest discomfort. No evidence of recurrent angina pectoris. 2. Status post recent stenting. 3. Hypotension. 4. Chronic kidney disease. 5. Anemia. RECOMMENDATIONS: I will stop her amlodipine. I will increase her level of activity. From the cardiac standpoint, she should be able to be discharged home soon today and follow up as an outpatient with Dr. Nascimento. MMMARTAL / DIANE: [id number] /
[2019-01-13] MEDS: CLOPIDOGREL 75 MG TAB PO SCH (08:56)
[2019-01-13] MEDS: FUROSEMIDE 20 MG TAB PO SCH (08:57)
[2019-01-13] MEDS: CARVEDILOL 3.125 MG TAB PO SCH (08:57)
[2019-01-13] MEDS: SACUBITRIL/VALSARTAN 24 MG-26 MG TABLET PO SCH (08:57)
[2019-01-13] MEDS: NYSTATIN 100,000 UNIT/GM POWD 15 GM TOPICAL SCH ×2 (09:00→11:49)
[2019-01-13 12:12] VITALS: RESP 16
[2019-01-13 17:12] VITALS: BP 92/55; PULSE 69; TEMP 98.5
--- NOTE | 2019-01-13 20:30 | DS ---
DISCHARGE SUMMARY CHIEF COMPLAINT: Chest pain. HISTORY OF PRESENT ILLNESS AND PHYSICAL EXAM: Details of this lady's history and physical can be found in the initial workup. LABORATORY STUDIES: While she was in the hospital, she had laboratory studies, details of which can be found in the laboratory section of her chart. COURSE IN THE HOSPITAL: After admission, she was placed on bedrest, started on intravenous fluids and she had serial EKGs and enzymes which remained normal. She was seen by Cardiology. She remained stable while in the hospital and had no further difficulty with chest pain, hypotension, shortness of breath, etc. It is felt that she could return to the retirement and she will go on her usual diet, activity and usual medication and resume physical therapy. FINAL DIAGNOSES: 1. Unstable angina pectoris. 2. Coronary artery disease. 3. Acute and chronic congestive heart failure. 4. Atherosclerotic cardiomyopathy. 5. Renal failure. OPERATIONS: None. CONSULTATIONS: Cardiology. She is improved. MMMARTAL / LUISN: [id number] /
== END 2019-01-13 16:35 ==
LOC: EC 18:23 → 1SOBS 20:44
PROVIDERS: ADMIT Family Medicine; ATTEND Family Medicine
DX: I25.110 Atherosclerotic heart disease of native coronary artery with unstable angina pectoris (principal); I42.9 Cardiomyopathy, unspecified; I13.0 Hypertensive heart and chronic kidney disease with heart failure and stage 1 through stage 4 chronic kidney disease, or unspecified chronic kidney disease; I50.33 Acute on chronic diastolic (congestive) heart failure; N18.9 Chronic kidney disease, unspecified; E78.5 Hyperlipidemia, unspecified; I25.2 Old myocardial infarction; M10.9 Gout, unspecified; E87.5 Hyperkalemia; I95.9 Hypotension, unspecified; D64.9 Anemia, unspecified; J44.9 Chronic obstructive pulmonary disease, unspecified; I71.4 Abdominal aortic aneurysm, without rupture; R32 Unspecified urinary incontinence; Z79.82 Long term (current) use of aspirin; Z79.899 Other long term (current) drug therapy; Z79.51 Long term (current) use of inhaled steroids; Z79.02 Long term (current) use of antithrombotics/antiplatelets; Z88.5 Allergy status to narcotic agent; Z88.2 Allergy status to sulfonamides; Z88.8 Allergy status to other drugs, medicaments and biological substances; Z90.49 Acquired absence of other specified parts of digestive tract; Z95.1 Presence of aortocoronary bypass graft; Z95.5 Presence of coronary angioplasty implant and graft; Z87.891 Personal history of nicotine dependence
CPT/HCPCS: 96374; 99285; 36415; 94640 ×4; 93005; 83880; 80061; 80053; 80048; 83735; 84132; 84484 ×2; 85025; 85610; 85730; 71046; G0378 ×3; J2405

== ENCOUNTER 2021-04-04 03:01 | Observation (INO) | payer MEDICARE, OTHER ==
--- NOTE | 2021-04-04 03:17 | ED ---
Chest Pain HPI - General Chief Complaint: Chest Pain Stated Complaint: Cardiac Time Seen by Provider: 04/04/21 03:05 Source: EMS Mode of arrival: EMS Limitations: altered mental status - History of Present Illness MD Complaint: chest pain -: days(s) Onset: during rest Pain Location: substernal Pain Radiation: none Severity: moderate Quality: heaviness, sharp Consistency: now resolved Improves With: nothing Worsens With: nothing Treatments Prior to Arrival: none - Related Data Home Medications Medication Instructions Recorded Confirmed Aspirin [Adult Low Dose Aspirin EC] 81 mg PO HS 02/15/17 01/11/19 Nitroglycerin Sl Tabs [Nitrostat] 0.4 mg SUBLINGUAL Q5M PRN 02/15/17 01/11/19 Nystatin [Nystop] 1 applic TOPICAL QID 12/12/18 01/11/19 guaiFENesin [Mucinex] 1,200 mg PO BID 12/17/18 01/11/19 Na Phos,M-B/Na Phos,Di-Ba [Fleet 133 ml RECTAL DAILY PRN 12/26/18 01/11/19 Adult] Sacubitril/Valsartan [Entresto 24 1 tab PO AC-BID 12/26/18 01/11/19 mg-26 mg Tablet] bisacodyL [Dulcolax] 10 mg RECTAL DAILY PRN 12/26/18 01/11/19 Acetaminophen [Tylenol 8 Hour] 650 mg PO Q4H 01/11/19 01/11/19 Lactose-Reduced Food [Ensure Plus] 237 ml PO BID 01/11/19 01/11/19 Magnesium Hydroxide [Milk of 7,200 ml PO DAILY PRN 01/11/19 01/11/19 Magnesia Concentrate] Previous Rx's Medication Instructions Recorded Atorvastatin [Lipitor] 80 mg PO HS #30 tab 04/19/17 Budesonide-Formot 160-4.5 Mcg 2 puff INHALATION RT-BID 30 Days 12/19/18 [Symbicort 160-4.5 Mcg Inhaler] #1 inhaler Furosemide [Lasix] 20 mg PO DAILY #30 tab 12/19/18 Ipratropium-Albuterol Nebulize 3 ml INHALATION RT-QID #120 12/19/18 [Duoneb 0.5 mg-3 mg/3 ml Soln] ampul.neb amLODIPine [Norvasc] 5 mg PO DAILY #30 tab 12/19/18 carvediloL [Coreg] 3.125 mg PO BID-W/MEALS #60 tab 12/19/18 Clopidogrel [Plavix] 75 mg PO DAILY #100 tab 01/08/19 Isosorbide Mononitrate ER [Imdur] 30 mg PO DAILY #100 tab.er.24h 01/08/19 Allergies Allergy/AdvReac Type Severity Reaction Status Date / Time oxybutynin Allergy SEE Verified 04/04/21 03:05 COMMENTS sulfamethoxazole Allergy SEE Verified 04/04/21 03:05 [From Bactrim] COMMENTS trimethoprim [From Bactrim] Allergy SEE Verified 04/04/21 03:05 COMMENTS morphine AdvReac Confusion Verified 04/04/21 03:05 Review of Systems ROS Statement: Those systems with pertinent positive or pertinent negative responses have been documented in the HPI. ROS Other: All systems not noted in ROS Statement are negative. Constitutional: Denies: fever, chills Respiratory: Denies: cough, dyspnea, wheezes Cardiovascular: Reports: as per HPI, chest pain. Denies: palpitations, orthopnea, edema, syncope Gastrointestinal: Denies: abdominal pain, nausea, vomiting, diarrhea Musculoskeletal: Denies: back pain Skin: Denies: rash Neurological: Denies: headache, weakness EKG Findings - EKG Results: EKG: interpreted by VARSHA, sinus rhythm (Rate 64 bpm), normal axis, normal QRS, normal ST/T, no acute changes Past Medical History Past Medical History: Coronary Artery Disease (CAD), COPD, Hyperlipidemia, Hypertension, Myocardial Infarction ([place]) Additional Past Medical History / Comment(s): Coronary artery disease, previous bypass surgery ten years ago, COPD maintenance Symbicort on outpatient basis, gout, AAA NOT SURE OF SIZE Last Myocardial Infarction Date:: 2016 History of Any Multi-Drug Resistant Organisms: None Reported Past Surgical History: Cholecystectomy, Coronary Bypass/CABG, Heart Catheterization With Stent, Hysterectomy Additional Past Surgical History / Comment(s): Coronary artery bypass surgery- triple, cardiac catheterization and angioplasty and stenting of the saphenous vein graft to obtuse marginal branch.CATARACTS, "stent in groin" Past Anesthesia/Blood Transfusion Reactions: No Reported Reaction, Motion Sickness Additional Past Anesthesia/Blood Transfusion Reaction / Comment(s): Pt states she has received blood without reaction. Date of Last Stent Placement:: 01/02/19 Past Psychological History: No Psychological Hx Reported Smoking Status: Never smoker Past Alcohol Use History: None Reported Past Drug Use History: None Reported - Past Family History Father Family Medical History: Coronary Artery Disease (CAD), Myocardial Infarction ([place]) Additional Family Medical History / Comment(s): Father of a [place] at the age of 72 yrs. Mother Family Medical History: No Reported History Additional Family Medical History / Comment(s): Pt states her mother was healthy and at the age of 84 yrs. General Exam Limitations: altered mental status General appearance: alert, in no apparent distress Head exam: Present: atraumatic, normocephalic Eye exam: Present: normal appearance. Absent: scleral icterus, conjunctival injection ENT exam: Present: normal oropharynx Neck exam: Present: normal inspection Respiratory exam: Present: wheezes. Absent: respiratory distress, rales, rhonchi, stridor, accessory muscle use, decreased breath sounds, prolonged expiratory Cardiovascular Exam: Present: regular rate, normal rhythm, normal heart sounds. Absent: systolic murmur, diastolic murmur, rubs, gallop GI/Abdominal exam: Present: soft. Absent: distended, tenderness, guarding, rebound, rigid, mass Extremities exam: Present: normal inspection, normal capillary refill. Absent: pedal edema, calf tenderness Back exam: Present: normal inspection. Absent: CVA tenderness (R), CVA tenderness (L) Neurological exam: Present: alert Skin exam: Present: warm, dry, intact, normal color. Absent: rash Course Vital Signs 04/04/21 04/04/21 03:05 04:55 Pulse Rate 67 80 Respiratory 16 18 Rate Blood Pressure 140/93 128/60 O2 Sat by Pulse 99 92 L Oximetry Disposition Clinical Impression: Chest pain, COPD (chronic obstructive pulmonary disease) Disposition: HOME SELF-CARE Condition: Good Is patient prescribed a controlled substance at d/c from ED?: No
[2021-04-04 04:09] LABS: Basophils # (A) 0.1 k/uL (0-0.2); Basophils % (A) 1 %; Eosinophils # (A) 0.5 k/uL (0-0.7); Eosinophils % (A) 7 %; HCT 35.9 % (34.0-46.0); HGB 11.7 gm/dL (11.4-16.0); Lymphocytes # (A) 2.5 k/uL (1.0-4.8); Lymphocytes % (A) 30 %; MCH 29.9 pg (25.0-35.0); MCHC 32.5 g/dL (31.0-37.0); MCV 92.1 fL (80.0-100.0); Mean Platelet Volume 9.2; Monocytes # (A) 0.6 k/uL (0-1.0); Monocytes % (A) 7 %; Neutrophils # (A) 4.5 k/uL (1.3-7.7); Neutrophils % (A) 53 %; Platelet Count 163 k/uL (150-450); RDW 13.4 % (11.5-15.5); WBC 8.4 k/uL (3.8-10.6)
--- NOTE | 2021-04-04 04:18 | XR ---
EXAMINATION TYPE: XR chest 1V portable DATE OF EXAM: 04/04/2021 COMPARISON: 01/11/2019 HISTORY: Chest pain TECHNIQUE: FINDINGS: There is some coarse linear density left lower lobe. Heart size is normal. There is no hear t failure. There are sternal wires. Thoracic aorta is atheromatous. There are chest leads. There is s mall linear density also right midlung field. There is calcified granuloma right lower lobe. IMPRESSION: Subsegmental atelectasis appears mostly new compared to old exam. Normal heart. No heart failure.
[2021-04-04 04:19] LABS: Calcium 8.8 mg/dL (8.4-10.2); Total Bilirubin 0.5 mg/dL (0.2-1.3)
[2021-04-04 04:26] LABS: Albumin 3.2 g/dL (3.5-5.0); Magnesium 1.9 mg/dL (1.6-2.3); Potassium 5.5 mmol/L (3.5-5.1); Total Protein 6.4 g/dL (6.3-8.2)
[2021-04-04 04:27] LABS: INR 1.1 (<1.2); Partial Thromboplastin Time 22.5 sec (22.0-30.0); Prothrombin Time 11.2 sec (9.0-12.0)
[2021-04-04] MEDS ORDERED: ACETAMINOPHEN TAB 500 MG TAB PO STA (04:59)
[2021-04-04] MEDS ORDERED: NITROGLYCERIN SL TABS 0.4 MG TAB SUBLINGUAL PRN (05:10)
[2021-04-04] MEDS ORDERED: ALBUTEROL NEBULIZED 2.5 MG/3 ML INHALATION STA (05:48)
[2021-04-04] MEDS ORDERED: predniSONE 20 MG TAB PO STA (05:49)
[2021-04-04] MEDS ORDERED: ALBUTEROL NEBULIZED 2.5 MG/3 ML INHALATION PRN (05:49)
[2021-04-04] MEDS ORDERED: carvediloL 3.125 MG TAB PO STA (09:40)
[2021-04-04] MEDS ORDERED: ASPIRIN 81 MG PO STA (09:41)
[2021-04-04] MEDS ORDERED: CLOPIDOGREL 75 MG TAB PO STA (09:41)
[2021-04-04] MEDS ORDERED: ISOSORBIDE MONONITRATE ER 60 MG TAB.ER.24H PO STA (09:42)
[2021-04-04] MEDS ORDERED: FUROSEMIDE 20 MG TAB PO STA (09:42)
[2021-04-04] MEDS ORDERED: ACETAMINOPHEN TAB 325 MG TAB PO PRN (09:54)
[2021-04-04] MEDS: SACUBITRIL/VALSARTAN 24 MG-26 MG TABLET PO SCH ×2 (09:56→20:48)
--- NOTE | 2021-04-04 10:54 | P.HPIM ---
History of Present Illness H&P Date: 04/04/21 History of Presenting Illness: Patient is a Review of systems: Pertinent positives and negatives as discussed in HPI, a complete review of systems was performed and all other systems are negative. Physical exam: Vital signs reviewed and stable. General: Nontoxic, no distress and appears stated age. Derm: Skin warm and dry, normal coloration for ethnicity. Head: Atraumatic, normocephalic and symmetric. Eyes: EOMs intact, no lid lag, and anicteric sclera Mouth: no lip lesions, mucus membranes moist Cardiovascular: regular rate and rhythm with normal S1S2, no murmur, positive posterior tibial pulses bilaterally, and cap refill < 2 seconds. Lungs: Respirations even, regular, and unlabored on room air. Lungs CTA bilaterally, no rhonchi, no rales, no wheezing, and no accessory muscle usage. Abdominal: soft, nontender to palpation, no guarding, no appreciable organomegaly Ext: ROM intact. No gross muscle atrophy, no edema, no contractures Neuro: Speech clear, face symmetrical and CN II-XII grossly intact with no noted focal neuro deficits Psych: Alert and oriented to person, place, time, and situation. Appropriate and pleasant affect. Assessment and Plan of Care: The patient is admitted with an anticipated greater than 2 midnight stay for evaluation of []. Surrogate decision-maker: [] CODE STATUS:[] DVT prophylaxis: [] Discussed with: [] Anticipated discharge date: [] Anticipated discharge place: [] A total of [] minutes was spent on the care of this complex patient more than 50% of the time was spent in counseling and care coordination. Past Medical History Past Medical History: Coronary Artery Disease (CAD), COPD, Hyperlipidemia, Hypertension, Myocardial Infarction ([place]) Additional Past Medical History / Comment(s): Coronary artery disease, previous bypass surgery ten years ago, COPD maintenance Symbicort on outpatient basis, gout, AAA NOT SURE OF SIZE Last Myocardial Infarction Date:: 2016 History of Any Multi-Drug Resistant Organisms: None Reported Past Surgical History: Cholecystectomy, Coronary Bypass/CABG, Heart Catheterization With Stent, Hysterectomy Additional Past Surgical History / Comment(s): Coronary artery bypass surgery- triple, cardiac catheterization and angioplasty and stenting of the saphenous vein graft to obtuse marginal branch.CATARACTS, "stent in groin" Past Anesthesia/Blood Transfusion Reactions: No Reported Reaction, Motion Sickness Additional Past Anesthesia/Blood Transfusion Reaction / Comment(s): Pt states she has received blood without reaction. Date of Last Stent Placement:: 01/02/19 Past Psychological History: No Psychological Hx Reported Additional Psychological History / Comment(s): . Smoking Status: Never smoker Past Alcohol Use History: None Reported Additional Past Alcohol Use History / Comment(s): Pt started smoking in 1961 and quit in the 1986 Past Drug Use History: None Reported - Past Family History Father Family Medical History: Coronary Artery Disease (CAD), Myocardial Infarction ([place]) Additional Family Medical History / Comment(s): Father of a [place] at the age of 72 yrs. Mother Family Medical History: No Reported History Additional Family Medical History / Comment(s): Pt states her mother was healthy and at the age of 84 yrs. Medications and Allergies Home Medications Medication Instructions Recorded Confirmed Type Aspirin [Adult Low Dose Aspirin EC] 81 mg PO DAILY@79902/15/17 04/04/21 History Nitroglycerin Sl Tabs [Nitrostat] 0.4 mg SL Q5M PRN 02/15/17 04/04/21 History Sacubitril/Valsartan [Entresto 24 1 tab PO BID@08,199912/26/18 04/04/21 History mg-26 mg Tablet] Acetaminophen Tab [Tylenol] 650 mg PO Q6H PRN 04/04/21 04/04/21 History Albuterol Nebulized [Ventolin 2.5 mg INHALATION RT-Q8H 04/04/21 04/04/21 History Nebulized] Atorvastatin [Lipitor] 80 mg PO HS@199904/04/21 04/04/21 History Calcium Carbonate/Vitamin D3 1 tab PO DAILY@79904/04/21 04/04/21 History [Calcium 600 mg-Vit D3 5 mcg (200 unit)] Cholecalciferol [Vitamin D3 (25 50 mcg PO DAILY@79904/04/21 04/04/21 History Mcg = 1000 Iu)] Clopidogrel [Plavix] 75 mg PO DAILY@79904/04/21 04/04/21 History Furosemide [Lasix] 20 mg PO DAILY@79904/04/21 04/04/21 History Ipratropium Nebulized [Atrovent 0.5 mg INHALATION RT-QID 04/04/21 04/04/21 History Nebulized 0.2 MG/ML] Isosorbide Mononitrate ER [Imdur] 30 mg PO DAILY@79904/04/21 04/04/21 History Potassium Chloride ER [K-Dur 10] 10 meq PO BID@799,199904/04/21 04/04/21 History carvediloL [Coreg] 3.125 mg PO BID@799,199904/04/21 04/04/21 History guaiFENesin [Mucinex] 600 mg PO Q12H PRN 04/04/21 04/04/21 History Allergies Allergy/AdvReac Type Severity Reaction Status Date / Time oxybutynin Allergy SEE Verified 04/04/21 07:29 COMMENTS sulfamethoxazole Allergy SEE Verified 04/04/21 07:29 [From Bactrim] COMMENTS trimethoprim [From Bactrim] Allergy SEE Verified 04/04/21 07:29 COMMENTS morphine AdvReac Confusion Verified 04/04/21 07:29 Physical Exam Vitals: Vital Signs Temp Pulse Pulse Resp BP BP Pulse Ox 04/04/21 08:22 84 04/04/21 08:15 80 97 04/04/21 08:00 22 04/04/21 07:41 97.7 F 70 22 166/77 91 L 04/04/21 06:23 97.8 F 70 17 126/84 96 04/04/21 05:42 84 16 131/72 97 04/04/21 04:55 80 18 128/60 92 L 04/04/21 03:05 67 16 140/93 99 Intake and Output 04/03/21 04/04/21 04/04/21 22:59 06:59 14:59 Other: Voiding Method Diaper # Voids 1 Weight 61.235 kg 61.235 kg Results CBC & Chem 7: 04/04/21 03:56 04/04/21 03:56 Labs: Abnormal Lab Results - Last 24 Hours (Table) 04/04/21 Range/Units 03:56 Potassium 5.5 H (3.5-5.1) mmol/L BUN 30 H (7-17) mg/dL Creatinine 1.30 H (0.52-1.04) mg/dL Glucose 102 H (74-99) mg/dL Albumin 3.2 L (3.5-5.0) g/dL Thrombosis Risk Factor Assmnt - Choose All That Apply Any of the Below Risk Factors Present?: Yes Each Factor Represents 1 point: Abnormal pulmonary function (COPD), Medical pt on bed rest Other Risk Factors: Yes Each Risk Factor Represents 3 Points: Age 75 years or older Thrombosis Risk Factor Assessment Total Risk Factor Score: 5 Thrombosis Risk Factor Assessment Level: High Risk
[2021-04-04] MEDS: IPRATROPIUM-ALBUTEROL 3 ML NEB INHALATION SCH ×3 (11:33→20:45)
--- NOTE | 2021-04-04 11:51 | P.CRDCN ---
History of Present Illness Consult date: 04/04/21 History of present illness: HISTORY OF PRESENT ILLNESS: This is a 89-year-old female with a past medical history significant for coronary artery disease with previous CABG and stenting, former nicotine dependence, hypertension, and hyperlipidemia. Patient follows in the office with Dr. Aguiar and was last seen in the office in August 2020. We have been asked to see the patient in consultation for chest pain. Patient examined at the bedside. Patient was brought from [facility] yesterday for chest pain. Patient denied any radiation of the pain. She states that the pain started while she was just sitting down not doing anything. She states he was in the left side of her chest. She denies feeling any shortness of breath with the pa in. She denied any nausea or vomiting. She denied having worsening pain with palpation or with deep inspiration. EKG reveals sinus mechanism with nonspecific ST-T wave changes Chest xray subsegmental atelectasis appears mostly new compared to old exam. Normal heart. No heart failure. Laboratory data: WBC 8.4. Hemoglobin 11.7. Platelet count 163. Sodium 138. Potassium 5.5. BUN 30. Creatinine 1.30. Magnesium 1.9. Troponin negative 2. Current home cardiac medications include Coreg 3.125 mg twice a day, Imdur 30mg daily, Lasix 20 mg daily, Plavix 75 mg daily, Entresto 24-26mg BID, Lipitor 80 mg daily, and aspirin 81 mg daily Most recent echocardiogram obtained in 2018 revealed ejection fraction 50-55%. Mild mitral regurgitation. Mild tricuspid regurgitation. Cardiac catheterization history: December [address] Pepper revealing severe triple vessel coronary artery disease, patent DITERICH to LAD, patent SVG to left circumflex, and occluded SVG to right coronary artery. Patient underwent stenting of the RCA. REVIEW OF SYSTEMS: At the time of my exam: CONSTITUTIONAL: Denies fever or chills. HEENT: Denies blurred vision, vision changes, or eye pain. Denies hemoptysis CARDIOVASCULAR: Denies chest pain. Denies orthopnea. Denies PND. Denies palpi tations RESPIRATORY: Reports shortness of breath. GASTROINTESTINAL: Denies abdominal pain. Denies nausea or vomiting. HEMATOLOGIC: Denies bleeding disorders. GENITOURINARY: Denies any blood in urine. SKIN: Denies pruitis. Denies rash. PHYSICAL EXAM: VITAL SIGNS: Reviewed. GENERAL: Well-developed in no acute distress. HEENT: Head is normocephalic. Pupils are equal, round. Sclerae anicteric. Mucous membranes of the mouth are moist. Neck supple. No JVD or thyromegaly LUNGS: Respirations even and unlabored. Lungs diminished with expiratory wheezing noted. HEART: Regular rate and rhythm. S1 and S2 heard. ABDOMEN: Soft. Nondistended. Nontender. EXTREMITIES: Normal range of motion. No clubbing or cyanosis. Peripheral pulses intact. No lower extremity edema NEUROLOGIC: Awake and alert. Oriented x 3. ASSESSMENT: Chest pain Coronary artery disease with previous CABG and stenting Hypertension Hyperlipidemia Former nicotine dependence Hyperkalemia PLAN: An acute coronary event has been ruled out Resume home cardiac medications Increase Imdur to 60 mg daily Obtain 2-D echo to assess cardiac structure and function Consult pulmonary secondary to shortness of breath and wheezing Hold potassium supplementation secondary to hyperkalemia Further recommendations pending patient course Nurse practitioner note has been reviewed by physician. Signing provider agrees with the documented findings, assessment, and plan of care. Past Medical History Past Medical History: Coronary Artery Disease (CAD), COPD, Hyperlipidemia, Hypertension, Myocardial Infarction ([place]) Additional Past Medical History / Comment(s): Coronary artery disease, previous bypass surgery ten years ago, COPD maintenance Symbicort on outpatient basis, gout, AAA NOT SURE OF SIZE Last Myocardial Infarction Date:: 2016 History of Any Multi-Drug Resistant Organisms: None Reported Past Surgical History: Cholecystectomy, Coronary Bypass/CABG, Heart Catheterization With Stent, Hysterectomy Additional Past Surgical History / Comment(s): Coronary artery bypass surgery- triple, cardiac catheterization and angioplasty and stenting of the saphenous vein graft to obtuse marginal branch.CATARACTS, "stent in groin" Past Anesthesia/Blood Transfusion Reactions: No Reported Reaction, Motion Sickness Additional Past Anesthesia/Blood Transfusion Reaction / Comment(s): Pt states she has received blood without reaction. Date of Last Stent Placement:: 01/02/19 Past Psychological History: No Psychological Hx Reported Additional Psychological History / Comment(s): . Smoking Status: Never smoker Past Alcohol Use History: None Reported Additional Past Alcohol Use History / Comment(s): Pt started smoking in 1961 and quit in the 1986 Past Drug Use History: None Reported - Past Family History Father Family Medical History: Coronary Artery Disease (CAD), Myocardial Infarction ([place]) Additional Family Medical History / Comment(s): Father of a NE at the age of 72 yrs. Mother Family Medical History: No Reported History Additional Family Medical History / Comment(s): Pt states her mother was healthy and at the age of 84 yrs. Medications and Allergies Home Medications Medication Instructions Recorded Confirmed Type Aspirin [Adult Low Dose Aspirin EC] 81 mg PO DAILY@79902/15/17 04/04/21 History Nitroglycerin Sl Tabs [Nitrostat] 0.4 mg SL Q5M PRN 02/15/17 04/04/21 History Sacubitril/Valsartan [Entresto 24 1 tab PO BID@799,199912/26/18 04/04/21 History mg-26 mg Tablet] Acetaminophen Tab [Tylenol] 650 mg PO Q6H PRN 04/04/21 04/04/21 History Albuterol Nebulized [Ventolin 2.5 mg INHALATION RT-Q8H 04/04/21 04/04/21 History Nebulized] Atorvastatin [Lipitor] 80 mg PO HS@199904/04/21 04/04/21 History Calcium Carbonate/Vitamin D3 1 tab PO DAILY@79904/04/21 04/04/21 History [Calcium 600 mg-Vit D3 5 mcg (200 unit)] Cholecalciferol [Vitamin D3 (25 50 mcg PO DAILY@79904/04/21 04/04/21 History Mcg = 1000 Iu)] Clopidogrel [Plavix] 75 mg PO DAILY@79904/04/21 04/04/21 History Furosemide [Lasix] 20 mg PO DAILY@79904/04/21 04/04/21 History Ipratropium Nebulized [Atrovent 0.5 mg INHALATION RT-QID 04/04/21 04/04/21 History Nebulized 0.2 MG/ML] Isosorbide Mononitrate ER [Imdur] 30 mg PO DAILY@79904/04/21 04/04/21 History Potassium Chloride ER [K-Dur 10] 10 meq PO BID@799,199904/04/21 04/04/21 History carvediloL [Coreg] 3.125 mg PO BID@799,199904/04/21 04/04/21 History guaiFENesin [Mucinex] 600 mg PO Q12H PRN 04/04/21 04/04/21 History Allergies Allergy/AdvReac Type Severity Reaction Status Date / Time oxybutynin Allergy SEE Verified 04/04/21 07:29 COMMENTS sulfamethoxazole Allergy SEE Verified 04/04/21 07:29 [From Bactrim] COMMENTS trimethoprim [From Bactrim] Allergy SEE Verified 04/04/21 07:29 COMMENTS morphine AdvReac Confusion Verified 04/04/21 07:29 Physical Exam Vitals: Vital Signs Temp Pulse Pulse Resp BP BP Pulse Ox 04/04/21 08:22 84 04/04/21 08:15 80 97 04/04/21 08:00 22 04/04/21 07:41 97.7 F 70 22 166/77 91 L 04/04/21 06:23 97.8 F 70 17 126/84 96 04/04/21 05:42 84 16 131/72 97 04/04/21 04:55 80 18 128/60 92 L 04/04/21 03:05 67 16 140/93 99 Intake and Output 04/03/21 04/04/21 04/04/21 22:59 06:59 14:59 Other: Voiding Method Diaper # Voids 1 Weight 61.235 kg 61.235 kg Results 04/04/21 03:56 04/04/21 03:56 Cardiac Enzymes 04/04/21 04/04/21 04/04/21 Range/Units 03:56 03:56 05:43 AST 27 (14-36) U/L Troponin I <0.012 <0.012 (0.000-0.034) ng/mL Coagulation 04/04/21 Range/Units 03:56 PT 11.2 (9.0-12.0) sec APTT 22.5 (22.0-30.0) sec CBC 04/04/21 Range/Units 03:56 WBC 8.4 (3.8-10.6) k/uL RBC 3.90 (3.80-5.40) m/uL Hgb 11.7 (11.4-16.0) gm/dL Hct 35.9 (34.0-46.0) % Plt Count 163 (150-450) k/uL Comprehensive Metabolic Panel 04/04/21 Range/Units 03:56 Sodium 138 (137-145) mmol/L Potassium 5.5 H (3.5-5.1) mmol/L Chloride 106 (98-107) mmol/L Carbon Dioxide 26 (22-30) mmol/L BUN 30 H (7-17) mg/dL Creatinine 1.30 H (0.52-1.04) mg/dL Glucose 102 H (74-99) mg/dL Calcium 8.8 (8.4-10.2) mg/dL AST 27 (14-36) U/L ALT 12 (4-34) U/L Alkaline Phosphatase 41 (38-126) U/L Total Protein 6.4 (6.3-8.2) g/dL Albumin 3.2 L (3.5-5.0) g/dL Current Medications Generic Name Dose Route Start Last Admin Trade Name Freq PRN Reason Stop Dose Admin Acetaminophen 650 mg 04/04/21 09:54 Acetaminophen Tab 325 Mg Tab PO Q6H PRN Mild Pain Albuterol Sulfate 2.5 mg 04/04/21 05:49 Albuterol Nebulized 2.5 Mg/3 Ml INHALATION RT-QID PRN Shortness Of Breath Or Wheezing Albuterol/Ipratropium 3 ml 04/04/21 12:00 04/04/21 11:33 Ipratropium-Albuterol 3 Ml Neb INHALATION 3 ml RT-QID [facility] Administration Aspirin 81 mg 04/05/21 08:00 Aspirin 81 Mg PO DAILY@0800 [facility] Atorvastatin Calcium 80 mg 04/04/21 20:00 Atorvastatin 80 Mg Tab PO HS@1999 [facility] Calcium Carbonate 1 each 04/05/21 08:00 Calcium Carb-Vit D 500 Mg-5 Mcg Tab PO DAILY@08 [facility] Carvedilol 3.125 mg 04/04/21 20:00 Carvedilol 3.125 Mg Tab PO BID@799,1999 [facility] Cholecalciferol 50 mcg 04/05/21 08:00 Cholecalciferol 25 Mcg (1000 Iu) Tablet PO DAILY@0800 [facility] Clopidogrel Bisulfate 75 mg 04/05/21 08:00 Clopidogrel 75 Mg Tab PO DAILY@0800 [facility] Furosemide 20 mg 04/05/21 08:00 Furosemide 20 Mg Tab PO DAILY@0800 [facility] Isosorbide Mononitrate 60 mg 04/05/21 08:00 Isosorbide Mononitrate Er 60 Mg Tab.Er.24h PO DAILY@0800 [facility] Nitroglycerin 0.4 mg 04/04/21 05:10 Nitroglycerin Sl Tabs 0.4 Mg Tab SUBLINGUAL Q5M PRN Chest Pain Potassium Chloride 10 meq 04/04/21 20:00 Potassium Chloride Er 10 Meq Tab.Er.Prt PO BID@ [facility] Sacubitril/Valsartan 1 each 04/04/21 20:00 04/04/21 09:56 Sacubitril/Valsartan 24 Mg-26 Mg Tablet PO 1 each BID@ [facility] Administration Intake and Output 04/03/21 04/04/21 04/04/21 22:59 06:59 14:59 Other: Voiding Method Diaper # Voids 1 Weight 61.235 kg 61.235 kg Patient Weight 04/05/21 06:59 Weight 61.235 kg 04/04/21 03:56 04/04/21 03:56
[2021-04-04] MEDS ORDERED: IPRATROPIUM 0.5 MG/2.5 ML NEBU INHALATION SCH (12:00)
--- NOTE | 2021-04-04 12:37 | P.CNPUL ---
History of Present Illness Consult date: 04/04/21 Requesting physician: Jose Quintana Reason for consult: dyspnea, chest pain Chief complaint: Chest pain History of present illness: This is a very pleasant 89-year-old female patient who follows with Dr. Quintana as her primary care provider. She resides in an extended care facility. She has a history of coronary disease with previous coronary artery bypass grafting over 12 years ago and previous stenting of the SVG to the OM branch. She has a history of chronic diastolic congestive heart failure, hypertension, hyperlipidemia, chronic kidney disease stage III, abdominal aortic aneurysm, peripheral vascular disease. She does have chronic obstructive pulmonary disease and chronic hypoxemic respiratory failure from previous chronic tobacco dependence. She presented here to the emergency room yesterday with complaints of chest pain. She said this was a somewhat of a sharp stabbing pain lasting approximate 2-3 minutes. She said it was quite painful. She does have some chest wall tenderness. The pain has come and goes. She denies any shortness of breath, cough or congestion. No fever, chills or night sweats. White count 8.4. Hemoglobin 11.7. Sodium 1:30. Potassium 5.5. Creatinine 1.30. Troponins are negative 4. EKG reveals sinus rhythm with no significant ST or T wave abnormalities. Chest x-ray reveals no acute pulmonary process. Review of Systems REVIEW OF SYSTEMS: CONSTITUTIONAL: Denies any recent significant weight loss or weight gain. EYES: Denies change in vision. EARS, NOSE, MOUTH, THROAT: Denies headaches, denies sore throat. CARDIOVASCULAR: Positive for chest pain, no palpitations or syncopal episodes. RESPIRATORY: Denies shortness of breath, cough, congestion or hemoptysis. GASTROINTESTINAL: Denies change in appetite, denies abdominal pain GENITOURINARY: Denies hematuria, denies infections. MUSKULOSKELETAL: Denies pain, denies swelling. INTEGUMENTARY: Denies rash, denies eczema. NEUROLOGICAL: Denies recent memory loss, no recent seizure activity. PSYCHIATRIC: Denies anxiety, denies depression. HEMATOLOGIC/LYMPHATIC: Denies anemia, denies enlarged lymph nodes. Past Medical History Past Medical History: Coronary Artery Disease (CAD), COPD, Hyperlipidemia, Hyper tension, Myocardial Infarction ([place]) Additional Past Medical History / Comment(s): Coronary artery disease, previous bypass surgery ten years ago, COPD maintenance Symbicort on outpatient basis, gout, AAA NOT SURE OF SIZE Last Myocardial Infarction Date:: 2016 History of Any Multi-Drug Resistant Organisms: None Reported Past Surgical History: Cholecystectomy, Coronary Bypass/CABG, Heart Catheteriz ation With Stent, Hysterectomy Additional Past Surgical History / Comment(s): Coronary artery bypass surgery- triple, cardiac catheterization and angioplasty and stenting of the saphenous vein graft to obtuse marginal branch.CATARACTS, "stent in groin" Past Anesthesia/Blood Transfusion Reactions: No Reported Reaction, Motion Sickness Additional Past Anesthesia/Blood Transfusion Reaction / Comment(s): Pt states she has received blood without reaction. Date of Last Stent Placement:: 01/02/19 Past Psychological History: No Psychological Hx Reported Additional Psychological History / Comment(s): . Smoking Status: Never smoker Past Alcohol Use History: None Reported Additional Past Alcohol Use History / Comment(s): Pt started smoking in 1961 and quit in the 1986 Past Drug Use History: None Reported - Past Family History Father Family Medical History: Coronary Artery Disease (CAD), Myocardial Infarction ([place]) Additional Family Medical History / Comment(s): Father of a DE at the age of 72 yrs. Mother Family Medical History: No Reported History Additional Family Medical History / Comment(s): Pt states her mother was healthy and at the age of 84 yrs. Medications and Allergies Home Medications Medication Instructions Recorded Confirmed Type Aspirin [Adult Low Dose Aspirin EC] 81 mg PO DAILY@79902/15/17 04/04/21 History Nitroglycerin Sl Tabs [Nitrostat] 0.4 mg SL Q5M PRN 02/15/17 04/04/21 History Sacubitril/Valsartan [Entresto 24 1 tab PO BID@799,199912/26/18 04/04/21 History mg-26 mg Tablet] Acetaminophen Tab [Tylenol] 650 mg PO Q6H PRN 04/04/21 04/04/21 History Albuterol Nebulized [Ventolin 2.5 mg INHALATION RT-Q8H 04/04/21 04/04/21 History Nebulized] Atorvastatin [Lipitor] 80 mg PO HS@199904/04/21 04/04/21 History Calcium Carbonate/Vitamin D3 1 tab PO DAILY@79904/04/21 04/04/21 History [Calcium 600 mg-Vit D3 5 mcg (200 unit)] Cholecalciferol [Vitamin D3 (25 50 mcg PO DAILY@79904/04/21 04/04/21 History Mcg = 1000 Iu)] Clopidogrel [Plavix] 75 mg PO DAILY@79904/04/21 04/04/21 History Furosemide [Lasix] 20 mg PO DAILY@79904/04/21 04/04/21 History Ipratropium Nebulized [Atrovent 0.5 mg INHALATION RT-QID 04/04/21 04/04/21 History Nebulized 0.2 MG/ML] Isosorbide Mononitrate ER [Imdur] 30 mg PO DAILY@79904/04/21 04/04/21 History Potassium Chloride ER [K-Dur 10] 10 meq PO BID@799,199904/04/21 04/04/21 History carvediloL [Coreg] 3.125 mg PO BID@799,199904/04/21 04/04/21 History guaiFENesin [Mucinex] 600 mg PO Q12H PRN 04/04/21 04/04/21 History Allergies Allergy/AdvReac Type Severity Reaction Status Date / Time oxybutynin Allergy SEE Verified 04/04/21 07:29 COMMENTS sulfamethoxazole Allergy SEE Verified 04/04/21 07:29 [From Bactrim] COMMENTS trimethoprim [From Bactrim] Allergy SEE Verified 04/04/21 07:29 COMMENTS morphine AdvReac Confusion Verified 04/04/21 07:29 Physical Exam Vitals: Vital Signs Temp Pulse Pulse Resp BP BP BP 04/04/21 11:48 70 142/52 04/04/21 11:43 82 04/04/21 11:36 86 04/04/21 08:22 84 04/04/21 08:15 80 04/04/21 08:00 22 04/04/21 07:41 97.7 F 70 22 166/77 04/04/21 06:23 97.8 F 70 17 126/84 04/04/21 05:42 84 16 131/72 04/04/21 04:55 80 18 128/60 04/04/21 03:05 67 16 140/93 Pulse Ox 04/04/21 11:48 04/04/21 11:43 04/04/21 11:36 04/04/21 08:22 04/04/21 08:15 97 04/04/21 08:00 04/04/21 07:41 91 L 04/04/21 06:23 96 04/04/21 05:42 97 04/04/21 04:55 92 L 04/04/21 03:05 99 Intake and Output 04/03/21 04/04/21 04/04/21 22:59 06:59 14:59 Other: Voiding Method Diaper # Voids 1 Weight 61.235 kg 61.235 kg GENERAL EXAM: Alert, pleasant 89-year-old female patient, on 2 L nasal cannula with O2 saturation 97%, comfortable in no apparent distress. HEAD: Normocephalic. EYES: Normal reaction of pupils, equal size. NOSE: Clear with pink turbinates. THROAT: No erythema or exudates. NECK: No masses, no JVD. CHEST: No chest wall deformity. Chest wall tenderness to palpation. LUNGS: Equal air entry with no crackles, wheeze, rhonchi or dullness. CVS: S1 and S2 normal with no audible murmur, regular rhythm. ABDOMEN: No hepatosplenomegaly, normal bowel sounds, no guarding or rigidity. SPINE: No scoliosis or deformity SKIN: No rashes CENTRAL NERVOUS SYSTEM: No focal deficits, tone is normal in all 4 extremities. EXTREMITIES: There is no peripheral edema. No clubbing, no cyanosis. Peripheral pulses are intact. Results - Laboratory Findings CBC and BMP: 04/04/21 03:56 04/04/21 03:56 PT/INR, D-dimer PT 11.2 sec (9.0-12.0) 04/04/21 03:56 INR 1.1 (<1.2) 04/04/21 03:56 Abnormal lab findings: Abnormal Labs 04/04/21 03:56 Potassium 5.5 H BUN 30 H Creatinine 1.30 H Glucose 102 H Albumin 3.2 L - Diagnostic Findings Chest x-ray: image reviewed Assessment and Plan Assessment: 1 Atypical chest pain 2 History of coronary artery disease with previous coronary artery bypass grafting and subsequent stent placement to an SVG to the OM 3 Chronic obstructive pulmonary disease, currently inactive in stable 4 Remote history of chronic tobacco dependence 5 Hypertension 6 Hyperlipidemia 7 Abdominal aortic aneurysm 8 skilled nursing resident Plan: The patient was seen and evaluated by Dr. Benitez Chest x-ray and labs reviewed Continue DuoNeb inhalations Titrate Down the FiO2 as tolerated Cleared for discharge from pulmonary standpoint I, the cosigning physician, performed a history & physical examination of the patient. Lungs sounds are clear. Maintaining good O2 saturations in the 90s on 2 L/m per nasal cannula. I discussed the assessment and plan of care with my nurse practitioner, Talita Bell. I attest to the above consultation as dictated by her. Time with Patient: Greater than 30
--- NOTE | 2021-04-04 15:01 | ECHOF ---
Referral Reason:LV function, chest pain MEASUREMENTS -------- HEIGHT: 160.0 cm WEIGHT: 61.2 kg BP: RVIDd: 2.7 cm (< 3.3) IVSd: 1.2 cm (0.6 - 1.1) LVIDd: 4.2 cm (3.9 - 5.3) LVPWd: 1.5 cm (0.6 - 1.1) IVSs: 1.6 cm LVIDs: 3.3 cm LVPWs: 1.9 cm LAESV Index (A-L): 28.61 ml/m Ao Diam: 3.3 cm (2.0 - 3.7) AV Cusp: 1.7 cm (1.5 - 2.6) MV EXCURSION: 14.230 mm (> 18.000) MV EF SLOPE: 50 mm/s (70 - 150) MV E Pierre: 0.46 m/s MV DecT: 379 ms MV A Pierre: 1.24 m/s MV E/A Ratio: 0.37 RAP: 5.00 mmHg RVSP: 12.26 mmHg FINDINGS -------- Sinus rhythm. This was a technically good study. The left ventricular size is normal. There is mild concentric left ventricular hypertrophy. Overa ll left ventricular systolic function is normal with, an EF between 55 - 60 %. The right ventricle is normal in size. Normal LA size by volume 22+/-6 ml/m2. The right atrial size is normal. There is mild aortic valve sclerosis. There is mild aortic regurgitation. Mild mitral annular calcification present. Mild mitral regurgitation is present. Mild tricuspid regurgitation present. Right ventricular systolic pressure is normal at < 35 mmHg. There is no pulmonic regurgitation present. Echo free space represents a pericardial fat pad. CONCLUSIONS -------- 1. The left ventricular size is normal. 2. There is mild concentric left ventricular hypertrophy. 3. Overall left ventricular systolic function is normal with, an EF between 55 - 60 %. 4. The right ventricle is normal in size. 5. Normal LA size by volume 22+/-6 ml/m2. 6. The right atrial size is normal. 7. There is mild aortic valve sclerosis. 8. There is mild aortic regurgitation. 9. Mild mitral annular calcification present. 10. Mild mitral regurgitation is present. 11. Mild tricuspid regurgitation present. 12. Echo free space represents a pericardial fat pad. TECHNOLOGIES DIVISION CHAIR: Monica Chavez RDCS
[2021-04-04] MEDS: carvediloL 3.125 MG TAB PO SCH (19:39)
[2021-04-04] MEDS: ATORVASTATIN 80 MG TAB PO SCH (19:39)
[2021-04-04] MEDS ORDERED: POTASSIUM CHLORIDE ER 10 MEQ TAB.ER.PRT PO SCH (20:00)
[2021-04-05] MEDS ORDERED: ISOSORBIDE MONONITRATE ER 30 MG TAB.ER.24H PO SCH (08:00)
[2021-04-05] MEDS: CALCIUM CARB-VIT D 500 MG-5 MCG TAB PO SCH (08:20)
[2021-04-05] MEDS: ASPIRIN 81 MG PO SCH (08:20)
[2021-04-05] MEDS: carvediloL 3.125 MG TAB PO SCH ×2 (08:20→19:37)
[2021-04-05] MEDS: CLOPIDOGREL 75 MG TAB PO SCH (08:20)
[2021-04-05] MEDS: SACUBITRIL/VALSARTAN 24 MG-26 MG TABLET PO SCH ×2 (08:20→19:37)
[2021-04-05] MEDS: CHOLECALCIFEROL 25 MCG (1000 IU) TABLET PO SCH (08:20)
[2021-04-05] MEDS: IPRATROPIUM-ALBUTEROL 3 ML NEB INHALATION SCH ×4 (08:26→20:23)
[2021-04-05] MEDS ORDERED: ASPIRIN 325 MG TAB PO SCH (09:00)
[2021-04-05] MEDS ORDERED: ASPIRIN 81 MG PO SCH (09:00)
[2021-04-05 10:01] LABS: Anion Gap 5.1 mmol/L (4.00-12.00); BUN/Creat Ratio 21.25 Ratio (12.00-20.00); Calcium 8.6 mg/dL (8.7-10.3); Carbon Dioxide 26.9 mmol/L (21.6-31.8); Chol/HDL Ratio 3.59; LDL Cholesterol,Calculated 60.2 mg/dL (0.0-131.0); Non-African American GFR(CKD) 28.5 (60.0-200.0); VLDL Calculation 14.8 mg/dL (5.00-40.00)
--- NOTE | 2021-04-05 11:45 | PN ---
PROGRESS NOTE DATE OF SERVICE: 04/05/2021 CHIEF COMPLAINT: Chest pain and history of coronary artery disease and history of congestive heart failure. HISTORY OF PRESENT ILLNESS: This lady seems to be doing well and denies any further pain. Her enzymes have been normal. Vital signs are normal. PHYSICAL EXAMINATION: Color is good. Chest is clear. Cardiac exam is normal. Abdomen is soft, nontender. Extremities: Normal. IMPRESSION: 1. Chest pain. 2. History of coronary artery disease. 3. History of heart failure. PLAN: Increase activity and probably back to the alf tomorrow. MMODL / IJN: [id number] /
--- NOTE | 2021-04-05 12:37 | P.PN ---
Subjective Progress Note Date: 04/05/21 HISTORY OF PRESENT ILLNESS: This is a 89-year-old female with a past medical history significant for coronary artery disease with previous CABG and stenting, former nicotine dependence, hypertension, and hyperlipidemia. Patient follows in the office with Dr. Aguiar and was last seen in the office in August 2020. We have been asked to see the patient in consultation for chest pain. Patient examined at the bedside. Patient was brought from [facility] yesterday for chest pain. Patient denied any radiation of the pain. She states that the pain started while she was just sitting down not doing anything. She states he was in the left side of her chest. She denies feeling any shortness of breath with the pain. She denied any nausea or vomiting. She denied having worsening pain with palpation or with deep inspiration. EKG reveals sinus mechanism with nonspecific ST-T wave changes Chest xray subsegmental atelectasis appears mostly new compared to old exam. Normal heart. No heart failure. Laboratory data: WBC 8.4. Hemoglobin 11.7. Platelet count 163. Sodium 138. Potassium 5.5. BUN 30. Creatinine 1.30. Magnesium 1.9. Troponin negative 2. Current home cardiac medications include Coreg 3.125 mg twice a day, Imdur 30mg daily, Lasix 20 mg daily, Plavix 75 mg daily, Entresto 24-26mg BID, Lipitor 80 mg daily, and aspirin 81 mg daily Most recent echocardiogram obtained in 2018 revealed ejection fraction 50-55%. Mild mitral regurgitation. Mild tricuspid regurgitation. Cardiac catheterization history: December [address] Pepper revealing severe triple vessel coronary artery disease, patent DIETRICH to LAD, patent SVG to left circumflex, and occluded SVG to right coronary artery. Patient underwent stenting of the RCA. 04/05/2021 Patient examined this morning at the bedside. Patient denies any chest pain or pressure. She states her shortness of breath is better. The patient has less wheezing today on examination. Echocardiogram completed revealing ejection fraction 55-60%. Mild aortic regurgitation. Mild mitral regurgitation. Mild tricuspid regurgitation. Blood pressure this morning 115/58. PHYSICAL EXAM: VITAL SIGNS: Reviewed. GENERAL: Well-developed in no acute distress. HEENT: Head is normocephalic. Pupils are equal, round. Sclerae anicteric. Mucous membranes of the mouth are moist. Neck supple. No JVD or thyromegaly LUNGS: Respirations even and unlabored. Lungs diminished. HEART: Regular rate and rhythm. S1 and S2 heard. ABDOMEN: Soft. Nondistended. Nontender. EXTREMITIES: Normal range of motion. No clubbing or cyanosis. Peripheral pulses intact. No lower extremity edema NEUROLOGIC: Awake and alert. Oriented x 3. ASSESSMENT: Chest pain Coronary artery disease with previous CABG and stenting Hypertension Hyperlipidemia Former nicotine dependence Hyperkalemia PLAN: Continue current cardiac medications Hold potassium supplementation secondary to hyperkalemia Stable for discharge from a cardiac standpoint. Patient to follow up outpatient with Dr. Aguiar Further recommendations pending patient course Nurse practitioner note has been reviewed by physician. Signing provider agrees with the documented findings, assessment, and plan of care. Objective - Vital Signs Vital signs: Vital Signs Temp 97.9 F 04/05/21 07:00 Pulse 56 L 04/05/21 07:00 Resp 18 04/05/21 08:00 BP 115/58 04/05/21 07:00 Pulse Ox 95 04/05/21 07:00 Intake & Output 04/04/21 04/05/21 04/05/21 18:59 06:59 18:59 Intake Total 100 90 Balance 100 90 Weight 61.235 kg Intake: Oral 100 90 Other: Voiding Method Diaper Diaper Diaper # Voids 2 2 - Labs CBC & Chem 7: 04/04/21 03:56 04/05/21 04:11 Labs: Abnormal Lab Results - Last 24 Hours (Table) 04/05/21 Range/Units 04:11 BUN 34.0 H (9.0-27.0) mg/dL Creatinine 1.6 H (0.6-1.5) mg/dL Est GFR (CKD-EPI)AfAm 33.0 L (60.0-200.0) Est GFR (CKD-EPI)NonAf 28.5 L (60.0-200.0) BUN/Creatinine Ratio 21.25 H (12.00-20.00) Ratio Glucose 118 H (70-110) mg/dL Calcium 8.6 L (8.7-10.3) mg/dL HDL Cholesterol 29.0 L (40.0-60.0) mg/dL
[2021-04-05] MEDS: ISOSORBIDE MONONITRATE ER 60 MG TAB.ER.24H PO SCH (12:50)
[2021-04-05] MEDS: FUROSEMIDE 20 MG TAB PO SCH (12:51)
--- NOTE | 2021-04-05 19:24 | HP ---
HISTORY AND PHYSICAL CHIEF COMPLAINT: Chest pain. HISTORY OF PRESENT ILLNESS: This is another of many admissions for this 89-year-old white female who has a history of long-standing issues with coronary artery disease and heart failure. She resides in a [facility] and started to complain of sharp mid anterior chest pain for which she was sent to the hospital. She had no vomiting, fever, chills, cough, diaphoresis, shortness of breath, etc. REVIEW OF SYSTEMS: Otherwise normal. She has had no neurologic problems, abdominal pain, vomiting, diarrhea, urinary complaints, etc. Past medical history, family history, personal and social histories can all be found in documents accompanying her from the [facility]. PHYSICAL EXAMINATION: Blood pressure is 145/89 with a pulse 78, respirations of 15 and she is afebrile. In GENERAL, she appeared to be very well developed, well nourished and well preserved for her age. HEAD, ears, eyes, nose, mouth and throat were normal. NECK veins are not distended. CHEST is clear to auscultation. CARDIAC exam demonstrates sinus rhythm with no murmurs or extra sounds. ABDOMEN is soft, nontender without any visceromegaly or masses. Bowel sounds present. EXTREMITIES normal. NEUROLOGICALLY she is intact. IMPRESSION: She is admitted to the hospital with diagnoses: 1. Unstable angina. 2. Coronary artery disease. 3. Atherosclerotic cardiovascular disease. 4. History of heart failure. PLAN: 1. Bedrest. 2. IV fluids. 3. Serial EKGs and enzymes. 4. Cardiology consult. 5. Consider adding Ranexa. MMODL / IJN: [id number] /
[2021-04-05] MEDS: ATORVASTATIN 80 MG TAB PO SCH (19:37)
[2021-04-06] MEDS: IPRATROPIUM-ALBUTEROL 3 ML NEB INHALATION SCH ×4 (07:38→19:03)
[2021-04-06] MEDS: ASPIRIN 81 MG PO SCH (08:12)
[2021-04-06] MEDS: CLOPIDOGREL 75 MG TAB PO SCH (08:12)
[2021-04-06] MEDS: CHOLECALCIFEROL 25 MCG (1000 IU) TABLET PO SCH (08:12)
[2021-04-06] MEDS: FUROSEMIDE 20 MG TAB PO SCH (08:13)
[2021-04-06] MEDS: carvediloL 3.125 MG TAB PO SCH (08:13)
[2021-04-06] MEDS: ISOSORBIDE MONONITRATE ER 60 MG TAB.ER.24H PO SCH (08:13)
[2021-04-06] MEDS: CALCIUM CARB-VIT D 500 MG-5 MCG TAB PO SCH (08:14)
[2021-04-06] MEDS: SACUBITRIL/VALSARTAN 24 MG-26 MG TABLET PO SCH ×2 (08:14→19:55)
--- NOTE | 2021-04-06 15:05 | DS ---
DISCHARGE SUMMARY CHIEF COMPLAINT: Chest pain. HISTORY OF PRESENT ILLNESS AND PHYSICAL EXAMINATION: Details of this lady's history and physical can be found in the initial workup. LABORATORY STUDIES: While she has in the hospital, she had laboratory studies that can be found in the laboratory section of her chart and included further troponins which were negative. COURSE IN THE HOSPITAL: After admission, she was initially placed on bedrest and workup was begun. She was seen by Pulmonology and Cardiology. Troponins remained negative. She had no further chest pain. She remained stable. She was doing well and it was felt that she could be returned to the [facility] on her usual activity, diet, medication, but she will have Ranexa 500 mg twice a day, added to her regimen. FINAL DIAGNOSES: 1. Chest pain, possibly not cardiac. 2. Coronary artery disease. 3. History of unstable angina pectoris. 4. Hypertension. OPERATIONS: None. CONSULTATIONS: Cardiology and pulmonology. She is improved. MMERIK / LUISN: [id number] /
--- NOTE | 2021-04-06 15:56 | DS ---
DISCHARGE SUMMARY DATE OF SERVICE: 04/06/2021 CHIEF COMPLAINT: Chest pain. HISTORY OF PRESENT ILLNESS AND PHYSICAL EXAMINATION: Details of this lady's history and physical can be found in the initial workup. LABORATORY STUDIES: While she was in the hospital, she had laboratory studies, details of which can be found in the laboratory section of her chart. COURSE IN THE HOSPITAL: After admission, she was placed on bedrest and started on intravenous fluids and she had serial EKGs and enzymes. She was seen by Pulmonology and Cardiology. Enzymes are normal. It was not felt that her pain was likely cardiac or that she would needed any further intervention. It was felt she could go back to the [facility] on her usual medications, but Ranexa will be added. FINAL DIAGNOSES: 1. Chest pain. 2. Coronary artery disease. 3. History of unstable angina pectoris. 4. Hypertension. OPERATIONS: None. CONSULTATIONS: Cardiology and pulmonology. She is improved. MMERIK / LUISN: [id number] /
[2021-04-06] MEDS: ATORVASTATIN 80 MG TAB PO SCH (19:55)
[2021-04-06] MEDS: RANOLAZINE 500 MG TAB.ER.12H PO SCH (19:56)
[2021-04-07] MEDS: IPRATROPIUM-ALBUTEROL 3 ML NEB INHALATION SCH ×3 (07:56→16:15)
[2021-04-07 08:01] VITALS: RESP 16
[2021-04-07] MEDS: CLOPIDOGREL 75 MG TAB PO SCH (08:29)
[2021-04-07] MEDS: ASPIRIN 81 MG PO SCH (08:29)
[2021-04-07] MEDS: CALCIUM CARB-VIT D 500 MG-5 MCG TAB PO SCH (08:29)
[2021-04-07] MEDS: RANOLAZINE 500 MG TAB.ER.12H PO SCH (08:30)
[2021-04-07] MEDS: FUROSEMIDE 20 MG TAB PO SCH (08:30)
[2021-04-07] MEDS: ISOSORBIDE MONONITRATE ER 60 MG TAB.ER.24H PO SCH (08:30)
[2021-04-07] MEDS: CHOLECALCIFEROL 25 MCG (1000 IU) TABLET PO SCH (08:30)
[2021-04-07] MEDS: SACUBITRIL/VALSARTAN 24 MG-26 MG TABLET PO SCH (08:30)
[2021-04-07 14:42] VITALS: BP 121/62; TEMP 98.2
[2021-04-07 16:25] VITALS: PULSE 67
--- NOTE | 2021-04-07 16:56 | DS ---
DISCHARGE SUMMARY CHIEF COMPLAINT: Chest pain. HISTORY OF PRESENT ILLNESS AND PHYSICAL EXAMINATION: Details of this lady's history and physical can be found in the initial workup. LABORATORY STUDIES: While she was in the hospital she had laboratory studies, details of which can be found in the laboratory section of her chart. COURSE IN THE HOSPITAL: After admission she was placed on bedrest, started on intravenous fluids and troponins were all normal. She was seen by Cardiology, who recommended no further intervention. It was felt that she could go back to her detention on Tuesday, but she had developed a hypotension. This was asymptomatic. During her hospitalization, she complained about the detention that she was in and wanted to be transferred to another one. Paraprofessional Education Assistant was contacted who in turn contacted the daughter who is the POA and said that she will be going back to [place]. Blood pressure was up and she was doing well and awake and alert. It was felt she will go back. She will go back on her usual activity, diet, medications with the addition of Ranexa 500 mg twice a day. FINAL DIAGNOSIS: 1. Unstable angina pectoris. 2. Coronary artery disease. 3. Hypertension. OPERATIONS: None. CONSULTATION: Cardiology. She is improved. MMODL / IJN: [id number] /
--- NOTE | 2021-04-07 22:54 | PN ---
PROGRESS NOTE DATE OF SERVICE: 04/06/2021 CHIEF COMPLAINT: Unstable angina. HISTORY OF PRESENT ILLNESS: This lady is somewhat lethargic and her blood pressure is down to 90. It vacillates and does go down from time to time. Some of her medication dosages have been decreased and we will [facility] back [facility] and follow her blood pressure in the next 24 hours. MMODL / IJN: [id number] /
== END 2021-04-07 16:40 ==
LOC: EC 03:01 → 6NMEDSUR 05:11
PROVIDERS: ADMIT Family Medicine; ATTEND Family Medicine
DX: I25.110 Atherosclerotic heart disease of native coronary artery with unstable angina pectoris (principal); E78.5 Hyperlipidemia, unspecified; E87.5 Hyperkalemia; I13.0 Hypertensive heart and chronic kidney disease with heart failure and stage 1 through stage 4 chronic kidney disease, or unspecified chronic kidney disease; I25.2 Old myocardial infarction; I50.32 Chronic diastolic (congestive) heart failure; I71.4 Abdominal aortic aneurysm, without rupture; I73.9 Peripheral vascular disease, unspecified; J44.9 Chronic obstructive pulmonary disease, unspecified; J96.11 Chronic respiratory failure with hypoxia; J98.11 Atelectasis; N18.30 Chronic kidney disease, stage 3 unspecified; Z79.02 Long term (current) use of antithrombotics/antiplatelets; Z79.51 Long term (current) use of inhaled steroids; Z79.82 Long term (current) use of aspirin; Z79.899 Other long term (current) drug therapy; Z82.49 Family history of ischemic heart disease and other diseases of the circulatory system; Z87.891 Personal history of nicotine dependence; Z90.710 Acquired absence of both cervix and uterus; Z95.1 Presence of aortocoronary bypass graft; Z95.5 Presence of coronary angioplasty implant and graft
CPT/HCPCS: 99285; 36415; 94640 ×7; 94760 ×2; 93005; 93306; 80061; 80053; 80048; 83735; 84484; 85025; 85610; 85730; 71045; G0378 ×4; J7512